=== PATIENT | female | born 1960 | race Caucasian/White ===

== ENCOUNTER 2021-09-15 08:33 | Outpatient (REF) | payer BC, SELFPAY ==
--- NOTE | ~2021-09-15 | XR_ITS ---
EXAMINATION: XR RIGHT ANKLE/FOOT CLINICAL INFORMATION: Charcot joint COMPARISON: None TECHNIQUE: AP, oblique views of the right ankle AP, oblique and lateral views of the right foot XR/XR ankle RT 2V FINDINGS/IMPRESSION: Status post subtalar arthrodesis and midfoot arthrodesis with 2 screws each within the mid foot and hindfoot. Again seen is collapse of the subtalar joint with destruction, disorganization and debris about the tibiotalar and subtalar articulations. There is dorsal subluxation of the navicular with respect to the talus. Tarsometatarsal articulations are intact. Diffuse soft tissue swelling. Stimulator device present within the lower leg with leads terminating along the anterolateral aspect of the fibular epiphysis. Healed fracture of the distal fibular diaphysis
--- NOTE | ~2021-09-15 | XR_ITS ---
EXAMINATION: XR RIGHT ANKLE/FOOT CLINICAL INFORMATION: Charcot joint COMPARISON: None TECHNIQUE: AP, oblique views of the right ankle AP, oblique and lateral views of the right foot XR/XR foot RT min 3V FINDINGS/IMPRESSION: Status post subtalar arthrodesis and midfoot arthrodesis with 2 screws each within the mid foot and hindfoot. Again seen is collapse of the subtalar joint with destruction, disorganization and debris about the tibiotalar and subtalar articulations. There is dorsal subluxation of the navicular with respect to the talus. Tarsometatarsal articulations are intact. Diffuse soft tissue swelling. Stimulator device present within the lower leg with leads terminating along the anterolateral aspect of the fibular epiphysis. Healed fracture of the distal fibular diaphysis
[2021-09-15 11:50] LABS: Hematocrit 34.5 % (37.0-47.0); Mean Corpuscular HGB Conc 31.9 g/dl (31.0-35.0); Mean Corpuscular Hemoglobin 29.8 pg (27.0-33.0); Mean Corpuscular Volume 93.5 fL (80.0-98.0); Mean Platelet Volume 10.3 fL (9.4-12.3); Platelet Count 325 X10*3/uL (160-400); Red Blood Count 3.69 X10*6/uL (4.20-5.50); Red Cell Distribution Width 12.5 % (11.0-16.0); White Blood Count 8.1 X10*3/uL (4.8-10.8)
[2021-09-15 11:51] LABS: Estimated Average Glucose 203 mg/dL; Hemoglobin A1c % 8.7 %
[2021-09-15 12:07] LABS: Alanine Aminotransferase 15 U/L (0-31); Albumin Level 4.1 g/dL (3.5-5.0); Alkaline Phosphatase 104 U/L (39-117); Anion Gap 13 (12-20); Aspartate Amino Transferase 17 U/L (5-31); Bilirubin Total 0.5 mg/dL (0.0-1.0); Blood Urea Nitrogen 26 mg/dL (9-16); Calcium 9.6 mg/dL (8.4-10.2); Carbon Dioxide 26 mmol/L (22-29); Chloride 98 mmol/L (96-108); Cholesterol 117 mg/dL; Estimated Glomerular Filt Rate 37; Glucose Fasting 177 mg/dL (60-99); HDL Cholesterol 48 mg/dL; LDL Cholesterol Calculated 54 mg/dl; Potassium 5.3 mmol/L (3.3-5.1); Sodium 132 mmol/L (135-145); Total Protein 7.6 g/dL (6.5-8.0); Triglycerides 77 mg/dL
[2021-09-15 12:16] LABS: TSH reflex Free T4 2.17 uIU/mL (0.32-4.0); Vitamin D 25-OH Total 23.9 ng/mL (>30)
[2021-09-15 12:26] LABS: Creatinine Urine 25.76 mg/dL; Microalbum/Creatinine Ratio Ur 364.9 ug/mg cr
== END 2021-09-15 08:34 | disposition home or self-care (01) ==
LOC: HO.HMGCLDS 08:33
PROVIDERS: Visit Provider Internal Medicine
DX: E11.319 Type 2 diabetes mellitus with unspecified diabetic retinopathy without macular edema (principal); M81.0 Age-related osteoporosis without current pathological fracture; N18.9 Chronic kidney disease, unspecified; M14.671 Charcot's joint, right ankle and foot
CPT/HCPCS: 36415; 73600; 73630; 80053; 80061; 82043; 82306; 83036; 84443; 85027

== ENCOUNTER 2021-10-01 06:52 | Outpatient (REF) | payer BC, SELFPAY ==
[2021-10-01 11:27] LABS: Anion Gap 11 (12-20); Blood Urea Nitrogen 27 mg/dL (9-16); Calcium 9.5 mg/dL (8.4-10.2); Carbon Dioxide 27 mmol/L (22-29); Chloride 105 mmol/L (96-108); Estimated Glomerular Filt Rate 39; Glucose Random 144 mg/dL (60-115); Sodium 138 mmol/L (135-145)
== END 2021-10-01 06:53 | disposition home or self-care (01) ==
LOC: HO.HMGCLDS 06:52
PROVIDERS: Visit Provider Internal Medicine
DX: E87.1 Hypo-osmolality and hyponatremia (principal)
CPT/HCPCS: 36415; 80048

== ENCOUNTER → 2021-11-26 13:41 | Outpatient (BNVA) | payer BC, SELFPAY | PROVIDERS: PCP Internal Medicine; Visit Provider Internal Medicine Endocrinology, Diabetes & Metabolism | DX: E10.319 Type 1 diabetes mellitus with unspecified diabetic retinopathy without macular edema (principal) | CPT/HCPCS: 82947 ==

== ENCOUNTER 2021-12-17 12:45 | Outpatient (REF) | payer BC, SELFPAY ==
--- NOTE | ~2021-12-17 | MM_ITS ---
EXAMINATION: BONE DENSITOMETRY CLINICAL INDICATION: Age-related osteoporosis without current pathological fracture. COMPARISON: This is the patient's baseline examination. TECHNIQUE: Using a [employer] DXA System (software version: 13.1) manufactured by [email or web address], dual-energy x-ray absorptiometry was performed of the lumbar spine and right hip. The patient has had a left hip fracture. The images are of good technical quality. Summary results are attached. FINDINGS: AP SPINE L1-L4: BMD 1.010 g/cm2, Z-score -0.8, T-score -1.4, osteopenia. RIGHT FEMUR, NECK: BMD 0.600 g/cm2, Z-score -2.3, T-score -3.1, osteoporosis. RIGHT FEMUR, TOTAL: BMD 0.596 g/cm2, Z-score -2.8, T-score -3.3, osteoporosis. IDENTIFIED RISK FACTORS: History of adult fracture. Osteoporosis. Renal disease. Height loss. Secondary osteoporosis (type 1 diabetes). Menopause. HISTORY OF FRACTURE: Femur/hip. Elbow. MEDICATIONS: Calcium supplement and/or multivitamin. Vitamin D. MM/XR DEXA axial skeleton IMPRESSION: 1. DIAGNOSIS: Severe osteoporosis based on the lowest T-score value of -3.3 in the total femur and the prior history of fracture applying World Health Organization criteria. 2. 10-YEAR FRACTURE RISK PREDICTION, FRAX: Major osteoporotic fracture (clinical spine, forearm, hip or shoulder) 25.7%. Hip fracture 8.0%. 3. Treatment Recommendations: NOF guidelines recommend consideration for treatment in postmenopausal women and men age 50 and older presenting with the following: -A hip or vertebral (clinical or morphometric) fracture. -T-score less than or equal to -2.5 at the femoral neck or spine after appropriate evaluation to exclude secondary causes. -Low bone mass at the hip or spine and a 10-year fracture probability by FRAX of greater than or equal to 3% for hip fracture or greater than or equal to 20% for major osteoporotic fracture based on the [place] adapted WHO algorithm. 4. Other Recommendations: All treatment decisions require clinical judgment and consideration of individual patient factors, including patient preferences, comorbidities, previous drug use, risk factors not captured in the FRAX model (e.g. frailty, falls, vitamin D deficiency, increased bone turnover, interval significant decline in bone density) and possible under or overestimation of fracture risk by FRAX. Additional medical evaluation for secondary cause of low bone mineral density may be appropriate. FUTURE SCAN RECOMMENDATION: People with diagnosed cases of osteoporosis or at high risk for fracture should have regular bone mineral density tests. For patients eligible for Medicare, routine testing is allowed once every 2 years. The testing frequency can be increased to one year for patients who have rapidly progressing disease, those who are receiving or discontinuing medical therapy to restore bone mass, or have additional risk factors.
== END 2021-12-17 12:46 | disposition home or self-care (01) ==
LOC: HO.MAMMO 12:45
PROVIDERS: Visit Provider Internal Medicine
DX: Z13.820 Encounter for screening for osteoporosis (principal); M81.0 Age-related osteoporosis without current pathological fracture; Z78.0 Asymptomatic menopausal state
CPT/HCPCS: 77080

== ENCOUNTER 2022-01-08 09:17 | Day surgery (SDC) | payer BC, SELFPAY ==
[2022-01-04 12:24] VITALS: BMI 33.7
--- NOTE | 2022-01-07 13:59 | P.CONAN_ITS ---
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 (Acute) DM (diabetes mellitus) type I controlled with eye manifestation (Acute) Hyponatremia (Acute) Vitamin D deficiency (Acute) Charcot arthropathy of midfoot (Acute) Osteoporosis (Acute) Abnormal colonoscopy (Acute) CKD (chronic kidney disease) (Acute) Past Medical History Medical History (Updated 11/18/21 @ 11:19 by Lizette Guillen PA-C) Abnormal colonoscopy Charcot arthropathy of midfoot CKD (chronic kidney disease) 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 DM (diabetes mellitus) type I controlled with eye manifestation Hyponatremia Osteoporosis Vitamin D deficiency Family History Family History Daughter Mental health disorder Surgical History Surgical History (Updated 01/04/22 @ 12:25 by Anita Melissa RN) H/O colonoscopy History of cholecystectomy History of hip surgery Hx of cataract surgery Social History Social History 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, 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 Housing: Apartment Patient Tobacco Use Status: Never used Tobacco e-Cigarette/Vaping Use: Never Used Use of substances other than those prescribed or required for medical reasons: No Are you DNR?: No Advance Directives: No Advance Directives Information Provided: Yes service: No Current occupational status: employed Cognitive needs: No Hearing needs: No Vision needs: No Meds Allergies Allergy/AdvReac Type Severity Reaction Status Date / Time ciprofloxacin [From Cipro] AdvReac Swelling Verified 11/26/21 13:55 prochlorperazine AdvReac Muscle Pain Verified 11/26/21 13:55 [From Compazine] Home Medications Medication Instructions Recorded Confirmed Last Taken Type atorvastatin 80 mg tablet 80 mg PO DAILY 09/15/21 01/04/22 Unknown History infusion set for insulin pump 09/15/21 09/15/21 Unknown History metoprolol succinate 25 mg 25 mg PO DAILY 09/15/21 01/04/22 Unknown History tablet,extended release 24 hr Exam Exam Date and Time: January 07, 2022 1359 Height,Weight and Vital Signs: Height 5 ft 4 in Weight 89.358 kg Pertinent Lab Results Pertinent Lab Results: Laboratory Tests 09/15/21 10/01/21 08:45 07:00 WBC 8.1 Hgb 11.0 L Hct 34.5 L Plt Count 325 Sodium 138 Potassium 5.0 Chloride 105 Carbon Dioxide 27 BUN 27 H Creatinine 1.38 Assessment and Plan Assessment Anesthesia Assessment: Chart Reviewed Documented by User: Mary Flaherty MD 01/08/22 10:16 [facility] Past Medical History Medical History (Updated 11/18/21 @ 11:19 by Lizette Guillen PA-C) Abnormal colonoscopy Charcot arthropathy of midfoot CKD (chronic kidney disease) 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 DM (diabetes mellitus) type I controlled with eye manifestation Hyponatremia Osteoporosis Vitamin D deficiency Family History Family History Daughter Mental health disorder Family history of problems with anesthesia: No Surgical History Surgical History (Updated 01/04/22 @ 12:25 by Anita Melissa RN) H/O colonoscopy History of cholecystectomy History of hip surgery Hx of cataract surgery History of Problems with Anesthesia: No Social History 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 History 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, 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 Housing: Apartment Patient Tobacco Use Status: Never used Tobacco e-Cigarette/Vaping Use: Never Used Use of substances other than those prescribed or required for medical reasons: No Are you DNR?: No Advance Directives: No Advance Directives Information Provided: Yes service: No Current occupational status: employed Cognitive needs: No Hearing needs: No Vision needs: No Meds Allergies Allergy/AdvReac Type Severity Reaction Status Date / Time ciprofloxacin [From Cipro] AdvReac Swelling Verified 11/26/21 13:55 prochlorperazine AdvReac Muscle Pain Verified 11/26/21 13:55 [From Compazine] Home Medications Medication Instructions Recorded Confirmed Last Taken Type atorvastatin 80 mg tablet 80 mg PO DAILY 09/15/21 01/04/22 Unknown History infusion set for insulin pump 09/15/21 09/15/21 Unknown History metoprolol succinate 25 mg 25 mg PO DAILY 09/15/21 01/04/22 Unknown History tablet,extended release 24 hr Exam Height,Weight and Vital Signs: Height 5 ft 4 in Weight 89.358 kg Vital Signs Temp Pulse Resp BP Pulse Ox O2 Del Method 01/08/22 09:42 97.0 F 74 18 134/55 L 97 Room Air Narrative Narrative: POC 235mg/dl Airway Mallampati Class: II (Small mouth opening) TM Dist: >3cm Neck ROM: Full Loose/Missing/Broken Teeth: Yes (1 Broken bottom right and 1 broken bottom left. Some missing ) Heart: RRR Lungs: CTAB. Diminished Assessment and Plan Assessment Anesthesia Assessment: Anesthesia Plan Discussed Final Anesthetic Review Family History of Problems with Anesthesia: No History of Problems with Anesthesia: No NPO: Yes ASA Class: III Final Preanesthetic Review: No Changes in Pt Med Stat, Meds/Allgs Chart Reviewed, Consent Obtained/Reviewed and Anes Risks/Benef Reviewed Patient Risk: Intermediate Procedure Risk: Low Assessment/Block/Sedation in SS: Assess/Block/Sedation-SS Anesthetic Plan Anesthetic Plan: MAC: Disposition: Standard PACU
[2022-01-08 09:42] VITALS: BP 134/55; PULSE 74; RESP 18; TEMP 36.1; O2SAT 97
[2022-01-08] MEDS: Lactated Ringers 1,000 ML 100 ML IVCONT (09:49)
--- NOTE | 2022-01-08 09:52 | MHC.SHP ---
Pre-Procedural Eval Section A Date of Service: 01/08/22 The patient is an INPATIENT: No The History & Physical has been completed within 30 days and I have reviewed it.: No Section B Chief Complaint: abnormal finding Relevant Family History (Specify if Yes): No Relevant Social History: None Present Medications: see Short Stay Collaborative assessment Medical History: Significant History (Type 1 diabetes mellitus, gastroparesis) History of Previous Operations: Relevant previous surgery/procedure and date(s) (History of cholecystectomy History of hip surgery Hx of cataract surgery) Allergies: Allergies Allergy/AdvReac Type Severity Reaction Status Date / Time ciprofloxacin [From Cipro] AdvReac Swelling Verified 11/26/21 13:55 prochlorperazine AdvReac Muscle Pain Verified 11/26/21 13:55 [From Compazine] Review of Systems Sugical H&P ROS: Negative: Constitution, Cardiovascular, Respiratory and Gastrointestinal Exam Surgical H&P Exam: Normal: Heart, Normal: Lungs, Normal: Extremities and Normal: Abdomen Plan Diagnosis/Plan: Unchanged I have reviewed the history and physical and performed a pertinent physical examination on my patient. No changes have occurred unless specified.
--- NOTE | 2022-01-08 10:34 | PM.OP ---
Brief Operative Note Date of Service: 01/08/22 Pre-op diagnosis: Colon cancer screen, history of colon polyps Post-op diagnosis: other (Colon polyps, diverticulosis) Procedure: COLONOSCOPY TILL CECUM WITH BIOPSIES AND SNARE POLYPECTOMY Consent: Indications for the procedure and potential complications of bleeding, perforation, reaction to medications and missed diagnosis were discussed with the patient and informed consent was obtained. Instrument: Olympus PCF H 190 L variable stiffness pediatric colonoscope Monitoring: Vital signs and clinical assessment, intermittent blood pressure monitoring, continuous EKG monitoring, Pulse oximetry and Carbon Dioxide monitoring were done throughout the procedure. Colon withdrawl time was 20 minutes. Procedure: The patient was placed in the left lateral decubitis position and pre-procedure medications were administered. After a digital rectal examination of the ano-rectum, the video colonoscope was inserted into the rectum and advanced through the colon to the cecum. The colonoscope was slowly withdrawn in a retrograde panoramic fashion and the colon mucosa was carefully examined including a retroflexed view of the rectum. Findings and interventions are described below. Procedure Difficulty: Colon was long and tortuous and there was recurrent loop formation. LLQ pressure applied to intubate the transverse colon/cecum Findings: Terminal Ileum: Not evaluated Cecum: A 6-7 mm sessile polyp removed with a cold snare Ascending Colon: Normal Transverse Colon: Two 10-12 mm diminutive appearing polyp removed with a cold snare and a cold biopsy Descending Colon: Normal Sigmoid Colon: Moderate diverticulosis Rectum: Normal Ano-rectum: Normal Colon preparation: Excellent Impression and Post Procedure Diagnosis: Colonoscopy Findings: Three small to medium sized polyps removed Moderate diverticulosis seen in the sigmoid colon Plan: Await pathology results Patient has an appointment on 01/21/22 in the GI Clinic with HENRIQUE Law . Repeat Colonoscopy interval based on path results - in 3-5 years if polyps are adenomatous and 10 years if polyps are hyperplastic (needs adult colonoscope for future colonoscopies) Above findings were reviewed with the patient and colon polyps and diverticulosis handouts were given in the discharge area Surgeon: Vani Abel MD Anesthesia: MAC Was an Director Of Music Therapy used for this Procedure?: Yes Director Of Music Therapy: Socorro rBown Estimated blood loss (mL): 0 Pathology: other (A: cecal polyp B:transverse colon polyp) Condition: stable Disposition: PACU
--- NOTE | 2022-01-08 11:15 | P.OP_ITS ---
Operative Note Operative Note Date of Service: 01/08/22 Narrative: Pre-op diagnosis: Colon cancer screen, history of colon polyps Post-op diagnosis:?other (Colon polyps, diverticulosis) Procedure: COLONOSCOPY TILL CECUM WITH BIOPSIES AND SNARE POLYPECTOMY Consent: Indications for the procedure and potential complications of bleeding, perforation, reaction to medications and missed diagnosis were discussed with the patient and informed consent was obtained. Instrument: Olympus PCF H 190 L variable stiffness pediatric colonoscope Monitoring: Vital signs and clinical assessment, intermittent blood pressure monitoring, continuous EKG monitoring, Pulse oximetry and Carbon Dioxide monitoring were done throughout the procedure. Colon withdrawl time was 20 minutes. Procedure: The patient was placed in the left lateral decubitis position and pre-procedure medications were administered. After a digital rectal examination of the ano-rectum, the video colonoscope was inserted into the rectum and advanced through the colon to the cecum. The colonoscope was slowly withdrawn in a retrograde panoramic fashion and the colon mucosa was carefully examined including a retroflexed view of the rectum. Findings and interventions are described below. Procedure Difficulty: Colon was long and tortuous and there was recurrent loop formation.? LLQ pressure applied to intubate the transverse colon/cecum Findings: Terminal Ileum: Not evaluated Cecum:? A 6-7 mm sessile polyp removed with a cold snare Ascending Colon:? Normal Transverse Colon:? Two 10-12 mm diminutive appearing polyp removed with a cold snare and a cold biopsy Descending Colon:? Normal Sigmoid Colon:? Moderate diverticulosis Rectum:? Normal Ano-rectum:? Normal Colon preparation: Excellent ? Impression and Post Procedure Diagnosis: Colonoscopy Findings: Three small to medium sized polyps removed Moderate diverticulosis seen in the sigmoid colon Plan: Await pathology results Patient has an appointment on 01/21/22 in the GI Clinic with HENRIQUE Law ? . Repeat Colonoscopy interval based on path results - in 3-5 years if polyps are adenomatous and 10 years if polyps are hyperplastic (needs adult colonoscope for future colonoscopies) Above findings were reviewed with the patient and colon polyps and diverticulosis handouts were given in the discharge area Surgeon: Vani Abel MD Anesthesia:?MAC Was an Generator Assembler used for this Procedure?:?Yes Generator Assembler:?Socorro Brown Estimated blood loss (mL):?0 Pathology:?other (A: cecal polyp? B:transverse colon polyp) Condition:?stable Disposition:?PACU
[2022-01-08 11:17] VITALS: BP 87/41; PULSE 71; RESP 16; TEMP 36.7; O2SAT 96
[2022-01-08 11:32] VITALS: BP 109/53; PULSE 71; RESP 18; TEMP 36.7; O2SAT 100
== END 2022-01-08 12:15 | disposition home or self-care (01) ==
PROVIDERS: PCP Internal Medicine; Visit Provider Internal Medicine Gastroenterology
PROC: 0DJD8ZZ Inspection of Lower Intestinal Tract, Via Natural or Artificial Opening Endoscopic (ICD-10-PCS; CPT 45378; principal; 2022-01-08 10:00)
DX: Z12.11 Encounter for screening for malignant neoplasm of colon (principal); Z86.010 Personal history of colon polyps; D12.0 Benign neoplasm of cecum; K63.5 Polyp of colon; K57.30 Diverticulosis of large intestine without perforation or abscess without bleeding; K31.84 Gastroparesis; E10.22 Type 1 diabetes mellitus with diabetic chronic kidney disease; N18.9 Chronic kidney disease, unspecified; E10.319 Type 1 diabetes mellitus with unspecified diabetic retinopathy without macular edema; E87.1 Hypo-osmolality and hyponatremia; M14.672 Charcot's joint, left ankle and foot; M14.671 Charcot's joint, right ankle and foot; E55.9 Vitamin D deficiency, unspecified; M81.0 Age-related osteoporosis without current pathological fracture; Z96.41 Presence of insulin pump (external) (internal); Z79.4 Long term (current) use of insulin; Z79.899 Other long term (current) drug therapy; Z88.1 Allergy status to other antibiotic agents; Z88.8 Allergy status to other drugs, medicaments and biological substances; Z90.49 Acquired absence of other specified parts of digestive tract; Z98.890 Other specified postprocedural states
CPT/HCPCS: 45385; 45380; 88305; J2405; J2765

== ENCOUNTER → 2022-01-12 10:00 | Outpatient (BNVA) | payer BC, SELFPAY | PROVIDERS: PCP Internal Medicine; Visit Provider Dietitian, Registered | DX: E10.319 Type 1 diabetes mellitus with unspecified diabetic retinopathy without macular edema (principal) | CPT/HCPCS: 97802 ==

== ENCOUNTER → 2022-02-26 15:29 | Outpatient (BNVA) | payer BC, SELFPAY | PROVIDERS: PCP Internal Medicine; Visit Provider Internal Medicine Endocrinology, Diabetes & Metabolism | DX: Z46.81 Encounter for fitting and adjustment of insulin pump (principal); E10.319 Type 1 diabetes mellitus with unspecified diabetic retinopathy without macular edema; Z79.4 Long term (current) use of insulin | CPT/HCPCS: 82947; 83036 ==

== ENCOUNTER 2022-03-08 14:35 | Outpatient (REF) | payer BC, SELFPAY ==
--- NOTE | ~2022-03-08 | XR_ITS ---
EXAMINATION: XR TIBIA AND FIBULA, RIGHT CLINICAL INFORMATION: Stress fracture pain COMPARISON: 09/15/2021 TECHNIQUE: AP and lateral views of the right tibia and fibula were obtained. FINDINGS: Stimulator device overlies the posterior aspect of the mid tibia fibula. The underlying tibia and fibula show no acute findings. There is an old distal fibular fracture with callus formation. Chronic erosive and destructive changes at the tibiotalar joint with surgical hardware securing the hindfoot and midfoot again partially observed. XR/XR tibia fibula RT 2V IMPRESSION: No acute findings.
== END 2022-03-08 14:36 | disposition home or self-care (01) ==
LOC: HO.HMGCX 14:35
PROVIDERS: PCP Internal Medicine; Visit Provider Internal Medicine
DX: M84.371A Stress fracture, right ankle, initial encounter for fracture (principal); X58.XXXA Exposure to other specified factors, initial encounter; Y93.9 Activity, unspecified; Y92.9 Unspecified place or not applicable; Y99.9 Unspecified external cause status
CPT/HCPCS: 73590

== ENCOUNTER → 2022-05-27 12:57 | Outpatient (BNVA) | payer BC, SELFPAY | PROVIDERS: PCP Internal Medicine; Visit Provider Internal Medicine Endocrinology, Diabetes & Metabolism | DX: E10.22 Type 1 diabetes mellitus with diabetic chronic kidney disease (principal); E10.42 Type 1 diabetes mellitus with diabetic polyneuropathy; E10.21 Type 1 diabetes mellitus with diabetic nephropathy; E10.3593 Type 1 diabetes mellitus with proliferative diabetic retinopathy without macular edema, bilateral; N18.9 Chronic kidney disease, unspecified; I50.9 Heart failure, unspecified; E78.5 Hyperlipidemia, unspecified; Z96.41 Presence of insulin pump (external) (internal); Z79.4 Long term (current) use of insulin; Z79.899 Other long term (current) drug therapy | CPT/HCPCS: 82947; 83036 ==

== ENCOUNTER → 2022-05-28 13:51 | Outpatient (BNVA) | payer BC, SELFPAY | PROVIDERS: PCP Internal Medicine; Visit Provider Registered Nurse Diabetes Educator | DX: E10.319 Type 1 diabetes mellitus with unspecified diabetic retinopathy without macular edema (principal) ==

== ENCOUNTER → 2022-09-14 08:53 | Outpatient (BNVA) | payer BC, SELFPAY | PROVIDERS: PCP Internal Medicine; Visit Provider Internal Medicine Endocrinology, Diabetes & Metabolism | DX: E10.319 Type 1 diabetes mellitus with unspecified diabetic retinopathy without macular edema (principal); Z79.4 Long term (current) use of insulin | CPT/HCPCS: 82947; 83036 ==

== ENCOUNTER 2022-11-05 13:51 | Outpatient (REF) | payer BC, SELFPAY ==
--- NOTE | ~2022-11-05 | US_ITS ---
EXAMINATION: US RETROPERITONEAL LIMITED (RENAL ONLY) CLINICAL INFORMATION: Chronic kidney disease. COMPARISON: None available. TECHNIQUE: Grayscale and color imaging of the kidneys FINDINGS: RIGHT KIDNEY: 9.3 x 4.8 x 4.8 cm (SAG x AP x TRV). The kidney is normal in size, contour, and echogenicity. Question renal cortical thinning. No calculi or focal parenchymal lesions. No hydronephrosis. LEFT KIDNEY: 11.3 x 5.3 x 5.6 cm (SAG x AP x TRV). The kidney is normal in size, contour, and echogenicity. Question renal cortical thinning. No calculi or focal parenchymal lesions. No hydronephrosis. US/US renal BI IMPRESSION: The right kidney is smaller than the left and there is question of renal cortical thinning.
[2022-11-05 16:16] LABS: MANUAL DIFF FLAG NO
[2022-11-05 16:21] LABS: Basophils Absolute Auto 0.1 X10*3/uL (0.0-0.2); Eosinophils Absolute Auto 0.5 X10*3/uL (0.0-0.4); Eosinophils Percent Auto 5.6 % (0-4); Hematocrit 34.9 % (37.0-47.0); Hemoglobin 11.1 g/dl (12.0-16.0); Imm Gran Abs Auto 0.02 X10*3/uL (0.00-0.03); Imm Gran Pct Auto 0.2 % (0.0-0.4); Lymphocytes Absolute Auto 2.8 X10*3/uL (1.2-4.9); Mean Corpuscular HGB Conc 31.8 g/dl (31.0-35.0); Mean Corpuscular Hemoglobin 29.7 pg (27.0-33.0); Mean Corpuscular Volume 93.3 fL (80.0-98.0); Mean Platelet Volume 10.2 fL (9.4-12.3); Monocytes Absolute Auto 0.6 X10*3/uL (0.1-1.2); Monocytes Percent Auto 7.6 % (2-11); Neutrophils Absolute Auto 4.1 x10*3/uL (2.0-8.3); Neutrophils Percent Auto 50.6 % (45-73); Platelet Count 278 X10*3/uL (160-400); Red Blood Count 3.74 X10*6/uL (4.20-5.50); Red Cell Distribution Width 13.7 % (11.0-16.0)
[2022-11-05 16:30] LABS: Anion Gap 12 (12-20); Blood Urea Nitrogen 21 mg/dL (9-16); Carbon Dioxide 28 mmol/L (22-29); Chloride 104 mmol/L (96-108); Estimated Glomerular Filt Rate 46; Glucose Random 185 mg/dL (60-115); Potassium 4.5 mmol/L (3.3-5.1); Sodium 139 mmol/L (135-145)
[2022-11-05 16:45] LABS: Creatinine Urine 64.03 mg/dL; Protein/Creatinine Ratio, Ur 0.27 (<0.2); Total Protein Urine Random 17 mg/dL (<12)
== END 2022-11-05 13:52 | disposition home or self-care (01) ==
LOC: HO.HMGCX 13:51
PROVIDERS: PCP Internal Medicine; Visit Provider Internal Medicine Hypertension Specialist
DX: N18.30 Chronic kidney disease, stage 3 unspecified (principal)
CPT/HCPCS: 36415; 76775; 80048; 84156; 85025

== ENCOUNTER 2022-12-29 09:35 | Outpatient (REF) | payer BC, SELFPAY ==
[2022-12-29 12:25] LABS: Cholesterol 113 mg/dL; HDL Cholesterol 50 mg/dL; LDL Cholesterol Calculated 54 mg/dl; Triglycerides 46 mg/dL
== END 2022-12-29 09:36 | disposition home or self-care (01) ==
LOC: HO.HMGCLDS 09:35
PROVIDERS: PCP Internal Medicine; Visit Provider Internal Medicine Endocrinology, Diabetes & Metabolism
DX: E10.319 Type 1 diabetes mellitus with unspecified diabetic retinopathy without macular edema (principal)
CPT/HCPCS: 36415; 80061

== ENCOUNTER 2022-12-30 15:25 | Outpatient (AMB) | payer BC, SELFPAY ==
--- NOTE | 2022-12-30 15:28 | MHC.OFFVIS ---
Intake Vital Signs 12/30/22 15:34 Height 5 ft 4 in BP 112/82 Blood Pressure Location Rt brachial Position Sitting Pulse 72 Intake Visit Reasons: F/up Type 2 DM Intake Note: Patient present today to follow up on Type 1 Diabetes Mellitus. Patient receives omnipdod through pill pack. Patient receives dexcom through [employer] Last Diabetic Eye exam: Last Podiatry Visit: Random Glucose: 122mg/dl HgA1C: 6.3 Drawer Waxer Required: No Accompanied by: Self / Same As Patient Allergies ciprofloxacin [From Cipro] Adverse Reaction (Verified 12/30/22 15:35) Swelling prochlorperazine [From Compazine] Adverse Reaction (Verified 12/30/22 15:35) Muscle Pain HPI HPI Comments History of Present Illness Details 62 YO F with is seen in consultation for T1DM at the request of PCP. Initially diagnosed with T1DM in age 28 when presented with DKA. Was initially started on treatment with insulin. If On Pump/Sensor: Use the Omnipod 5 with Spongecellstyle Comfort sensor Basal rate(s) (units/hour) : 12 A to 7 A = 0.6 7 {AM}? to12 {PM}?0.65 units / hr 12{/PM}? to 6 {PM}?0.6 units / hr 6 PM to 9PM 0.75 u/hr 9 PM to MN 0.70 u/hr Bolus setting Insulin Carbohydrate Ratio (s) 1:14 Correction Factor / Sensitivity Factor 75 Active Insulin Time:? hours Target(s): {AM/PM}? to {AM/PM} - ???90 to 140 ??? Autoemote is use 92% of the time. Manual motor 8%. Total daily dose is 23 units with 66% basal and 34% bolus. Review of sensor data shows average glucose to be 171 with G mi of 7.4%. CGM S is active 91.1%. 64% glucose is in target range with 36% hyperglycemia and no hypoglycemia Patient understands the basic concepts of pump therapy, how to give insulin for meals and snacks, how to troubleshoot for hyper and hypoglycemia. Reports low sugars 2 episodes /mo. Treats lows with gluose tabs . Checks sugar after to ensure it is rising. Follows the rule of 15's. No Family history of autoimmunity Has eyes checked yearly, last eye exam in 2 wks , has retinopathy has laser . Has neuropathy, last foot exam , sees next mo podiatry. Has CKD nephropathy, Not on CAITLIN/ARB. Has HLD, on statin. Denies history of CAD.Has CHF Had diabetes education. Diet/Carb counting: Y Denies recent prior episodes of DKA. Has prior severe episodes of hypoglycemia requiring help or hospitalization. 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 Absence of acromegalic features. Neck exam reveals nl size thyroid about 15 gms. No thyroid nodules palpable. No carotid bruits present. Lungs CTA. Heart S1 S2, Reg R/R. No M/R/ G. Skin exam reveals absence of vitiligo or acanthosis nigricans. Abdominal exam reveals Soft NT/ND with NA BS. No organomegaly present. Extrem Other: Visual exam of foot performed. No ulcerations or open lesions. No onchomycosis, no callouses.Pulses 2 + distally. Sensation intact to monofilament exam. Vibratory sensation sensed decreased in left and right with 128 Hz tuning fork. The left ankle is swollen and casted. 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 Plan is to continue current therapy . 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
[2022-12-30 15:34] VITALS: BP 112/82; PULSE 72
[2022-12-30 15:46] LABS: Glucose, Whole Blood 122 mg/dL (60-115)
== END 2022-12-30 16:07 | disposition home or self-care (01) ==
PROVIDERS: PCP Internal Medicine; Visit Provider Internal Medicine Endocrinology, Diabetes & Metabolism
DX: E10.319 Type 1 diabetes mellitus with unspecified diabetic retinopathy without macular edema (principal)
CPT/HCPCS: 99214

== ENCOUNTER → 2022-12-30 15:25 | Outpatient (BNVA) | payer BC, SELFPAY | PROVIDERS: Visit Provider Internal Medicine Endocrinology, Diabetes & Metabolism | DX: E10.22 Type 1 diabetes mellitus with diabetic chronic kidney disease (principal); E10.610 Type 1 diabetes mellitus with diabetic neuropathic arthropathy; E10.319 Type 1 diabetes mellitus with unspecified diabetic retinopathy without macular edema; E10.39 Type 1 diabetes mellitus with other diabetic ophthalmic complication; N18.9 Chronic kidney disease, unspecified; Z96.41 Presence of insulin pump (external) (internal); Z79.4 Long term (current) use of insulin | CPT/HCPCS: 82947 ==

== ENCOUNTER 2022-12-31 11:30 | Outpatient (AMB) | payer BC, SELFPAY ==
[2022-12-31 11:57] VITALS: BP 128/76; PULSE 73; O2SAT 99; BMI 34.7
--- NOTE | 2022-12-31 11:57 | A.OFFPC_ITS ---
Vital Signs 12/31/22 11:57 Height 5 ft 4 in Weight 202 lb BMI 34.7 BP 128/76 Blood Pressure Location Rt brachial Position Sitting Pulse 73 Pulse Source Pulse Oximeter Pulse Oximetry (%) 99 Oxygen Delivery Method Room Air Intake Visit Reasons: Annual PE Allergies ciprofloxacin [From Cipro] Adverse Reaction (Verified 12/31/22 11:59) Swelling prochlorperazine [From Compazine] Adverse Reaction (Verified 12/31/22 11:59) Muscle Pain Medication List - Last Reconciled 12/31/22 by Miriam Glass MD atorvastatin 80 mg PO DAILY azelastine 137 mcg (0.137 mL) intranasal BID blood sugar diagnostic (Contour Next Test Strips) As directed-tests 4 X/day blood-glucose meter,continuous (Dexcom G6 Electronic Installer) As directed blood-glucose sensor (GradeFund G6 Sensor device) USE DIRECTED blood-glucose transmitter (Dexcom G6 Transmitter device) As directed cholecalciferol (vitamin D3) 50 mcg PO DAILY glucagon 3 mg/actuation (Baqsimi) 3 mg intranasal ONCE Humalog U-100 Insulin (insulin lispro) 50 units (0.5 mL) subcut DAILY NS infusion set for insulin pump As directed: Humalog insulin pump cart,auto,BT-cntr (Omnipod 5 G6 Intro Kit (Gen 5) subcutaneous cartridge with controller) As directed insulin pump cart,automated,BT (Omnipod 5 G6 Pods (Gen 5) subcutaneous cartridge) Change pod every 72 hours metoprolol succinate ER 25 mg PO DAILY olmesartan 5 mg PO DAILY Tobacco use date assessed: 12/31/22 Dental Screening Dental Screen Date: 12/31/22 Did you have a dental visit in the last 12 months?: No Did you have a dental problem in the last 6 months where you did not have access to dental care?: No Was dental information given to patient?: No HPI Annual PE HPI Details Patient presents for a physical. She follows up with endocrinology for type 1 diabetes since age of 28, controlled on insulin pump. Patient follows up with customer support advisor for chronic kidney disease diabetic nephropathy. Patient moved from [place] 2 years ago but there are no records available yet. According to Nephrology note she tried ACEI but developed hyperkalemia. She was evaluated by Cardiology in [place] and was started on metoprolol 2 years ago for palpitations. Patient had a stress test about 3 years ago in [place] but no results are available. She complains of chronic right ankle pain and deformity was diagnosed with Charcot's joint and has been wearing ankle brace. Patient follows up with orthopedic surgeon at [facility]. 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,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, 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 Housing: Apartment Alcohol intake: current Alcohol intake frequency: holidays/special occasions only Patient Tobacco Use Status: Never used Tobacco e-Cigarette/Vaping Use: Never Used service: No Current occupational status: employed Cognitive needs: No Hearing needs: No Vision needs: No Questionnaire Thrive Questionnaire Date Thrive assessed: 09/15/21 I am a: Patient What is your living situation today?: I have a steady place to live Within the past 12 months, did the food you bought not last and you didn't have the money to get more?: Never true Within the past 12 months, did you worry whether your food would run out before you got money to buy more?: Never true AUDIT C Alcohol Use Questionnaire (AUDIT-C) 1. How often do you have a drink containing alcohol?: Monthly or less 2. How many drinks containing alcohol do you have on a typical day when you are drinking?: 1 or 2 3. How often do you have six or more drinks on one occasion?: Never Total Score: 1 TARA-7 AMB Questionnaire TARA-7 Date TARA - 7 assessed: 09/15/21 Feeling nervous, anxious, or on edge: 0 = Not at all Not being able to stop or control worryin = Not at all Worrying too much about different things: 1 = Several days Trouble relaxin = Not at all Being so restless that it is hard to sit still: 0 = Not at all Becoming easily annoyed or irritable: 0 = Not at all Feeling afraid as if something awful might happen: 1 = Several days Total TARA-7 score (0-4 normal; 5-9 mild; 10-14 moderate; 15-21 severe): 2 Source: Developed by Drs. Shan Robertson, Kim Meléndez, Howard Garcia and colleagues, with an educational bhargav from [employer]. Review of Systems Const All systems reviewed & are unremarkable except as noted in HPI and below Reports no additional complaints Eyes Reports no additional complaints ENT Reports no additional complaints Card Reports no additional complaints Resp Reports no additional complaints GI Reports no additional complaints Reports no additional complaints Physical exam (Primary Care) Vital Signs: Last Vital Signs Pulse 73 12/31/22 11:57 BP 128/76 12/31/22 11:57 Pulse Ox 99 12/31/22 11:57 Oxygen Delivery Method Room Air 12/31/22 11:57 BMI result Body Mass Index 34.7 Tobacco/Smoking Status: Tobacco use Status Tobacco use date assessed 12/31/22 12/31/22 12:01 Patient Tobacco Use Status Never used Tobacco 12/31/22 12:01 e-Cigarette/Vaping Use Never Used 12/31/22 12:01 Thrive Assessment: Date of Thrive Assessment Date Thrive assessed 09/15/21 12/31/22 12:01 Const General: no acute distress HENMT Head: Yes normal to inspection General nose exam: Normal external nose present Face and sinus: Yes normal facial exam Eyes General: appearance normal, both eyes and all related structures Neck Neck: Yes supple Resp Effort & Inspection: normal respiratory effort Auscultation: clear to auscultation bilaterally Cardio Rhythm: regular rhythm Heart sounds: S1 normal heart sound present and S2 normal heart sound present GI Inspection: Yes normal to inspection Palpation (GI): Soft to palpation Percussion: Yes normal to percussion Auscultation: normal bowel sounds Extrem Other: R ankle in brace Assessment and Plan Assessment & Plan (1) 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0 - Palmar fascial fibromatosis [Dupuytren] Plan: refer to hand surgeon (5) Charcot arthropathy of midfoot: Comment: R >L, wears R ankle brace Code(s): M14.679 - Charcot's joint, unspecified ankle and foot Plan: f/u with ortho (6) Anemia: Code(s): D64.9 - Anemia, unspecified Plan: check Iron/vit B12 Orders: Orders CA echo transthoracic complete Today E10.319 - Type 1 diabetes mellitus with unspecified diabetic retinopathy without macular edema, E10.39 - Type 1 diabetes mellitus with other diabetic ophthalmic complication, N18.9 - Chronic kidney disease, unspecified, R06.09 - Other forms of dyspnea Basic Metabolic Panel 1 Week E10.39 - Type 1 diabetes mellitus with other diabetic ophthalmic complication, R06.09 - Other forms of dyspnea TSH reflex Free T4 1 Week E10.39 - Type 1 diabetes mellitus with other diabetic ophthalmic complication, R06.09 - Other forms of dyspnea US abdomen irene w elastography Today R10.9 - Unspecified abdominal pain Complete Blood Count Auto Diff 1 Week D64.9 - Anemia, unspecified IRON PROFILE 1 Week D64.9 - Anemia, unspecified Vitamin B12 and Folate 1 Week D64.9 - Anemia, unspecified Referrals Podiatry Referral E10.319 - Type 1 diabetes mellitus with unspecified diabetic retinopathy without macular edema Hand Surgery Referral M72.0 - Palmar fascial fibromatosis [Dupuytren] Medications: New olmesartan 5 mg PO DAILY 30 tabs 0RF olmesartan 2.5 mg (1/2 x 5 mg) PO DAILY 30 tabs 0RF Coding Level of Care Code Est Pt Prev Care 40-64y(63230) Diagnoses 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
== END 2022-12-31 15:19 | disposition home or self-care (01) ==
PROVIDERS: PCP Internal Medicine; Visit Provider Internal Medicine
DX: Z00.00 Encounter for general adult medical examination without abnormal findings (principal); E10.319 Type 1 diabetes mellitus with unspecified diabetic retinopathy without macular edema; N18.9 Chronic kidney disease, unspecified; R06.09 Other forms of dyspnea; M72.0 Palmar fascial fibromatosis [Dupuytren]; M14.679 Charcot's joint, unspecified ankle and foot; D64.9 Anemia, unspecified
CPT/HCPCS: 99396

== ENCOUNTER 2023-01-19 09:34 | Outpatient (REF) | payer BC, SELFPAY ==
[2023-01-19 11:15] LABS: MANUAL DIFF FLAG NO
[2023-01-19 11:43] LABS: Basophils Absolute Auto 0.1 X10*3/uL (0.0-0.2); Eosinophils Absolute Auto 0.5 X10*3/uL (0.0-0.4); Eosinophils Percent Auto 8.2 % (0-4); Hematocrit 35.3 % (37.0-47.0); Hemoglobin 11.3 g/dl (12.0-16.0); Imm Gran Abs Auto 0.01 X10*3/uL (0.00-0.03); Imm Gran Pct Auto 0.2 % (0.0-0.4); Lymphocytes Absolute Auto 2.4 X10*3/uL (1.2-4.9); Lymphocytes Percent Auto 40.7 % (20-40); Mean Corpuscular Hemoglobin 29.7 pg (27.0-33.0); Mean Corpuscular Volume 92.9 fL (80.0-98.0); Mean Platelet Volume 10.7 fL (9.4-12.3); Monocytes Absolute Auto 0.4 X10*3/uL (0.1-1.2); Monocytes Percent Auto 6.6 % (2-11); Neutrophils Absolute Auto 2.6 x10*3/uL (2.0-8.3); Neutrophils Percent Auto 43.3 % (45-73); Platelet Count 266 X10*3/uL (160-400); Red Cell Distribution Width 13.2 % (11.0-16.0); White Blood Count 5.9 X10*3/uL (4.8-10.8)
[2023-01-19 12:08] LABS: Anion Gap 12 (12-20); Blood Urea Nitrogen 23 mg/dL (9-16); Calcium 9.2 mg/dL (8.4-10.2); Carbon Dioxide 25 mmol/L (22-29); Chloride 107 mmol/L (96-108); Estimated Glomerular Filt Rate 50; Glucose Random 119 mg/dL (60-115); Iron 84 mcg/dL (30-160); Percent Iron Saturation 41 % (15-50); Potassium 4.8 mmol/L (3.3-5.1); Sodium 139 mmol/L (135-145); Total Iron Binding Capacity 205 mcg/dL (228-428); Unsaturated Iron Binding 121 ug/dL
[2023-01-19 12:35] LABS: TSH reflex Free T4 1.79 uIU/mL (0.32-4.0)
[2023-01-19 12:45] LABS: Folate 7.6 ng/mL (> or = 4.0); Vitamin B12 666 pg/mL (200-900)
== END 2023-01-19 09:35 | disposition home or self-care (01) ==
LOC: HO.HMGCLDS 09:34
PROVIDERS: PCP Internal Medicine; Visit Provider Internal Medicine
DX: D64.9 Anemia, unspecified (principal); E10.39 Type 1 diabetes mellitus with other diabetic ophthalmic complication; R06.09 Other forms of dyspnea
CPT/HCPCS: 36415; 80048; 82607; 82746; 83540; 84443; 85025

== ENCOUNTER 2023-02-10 08:30 | Outpatient (REF) | payer BC, SELFPAY ==
--- NOTE | ~2023-02-10 | US_ITS ---
EXAMINATION: US ABDOMEN LIMITED WITH LIVER ELASTOGRAPHY CLINICAL INFORMATION: Right upper quadrant pain. COMPARISON: None available. TECHNIQUE: Real-time imaging of the abdominal viscera. Noninvasive ultrasound liver fibrosis assessment is performed using Kelsy ElastPQ point quantification shear wave elastography (2D-SWE) with a C5-2 MHz transducer. Multiple elastography samples are obtained. FINDINGS: PANCREAS: Normal. The visualized pancreatic head and body are normal in appearance. The remainder of the pancreas is obscured from visualization by the overlying bowel gas. LIVER: Normal. The liver demonstrates normal size, contour and echogenicity. No focal lesion or intrahepatic biliary duct dilatation. The right lobe measures 14.0 cm in length. The left lobe measures 8.9 cm in length. Portal flow is towards the liver (hepatopetal). Shear wave liver elastography median stiffness is 1.61 m/s (reference: normal median stiffness is 1.3 m/s or less). IQR/median stiffness to assess sampling precision is 0.05 (reference: good quality data set is IQR/median stiffness of 0.15 or less). GALLBLADDER: Normal. The gallbladder is physiologically distended without evidence of stones, sludge, polyps, wall thickening or pericholecystic fluid. COMMON BILE DUCT: Normal in caliber measuring 0.5 cm in diameter. RIGHT KIDNEY: Normal. No hydronephrosis. No renal calculi or focal parenchymal lesions. The kidney measures 8.0 cm in maximum dimension. A 1.2 cm benign, simple parapelvic cyst is incidentally noted, which requires no imaging follow-up. FREE FLUID: None. US/US abdomen irene w elastography IMPRESSION: Liver elastography: In the absence of other known clinical signs, measurements rule out compensated advanced chronic liver disease. If there are known clinical signs, further testing may be needed for confirmation. REFERENCE: Society of Radiologists in Ultrasound Liver Stiffness Thresholds (2020): LIVER STIFFNESS THRESHOLDS: *Liver Stiffness equal or less than 1.3 m/s: High probability of being normal. *Liver Stiffness less than 1.7 m/s: In the absence of other known clinical signs, rules out compensated advanced chronic liver disease. *Liver Stiffness 1.7-2.1 m/s: Suggestive of compensated advanced chronic liver disease but need further test for confirmation. *Liver Stiffness over 2.1 m/s: Rules in compensated advanced chronic liver disease. *Liver Stiffness over 2.4 m/s: Suggestive of clinically significant portal hypertension. QUALITY OF DATA SET: *IQR/Median value equal or less than 0.15 implies a quality data set. *IQR/Median value over 0.15 implies a poor quality data set. SIGNIFICANT CHANGE FROM PRIOR EXAM: Significant change if liver stiffness measurement is 10% or greater from prior exam. OTHER CONSIDERATIONS: The stage of liver fibrosis may be overestimated in the setting of acute hepatitis, liver inflammation, elevated liver function tests, hepatic vascular congestion, obstructive cholestasis, non-fasting state, and infiltrative diseases such as amyloidosis and lymphoma. In some patients with NAFLD, the liver stiffness thresholds for compensated advanced chronic liver disease may be lower. In causes other than viral hepatitis and NAFLD, liver stiffness thresholds are not well established.
== END 2023-02-10 08:31 | disposition home or self-care (01) ==
LOC: HO.US 08:30
PROVIDERS: PCP Internal Medicine; Visit Provider Internal Medicine
DX: R10.9 Unspecified abdominal pain (principal)
CPT/HCPCS: 76705; 76981

== ENCOUNTER 2023-04-18 09:19 | Outpatient (AMB) | payer BC, SELFPAY ==
[2023-04-18 09:20] VITALS: BP 132/66; PULSE 80; BMI 34.5
--- NOTE | 2023-04-18 09:20 | MHC.OFFVIS ---
Intake Vital Signs 04/18/23 09:20 Height 5 ft 4 in Weight 201 lb 0.985 oz BMI 34.5 BP 132/66 Blood Pressure Location Lt brachial Position Sitting Pulse 80 Pulse Source Pulse Oximeter Intake Visit Reasons: DM Intake Note: Patient present today to follow up on Type 2 Diabetes Mellitus. Patient receives DME supplies through: [employer] Last Diabetic Eye exam: 03/2023 Last Podiatry Visit: 09/2022 Random Glucose: 136 mg/dl HgA1C: 6.7% Diesel Service Technician Required: No Accompanied by: Self / Same As Patient Allergies ciprofloxacin [From Cipro] Adverse Reaction (Verified 04/18/23 09:33) Swelling prochlorperazine [From Compazine] Adverse Reaction (Verified 04/18/23 09:33) Muscle Pain HPI HPI Comments History of Present Illness Details 63 YO F with is seen in consultation for T1DM at the request of PCP. Initially diagnosed with T1DM in age 28 when presented with DKA. Was initially started on treatment with insulin. If On Pump/Sensor: Use the Omnipod 5 with [employer] Comfort sensor Basal rate(s) (units/hour) : 12 A =0.7 units/hr Bolus setting Insulin Carbohydrate Ratio (s) 1:14 Correction Factor / Sensitivity Factor 75 Active Insulin Time:? hours Target(s): {AM/PM}? to {AM/PM} - ???90 to 140 ??? Autoemote is use 92% of the time. Manual motor 8%. Total daily dose is 23 units with 66% basal and 34% bolus. Review of sensor data shows average glucose to be 171 with G mi of 7.6%. CGM S is active 91.6%. 54% glucose is in target range with 46% hyperglycemia and no hypoglycemia.pattern shows post breakfast and dinner hyperglycemia Patient understands the basic concepts of pump therapy, how to give insulin for meals and snacks, how to troubleshoot for hyper and hypoglycemia. Reports low sugars rare 2 episodes /mo. Treats lows with gluose tabs . Checks sugar after to ensure it is rising. Follows the rule of 15's. No Family history of autoimmunity Has eyes checked yearly, last eye exam couple of wks ago , has retinopathy has laser . Has neuropathy, last foot exam , sees next mo podiatry. Has CKD nephropathy, Not on CAITLIN/ARB. Has HLD, on statin. Denies history of CAD.Has CHF Had diabetes education. Diet/Carb counting: Y Denies recent prior episodes of DKA. Has prior severe episodes of hypoglycemia requiring help or hospitalization. 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 DM (diabetes mellitus) type I controlled with eye manifestation Hyponatremia Vitamin D deficiency Charcot arthropathy of midfoot Osteoporosis Abnormal colonoscopy CKD (chronic kidney disease) Surgical History H/O colonoscopy History of cholecystectomy History of hip surgery Hx of cataract surgery Family History Daughter Mental health disorder Social History (Updated 12/31/22 @ 15:12 by Miriam Glass MD) 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 Absence of acromegalic features. Neck exam reveals nl size thyroid about 15 gms. No thyroid nodules palpable. No carotid bruits present. Lungs CTA. Heart S1 S2, Reg R/R. No M/R/ G. Skin exam reveals absence of vitiligo or acanthosis nigricans. Abdominal exam reveals Soft NT/ND with NA BS. No organomegaly present. Extrem Other: Visual exam of foot performed. No ulcerations or open lesions. There is a healed lesion present under the left 1st toe. No onchomycosis, no callouses.Pulses 2 + distally. Sensation intact to monofilament exam. Vibratory sensation sensed decreased in left and right with 128 Hz tuning fork. The left ankle is swollen and casted. 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
[2023-04-18 09:35] LABS: Glucose, Whole Blood 136 mg/dL (60-115)
== END 2023-04-18 09:50 | disposition home or self-care (01) ==
PROVIDERS: PCP Internal Medicine; Visit Provider Internal Medicine Endocrinology, Diabetes & Metabolism
DX: E10.319 Type 1 diabetes mellitus with unspecified diabetic retinopathy without macular edema (principal)
CPT/HCPCS: 99214

== ENCOUNTER → 2023-04-18 09:19 | Outpatient (BNVA) | payer BC, SELFPAY | PROVIDERS: PCP Internal Medicine; Visit Provider Internal Medicine Endocrinology, Diabetes & Metabolism | DX: E10.319 Type 1 diabetes mellitus with unspecified diabetic retinopathy without macular edema (principal); E10.22 Type 1 diabetes mellitus with diabetic chronic kidney disease; N18.9 Chronic kidney disease, unspecified | CPT/HCPCS: 82947; 83036 ==

== ENCOUNTER → 2023-05-20 12:38 | Outpatient (REF) | payer BC, SELFPAY ==
--- NOTE | 2023-05-20 12:41 | CA_ITS ---
Transthoracic Echocardiogram Patient (Last, First, Middle): Miguelina Arrieta, Gender: Female Date of : 1960 Age: 63 Procedure Date: 05/20/2023 Procedure Type: Transthoracic Echocardiogram Location: OP Height: 165.1 cm Weight: 90.72 kg BSA: 1.98 m2 Heart Rate: 81 bpm BP: 132 / 66 mmHg Public Relations Studies Director: VIRAL/YANIRA Referring MD: Miriam Glass MD Production Planning Manager: Pete Rodgers MD Symptoms: E10.319 - Type 1 diabetes mellitus with unspecified diabetic retinopathy... Study Quality: Adequate ECG Rhythm: Sinus Conclusions: - 1. Normal LV ejection fraction of 60 65% 2. Mild left atrial enlargement 3. Possible small shunt at the level of inter atrial septum 4. Mildly elevated right ventricular systolic pressure 5. No gross pericardial effusion Findings Left Ventricle Normal left ventricular size, thickness, and systolic function. The visually estimated ejection fraction is between 60-65%. Spectral Doppler is indicative of a normal filling pattern. Right Ventricle Normal right ventricular cavity size and systolic function. Atria The left atrium is mildly dilated. small shunt at the level of inter atrial septum cannot be ruled out. The right atrium is normal in size. Aortic Valve There is mild calcification of the aortic valve. There is no aortic valve stenosis. There is no aortic valve regurgitation. Mitral Valve There is mild anterior and posterior mitral leaflet thickening. There is mild anterior and mild posterior mitral annular calcification. There is mild mitral annular calcification. There is trace mitral valve regurgitation. There is no mitral valve stenosis. Pulmonic Valve The pulmonic valve is likely normal. Tricuspid Valve Normal tricuspid valve structure. There is mild tricuspid valve regurgitation. Normal right atrial pressure. Mild pulmonary hypertension is present. Great Vessels All visible segments of the aorta are normal in size. The pulmonary artery was not well visualized. Venous The inferior vena cava is normal in size and collapses greater than 50% with inspiration. Pericardium/Pleural There is no evidence of pericardial effusion. Prior Study Comparison No prior study available for comparison. Recommendations, Care & Conclusions Consider a JOSE ENRIQUE if clinically appropriate. Measurements 2D Linear Measurements IVSd: 0.95 0.6-0.9/0.6-1.0 cm LVIDd: 4.64 3.9-5.3/4.2-5.9 cm LVIDd Index: 2.34 2.4-3.2/2.2-3.1 cm/m2 LVIDs: 3.14 2.0-3.6 cm LVPWd: 0.98 0.7-1.1 cm Ao Root: 1.00 2.1-3.5 cm LA Diam: 3.70 2.7-3.8/3.0-4.0 cm LAIDs Index: 1.87 1.5-2.3 cm/m2 LV Mass: 190.51 67-162/88-224 g LV Mass Index: 96.21 43-95/49-115 g/m2 LVOT Diam: 2.30 3.0+(-)1.3 cm 2D Systolic Function EF 4C: 64.20 >55% EF 2C: 62.20 >55% EF BiP: 62.40 >55% Mitral Valve MV Pk E: 1.12 MV PK A: 0.78 MV Decel Time: 187.00 E/A: 1.40 E'Lateral: 7.72 E'Medial: 7.51 E/E' Med: 14.90 E/E' Lat: 14.50 PHT: 55.00 MVA PHT: 4.00 Decel Hyde: 5.98 Aortic Valve AoV Pk Jay: 1.06 AoV Pk Grad: 4.00 JUAN: 3.20 LVOT LVOT Pk Jay: 0.82 LVOT Mn Jay: 0.58 LVOT VTI: 0.22 LVOT Pk Grad: 3.00 LVOT Mn Grad: 1.00 LVOT Diam: 2.30 LVOT Area: 4.15 Diastolic Function MV Pk E: 1.12 MV Pk A: 0.78 E/A: 1.40 E'Medial: 7.51 E/E' Med: 14.90 E' Laterial: 7.72 E/E' Lat: 14.50 Right Ventricle TAPSE (mm): 23.90 TVS' Jay: 13.40 Tricuspid Valve TR Pk Jay: 3.18 TR Pk Grad: 40.00 RA Press: 3.00 RVSP: 43.00 Great Vessels Aorta Ao Root-2D: 1.00 2.0-3.7 cm Sinus of Valsalva: 3.20 2.0-3.5 cm Ao Asc: 3.20 2.1-3.4 cm Pulmonary Veins Pulm Vein S/D 1.50 Updated in Other Vendor System with Status of Final Pete Rodgers MD electronically signed on 05/20/2023 2:21:53 PM with status of Final
== END ==
LOC: HO.CARD 12:38
PROVIDERS: PCP Internal Medicine; Visit Provider Internal Medicine
DX: R06.09 Other forms of dyspnea (principal); E10.319 Type 1 diabetes mellitus with unspecified diabetic retinopathy without macular edema; E10.39 Type 1 diabetes mellitus with other diabetic ophthalmic complication; N18.9 Chronic kidney disease, unspecified
CPT/HCPCS: 93306

== ENCOUNTER → 2023-05-20 12:41 | Outpatient (BNV) | payer BC, SELFPAY | PROVIDERS: PCP Internal Medicine; Visit Provider Internal Medicine Cardiovascular Disease | DX: R06.09 Other forms of dyspnea (principal) | CPT/HCPCS: 93306 ==

== ENCOUNTER 2023-07-04 14:35 | Outpatient (AMB) | payer BC, SELFPAY ==
--- NOTE | 2023-07-04 14:40 | AM.OFFWIN_ITS ---
Intake Vital Signs 07/04/23 14:41 Height 5 ft 4 in Weight 198 lb BMI 34.0 BP 160/88 H Blood Pressure Location Lt brachial Position Sitting Pulse 77 Pulse Source Pulse Oximeter Temp 97.9 F Temp Source Temporal Artery Scan Pulse Oximetry (%) 96 Oxygen Delivery Method Room Air Intake Visit Reasons: EP sinus infection pressure Intake Note: pt is here sinus infection pressure started 1 week ago Patient Tobacco Use Status: Never used Tobacco Allergies ciprofloxacin [From Cipro] Adverse Reaction (Verified 07/04/23 14:42) Swelling prochlorperazine [From Compazine] Adverse Reaction (Verified 07/04/23 14:42) Muscle Pain Do you need a note to return to daycare/school/sports/work: Yes HPI HPI Comments History of Present Illness Details Patient presents to the walk in for 1 week cough, congestion, sinus pressure no known sick contacts Denies fever, chest pain, shortness of breath, palpitations, syncope, weakness Denies ear pain, sore throat. 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 DM (diabetes mellitus) type I controlled with eye manifestation Hyponatremia Vitamin D deficiency Charcot arthropathy of midfoot Osteoporosis Abnormal colonoscopy CKD (chronic kidney disease) Surgical History H/O colonoscopy History of cholecystectomy History of hip surgery Hx of cataract surgery Family History Daughter Mental health disorder Social History 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,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, 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 Housing: Apartment Alcohol intake: current Alcohol intake frequency: holidays/special occasions only Patient Tobacco Use Status: Never used Tobacco e-Cigarette/Vaping Use: Never Used service: No Current occupational status: employed Cognitive needs: No Hearing needs: No Vision needs: No Review of Systems Const All systems reviewed & are unremarkable except as noted in HPI and below Physical Exam Vital Signs: Last Vital Signs Temp 97.9 F 07/04/23 14:41 Pulse 77 07/04/23 14:41 BP 160/88 H 07/04/23 14:41 Pulse Ox 96 07/04/23 14:41 Oxygen Delivery Method Room Air 07/04/23 14:41 BMI result Body Mass Index 34.0 General: awake, alert, oriented. Answers questions appropriately. Fully engaged in examination. Skin: warm, dry, intact HEENT: TMs intact bilaterally, no redness. Posterior pharynx without erythema or exudate. Sclera without icterus or injection. Tenderness to palpation over frontal and maxillary sinuses. conjunctival injection bilaterally. EOMs intact. Cardiac: External chest normal in appearance. Respiratory: + dry cough. LSCTAB. Abdomen: without gross distension. Neurological: Oriented to person, place, time and situation. Thought process intact. Psychiatric: Appropriate mood and affect. Good judgment and insight. Assessment & Plan Assessment & Plan (1) Sinusitis: Code(s): J32.9 - Chronic sinusitis, unspecified (2) Conjunctivitis: Code(s): H10.9 - Unspecified conjunctivitis Plan Polymyxin B sulf-trimethoprim 10,000 unit- 1 mg/mL 1 drop both eyes four times daily X 7 days Amoxicillin 500mg po TID X 7 days Benzonatate 100mg po bid as needed Rest, drink plenty of fluids, tylenol or motrin as needed. Follow up with pcp or in clinic for any new or worsening symptoms. Go to ER for shortness of breath, chest pain, palpitations, weakness, dizziness. Medications: New polymyxin B sulf-trimethoprim 10,000 unit- 1 mg/mL while awake; do not exceed 6 doses in 24 hours 1 drp ophthalmic (eye) QID 7 days 10 mL 0RF amoxicillin 500 mg PO BID 14 caps 0RF benzonatate 100 mg PO BID PRN 20 caps 0RF cough Coding Level of Care Code Est Pt Level 4 (82081) Diagnoses Sinusitis J32.9 Conjunctivitis H10.9
[2023-07-04 14:41] VITALS: BP 160/88; PULSE 77; TEMP 36.6; O2SAT 96; BMI 34.0
== END 2023-07-04 15:05 | disposition home or self-care (01) ==
PROVIDERS: PCP Internal Medicine; Visit Provider Registered Nurse Emergency
DX: J32.9 Chronic sinusitis, unspecified (principal); H10.9 Unspecified conjunctivitis
CPT/HCPCS: 99213

== ENCOUNTER 2023-12-07 13:44 | Outpatient (AMB) | payer BC, SELFPAY ==
--- NOTE | 2023-12-07 13:48 | A.OFFVIS_ITS ---
Vital Signs 12/07/23 13:49 Height 5 ft 4 in Weight 176 lb 5.917 oz BMI 30.3 BP 134/68 Blood Pressure Location Rt brachial Position Sitting Pulse 76 Pulse Source Pulse Oximeter Intake Visit Reasons: T1DM/LVM Intake Note: NEW Patient presents today to established treatment for DM TYPE 1: Most recent Diabetic Eye Exam: 12/05/2023 Most recent Podiatry Exam: DUE Most recent HbA1c: 6.3%, 12/07/2023 Random Glucose- 129 mg/dL, Today Accompanied by: Self / Same As Patient Allergies ciprofloxacin [From Cipro] Adverse Reaction (Verified 12/07/23 13:49) Swelling prochlorperazine [From Compazine] Adverse Reaction (Verified 12/07/23 13:49) Muscle Pain HPI Comments Details: 63 YO F with with type 1 diabetes seen today in follow-up. She was last seen by Dr. Franz 04/21. Initially diagnosed with T1DM in age 28 when presented with DKA. Was initially started on treatment with insulin. She is using Omnipod 5 sensor with Dexcom G sensor. She is complaining of fatigue. 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 She is planning to fill out disability paperwork Basal rate(s) (units/hour) : 12 A =0.7 units/hr Bolus setting Insulin Carbohydrate Ratio (s) 1:14 Correction Factor / Sensitivity Factor 48 Active Insulin Time:? 4 hours Target(s): 110 Total daily dose is 20units with 67% basal and 33% bolus. Review of sensor data shows average glucose to be 159 with G mi of 7.1%. CGM is active 88%. 78% glucose is in target range with 22% hyperglycemia and no hypoglycemia. Patient understands the basic concepts of pump therapy, how to give insulin for meals and snacks, how to troubleshoot for hyper and hypoglycemia. Reports low sugars rare non recent. Treats lows with gluose tabs . Checks sugar after to ensure it is rising. Follows the rule of 15's. No Family history of autoimmunity Has eyes checked yearly, last eye exam couple of wks ago , has retinopathy has laser . Has neuropathy, , sees next month podiatry. She has getting a 2nd opinion. She has Charcot foot and her contact lens technician has recommended an amputation of the right foot. Has CKD nephropathy, Not on CAITLIN/ARB. Has HLD, on statin. Denies history of CAD.Has CHF c/o fullness intermittent left ear Had diabetes education. Diet/Carb counting: Y Denies recent prior episodes of DKA. Has prior severe episodes of hypoglycemia requiring help or hospitalization. 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,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, 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 Housing: Apartment Alcohol intake: current Alcohol intake frequency: holidays/special occasions only Patient Tobacco Use Status: Never used Tobacco e-Cigarette/Vaping Use: Never Used service: No Current occupational status: employed Cognitive needs: No Hearing needs: No Vision needs: No Physical Exam Vital Signs: Last Vital Signs Pulse 76 12/07/23 13:49 BP 134/68 12/07/23 13:49 BMI result Body Mass Index 30.3 Const General: cooperative Nutritional Appearance: average body habitus HEENT Other: tm's clear bilat, no bulge or drainage Neck Neck: Yes normal visual inspection Thyroid: Thyroid normal Results AMB Hemoglobin A1c AMB Hemoglobin A1c 6.3 % Last Edit by NATIVIDAD Ng on 12/07/23 14:17 Results Reviewed Results Reviewed: Laboratory Last Values Glucose (Clinic) 129 mg/dL (60-115) H 12/07/23 14:04 Hgb A1c (Clinic) 6.3 % (4.0-6.0) H 12/07/23 13:49 Laboratory Tests 12/30/22 01/19/23 04/18/23 15:53 09:39 09:45 Potassium 4.8 BUN 23 H Creatinine 1.10 Estimated GFR 50 Hgb A1c (Clinic) 6.3 H 6.7 H TSH 1.79 12/07/23 13:49 Potassium BUN Creatinine Estimated GFR Hgb A1c (Clinic) 6.3 H TSH Assessment & Plan Assessment & Plan (1) DM (diabetes mellitus) type I controlled with eye manifestation: Comment: 32 years, f/u Endo Code(s): E10.39 - Type 1 diabetes mellitus with other diabetic ophthalmic complication Category: Medical Plan: Well-controlled diabetes. No changes to insulin pump today. Teaching: The patient was counseled to always carry a source of sugar and on the rule of 15's: Take 3 glucose tablets and repeat again in 15 minutes if blood sugar is not in normal range. Continue to repeat every 15 minutes until blood sugar is normal. Symptoms of DKA were reviewed: early: frequent urination, dry mouth, ketones in the urine, severe symptoms: abdominal pain, nausea, vomiting and weakness. It is important to hydrate with sugar free liquids every 30 minutes and bring the sugars down to normal levels. High glucose protocol (2) Charcot foot due to diabetes mellitus: Code(s): E11.610 - Type 2 diabetes mellitus with diabetic neuropathic arthropathy Category: Medical Plan: She is seeking second opinion about amputation of right foot. She has had surgery in the past and has Charcot foot. Her A1c is in good control and is optimized in the event she has surgery. (3) Osteoporosis: Comment: one Reclast infusion in the past, not recommended by nephrology Code(s): M81.0 - Age-related osteoporosis without current pathological fracture Category: Medical Plan: Not addressed at today's visit. I will contact patient to discuss her previous treatment. Orders: Orders AMB Hemoglobin A1c Today E11.9 - Type 2 diabetes mellitus without complications Albumin Level Today M81.0 - Age-related osteoporosis without current pathological fracture Alkaline Phosphatase Bone Today M81.0 - Age-related osteoporosis without current pathological fracture Calcium Today M81.0 - Age-related osteoporosis without current pathological fracture Phosphorus Today E10.319 - Type 1 diabetes mellitus with unspecified diabetic retinopathy without macular edema Collagen Type I C-Telopeptide Today M81.0 - Age-related osteoporosis without current pathological fracture Comprehensive Met. Panel Today E10.319 - Type 1 diabetes mellitus with unspecified diabetic retinopathy without macular edema Free T4 (Free Thyroxine) Today E10.319 - Type 1 diabetes mellitus with unspecified diabetic retinopathy without macular edema TSH reflex Free T4 Today E10.319 - Type 1 diabetes mellitus with unspecified diabetic retinopathy without macular edema Vitamin D 25-OH Total Today M81.0 - Age-related osteoporosis without current pathological fracture Medications: New acetone (urine) test (Ketone Urine Test strips) As directed 50 ea 1RF E10.39 - Type 1 diabetes mellitus with other diabetic ophthalmic complication insulin glargine (Lantus Solostar U-100 Insulin) 13 units (0.13 mL) subcut DAILY 30 days PRN 3 mL 1RF pump failure E10.39 - Type 1 diabetes mellitus with other diabetic ophthalmic complication Coding Level of Care Code Est Pt Level 4 (16014) Complex EM visit Add On G2211 Diagnoses DM (diabetes mellitus) type I controlled with eye manifestation E10.39 Charcot foot due to diabetes mellitus E11.610 Osteoporosis M81.0 Time Spent (min) 40 Comment Time spent reviewing labs/previous provider notes, face to face, chart documentation
[2023-12-07 13:49] VITALS: BP 134/68; PULSE 76; BMI 30.3
[2023-12-07 14:09] LABS: Glucose, Whole Blood 129 mg/dL (60-115)
== END 2023-12-07 14:59 | disposition home or self-care (01) ==
PROVIDERS: PCP Internal Medicine; Visit Provider Nurse Practitioner Adult Health
DX: E11.610 Type 2 diabetes mellitus with diabetic neuropathic arthropathy (principal); M81.0 Age-related osteoporosis without current pathological fracture; E11.3599 Type 2 diabetes mellitus with proliferative diabetic retinopathy without macular edema, unspecified eye
CPT/HCPCS: 99214

== ENCOUNTER → 2023-12-07 13:44 | Outpatient (BNVA) | payer BC, SELFPAY | PROVIDERS: PCP Internal Medicine; Visit Provider Nurse Practitioner Adult Health | DX: E10.39 Type 1 diabetes mellitus with other diabetic ophthalmic complication (principal); E10.610 Type 1 diabetes mellitus with diabetic neuropathic arthropathy; M81.0 Age-related osteoporosis without current pathological fracture; Z96.41 Presence of insulin pump (external) (internal) | CPT/HCPCS: 82947; 83036 ==

== ENCOUNTER 2024-01-03 10:23 | Outpatient (AMB) | payer BC, SELFPAY ==
[2024-01-03 10:35] VITALS: BP 124/76; PULSE 70; O2SAT 97; BMI 30.2
--- NOTE | 2024-01-03 10:35 | MHC.PC.OV ---
Vital Signs 01/03/24 10:35 Height 5 ft 4 in Weight 176 lb BMI 30.2 BP 124/76 Blood Pressure Location Lt brachial Position Sitting Pulse 70 Pulse Source Pulse Oximeter Pulse Oximetry (%) 97 Oxygen Delivery Method Room Air Intake Visit Reasons: Annual PE Intake Note: Pt is here today for PE. Allergies ciprofloxacin [From Cipro] Adverse Reaction (Verified 01/03/24 10:37) Swelling prochlorperazine [From Compazine] Adverse Reaction (Verified 01/03/24 10:37) Muscle Pain Tobacco use date assessed: 01/03/24 Dental Screening Dental Screen Date: 01/03/24 Did you have a dental visit in the last 12 months?: Yes Did you have a dental problem in the last 6 months where you did not have access to dental care?: No Was dental information given to patient?: Patient has dentist HPI Annual PE HPI Details Pt presents for PE. Pt is considering R foot amputation for Charcot foot/ankle and will see a 2nd opinion orthopedic surgeon in [place]. Patient reports chronic dyspnea on exertion getting worse over last few weeks. She denies chest pain shortness of breath at rest or PND. Insulin-dependent diabetes has been well controlled with A1c at 6.3 , no significant hypoglycemia. patient has been on insulin Omnipod. 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 1. Little interest or pleasure in doing things: not at all 2. Feeling down, depressed, or hopeless: not at all 3. Trouble falling or staying asleep, or sleeping too much: several days 4. Feeling tired or having little energy: more than half the days 5. Poor appetite or overeating: several days 6. Feeling bad about yourself - or that you are a failure or have let yourself or your family down: not at all 7. Trouble concentrating on things, such as reading the newspaper or watching television: not at all 8. Moving or speaking so slowly that other people could have noticed. Or the opposite - being so fidgety or restless that you have been moving around a lot more than usual: not at all 9. Thoughts that you would be better off or of hurting yourself in some way: not at all Total score: 4 Depression Screening Interpretation: Negative Depression Screening Done: Yes Source: Developed by Drs. Shan Robertson, Kim Meléndez, Howard Garcia and colleagues, with an educational bhargav from [employer]. Thrive Questionnaire Date Thrive assessed: 01/03/24 I am a: Patient What is your living situation today?: I have a steady place to live Within the past 12 months, did the food you bought not last and you didn't have the money to get more?: Never true Within the past 12 months, did you worry whether your food would run out before you got money to buy more?: Never true Do you have trouble paying for medicines?: No Do you have trouble getting transportation to medical appointments?: No Do you have trouble paying your heating and electricity bill?: No Do you have trouble taking care of your child, family member or friend?: No Do you have trouble with day-to-day activities such as bathing, preparing meals, shopping, managing finances, etc.?: No Are you currently unemployed and looking for a job?: No Are you interested in more education?: No Please select the resources that you would like help with: None THRIVE Score: 0 AUDIT C Alcohol Use Questionnaire (AUDIT-C) 1. How often do you have a drink containing alcohol?: Never 3. How often do you have six or more drinks on one occasion?: Never Total Score: 0 TARA-7 AMB Questionnaire TARA-7 Date TARA - 7 assessed: 01/03/24 Feeling nervous, anxious, or on edge: 0 = Not at all Not being able to stop or control worryin = Not at all Worrying too much about different things: 0 = Not at all Trouble relaxin = Not at all Being so restless that it is hard to sit still: 0 = Not at all Becoming easily annoyed or irritable: 0 = Not at all Feeling afraid as if something awful might happen: 0 = Not at all Total TARA-7 score (0-4 normal; 5-9 mild; 10-14 moderate; 15-21 severe): 0 Source: Developed by Drs. Shan Robertson, Kim Meléndez, Howard Garcia and colleagues, with an educational bhargav from [employer]. Review of Systems Const All systems reviewed & are unremarkable except as noted in HPI and below Eyes Reports no additional complaints ENT Reports no additional complaints Card Reports no additional complaints Resp Reports no additional complaints GI Reports no additional complaints Physical exam (Primary Care) Vital Signs: Last Vital Signs Pulse 70 01/03/24 10:35 BP 124/76 01/03/24 10:35 Pulse Ox 97 01/03/24 10:35 Oxygen Delivery Method Room Air 01/03/24 10:35 BMI result Body Mass Index 30.2 Tobacco/Smoking Status: Tobacco use Status Tobacco use date assessed 01/03/24 01/03/24 10:40 Patient Tobacco Use Status Never used Tobacco 01/03/24 10:40 e-Cigarette/Vaping Use Never Used 01/03/24 10:40 PHQ-9: PHQ-9 Score PHQ-9: Total score 4 01/03/24 10:40 Depression Screening Interpretation: Negative Thrive Assessment: Date of Thrive Assessment Date Thrive assessed 01/03/24 01/03/24 10:40 Const General: no acute distress HENMT Ears: hearing grossly normal bilaterally Mouth: Normal oral and palatal mucosa present Eyes General: appearance normal, both eyes and all related structures Neck Neck: Yes supple Resp Effort & Inspection: normal respiratory effort Auscultation: clear to auscultation bilaterally Cardio Rhythm: regular rhythm Heart sounds: S1 normal heart sound present and S2 normal heart sound present GI Inspection: Yes normal to inspection Palpation (GI): Soft to palpation Percussion: Yes normal to percussion Auscultation: normal bowel sounds Extrem General: Yes no clubbing, cyanosis or edema Assessment and Plan Assessment & Plan (1) Osteoporosis: Comment: Reclast infusion 2015? 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: Comment: F/U Code(s): E10.319 - Type 1 diabetes mellitus with unspecified diabetic retinopathy without macular edema Plan: A1c of 6.3 continue current regiment, patient is up-to-date with ophthalmology and podiatry for foot care (3) Angina pectoris: Code(s): I20.9 - Angina pectoris, unspecified Plan: For dyspnea on exertion with normal echocardiogram nuclear stress test will be obtained to rule out ischemia, (4) CKD (chronic kidney disease): Comment: Stage III, Diabetic nephropathy, follows up with dog handler or trainer, Code(s): N18.9 - Chronic kidney disease, unspecified Plan: Avoid nephrotoxins follow-up with nephrology (5) Vitamin D deficiency: Code(s): E55.9 - Vitamin D deficiency, unspecified Plan: Continue vitamin-D supplement (6) Charcot foot due to diabetes mellitus: Code(s): E11.610 - Type 2 diabetes mellitus with diabetic neuropathic arthropathy Plan: Follow-up with orthopedic in [place] (7) Annual physical exam: Code(s): Z00.00 - Encounter for general adult medical examination without abnormal findings Plan: Well-balanced diet regular physical activity discussed with the patient. She is up-to-date with colonoscopy and mammogram. (8) Abnormal colonoscopy: Comment: polyps 2014, repeat 12/2021 3 small polyps, one TA, repeat in [address] Abel Code(s): R93.3 - Abnormal findings on diagnostic imaging of other parts of digestive tract Orders: Orders Lipid Panel Today E10.319 - Type 1 diabetes mellitus with unspecified diabetic retinopathy without macular edema, M81.0 - Age-related osteoporosis without current pathological fracture Microalbumin, Random (w Creat) Today E10.319 - Type 1 diabetes mellitus with unspecified diabetic retinopathy without macular edema, M81.0 - Age-related osteoporosis without current pathological fracture CA stress test Today E10.319 - Type 1 diabetes mellitus with unspecified diabetic retinopathy without macular edema, I20.9 - Angina pectoris, unspecified NM cardiolite stress test Today E10.319 - Type 1 diabetes mellitus with unspecified diabetic retinopathy without macular edema, M81.0 - Age-related osteoporosis without current pathological fracture Complete Blood Count Auto Diff Today E10.319 - Type 1 diabetes mellitus with unspecified diabetic retinopathy without macular edema, M81.0 - Age-related osteoporosis without current pathological fracture Comprehensive [place]. Panel Fast Today E10.319 - Type 1 diabetes mellitus with unspecified diabetic retinopathy without macular edema, M81.0 - Age-related osteoporosis without current pathological fracture IRON PROFILE Today E10.319 - Type 1 diabetes mellitus with unspecified diabetic retinopathy without macular edema, M81.0 - Age-related osteoporosis without current pathological fracture Vitamin D 25-OH Total Today E10.319 - Type 1 diabetes mellitus with unspecified diabetic retinopathy without macular edema, M81.0 - Age-related osteoporosis without current pathological fracture XR DEXA axial skeleton Today E10.319 - Type 1 diabetes mellitus with unspecified diabetic retinopathy without macular edema, M81.0 - Age-related osteoporosis without current pathological fracture Vitamin B12 and Folate Today E10.319 - Type 1 diabetes mellitus with unspecified diabetic retinopathy without macular edema, E10.39 - Type 1 diabetes mellitus with other diabetic ophthalmic complication, E55.9 - Vitamin D deficiency, unspecified, M81.0 - Age-related osteoporosis without current pathological fracture, N18.9 - Chronic kidney disease, unspecified Referrals Nephrology Referral E10.319 - Type 1 diabetes mellitus with unspecified diabetic retinopathy without macular edema, E10.39 - Type 1 diabetes mellitus with other diabetic ophthalmic complication, E55.9 - Vitamin D deficiency, unspecified, M81.0 - Age-related osteoporosis without current pathological fracture, N18.9 - Chronic kidney disease, unspecified Cardiology Referral E10.319 - Type 1 diabetes mellitus with unspecified diabetic retinopathy without macular edema, E10.39 - Type 1 diabetes mellitus with other diabetic ophthalmic complication, E55.9 - Vitamin D deficiency, unspecified, M81.0 - Age-related osteoporosis without current pathological fracture, N18.9 - Chronic kidney disease, unspecified Coding Level of Care Code Est Pt Prev Care 40-64y(55930) Diagnoses Osteoporosis M81.0 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
== END 2024-01-03 11:54 | disposition home or self-care (01) ==
PROVIDERS: PCP Internal Medicine; Visit Provider Internal Medicine
DX: Z00.00 Encounter for general adult medical examination without abnormal findings (principal); E11.610 Type 2 diabetes mellitus with diabetic neuropathic arthropathy; I20.9 Angina pectoris, unspecified; N18.9 Chronic kidney disease, unspecified; M81.0 Age-related osteoporosis without current pathological fracture; E55.9 Vitamin D deficiency, unspecified; R93.3 Abnormal findings on diagnostic imaging of other parts of digestive tract
CPT/HCPCS: 99396

== ENCOUNTER 2024-01-03 11:25 | Outpatient (REF) | payer BC, SELFPAY ==
[2024-01-03 13:21] LABS: MANUAL DIFF FLAG NO
[2024-01-03 13:43] LABS: Basophils Absolute Auto 0.1 X10*3/uL (0.0-0.2); Basophils Percent Auto 0.8 % (0-2); Eosinophils Absolute Auto 0.5 X10*3/uL (0.0-0.4); Eosinophils Percent Auto 5.8 % (0-4); Hemoglobin 11.2 g/dl (12.0-16.0); Imm Gran Abs Auto 0.03 X10*3/uL (0.00-0.03); Imm Gran Pct Auto 0.4 % (0.0-0.4); Lymphocytes Absolute Auto 2.2 X10*3/uL (1.2-4.9); Lymphocytes Percent Auto 26.3 % (20-40); Mean Corpuscular Hemoglobin 30.4 pg (27.0-33.0); Mean Corpuscular Volume 95.1 fL (80.0-98.0); Mean Platelet Volume 10.6 fL (9.4-12.3); Monocytes Absolute Auto 0.5 X10*3/uL (0.1-1.2); Monocytes Percent Auto 6.1 % (2-11); Neutrophils Absolute Auto 5.1 x10*3/uL (2.0-8.3); Neutrophils Percent Auto 60.6 % (45-73); Platelet Count 280 X10*3/uL (160-400); Red Blood Count 3.68 X10*6/uL (4.20-5.50); Red Cell Distribution Width 14.1 % (11.0-16.0); White Blood Count 8.4 X10*3/uL (4.8-10.8)
[2024-01-03 14:09] LABS: Alanine Aminotransferase 19 U/L (0-31); Albumin Level 4.3 g/dL (3.5-5.0); Alkaline Phosphatase 71 U/L (39-117); Anion Gap 13 (12-20); Aspartate Amino Transferase 22 U/L (5-31); Bilirubin Total 0.5 mg/dL (0.0-1.0); Blood Urea Nitrogen 23 mg/dL (9-16); Calcium 9.4 mg/dL (8.4-10.2); Carbon Dioxide 22 mmol/L (22-29); Chloride 107 mmol/L (96-108); Cholesterol 127 mg/dL (<200); Estimated Glomerular Filt Rate 46; Glucose Fasting 168 mg/dL (60-99); Glucose Random 166 mg/dL (60-115); HDL Cholesterol 55 mg/dL (>40); Iron 76 mcg/dL (30-160); LDL Cholesterol Calculated 58 mg/dL (<100); Percent Iron Saturation 37 % (15-50); Phosphorus 4.3 mg/dL (2.7-4.5); Potassium 4.7 mmol/L (3.3-5.1); Sodium 137 mmol/L (135-145); Total Iron Binding Capacity 203 mcg/dL (228-428); Total Protein 7.5 g/dL (6.5-8.0); Triglycerides 70 mg/dL (<150); Unsaturated Iron Binding 127 ug/dL
[2024-01-03 14:12] LABS: Creatinine Urine 92.39 mg/dL; Free T4 (Free Thyroxine) 1.05 ng/dL (0.71-1.85); Microalbum/Creatinine Ratio Ur 8.6 ug/mg cr (<30); TSH reflex Free T4 1.19 uIU/mL (0.32-4.0)
[2024-01-03 14:28] LABS: Folate 7.5 ng/mL (> or = 4.0); Vitamin B12 727 pg/mL (200-900); Vitamin D 25-OH Total 27.1 ng/mL (>30)
[2024-01-07 13:13] LABS: Collagen Type I C-Telopeptide 489 pg/mL (see note)
[2024-01-09 01:24] LABS: Alkaline Phosphatase Bone 14.1 mcg/L (5.6-29.0)
== END 2024-01-03 11:26 | disposition home or self-care (01) ==
LOC: HO.HMGCLDS 11:25
PROVIDERS: PCP Internal Medicine; Referring Provider Nurse Practitioner Adult Health; Visit Provider Internal Medicine
DX: E10.319 Type 1 diabetes mellitus with unspecified diabetic retinopathy without macular edema (principal); M81.0 Age-related osteoporosis without current pathological fracture; E10.39 Type 1 diabetes mellitus with other diabetic ophthalmic complication; E55.9 Vitamin D deficiency, unspecified; N18.9 Chronic kidney disease, unspecified
CPT/HCPCS: 36415; 80053; 80061; 82043; 82306; 82523; 82570; 82607; 82746; 83540; 84075; 84100; 84439; 84443; 85025

== ENCOUNTER 2024-01-18 15:01 | Outpatient (AMB) | payer BC, SELFPAY ==
[2024-01-18 15:00] VITALS: BP 180/86; PULSE 73; O2SAT 100; BMI 29.7
--- NOTE | 2024-01-18 15:00 | HO.NEPHOV_ITS ---
Vital Signs 01/18/24 15:00 Height 5 ft 4 in Weight 173 lb BMI 29.7 BP 180/86 H Blood Pressure Location Rt brachial Position Sitting Pulse 73 Pulse Source Pulse Oximeter Pulse Oximetry (%) 100 Oxygen Delivery Method Room Air Intake Visit Reasons: Chronic kidney disease/ Conf Labor Relations Specialist Required: No Accompanied by: Self / Same As Patient Allergies ciprofloxacin [From Cipro] Adverse Reaction (Verified 01/18/24 15:03) Swelling prochlorperazine [From Compazine] Adverse Reaction (Verified 01/18/24 15:03) Muscle Pain Medication List - Last Reconciled 01/18/24 by Dameon Duenas MD acetone (urine) test (Ketone Urine Test strips) As directed atorvastatin 80 mg PO DAILY blood sugar diagnostic (Contour Next Test Strips) As directed-tests 4 X/day blood-glucose meter,continuous (Dexcom G6 Crm Marketing Manager) As directed blood-glucose sensor (Dexcom G6 Sensor device) USE DIRECTED blood-glucose transmitter (Dexcom G6 Transmitter device) USE DIRECTED cholecalciferol (vitamin D3) 50 mcg PO DAILY Humalog U-100 Insulin (insulin lispro) 50 units (0.5 mL) subcut DAILY NS infusion set for insulin pump As directed: Humalog insulin glargine (Lantus Solostar U-100 Insulin) 13 units (0.13 mL) subcut DAILY PRN 30 days insulin pump cart,auto,BT-cntr (Omnipod 5 G6 Intro Kit (Gen 5) subcutaneous cartridge with controller) As directed insulin pump cart,automated,BT (Omnipod 5 G6 Pods (Gen 5) subcutaneous cartridge) Change pod every 72 hours. metoprolol succinate ER 25 mg PO DAILY olmesartan 2.5 mg (1/2 x 5 mg) PO DAILY HPI Comments Details: Miguelina is a pleasant 63-year-old woman with a history of type 1 diabetes mellitus for more than 30 years complicated by stage 3 chronic kidney disease. She was followed in [place] and she recently moved to the area. I saw her last year for CKD. She had minimal proteinuria. Serum creatinine was around 1.1 mg/dL. She has ophthalmic issues and waiting for which he was surgery. She also has charcots joint. She is planning to go on disability She has had significant orthostatic hypotensive episodes at home and postprandial hypotension. She was given midodrine in the past and she did not tolerate this therefore she does not take midodrine anymore. She is on Benicar 2.5 mg and metoprolol 25 mg which she takes in the evening. 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 Housing: Apartment Alcohol intake: current Alcohol intake frequency: holidays/special occasions only Patient Tobacco Use Status: Never used Tobacco e-Cigarette/Vaping Use: Never Used service: No Current occupational status: employed Cognitive needs: No Hearing needs: No Vision needs: No Review of Systems Const Denies fever(s) and Denies weight loss Card Denies chest pain Resp Denies cough and Denies hemoptysis GI Denies abdominal pain, Denies diarrhea and Denies nausea Musc Denies back pain Neuro Denies focal weakness Physical Exam Vital Signs: Last Vital Signs Pulse 73 01/18/24 15:00 BP 180/86 H 01/18/24 15:00 Pulse Ox 100 01/18/24 15:00 Oxygen Delivery Method Room Air 01/18/24 15:00 BMI result Body Mass Index 29.7 Awake. Comfortable. Neck is supple. Mucosa moist. Lungs air entry equal Heart S1-S2 heard no gallop. Abdomen soft. Extremities no edema. No involuntary movements. No myoclonus. Results Reviewed Nephrology Results: Hgb 11.2 g/dl (12.0-16.0) L 01/03/24 WBC 8.4 X10*3/uL (4.8-10.8) 01/03/24 Plt Count 280 X10*3/uL (160-400) 01/03/24 Sodium 137 mmol/L (135-145) 01/03/24 Potassium 4.7 mmol/L (3.3-5.1) 01/03/24 Chloride 107 mmol/L (96-108) 01/03/24 Carbon Dioxide 22 mmol/L (22-29) 01/03/24 BUN 23 mg/dL (9-16) H 01/03/24 Creatinine 1.19 mg/dL (0.5-1.4) 01/03/24 Calcium 9.4 mg/dL (8.4-10.2) 01/03/24 Phosphorus 4.3 mg/dL (2.7-4.5) 01/03/24 Urine Creatinine 92.39 mg/dL 01/03/24 Assessment & Plan Assessment & Plan (1) CKD (chronic kidney disease): Comment: Stage III, Diabetic nephropathy, follows up with weblogic developer, Code(s): N18.9 - Chronic kidney disease, unspecified Category: Medical Plan 63-year-old man with stage 3 chronic kidney disease in the setting of type 1 diabetes mellitus. Renal function has been reasonably stable for the last 1 year. Overall blood sugar seems well controlled with a hemoglobin A1c of 6.2%. She has a orthostatic hypotension most likely due to autonomic neuropathy due to longstanding diabetes mellitus. We discussed all orthostatic precautions including had an elevation at 30 degr ees and using tight stockings. She should also avoid consuming large large meal and rather try frequent small meals. If she has significant orthostatic blood pressure change I would reintroduce the midodrine. The recent serum creatinine was 1.19 and renal function is relatively stable with EGFR of about 46 mL/minute. Is no absolute contraindication for Reclast at this time. Should avoid using Reclast if EGFR is less than 35 mL per minute Orders: Orders Basic Metabolic Panel 4 Months N18.9 - Chronic kidney disease, unspecified Coding Level of Care Code Est Pt Level 4 (44438) Diagnoses CKD (chronic kidney disease) N18.9
--- OUTSIDE RECORDS SUMMARY | 2024-01-18 15:02 | XMS_ITS ---
Author Organization [facility] Address [address] [place] [address] Care Team Providers Care Lead Tinner Name Role Phone Miriam Glass MD Primary Care Provider Unavaila ble Jesús, Rosalba Unavailable [phone] REASON FOR VISIT no show 12/30 Encounters Encounter Location Date Provider Diagnosis [facility] [address] [place] [address] 12/30/2022 Rosalba Espinosa PLAN OF TREATMENT No Information
--- OUTSIDE RECORDS SUMMARY | 2024-01-18 15:02 | XMS_ITS ---
Author Organization [facility] Address [address] [place] [address] Care Team Providers Care Colored Liquid Plastic Applier Name Role Phone Miriam Glass MD Primary Care Provider Unavaila ble Rosalba Espinoas Unavailable [phone] Encounters Encounter Location Date Provider Diagnosis [facility] [address] [place] [address] 12/30/2022 Rosalba Espinosa PLAN OF TREATMENT No Information
--- OUTSIDE RECORDS SUMMARY | 2024-01-18 15:03 | XMS_ITS ---
Author Organization [facility] Address [address] [facility] [place] [address] Care Team Providers Care Waitress Name Role Phone Miriam Glass MD Primary Care Provider Unavaila ble Black, Rosalba Unavailable [phone] ALLERGIES Allergen (clinical drug ingredient) Drug/Non Drug Allergy documented on EMR Reaction Allergy Type Onset Date Status ciprofloxacin Cipro swelling Drug Allergy Act miguel Levaquin swelling Drug Allergy Active Compazine muscle spasms Drug Allergy Act miguel ciprofloxacin Ciprofloxacin Unknown Drug Allergy Active prochlorperazine Prochlorperazine Unknown Drug Allergy Active RESULTS Component Value Reference Range Notes X ray : Foot, left 3V Reviewed date:07/22/2022 12:37:41 PM Interpretation: See Examination above Performing Lab: Notes/Report: See Examination above packs REASON FOR VISIT Foot pain, At Risk Footcare MEDICATIONS Medication SIG (Take, Route, Frequency, Duration) Notes Start Date End Date Status Vitamin D Active HumaLOG Active Atorvastatin Calcium 80 MG 1 tablet Oral ly Once a day for 30 day(s) Active Metoprolol Succinate ER 25 MG 1 tablet Orally Once a day for 30 day(s) Active SOCIAL HISTORY Tobacco Use: Social History Observation Description Date Details (start date - stop date) Never Smoker NA - NA Sex Assigned At : Social History Observation Description Sex Assigned At Unknown Tobacco Use/Smoking Question Answer Notes Are you a: nonsmoker Additional Findings: Tobacco Non-User Current no n-smoker Alcohol Screen Question Answer Notes Did you have a drink contain ing alcohol in the past year? Yes How often did you have a dri nk containing alcohol in the past year? Monthly or less (1 point) Points 1 Interpretation Negative Tobacco use other than smoking: Question Answer Notes Are you an other tobacco user? No VITAL SIGNS Height 5 ft 4 in in 07/22/2022 Weight 197 lbs 07/22/2022 BMI 33.81 kg/m2 07/22/2022 PROCEDURES Procedure Date Ordered Date Performed Result Body Sit e 10628-RYDJ SKIN LESIONS, 2 TO 4 07/22/2022 N/A [id number] NAIL(S) 07/22/2022 N/A Encounters Encounter Location Date Provider Diagnosis [facility] [address] [place] [address] 07/22/2022 Rosalba Black Type 1 diabetes mellitus with diabetic polyneuropathy E10.42 ; Hypertrophy of bone, left ankle and foot M89.372 ; Charcot's joint of foot in type 1 diabetes mellitus E10.610 ; Charcot's arthropathy M14.60 and Peroneal tendinitis, left leg M76.72 ASSESSMENTS Encounter Date Diagnosis Assessment Notes Treatment Notes Treatment Clinical Notes 07/22/2022 Type 1 diabetes mellitus with diabetic polyneuropathy (ICD-10 - E10.42) 07/22/2022 Hypertrophy of bone, left ankle and foot (ICD-10 - M89.372) 07/22/2022 Charcot's joint of foot in type 1 diabetes mellitus (ICD-10 - E10.610) 07/22/2022 Charcot's arthropath y (ICD-10 - M14.60) 07/22/2022 Peroneal tendinitis, left leg (ICD-10 - M76.72) PLAN OF TREATMENT Pending Test Test Name Order Date 74546-YKPW SKIN LESIONS, 2 TO 4 07/22/19 [id number] NAIL(S) 07/22/2022 Next Appt Details Follow Up: 3 Months, Reason: Procedure Notes * Category Sub-Category Detail Notes Keratoma Treatment Parring or Cutting o f Benign Hyperkeratotic Lesion(s) 03285 (2-4 Lesions) - The Benign hyperkeratotic lesions, as described above were pared, and/or cut utilizing a sterile #15 blade, tissue nippers, and/or dremel Nail Reduction Nail Reduction Trimming of non- dystrophic nails performed to reduce/remove overall nail length and girth, by manual and electrical means with use of a nail nipper and/or dremel, to more viable healthy nail plate or bed tissue 6-10 (31219) Progress Notes * Examination Category Sub-Category Detail Notes Neurological SENSORY: Neurological exa m reveals intact sensorium, pain sensation normal, vibration sensation intact, pinprick sensation is normal in the lower extremities, Pt denies, anesthesia, burning, paresthesia, tingling, B/L Dermatologic SKIN FINDINGS: The interspaces are clear Skin exam reveals Keratotic lesion(s) located at Heel(s) B/L Midfoot B/L SUB MTH (s) 1 Right ULCER: absent Orthopedic GAIT ABNORMALITY: Pronated, abdu cted angle and base of gate FOOT MORPHOLOGY: charcot feet b/l ANKLE PAIN LOCATED: previous sx evident right DIGITAL DEFORMITIES: Digital contracture , PIPJ, 2-5 B/L, incompl-reducable with WB, or to push-up test, no over, nor underlapping, Reveals no pain/swelling or /redness right hallux TENDONITIS: Pain on palpation, i nflammation, and fusiform swelling to Peroneal Complex LEFT MUSCLE STRENGTH: 5/5 all groups in a symmetrical fashion , B/L General Examination GENERAL APPEARANCE: good att ention to hygiene, no acute distress, well developed, well nourished Ophthalmology Referral DIABETES EYE EXAM Diabetic Reti nopathy Screening:: No Findings of Diabetic Eye Exam:: no retin opathy Vascular DP PULSES: 3/4, B/L PT PULSES: 3/4, B/L CAPILLARY FILL TIME: 3 secs. per digit, B/L SKIN TEMPERTURE GRADIENT OF THE LOWER EXTERMITIES: warm to cool, proximal to distal, B/L HAIR GROWTH/TEXTURE/ELASTICITY/TURGOR: n ormal, B/L EDEMA: absent, B/L PIGMENTATION: normal, B/L Nails NAILS are: Elongated, overg rown, nondystrophic 1-5 B/L X-Rays - IMAGING REPORT Findings: severe g eneralized decrease in bone density Fracture: non union left calc. fracture left, hypertrophy of bone lateral fibula Digits: show assymetrical case int space narrowing at the PIPJ consistent with clinical finding of hammertoe deformity ,degernative changes met heads 1-5 b/l Foot structure: collapsing midfoot l eft HAV: hypertrophy of the d orsal and medial 1st MTH without subchrondral cyst b/l Views: 2 views of Foot LEFT AP LAT LO History and Physical Notes * HPI (History of Present Illness) Category Sub-Category Detail Notes At Risk footcare Pt States Last PCP Visit: Date: 09/15 Foot Pain Nature: multiple fractur es- charcot foot Location: B/L Duration: several years Onset: gradual Course: worse left outside f oot Aggravated: no known aggrevating factors Treatments: [place] brace right , A FO left Severity/Quality: severe Misc: Pt elects not to mov e forward with reconstruction Charcot surgery
--- OUTSIDE RECORDS SUMMARY | 2024-01-18 15:03 | XMS_ITS | Patient Health Record ---
Author Organization [facility] Address [address] [facility] [place] [address] Care Team Providers Care Child Care Name Role Phone Miriam Glass MD Primary Care Provider Unavaila ble Black, Rosalba Unavailable [phone] ALLERGIES Allergen (clinical drug ingredient) Drug/Non Drug Allergy documented on EMR Reaction Allergy Type Onset Date Status ciprofloxacin Cipro swelling Drug Allergy Act miguel Levaquin swelling Drug Allergy Active Compazine muscle spasms Drug Allergy Act miguel ciprofloxacin Ciprofloxacin Unknown Drug Allergy Active prochlorperazine Prochlorperazine Unknown Drug Allergy Active REASON FOR REFERRAL No Information MEDICATIONS Medication SIG (Take, Route, Frequency, Duration) [...] Are you an other tobacco user? No PROBLEMS Problem Type ICD Code Onset Dates Problem Status W/U Status Risk SNOMED Code Notes Problem Non-pressure chronic ulcer of other part of left foot limited to breakdown of skin (L97.521) Active confirmed Ulcer of toe (723158758) Problem Type 1 diabetes mellitus with diabetic polyneuropathy (E10.42) Active confirmed Polyneuropathy due to diabetes mellitus type I (391594002) Problem Hammer toe of right foot (M20.41) Active confirmed 805712912 Problem Hammer toe of left foot (M20.42) Active confirmed 916439608 Problem Charcot's joint of foot in type 1 diabetes mellitus (E10.610) Active confirmed 38328324 Problem Charcot's arthropathy (M14.60) Active confirmed [id number] PLAN OF TREATMENT Pending Test Test Name Order Date X ray : Foot, right 3V 02/08/2022 [id number] SKIN LESIONS, 2 TO 4 02/09/20 [id number] SKIN LESIONS, 2 TO 4 07/22/19 [id number] SKIN LESIONS, 2 TO 4 12/15/19 [id number] NAIL(S) 12/14/2021 [id number] NAIL(S) 07/22/2022 [id number] NAIL(S) 02/08/2022 Insurance Providers Payer Name Payer Address Payer Phone Subscriber Number Group Number Insured Name Patient Relationship to Insured Coverage Start Date Coverage End Date [facility] [address] [place] [address] [phone] [id number] Miguelina Arrieta Self - patient is the insured MEDICAL (GENERAL) HISTORY Medical History History ICD Code Charcot Chronic Kidney Disease Retinopathy Osteoporosis Anemia Arthritis Back,Hip,and Knee pain Broken bones Cataracts type I diabetes Gall bladder problems Heart disease High blood pressure Kidney disease Neuropathy Poor circulation raynauds disease chronic sinusitis Mumps Chicken pox Bone implants/screws Transfusions Surgical History Surgery Date(Month/Year) gall bladder 1998 heel reconstruction 2004 cataract removal surgery 1996 hip surgery 2019
== END 2024-01-18 15:26 | disposition home or self-care (01) ==
LOC: HO.HKAM 15:01
PROVIDERS: PCP Internal Medicine; Referring Provider Internal Medicine; Visit Provider Internal Medicine Hypertension Specialist
DX: N18.9 Chronic kidney disease, unspecified (principal)
CPT/HCPCS: 99214

== ENCOUNTER → 2024-01-18 15:01 | Outpatient (BNVA) | payer BC, SELFPAY | PROVIDERS: PCP Internal Medicine; Referring Provider Internal Medicine; Visit Provider Internal Medicine Hypertension Specialist ==

== ENCOUNTER 2024-04-05 09:37 | Outpatient (AMB) | payer BC, SELFPAY ==
--- NOTE | 2024-04-05 07:41 | A.OFFVIS_ITS ---
Vital Signs 04/05/24 10:07 Height 5 ft 4 in Weight 185 lb 3.013 oz BMI 31.8 BP 160/90 H Blood Pressure Location Rt brachial Position Sitting Pulse 95 Pulse Source Pulse Oximeter Intake Visit Reasons: T1DM/CONFIRMED Intake Note: Patient presents today for a follow-up on DM TYPE 1: Last Diabetic eye exam was on: 12/05/2023 Last Podiatry exam was on: Does not see a Clip Baker Most recent HbA1c: 6.8%, 04/05/2024 Random Glucose- 136 mg/dL, Today Accompanied by: Self / Same As Patient Allergies ciprofloxacin [From Cipro] Adverse Reaction (Verified 01/18/24 15:03) Swelling prochlorperazine [From Compazine] Adverse Reaction (Verified 01/18/24 15:03) Muscle Pain HPI Comments Details: 64 YO F with with type 1 diabetes seen today in follow-up. She was last seen by myself 11/2023. Initially diagnosed with T1DM in age 28 when presented with DKA. Was initially started on treatment with insulin. She is using Omnipod 5 sensor with Dexcom G sensor. 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 Basal rate(s) (units/hour) : 12 A =0.7 units/hr Bolus setting Insulin Carbohydrate Ratio (s) 1:14 Correction Factor / Sensitivity Factor 48 Active Insulin Time:? 4 hours Target(s): New 130 12-8am 130 8am to 12mn 110 Dexcom average glucose: [ ] 14 day continuous glucose monitor report reviewed Glucose Managment indicator [ ] % Days with CGM data [ ] % TIme in ranges: [ ] % very high (above 250) [ ] % high ?(181-250) [ ] % in range ?(70-180] [ ] % low (69-55) [ ] % ?very low (below 54) [ ] Standard Deviation Interpretation [ ] Reports low sugars rare non recent. Treats lows with gluose tabs . Checks sugar after to ensure it is rising. Follows the rule of 15's. No Family history of autoimmunity Has eyes checked yearly, last eye exam 11/2023 has retinopathy has laser . Has neuropathy sees podiatry regularly. She is getting a 2nd opinion. She has Charcot foot and her ict quality assurance engineer has recommended an amputation of the right foot. Has CKD nephropathy, on ARB 01/03/24 microalbumin 8.0 eGFR46 Has HLD, on statin. Last LDL 58 01/03/24 Denies history of CAD.Has CHF c/o fullness intermittent left ear Had diabetes education. Diet/Carb counting: carb counts folllows balanced diet Denies recent prior episodes of DKA. Has prior severe episodes of hypoglycemia requiring help or hospitalization. 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 Absence of acromegalic features. Neck exam reveals nl size thyroid about 15 gms. No thyroid nodules palpable. No carotid bruits present. Lungs CTA. Heart S1 S2, Reg R/R. No M/R G. Skin exam reveals absence of vitiligo or acanthosis nigricans. No edema Visual exam of foot performed. Charcot foot No ulcerations or open lesions. No inter digit maceration or fissuring. No onychomycosis, no callouses. Sensation intact to monofilament exam. Vibratory sensation is normal with 128 Hz tuning fork. 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 in the past, DEXA 11/2021 T score -3.3 femur, endocrinology recommended clearance from nephrology to treat osteoporosis Code(s): M81.0 - Age-related osteoporosis without current pathological fracture Category: Medical Plan: osteoporosis follow up with Dr. Franz. 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
[2024-04-05 10:07] VITALS: BP 160/90; PULSE 95; BMI 31.8
[2024-04-05 10:16] LABS: Glucose, Whole Blood 136 mg/dL (60-115)
== END 2024-04-05 10:53 | disposition home or self-care (01) ==
LOC: HO.ENCR 09:38
PROVIDERS: PCP Internal Medicine; Visit Provider Nurse Practitioner Adult Health
DX: E10.319 Type 1 diabetes mellitus with unspecified diabetic retinopathy without macular edema (principal)

== ENCOUNTER → 2024-04-05 09:37 | Outpatient (BNVA) | payer BC, SELFPAY | PROVIDERS: PCP Internal Medicine; Visit Provider Nurse Practitioner Adult Health | DX: E10.319 Type 1 diabetes mellitus with unspecified diabetic retinopathy without macular edema (principal); E10.21 Type 1 diabetes mellitus with diabetic nephropathy; E10.40 Type 1 diabetes mellitus with diabetic neuropathy, unspecified; M81.0 Age-related osteoporosis without current pathological fracture | CPT/HCPCS: 82947; 83036 ==

== ENCOUNTER 2024-04-13 08:30 | Outpatient (REF) | payer BC, SELFPAY ==
--- NOTE | ~2024-04-13 | MM_ITS ---
EXAMINATION: BONE DENSITOMETRY CLINICAL INDICATION: Age-related osteoporosis without current pathological fracture. Type 1 diabetes mellitus with unspecified diabetic retinopathy. COMPARISON: Baseline BD dated 12/17/2021. TECHNIQUE: Using a [employer] Oy DXA System (software version: 13.1) manufactured by [employer], dual-energy x-ray absorptiometry was performed of the lumbar spine and right hip. The patient has had a left hip fracture. The images are of good technical quality. Summary results are attached. FINDINGS: AP SPINE L1-L4: Current: BMD 0.953 g/cm2, Z-score -1.1, T-score -1.9, osteopenia, 5.6% decrease from baseline (<5% change is not significant). Baseline: BMD 1.010 g/cm2. RIGHT FEMUR, NECK: Current: BMD 0.577 g/cm2, Z-score -2.4, T-score -3.3, osteoporosis. Baseline: BMD 0.600 g/cm2. RIGHT FEMUR, TOTAL: Current: BMD 0.532 g/cm2, Z-score -3.1, T-score -3.8, osteoporosis, 10.7% decrease from baseline (<5% change is not significant). Baseline: BMD 0.596 g/cm2. IDENTIFIED RISK FACTORS: History of adult fracture. Osteoporosis. Renal disease. Secondary osteoporosis (type 1 diabetes). Menopause. HISTORY OF FRACTURE: Femur/hip. Elbow. MEDICATIONS: Calcium supplement and/or multivitamin. Vitamin D. MM/XR DEXA axial skeleton IMPRESSION: 1. DIAGNOSIS: Severe osteoporosis based on the lowest T-score value of -3.8 in the total femur and the prior history of fracture applying World Health Organization criteria. 2. 10-YEAR FRACTURE RISK PREDICTION, FRAX: According to the guidelines, FRAX calculation should only be performed on patients in the osteopenia bone density category. Therefore, FRAX was not performed on this patient. 3. Treatment Recommendations: NOF guidelines recommend consideration for treatment in postmenopausal women and men age 50 and older presenting with the following: -A hip or vertebral (clinical or morphometric) fracture. -T-score less than or equal to -2.5 at the femoral neck or spine after appropriate evaluation to exclude secondary causes. -Low bone mass at the hip or spine and a 10-year fracture probability by FRAX of greater than or equal to 3% for hip fracture or greater than or equal to 20% for major osteoporotic fracture based on the [place] adapted WHO algorithm. 4. Other Recommendations: All treatment decisions require clinical judgment and consideration of individual patient factors, including patient preferences, comorbidities, previous drug use, risk factors not captured in the FRAX model (e.g. frailty, falls, vitamin D deficiency, increased bone turnover, interval significant decline in bone density) and possible under or overestimation of fracture risk by FRAX. Additional medical evaluation for secondary cause of low bone mineral density may be appropriate. FUTURE SCAN RECOMMENDATION: People with diagnosed cases of osteoporosis or at high risk for fracture should have regular bone mineral density tests. For patients eligible for Medicare, routine testing is allowed once every 2 years. The testing frequency can be increased to one year for patients who have rapidly progressing disease, those who are receiving or discontinuing medical therapy to restore bone mass, or have additional risk factors. Electronically signed by: Anuja Fleming MD 04/18/2024 12:20 PM BLAYNE CROOK
== END 2024-04-13 08:31 | disposition home or self-care (01) ==
LOC: HO.MAMMO 08:30
PROVIDERS: PCP Internal Medicine; Visit Provider Internal Medicine
DX: M81.0 Age-related osteoporosis without current pathological fracture (principal); E10.319 Type 1 diabetes mellitus with unspecified diabetic retinopathy without macular edema
CPT/HCPCS: 77080

== ENCOUNTER 2024-05-14 14:33 | Outpatient (AMB) | payer BC, SELFPAY ==
--- OUTSIDE RECORDS SUMMARY | 2024-05-14 14:36 | XMS_ITS ---
Author Organization [facility] Address [address] [place] [address] Care Team Providers Care Consultative Sales Associate Name Role Phone Miriam Glass MD Primary Care Provider Unavaila ble Black, Rosalba Unavailable [phone] REASON FOR VISIT no show 12/30 Encounters Encounter Location Date Provider Diagnosis [facility] [address] [place] [address] 12/30/2022 Rosalba Black Plan Of Treatment No Information Progress Notes * Miguelina MCKEON MDOB:1959 (62 yo F)Acc No.[id number]:12/30/2022 Patient:?Miguelina Mckeon :1960???Age:62 Y???Sex:Female Address:[address] [place] [address] [address] [place], [id number] * true * Date:? Generated for Dungi eben/Eunice/eTransmitting on:?05/14/2024 02:35 PM EST
--- OUTSIDE RECORDS SUMMARY | 2024-05-14 14:36 | XMS_ITS | Patient Health Record ---
Author Organization [facility] Address [address] [facility] [place] [address] Care Team Providers Care Team Leader Surgery Name Role Phone Miriam Glass MD Primary Care Provider Unavaila ble Black, Rosalba Unavailable [phone] Allergies Allergen (clinical drug ingredient) Drug/Non Drug Allergy documented on EMR Reaction Allergy Type Onset Date Status ciprofloxacin Cipro swelling Drug Allergy Act miguel Levaquin swelling Drug Allergy Active Compazine muscle spasms Drug Allergy Act miguel ciprofloxacin Ciprofloxacin Unknown Drug Allergy Active prochlorperazine Prochlorperazine Unknown Drug Allergy Active Reason For Referral No Information Medications Medication SIG (Take, Route, Frequency, Duration) Notes Start Date End Date Status Vitamin D Active HumaLOG Active Atorvastatin Calcium 80 MG 1 tablet Oral ly Once a day for 30 day(s) Active Metoprolol Succinate ER 25 MG 1 tablet Orally Once a day for 30 day(s) Active Social History Tobacco Use: Social History Observation Description Date Details (start date - stop date) Never Smoker NA - NA Tobacco Use/Smoking Question Answer Notes Are you [...] Are you an other tobacco user? No Problems Problem Type SNOMED Code ICD Code Onset Dates Problem Status W/U Status Risk Notes Problem Ulcer of toe (111973632) Non-pressure chronic ulcer of other part of left foot limited to breakdown of skin (L97.521) Active confirmed Problem Polyneuropathy due to diabetes mellitus type I (570774376) Type 1 diabetes mellitus with diabetic polyneuropathy (E10.42) Active confirmed Problem 008960947 Hammer toe of right foot (M20.41) Active confirmed Problem 172875379 Hammer toe of left foot (M20.42) Active confirmed Problem 55692824 Charcot's joint of foot in type 1 diabetes mellitus (E10.610) Active confirmed Problem 386033128 Charcot's arthropathy (M14.60) Active confirmed Plan Of Treatment Pending Test Test Name Order Date X ray : Foot, right 3V 02/08/2022 49997-GLAY SKIN LESIONS, 2 TO 4 07/22/19 92925-PXZV SKIN LESIONS, 2 TO 4 12/15/19 14320-VHUB SKIN LESIONS, 2 TO 4 02/09/20 39161-YBTB NAIL(S) 02/08/2022 88923-NAHP NAIL(S) 12/14/2021 36156-PILV NAIL(S) 07/22/2022 Insurance Providers Payer Name Payer Address Payer Phone Subscriber Number Group Number Insured Name Patient Relationship to Insured Coverage Start Date Coverage End Date [facility] [address] [place] [address] [phone] [id number] Miguelina Arrieta Self - patient is the insured Medical (General) History Medical History History ICD Code Charcot Chronic [...]
--- OUTSIDE RECORDS SUMMARY | 2024-05-14 14:36 | XMS_ITS ---
Author Organization [facility] Address [address] [place] [address] Care Team Providers Care Senior Technical Support Analyst Name Role Phone Miriam Glass MD Primary Care Provider Unavaila Rosalba Bear [phone] Encounters Encounter Location Date Provider Diagnosis [facility] [address] [place] [address] 12/30/2022 Rosalba Espinosa Plan Of Treatment No Information Progress Notes * Miguelina MCKEON MDOB:1959 (64 yo F)Acc No.[id number]:12/30/2022 Progress Note Patient:Miguelina ESPITIA Provider:?Rosalba Espinosa DPM :1960???Age:62 Y???Sex:Female D ate:12/30/2022 Address:[address] [place] [address] [address] , [id number] Pcp:Miriam Glass MD Subjective: * Chief Complaints: * ??? * Medical History:? Objective: * Vitals:? Assessment: Plan: * Treatment: * Images: * The named appointment provid er may or may not be the originator of this progress note, and it is not deemed complete until electronically signed by the appointment provider. Sign off status: Pending * Provider:?Rosalba Espinosa DPM Date:?2022 Generated for Dungi eben/Eunice/eTransmitting on:?05/14/2024 02:35 PM EST
--- NOTE | 2024-05-14 14:52 | MHC.OFFVIS ---
Vital Signs 05/14/24 14:58 Height 5 ft 5.94 in Weight 189 lb 2.506 oz BMI 30.6 BP 162/86 H Blood Pressure Location Rt brachial Position Sitting Pulse 64 Pulse Source Pulse Oximeter Intake Visit Reasons: Age-related osteoporosis without current pathologi Intake Note: Patiebt present today for Age-related Osteoporosis w/o current pathological fx. Veneer Redrier Required: No Accompanied by: Self / Same As Patient Allergies ciprofloxacin [From Cipro] Adverse Reaction (Verified 05/14/24 15:00) Swelling prochlorperazine [From Compazine] Adverse Reaction (Verified 05/14/24 15:00) Muscle Pain Medication List - Last Reconciled 05/14/24 by Shan Franz MD acetone (urine) test (Ketone Urine Test strips) As directed atorvastatin 80 mg PO DAILY blood sugar diagnostic (Contour Next Test Strips) As directed-tests 4 X/day blood sugar diagnostic (FreeStyle Lite Strips) As directed qid prn sensor failure, or to confirm glucose blood-glucose meter (FreeStyle Lite Meter kit) As directed blood-glucose meter,continuous (Dexcom G7 Hand Spring Repairer Helper) As directed blood-glucose sensor (Dexcom G7 Sensor device) As directed every 10 days cholecalciferol (vitamin D3) 50 mcg PO DAILY infusion set for insulin pump As directed: Humalog insulin glargine (Lantus Solostar U-100 Insulin) 13 units (0.13 mL) subcut DAILY PRN 30 days insulin lispro 50 units (0.5 mL) subcut DAILY insulin pump cart,auto,BT-cntr (Omnipod 5 G6 Intro Kit (Gen 5) subcutaneous cartridge with controller) As directed insulin pump cart,automated,BT (Omnipod 5 G6 Pods (Gen 5) subcutaneous cartridge) Change pod every 72 hours. lancets (FreeStyle Lancets) 4 times a day prn sensor failure or to confirm glucose dispense as 31 gauge if available metoprolol succinate ER 25 mg PO DAILY olmesartan 2.5 mg (1/2 x 5 mg) PO DAILY HPI Comments Details: 64 YO Female with PMHx diabetes is seen in consultation at the request of PCP for Osteoporosis. First diagnosed in >10 yrs ago .Saw endo 10 yrs ago for osteoporosis Received treatment in the past with alendronate many yrs ago? yrs duration Reclast in 2019 - had acute phase reaction . Tolerated treatment well without complication. history of pathologic fracture in hip 5 yrs ago from fall backwards L hip and R leg and L heel fx 6 yrs ago, R leg fx spontaneously but no ONJ. Has several servings of dietary calcium per day in the form of cheese , yogurt sporadically . Takes Calcium supplement 1200 mg daily in divided doses. Takes 2000 IU of Vitamin D daily. Denies ever using PPI, anticoagulant, antiepileptic or glucocorticoid medication. 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 Not UTD on dental cleanings and sees dentist every 6 months. No planned upcoming dental work or extractions. DXA dated 04/13/24:FINDINGS: AP SPINE L1-L4: Current: BMD 0.953 g/cm2, Z-score -1.1, T-score -1.9, osteopenia, 5.6% decrease from baseline (<5% change is not significant). Baseline: BMD 1.010 g/cm2. RIGHT FEMUR, NECK: Current: BMD 0.577 g/cm2, Z-score -2.4, T-score -3.3, osteoporosis. Baseline: BMD 0.600 g/cm2. RIGHT FEMUR, TOTAL: Current: BMD 0.532 g/cm2, Z-score -3.1, T-score -3.8, osteoporosis, 10.7% decrease from baseline (<5% change is not significant). Baseline: BMD 0.596 g/cm2. IDENTIFIED RISK FACTORS: History of adult fracture. Osteoporosis. Renal disease. Secondary osteoporosis (type 1 diabetes). Menopause. HISTORY OF FRACTURE: Femur/hip. Elbow. MEDICATIONS: Calcium supplement and/or multivitamin. Vitamin D. MM/XR DEXA axial skeleton IMPRESSION: 1. DIAGNOSIS: Severe osteoporosis based on the lowest T-score value of -3.8 in the total femur and the prior history of fracture applying World Health Organization criteria. 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 Absence of blue sclera. Absence of kyphosis. Thyroid gland is of nl size and weighs 15 gms. There are no thyroid nodules palpated. Lungs CTA. Heart S1 S2 Reg R/R Abdominal exam benign. Muscle strength 5/5 . Examination of spine reveals absence of tenderness on palpation Assessment & Plan Assessment & Plan (1) Osteoporosis: Comment: Reclast infusion 2016? in the past, DEXA 11/2021 T score -3.3 femur, endocrinology recommended clearance from nephrology to treat osteoporosis Code(s): M81.0 - Age-related osteoporosis without current pathological fracture Category: Medical Plan: This is a 64-year-old white female with a history of severe osteoporosis with fracture. Partial secondary workup has been performed. Will complete secondary workup by checking 24 hour urine for calcium and creatinine, SPEP, urine immunofixation. We will increase vitamin D3 to 4000 IU per day and recheck 25 hydroxy vitamin-D in 2 months along with other labs. Will ensure 1200 mg of calcium per day. Assuming secondary workup was negative would consider use of anabolic agent initially such as Evenity considering very low bone density and previous history of fracture proceeded by an anti resorptive agent Orders: Orders Creatinine, 24 Hr Group 8 Weeks M81.0 - Age-related osteoporosis without current pathological fracture Immunofixation, Random Urine 8 Weeks M81.0 - Age-related osteoporosis without current pathological fracture Vitamin D 25-OH Total 8 Weeks M81.0 - Age-related osteoporosis without current pathological fracture Calcium, 24 Hr Ur 8 Weeks M81.0 - Age-related osteoporosis without current pathological fracture Protein Electrophoresis, Serum 8 Weeks M81.0 - Age-related osteoporosis without current pathological fracture Medications: New cholecalciferol (vitamin D3) 50 mcg PO DAILY 60 caps 5RF Coding Level of Care Code Est Pt Level 3 (56411) Diagnoses Osteoporosis M81.0
[2024-05-14 14:58] VITALS: BP 162/86; PULSE 64; BMI 30.6
== END 2024-05-14 15:47 | disposition home or self-care (01) ==
PROVIDERS: PCP Internal Medicine; Visit Provider Internal Medicine Endocrinology, Diabetes & Metabolism
DX: M81.0 Age-related osteoporosis without current pathological fracture (principal)
CPT/HCPCS: 99213

== ENCOUNTER → 2024-06-08 07:49 | Outpatient (REF) | payer OTHER, SELFPAY ==
--- NOTE | ~2024-06-08 | NM_ITS ---
Lexiscan Myocardial perfusion study Indication: Shortness of breath on exertion to evaluate for myocardial ischemia Technique: The patient was brought in for a Lexiscan perfusion study on June 08, 2024 and was injected 0.4 mg of Lexiscan intravenously. Within a minute of this injection 35 mCi of sestamibi was given intravenously. Images were obtained using the SPECT gamma camera interlaced with the gating device. Images were obtained in supine position. Resting perfusion study was performed on June 11, 2024. Patient was administered 35 mCi of sestamibi intravenously at rest. Images were then obtained in supine position. Images obtained without without CT attenuation. Total DLP 84 mGy-cm. Images were processed with the software and compared side to side in short axis, horizontal long axis and vertical long axis views. Findings: The stress perfusion study showed nonattenuated images show normal uptake of radiotracer in all segments of the LV myocardium. Attenuated corrected images show minimal thinning of the distal anterior wall of the LV myocardium. The gated study shows normal LV systolic function with calculated LVEF of 72%. LV cavity is normal in size. The gated study shows normal systolic wall thickening and contraction of segments. Resting study shows no change in perfusion pattern compared to stress perfusion study. Gating at rest reveals normal systolic wall motion with ejection fraction at greater than 70%. The findings are consistent with normal myocardial perfusion. NM/NM cardiolite stress test Impression: 1. Myocardial perfusion imaging study shows normal myocardial perfusion 2. Gated LVEF is 72% 3. Transient ischemic dilatation not present Nondiagnostic changes on EKG. Electronically signed by: Pete Rodgers MD 06/11/2024 04:39 PM [facility]
--- OUTSIDE RECORDS SUMMARY | 2024-06-08 07:51 | XMS_ITS | Patient Health Record ---
Author Organization [facility] Address [address] [facility] [place] [address] Care Team Providers Care Dining Host Name Role Phone Miriam Glass MD Primary Care Provider Unavaila ble Black, Rosalba Unavailable [phone] Allergies Allergen (clinical drug ingredient) Drug/Non Drug [...] Status Risk Notes Problem Ulcer of toe (312613691) Non-pressure chronic ulcer of other part of left foot limited to breakdown of skin (L97.521) Active confirmed Problem Polyneuropathy due to diabetes mellitus type I (726202348) Type 1 diabetes mellitus with diabetic polyneuropathy (E10.42) Active confirmed Problem 580807198 Hammer toe of right foot (M20.41) Active confirmed Problem 037820466 Hammer toe of left foot (M20.42) Active confirmed Problem 38552266 Charcot's joint of foot in type 1 diabetes mellitus (E10.610) Active confirmed Problem 937475905 Charcot's arthropathy (M14.60) Active confirmed Plan Of Treatment Pending Test Test Name Order Date X ray : Foot, right 3V 02/08/2022 71353-YTWY SKIN LESIONS, 2 TO 4 07/22/19 74438-BWKL SKIN LESIONS, 2 TO 4 12/15/19 70679-JSXL SKIN LESIONS, 2 TO 4 02/09/20 27179-ADAI NAIL(S) 02/08/2022 81486-SKLX NAIL(S) 12/14/2021 58043-KZAJ NAIL(S) 07/22/2022 Insurance Providers Payer Name Payer Address Payer Phone Subscriber Number Group Number Insured Name Patient Relationship to Insured Coverage Start Date Coverage End Date [facility] [address] [place] [address] [phone] [id number] Miguelina Arrieta Self - patient is [...]
--- OUTSIDE RECORDS SUMMARY | 2024-06-08 07:51 | XMS_ITS ---
Author Organization [facility] Address [address] [place] [address] Care Team Providers Care Labor Delivery Specialist Name Role Phone Miriam Glass MD Primary Care Provider Unavaila Rosalba Bear [phone] Encounters Encounter Location Date Provider Diagnosis [facility] [address] [place] [address] 12/30/2022 Rosalba Espinosa Plan Of Treatment No Information Progress Notes * Miguelina MCKEON MDOB:1959 (64 yo F)Acc No.[id number]:12/30/2022 Progress Note Patient:Miguelina ESPITIA Provider:?Rosalba Espinosa DPM :1960???Age:62 Y???Sex:Female D ate:12/30/2022 Address:[address] [place] [address] [address] [id number] Pcp:Miriam Glass MD Subjective: * Chief Complaints: * ??? * Medical History:? Objective: * Vitals:? Assessment: Plan: * Treatment: * Images: * The named appointment provid er may or may not be the originator of this progress note, and it is not deemed complete until electronically signed by the appointment provider. Sign off status: Pending * Provider:?Rosalba Espinosa DPM Date:?2022 Generated for Fawn treadwell/Eunice/eTransmitting on:?06/08/2024 07:51 AM EST
--- OUTSIDE RECORDS SUMMARY | 2024-06-08 07:51 | XMS_ITS | Clinical Summary ---
Author Organization Unknown Care Team Providers Care Applications Developer Name Role Phone RADU DALY, ZONIA Unavailable Unavailable JOSETTE PT , CYNDY Unavailable Unavailabl e SCIARRATTA OTR 3911, ABRIL Unavailable Un available DION RN, CHERYL Unavailable Unavailable Payers Payer Name Policy Type Policy Number Effective Date Expira tion Date WORKERS COMP [id number] [facility] [employer] [facility] [id number] Problems Condition Name Condition Details Condition Category Status Onset Date Resolution Date Last Treatment Date Treating Clinician Comments FX UNSP PART OF NK OF L FEMR, SUBS FOR CLOS FX W ROUTN HEAL Active 10-10 00:00: 00 TYPE 2 DIABETES MELLITUS WITHOUT COMPLICATION S Active 05-30 00:00: 00 NURSING HOME (CURRENT) USE OF INSULIN Active 05-30 00:00: 00 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 Active 05-30 00:00: 00 HISTORY OF FALLING Active 05-30 00:00: 00 UNSP INTRACAPSULA R FRACTURE OF LEFT FEMUR, INIT FOR CLOS FX Active 10-09 00:00: 00 DIFFICULTY IN WALKING, NOT ELSEWHERE CLASSIFIED Active 10-09 00:00: 00 Allergies, Adverse Reactions, Alerts Allergy Name Allergy Type Status Severity Reaction(s) Onset Date Inactive Date Treating Clinician Comments COMPAZINE Propensity to adverse reactions Active 10-11 11:25: 36 CIPROFLOXACI N Propensity to adverse reactions Active 10-11 11:25: 45 Immunizations Ordered Immunization Name Filled Immunization Name Date Status Comments Refusal Reason INFLUENZA, LAIV (LIVE VIRUS) 2018-03-30 00:00:00 INFLUENZA (UNSPECIFIED), INACTIVATED 2018-03-06 00:00:00 PNEUMOCOCCAL (PPV), PPV 2017-02-09 00:00:00 Vital Signs Vital Name Observation Time Observation Value Commen ts Temperature 2018-11-17 13:57:43.000 98.2 [degF] Temperature 2018-11-14 11:37:05.000 97 [degF] Temperature 2018-11-10 18:11:42.000 98.6 [degF] Temperature 2018-11-08 15:40:13.000 97.1 [degF] Temperature 2018-11-02 11:19:21.000 98.2 [degF] Temperature 2018-11-01 09:57:21.000 97 [degF] Temperature 2018-10-31 16:57:35.000 97 [degF] Temperature 2018-10-27 13:15:52.000 97.1 [degF] Temperature 2018-10-26 09:44:09.000 97.5 [degF] Temperature 2018-10-25 12:30:31.000 97.5 [degF] Temperature 2018-10-24 20:02:37.000 98.6 [degF] Temperature 2018-10-24 14:18:47.000 97 [degF] Temperature 2018-10-20 09:35:04.000 97 [degF] Temperature 2018-10-19 12:25:04.000 98.2 [degF] Temperature 2018-10-18 11:16:52.000 97 [degF] Temperature 2018-10-17 14:10:58.000 97.6 [degF] Temperature 2018-10-17 09:10:43.000 97 [degF] Temperature 2018-10-17 08:45:37.000 97.6 [degF] Temperature 2018-10-13 16:05:15.000 96.7 [degF] Temperature 2018-10-13 09:36:58.000 97 [degF] Temperature 2018-10-12 13:06:37.000 98 [degF] Temperature 2018-10-11 12:10:22.000 97 [degF] Temperature 2018-10-10 18:46:49.000 97.4 [degF] Pulse 2018-11-17 13:57:55.000 70 /min Pulse 2018-11-14 11:37:39.000 79 /min Pulse 2018-11-10 18:11:59.000 75 /min Pulse 2018-11-08 15:41:40.000 81 /min Pulse 2018-11-02 11:21:10.000 77 /min Pulse 2018-11-01 09:58:04.000 80 /min Pulse 2018-10-31 17:01:16.000 77 /min Pulse 2018-10-27 13:16:09.000 84 /min Pulse 2018-10-26 09:45:21.000 75 /min Pulse 2018-10-25 12:31:02.000 86 /min Pulse 2018-10-24 20:03:00.000 70 /min Pulse 2018-10-24 14:18:14.000 81 /min Pulse 2018-10-20 09:35:29.000 64 /min Pulse 2018-10-19 12:24:17.000 80 /min Pulse 2018-10-18 11:17:11.000 80 /min Pulse 2018-10-17 14:13:01.000 76 /min Pulse 2018-10-17 09:11:08.000 90 /min Pulse 2018-10-17 08:45:49.000 76 /min Pulse 2018-10-13 16:05:36.000 80 /min Pulse 2018-10-13 09:37:20.000 80 /min Pulse 2018-10-12 13:06:02.000 90 /min Pulse 2018-10-11 12:10:46.000 82 /min Pulse 2018-10-10 18:47:00.000 84 /min O2 Saturation (%) 2018-11-17 13:58:33.000 98 % O2 Saturation (%) 2018-11-14 11:37:46.000 99 % O2 Saturation (%) 2018-11-10 18:12:31.000 98 % O2 Saturation (%) 2018-11-08 15:42:06.000 98 % O2 Saturation (%) 2018-11-01 09:58:16.000 98 % O2 Saturation (%) 2018-10-31 17:01:26.000 96 % O2 Saturation (%) 2018-10-27 13:16:15.000 97 % O2 Saturation (%) 2018-10-26 09:45:01.000 98 % O2 Saturation (%) 2018-10-25 12:31:10.000 98 % O2 Saturation (%) 2018-10-24 14:17:54.000 97 % O2 Saturation (%) 2018-10-20 09:35:37.000 98 % O2 Saturation (%) 2018-10-19 12:24:38.000 98.2 % O2 Saturation (%) 2018-10-18 11:17:19.000 98 % O2 Saturation (%) 2018-10-17 14:14:13.000 99 % O2 Saturation (%) 2018-10-17 09:11:17.000 99 % O2 Saturation (%) 2018-10-17 08:46:57.000 98 % O2 Saturation (%) 2018-10-13 16:05:26.000 98 % O2 Saturation (%) 2018-10-13 09:37:31.000 99 % O2 Saturation (%) 2018-10-12 13:07:42.000 98 % O2 Saturation (%) 2018-10-11 12:10:55.000 99 % Respirations 2018-11-17 13:58:22.000 16 /min Respirations 2018-11-14 11:37:56.000 18 /min Respirations 2018-11-10 18:12:05.000 16 /min Respirations 2018-11-08 15:42:28.000 18 /min Respirations 2018-11-02 11:21:58.000 16 /min Respirations 2018-11-01 09:58:22.000 16 /min Respirations 2018-10-31 16:59:48.000 14 /min Respirations 2018-10-27 13:16:22.000 16 /min Respirations 2018-10-26 09:44:44.000 16 /min Respirations 2018-10-25 12:31:17.000 16 /min Respirations 2018-10-24 20:04:04.000 16 /min Respirations 2018-10-24 14:18:54.000 12 /min Respirations 2018-10-20 09:35:44.000 18 /min Respirations 2018-10-19 12:24:48.000 16 /min Respirations 2018-10-18 11:17:27.000 18 /min Respirations 2018-10-17 14:14:36.000 18 /min Respirations 2018-10-17 09:11:29.000 16 /min Respirations 2018-10-17 08:45:59.000 20 /min Respirations 2018-10-13 16:07:17.000 14 /min Respirations 2018-10-13 09:38:20.000 16 /min Respirations 2018-10-12 13:06:50.000 16 /min Respirations 2018-10-11 12:15:09.000 16 /min Respirations 2018-10-10 18:47:07.000 20 /min Systolic Blood Pressure 2018-11-17 13:58:13.000 106 mm [Hg] Systolic Blood Pressure 2018-11-14 11:41:43.000 90 mm[ Hg] Systolic Blood Pressure 2018-11-14 11:41:33.000 110 mm [Hg] Systolic Blood Pressure 2018-11-10 18:12:24.000 100 mm [Hg] Systolic Blood Pressure 2018-11-08 15:47:32.000 90 mm[ Hg] Systolic Blood Pressure 2018-11-08 15:47:16.000 100 mm [Hg] Systolic Blood Pressure 2018-11-02 11:22:33.000 118 mm [Hg] Systolic Blood Pressure 2018-11-01 10:01:45.000 104 mm [Hg] Systolic Blood Pressure 2018-11-01 10:01:30.000 132 mm [Hg] Systolic Blood Pressure 2018-10-31 16:59:26.000 142 mm [Hg] Systolic Blood Pressure 2018-10-27 13:21:08.000 130 mm [Hg] Systolic Blood Pressure 2018-10-27 13:20:58.000 100 mm [Hg] Systolic Blood Pressure 2018-10-27 13:20:45.000 138 mm [Hg] Systolic Blood Pressure 2018-10-26 09:44:35.000 138 mm [Hg] Systolic Blood Pressure 2018-10-25 12:33:43.000 110 mm [Hg] Systolic Blood Pressure 2018-10-25 12:33:33.000 124 mm [Hg] Systolic Blood Pressure 2018-10-24 20:03:25.000 118 mm [Hg] Systolic Blood Pressure 2018-10-24 14:20:18.000 142 mm [Hg] Systolic Blood Pressure 2018-10-20 09:40:07.000 94 mm[ Hg] Systolic Blood Pressure 2018-10-20 09:39:01.000 110 mm [Hg] Systolic Blood Pressure 2018-10-19 12:23:54.000 135 mm [Hg] Systolic Blood Pressure 2018-10-18 11:22:40.000 122 mm [Hg] Systolic Blood Pressure 2018-10-18 11:21:27.000 142 mm [Hg] Systolic Blood Pressure 2018-10-17 13:55:49.000 100 mm [Hg] Systolic Blood Pressure 2018-10-17 09:13:20.000 94 mm[ Hg] Systolic Blood Pressure 2018-10-17 09:12:26.000 104 mm [Hg] Systolic Blood Pressure 2018-10-17 08:46:29.000 124 mm [Hg] Systolic Blood Pressure 2018-10-13 16:07:05.000 130 mm [Hg] Systolic Blood Pressure 2018-10-13 09:39:58.000 122 mm [Hg] Systolic Blood Pressure 2018-10-12 13:07:24.000 115 mm [Hg] Systolic Blood Pressure 2018-10-11 12:13:11.000 104 mm [Hg] Systolic Blood Pressure 2018-10-11 12:12:17.000 122 mm [Hg] Systolic Blood Pressure 2018-10-10 18:47:19.000 140 mm [Hg] Diastolic Blood Pressure 2018-11-17 13:58:13.000 70 mm [Hg] Diastolic Blood Pressure 2018-11-14 11:41:43.000 58 mm [Hg] Diastolic Blood Pressure 2018-11-14 11:41:33.000 60 mm [Hg] Diastolic Blood Pressure 2018-11-10 18:12:24.000 60 mm [Hg] Diastolic Blood Pressure 2018-11-08 15:47:32.000 56 mm [Hg] Diastolic Blood Pressure 2018-11-08 15:47:16.000 58 mm [Hg] Diastolic Blood Pressure 2018-11-02 11:22:33.000 72 mm [Hg] Diastolic Blood Pressure 2018-11-01 10:01:45.000 70 mm [Hg] Diastolic Blood Pressure 2018-11-01 10:01:30.000 74 mm [Hg] Diastolic Blood Pressure 2018-10-31 16:59:26.000 85 mm [Hg] Diastolic Blood Pressure 2018-10-27 13:21:08.000 70 mm [Hg] Diastolic Blood Pressure 2018-10-27 13:20:58.000 68 mm [Hg] Diastolic Blood Pressure 2018-10-27 13:20:45.000 74 mm [Hg] Diastolic Blood Pressure 2018-10-26 09:44:35.000 72 mm [Hg] Diastolic Blood Pressure 2018-10-25 12:33:43.000 64 mm [Hg] Diastolic Blood Pressure 2018-10-25 12:33:33.000 70 mm [Hg] Diastolic Blood Pressure 2018-10-24 20:03:25.000 70 mm [Hg] Diastolic Blood Pressure 2018-10-24 14:20:18.000 80 mm [Hg] Diastolic Blood Pressure 2018-10-20 09:40:07.000 60 mm [Hg] Diastolic Blood Pressure 2018-10-20 09:39:01.000 64 mm [Hg] Diastolic Blood Pressure 2018-10-19 12:23:54.000 72 mm [Hg] Diastolic Blood Pressure 2018-10-18 11:22:40.000 72 mm [Hg] Diastolic Blood Pressure 2018-10-18 11:21:27.000 80 mm [Hg] Diastolic Blood Pressure 2018-10-17 13:55:49.000 66 mm [Hg] Diastolic Blood Pressure 2018-10-17 09:13:20.000 52 mm [Hg] Diastolic Blood Pressure 2018-10-17 09:12:26.000 56 mm [Hg] Diastolic Blood Pressure 2018-10-17 08:46:29.000 66 mm [Hg] Diastolic Blood Pressure 2018-10-13 16:07:05.000 70 mm [Hg] Diastolic Blood Pressure 2018-10-13 09:39:58.000 72 mm [Hg] Diastolic Blood Pressure 2018-10-12 13:07:24.000 70 mm [Hg] Diastolic Blood Pressure 2018-10-11 12:13:11.000 60 mm [Hg] Diastolic Blood Pressure 2018-10-11 12:12:17.000 70 mm [Hg] Diastolic Blood Pressure 2018-10-10 18:47:19.000 72 mm [Hg] Plan of Treatment Planned Activity Planned Date Details Comments Future Scheduled Test SKILLED NU RSE TO EVALUATE PATIENT AND DEVELOP PLAN OF CARE TO BE COUNTER SIGNED BY PHYSICIAN. [code = SKILLED NURSE TO EVALUATE PATIENT AND DEVELOP PLAN OF CARE TO BE COUNTER SIGNED BY PHYSICIAN.] Future Scheduled Test SKILLED NU RSE TO ASSESS FOR/INSTRUCT IN POST OPERATIVE CARE AND COMPLICATIONS TO INCLUDE: ASSESSMENT OF INCISION, INSTRUCT IN PAIN CONTROL, PREVENTION OF CONSTIPATION, USE OF INCENTIVE SPIROMETER, IMPROVED NUTRITION TO ENHANCE HEALING, S/S OF INFECTION, AND PACING OF ACTIVITY. [code = SKILLED NURSE TO ASSESS FOR/INSTRUCT IN POST OPERATIVE CARE AND COMPLICATIONS TO INCLUDE: ASSESSMENT OF INCISION, INSTRUCT IN PAIN CONTROL, PREVENTION OF CONSTIPATION, USE OF INCENTIVE SPIROMETER, IMPROVED NUTRITION TO ENHANCE HEALING, S/S OF INFECTION, AND PACING OF ACTIVITY.] Future Scheduled Test SKILLED NU RSE TO INSTRUCT/REINFORCE PATIENT REGARDING PHARMACOLOGIC, AND NON PHARMACOLOGIC AND OTHER PAIN CONTROL MEASURES. [code = SKILLED NURSE TO INSTRUCT/REINFORCE PATIENT REGARDING PHARMACOLOGIC, AND NON PHARMACOLOGIC AND OTHER PAIN CONTROL MEASURES.] Future Scheduled Test SKILLED NU RSE TO PROVIDE INSTRUCTIONS / REINFORCEMENT RELATED TO SAFE PROVISION OF ADLS AND POSSIBLE COMPLICATIONS ASSOCIATED WITH PROVISION OF ADLS. [code = SKILLED NURSE TO PROVIDE INSTRUCTIONS / REINFORCEMENT RELATED TO SAFE PROVISION OF ADLS AND POSSIBLE COMPLICATIONS ASSOCIATED WITH PROVISION OF ADLS.] Future Scheduled Test SKILLED NU RSE TO REVIEW HOME SAFETY EACH VISIT; INSTRUCT PATIENT/CAREGIVER IN MEASURES TO IMPROVE HOME SAFETY AND PREVENT FALLS. [code = SKILLED NURSE TO REVIEW HOME SAFETY EACH VISIT; INSTRUCT PATIENT/CAREGIVER IN MEASURES TO IMPROVE HOME SAFETY AND PREVENT FALLS.] Future Scheduled Test SKILLED NU RSE TO INSTRUCT IN RELATED DISEASE CONTROL, FOOT AND NAIL CARE, IMPORTANCE OF PROPER FOOT WEAR AND SAFETY MEASURES [code = SKILLED NURSE TO INSTRUCT IN RELATED DISEASE CONTROL, FOOT AND NAIL CARE, IMPORTANCE OF PROPER FOOT WEAR AND SAFETY MEASURES] Future Scheduled Test SKILLED NU RSE TO OBTAIN 02 SATS VIA PULSE OXIMETER PRN. [code = SKILLED NURSE TO OBTAIN 02 SATS VIA PULSE OXIMETER PRN.] Future Scheduled Test SKILLED NU RSE TO MONITOR PLAN FOR CURRENT TREATMENT OF DEPRESSION SUCH EFFECTS OF MEDICATION AND/OR NEED FOR REFERRAL FOR OTHER TREATMENT. [code = SKILLED NURSE TO MONITOR PLAN FOR CURRENT TREATMENT OF DEPRESSION SUCH EFFECTS OF MEDICATION AND/OR NEED FOR REFERRAL FOR OTHER TREATMENT.] Future Scheduled Test SN MAY PRO VIDE UP TO 3 PRN VISITS DURING THIS EPISODE OF CARE FOR CHANGE OF CONDITION, TREATMENT OF COMPLICATIONS. [code = SN MAY PROVIDE UP TO 3 PRN VISITS DURING THIS EPISODE OF CARE FOR CHANGE OF CONDITION, TREATMENT OF COMPLICATIONS.] Future Scheduled Test PT MAY PRO VIDE UP TO 3 PRN VISITS DURING THIS EPISODE OF CARE FOR CHANGE IN STATUS, POORLY CONTROLLED SYMPTOMS PHYSICAL THERAPIST TO EVALUATE/ASSESS AND DEVELOP PHYSICAL THERAPY PLAN OF CARE TO BE SIGNED BY THE PHYSICIAN. PHYSICAL THERAPY TO ESTABLISH/UPGRADE HOME EXERCISE PROGRAM AND PROVIDE EXERCISES DESIGNED TO RESTORE FUNCTIONAL STRENGTH AND ROM. PT MAY ALSO PROVIDE SOFT TISSUE AND JOINT MOBILIZATION TO REDUCE JOINT DEFORMITY AND INCREASE FUNCTIONAL RANGE OF MOTION. PHYSICAL THERAPY TO INSTRUCT SAFE TRANSFERS (BED, BATH, TOILET, SOFA, CHAIR, COMMODE) USING APPROPRIATE BODY MECHANICS, AND EQUIPMENT (SLIDING BOARD, TRAPEZE, BATH BENCH, WHEELCHAIR, MECHANICAL LIFTS). PHYSICAL THERAPY TO EVALUATE GAIT AND PROVIDE AMBULATION TRAINING USING APPROPRIATE ASSISTIVE DEVICE TO ENSURE PATIENT SAFETY. PHYSICAL THERAPIST TO PROVIDE INSTRUCTION REGARDING PAIN CONTROL METHODOLOGIES INCLUDING PHARMACOLOGIC AND NON-PHARMACOLOGIC METHODS. SKILLED PHYSICAL THERAPIST TO PROMOTE PATIENT/CAREGIVER AWARENESS OF FALL RISKS AND TO INSTRUCT IN MEASURES TO IMPROVE PATIENT SAFETY AND TO PREVENT FALLS. PHYSICAL THERAPIST TO PROVIDE INSTRUCTION/REINFORCEMENT RELATED TO COMPLICATIONS OF INTEGUMENTARY STATUS INCLUDING PU, DVT AND INFECTION. [code = PT MAY PROVIDE UP TO 3 PRN VISITS DURING THIS EPISODE OF CARE FOR CHANGE IN STATUS, POORLY CONTROLLED SYMPTOMS PHYSICAL THERAPIST TO EVALUATE/ASSESS AND DEVELOP PHYSICAL THERAPY PLAN OF CARE TO BE SIGNED BY THE PHYSICIAN. PHYSICAL THERAPY TO ESTABLISH/UPGRADE HOME EXERCISE PROGRAM AND PROVIDE EXERCISES DESIGNED TO RESTORE FUNCTIONAL STRENGTH AND ROM. PT MAY ALSO PROVIDE SOFT TISSUE AND JOINT MOBILIZATION TO REDUCE JOINT DEFORMITY AND INCREASE FUNCTIONAL RANGE OF MOTION. PHYSICAL THERAPY TO INSTRUCT SAFE TRANSFERS (BED, BATH, TOILET, SOFA, CHAIR, COMMODE) USING APPROPRIATE BODY MECHANICS, AND EQUIPMENT (SLIDING BOARD, TRAPEZE, BATH BENCH, WHEELCHAIR, MECHANICAL LIFTS). PHYSICAL THERAPY TO EVALUATE GAIT AND PROVIDE AMBULATION TRAINING USING APPROPRIATE ASSISTIVE DEVICE TO ENSURE PATIENT SAFETY. PHYSICAL THERAPIST TO PROVIDE INSTRUCTION REGARDING PAIN CONTROL METHODOLOGIES INCLUDING PHARMACOLOGIC AND NON-PHARMACOLOGIC METHODS. SKILLED PHYSICAL THERAPIST TO PROMOTE PATIENT/CAREGIVER AWARENESS OF FALL RISKS AND TO INSTRUCT IN MEASURES TO IMPROVE PATIENT SAFETY AND TO PREVENT FALLS. PHYSICAL THERAPIST TO PROVIDE INSTRUCTION/REINFORCEMENT RELATED TO COMPLICATIONS OF INTEGUMENTARY STATUS INCLUDING PU, DVT AND INFECTION.] Future Scheduled Test OCCUPATION AL THERAPIST TO EVALUATE PATIENT FOR OT SERVICES AND DEVELOP PLAN OF CARE FOR PHYSICIAN SIGNATURE TO BE SIGNED BY PHYSICIAN. OCCUPATIONAL THERAPY TO ESTABLISH / UPGRADE HOME EXERCISE PROGRAM TO IMPROVE FUNCTIONAL LEVEL BY INSTRUCTION TO CLIENT / CAREGIVER IN EXERCISES WHICH MAY BE USED IN ADJUNCT TO PHYSICAL THERAPY PROGRAMS. OCCUPATIONAL THERAPY TO EVALUATE GAIT AND PROVIDE TRAINING OF APPROPRIATE ASSISTIVE DEVICE TO ENSURE PATIENT SAFETY. OCCUPATIONAL THERAPY TO PERFORM HOME SAFETY EVALUATION. OCCUPATIONAL THERAPY TO PROVIDE CLIENT / CAREGIVER WITH ADL TRAINING. OCCUPATIONAL THERAPY TO PROVIDE FABRICATION AND TRAINING OF SPECIAL DEVICE THAT INCREASES FUNCTIONS. OCCUPATIONAL THERAPY TO PROVIDE ENERGY CONSERVATION TRAINING TO RESTORE ENDURANCE. OCCUPATIONAL THERAPIST TO OBTAIN 02 SATS VIA PULSE OXIMETER PRN. [code = OCCUPATIONAL THERAPIST TO EVALUATE PATIENT FOR OT SERVICES AND DEVELOP PLAN OF CARE FOR PHYSICIAN SIGNATURE TO BE SIGNED BY PHYSICIAN. OCCUPATIONAL THERAPY TO ESTABLISH / UPGRADE HOME EXERCISE PROGRAM TO IMPROVE FUNCTIONAL LEVEL BY INSTRUCTION TO CLIENT / CAREGIVER IN EXERCISES WHICH MAY BE USED IN ADJUNCT TO PHYSICAL THERAPY PROGRAMS. OCCUPATIONAL THERAPY TO EVALUATE GAIT AND PROVIDE TRAINING OF APPROPRIATE ASSISTIVE DEVICE TO ENSURE PATIENT SAFETY. OCCUPATIONAL THERAPY TO PERFORM HOME SAFETY EVALUATION. OCCUPATIONAL THERAPY TO PROVIDE CLIENT / CAREGIVER WITH ADL TRAINING. OCCUPATIONAL THERAPY TO PROVIDE FABRICATION AND TRAINING OF SPECIAL DEVICE THAT INCREASES FUNCTIONS. OCCUPATIONAL THERAPY TO PROVIDE ENERGY CONSERVATION TRAINING TO RESTORE ENDURANCE. OCCUPATIONAL THERAPIST TO OBTAIN 02 SATS VIA PULSE OXIMETER PRN. ] Goal 2018-11-17 Patient Goal - T O STAY OUT OF THE HOSPITAL. Goal Provider Goal - A PLAN OF CARE WILL BE ESTABLISHED THAT MEETS ALL PATIENT'S CARE HOME NEEDS AND COUNTER SIGNED BY PHYSICIAN. Goal Provider Goal - SN: CLIENT WILL VERBALIZE/DEMONSTRATE ADEQUATE KNOWLEDGE OF POST OPERATIVE CARE, AND REPORTABLE S/S OF POTENTIAL COMPLICATIONS Goal Provider Goal - PATIENT / CAREGIVER WILL VERBALIZE UNDERSTANDING OF PHARMACOLOGIC AND NON PHARMACOLOGIC PAIN CONTROL MEASURES. Goal Provider Goal - PATIENT / CAREGIVER WILL VERBALIZE / DEMONSTRATE ADEQUATE KNOWLEDGE OF SAFE PROVISION OF ADLS EVIDENCED BY APPROPRIATE HOME MANAGEMENT WITHOUT COMPLICATIONS OR INJURY. Goal Provider Goal - PATIENT/CAREGIVER WILL VERBALIZE/DEMONSTRATE UNDERSTANDING OF FALL PREVENTION/SAFETY. Goal Provider Goal - PATIENT / CAREGIVER WILL VERBALIZE/DEMONSTRATE APPROPRIATE RELATED DISEASE MANAGEMENT, SAFETY MEASURES, FOOT WEAR AND FOOT Goal Provider Goal - PATIENT WILL DEMONSTRATE OXYGEN SATURATION WITH NORMAL LIMITS OR TO PATIENT'S OPTIMAL LEVEL ESTABLISHED BY THE PHYSICIAN. Goal Provider Goal - CHANGES IN PATIENT CO-MORBID STATUS WILL BE PROMPTLY IDENTIFIED AND REPORTED TO THE PHYSICIAN. PATIENT/CAREGIVER VERBALIZE/DEMONSTRATE ABILITY TO PROPERLY MANAGE DEPRESSION BY 12/07/18. Goal Provider Goal - Goal Provider Goal - A PHYSICAL THERAPY PLAN OF CARE WILL BE ORDERED BY PHYSICIAN AND PROVIDED BY PHYSICAL THERAPY. ALL GOALS TO BE MET BY END OF CURRENTLY APPROVED PLAN OF CARE. PATIENT WILL DEMONSTRATE IMPROVED FUNCTION FOLLOWING SPECIFIC EXERCISE TECHNIQUE (PROPRIOCEPTIVE NEUROMUSCULAR FACILITATION (PNF), DEEDEE, SHAMEKA'Blas, SAY) AND/OR MANUAL; THERAPY (SOFT TISSUE AND JOINT MOBILIZATION TO REDUCE JOINT DEFORMITY AND INCREASE FUNCTIONAL RANGE OF MOTION), EVIDENCED BY INCREASED INDEPENDENCE IN ACTIVITIES OF DAILY LIVING. PATIENT/CAREGIVER WILL DEMONSTRATE SAFE TRANSFERS USING APPROPRIATE BODY MECHANICS AND EQUIPMENT, EVIDENCED BY INJURY FREE TRANSFERS TO BED, BATH, TOILET, SOFA, CHAIR, COMMODE. PATIENT WILL DEMONSTRATE USE OF SAFETY PRECAUTIONS AND IMPROVED AMBULATION WITH USE OF ASSISTIVE DEVICE NEEDED TO MINIMIZE RISK OF INJURY. PATIENT/CAREGIVER WILL VERBALIZE UNDERSTANDING OF AND PROPER USAGE OF AVAILABLE PAIN CONTROL METHODOLOGIES. PATIENT/CAREGIVER WILL VERBALIZE AWARENESS OF FALL RISKS AND WILL VERBALIZE/IMPLEMENT FALL PREVENTION MEASURES. PATIENT / CAREGIVER WILL VERBALIZE / DEMONSTRATE ADEQUATE KNOWLEDGE OF INTEGUMENTARY STATUS. Goal Provider Goal - OCCUPATIONAL THERAPY EVALUATION WILL BE COMPLETED. PLAN OF CARE WILL BE ORDERED BY PHYSICIAN AND PROVIDED BY OCCUPATIONAL THERAPIST. ALL GOALS TO BE MET BY END OF CURRENTLY APPROVED PLAN OF CARE OR DISCHARGE WHEN MAXIMUM REHABILITATION POTENTIAL ACHIEVED. PATIENT WILL DEMONSTRATE IMPROVED FUNCTIONAL ABILITY EVIDENCED BY PATIENT/CAREGIVER PARTICIPATION IN ESTABLISHED HOME EXERCISE PROGRAM. PATIENT WILL DEMONSTRATE USE OF SAFETY PRECAUTIONS AND IMPROVED AMBULATION WITH USE OF ASSISTIVE DEVICE NEEDED TO MINIMIZE RISK OF INJURY. PATIENT WILL VERBALIZE AND DEMONSTRATE UNDERSTANDING OF MEASURES THAT WILL RESULT IN A SAFE HOME ENVIRONMENT. PATIENT WILL DEMONSTRATE INCREASED INDEPENDENCE IN ACTIVITIES OF DAILY LIVING EVIDENCED BY INCREASED PARTICIPATION IN ADLS. PATIENT WILL DEMONSTRATE IMPROVED INDEPENDENCE IN FUNCTIONALITY A RESULT OF FABRICATION OF TEMPORARY DEVICES BY THE OCCUPATIONAL THERAPIST. CLIENT WILL DEMONSTRATE IMPROVED ENDURANCE EVIDENCED BY GOOD CARRYOVER OF ENERGY CONSERVATION TECHNIQUES. PATIENT WILL DEMONSTRATE OXYGEN SATURATION WITH NORMAL LIMITS OR TO PATIENT'S OPTIMAL LEVEL ESTABLISHED BY THE PHYSICIAN. Reason for Visit INDEPENDENT IN THE HOME Encounters Start Date/Time End Date/Time Encounter Type Admission Type Attending [facility] Care Department Encounter ID Discharge Date Discharge Status Discharge Condition Discharge Reason Percent Goals Met 2018-10-10 00:00:00 2018-11-17 00:00:00 Outpatient NEW ADMISSION CHERYL [facility] [id number] 2018-11-17 00:00:00 DISCHARGE TO HOME OR SELF CARE INDEPENDEN T IN THE HOME GOALS MET 98.41
--- OUTSIDE RECORDS SUMMARY | 2024-06-08 07:51 | XMS_ITS | Clinical Summary ---
Author Organization Unknown Care Team Providers Care Nanosystems Engineer Name Role Phone RADU DALY, ZONIA Unavailable Unavailable JOSETTE PT , CYNDY Unavailable Unavailabl e SCIARRATTA OTR [id number], ABRIL Unavailable Un available DION RN, CHERYL Unavailable Unavailable Payers Payer Name Policy Type Policy Number Effective Date Expira tion Date WORKERS COMP [id number] [facility] [employer] [facility] [id number] Problems Condition Name Condition Details Condition Category Status Onset Date Resolution Date Last Treatment Date Treating Clinician Comments FX UNSP PART OF NK OF L FEMR, SUBS FOR CLOS FX W ROUTN HEAL Active 10-10 00:00: 00 TYPE 2 DIABETES MELLITUS WITHOUT COMPLICATION S Active 05-30 00:00: 00 CARE HOME (CURRENT) USE OF INSULIN Active 05-30 00:00: 00 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 Goal [...] End Date/Time Encounter Type Admission Type Attending [facility] Care Department Encounter ID Discharge Date Discharge Status Discharge Condition Discharge Reason Percent Goals Met 2018-10-10 00:00:00 2018-11-17 00:00:00 Outpatient NEW ADMISSION CHERYL ASHLEY [facility] [id number] 2018-11-17 00:00:00 DISCHARGE TO HOME OR SELF CARE INDEPENDEN T IN THE HOME GOALS MET 98.41
--- NOTE | 2024-06-08 07:52 | CA_ITS ---
Acquisition Time: 2024-06-08 08:05:50 Total Exercise Time: 00:02:00 Test Indications: SOB Medications: SEE H&P Protocol: LEXISCAN Max HR: 89 BPM 57% of Pred: 156 BPM Max BP: 142/76 mmHG Max Work Load: 1.0 METS Pharmacologic Stress Test with Lexiscan while pt marches in the chair, with reports of nausea and dizziness, unchanged baseline 3/10 mid upper burning chest pain, with isolated PAC, with normotensive response to injection. Nondiagnostic EKG for ischemia. In recovery, pt treated with IVP Aminophylline 75mg to reverse Lexiscan, after which pt feeling back to baseline. Nuclear images pending. Test reviewed with Dr. Garg. Referred By: Miriam Glass Electronically Signed By: Rodney Cali
== END ==
LOC: HO.CARD 07:49
PROVIDERS: PCP Internal Medicine; Visit Provider Internal Medicine
DX: E10.319 Type 1 diabetes mellitus with unspecified diabetic retinopathy without macular edema (principal); I20.9 Angina pectoris, unspecified
CPT/HCPCS: 78452; 93017; A9500; J0280; J2785

== ENCOUNTER → 2024-06-08 07:52 | Outpatient (BNV) | payer OTHER, SELFPAY | PROVIDERS: PCP Internal Medicine | DX: R06.02 Shortness of breath (principal) | CPT/HCPCS: 78452 ==

== ENCOUNTER 2024-06-22 12:09 | Outpatient (AMB) | payer OTHER, SELFPAY ==
[2024-06-22 12:10] VITALS: BP 144/88; PULSE 71; O2SAT 98; BMI 32.1
--- NOTE | 2024-06-22 12:10 | HO.NEPHOV ---
Vital Signs 06/22/24 12:10 06/22/24 12:29 06/22/24 12:29 Height 5 ft 4 in Weight 187 lb BMI 32.1 BP 144/88 H 130/80 130/80 Blood Pressure Location Lt brachial Lt brachial Lt brachial Position Sitting Sitting Standing Pulse 71 Pulse Source Pulse Oximeter Pulse Oximetry (%) 98 Oxygen Delivery Method Room Air Intake Visit Reasons: Karlo follow up/ LVM P 3 Armament/Ordnance Ima Technician Required: No Accompanied by: Self / Same As Patient Allergies ciprofloxacin [From Cipro] Adverse Reaction (Verified 06/22/24 12:12) Swelling prochlorperazine [From Compazine] Adverse Reaction (Verified 06/22/24 12:12) Muscle Pain Medication List - Last Reconciled 06/22/24 by Dameon Duenas MD acetone (urine) test (Ketone Urine Test strips) As directed atorvastatin 80 mg PO DAILY blood sugar diagnostic (Contour Next Test Strips) As directed-tests 4 X/day blood sugar diagnostic (FreeStyle Lite Strips) As directed qid prn sensor failure, or to confirm glucose blood-glucose meter (FreeStyle Lite Meter kit) As directed blood-glucose meter,continuous (Dexcom G7 Manganese Breaker) As directed blood-glucose sensor (Dexcom G7 Sensor device) As directed every 10 days cholecalciferol (vitamin D3) 50 mcg PO DAILY infusion set for insulin pump As directed: Humalog insulin glargine (Lantus Solostar U-100 Insulin) 13 units (0.13 mL) subcut DAILY PRN 30 days insulin lispro 50 units (0.5 mL) subcut DAILY insulin pump cart,auto,BT-cntr (Omnipod 5 G6 Intro Kit (Gen 5) subcutaneous cartridge with controller) As directed insulin pump cart,automated,BT (Omnipod 5 G6 Pods (Gen 5) subcutaneous cartridge) Change pod every 72 hours. lancets (FreeStyle Lancets) 4 times a day prn sensor failure or to confirm glucose dispense as 31 gauge if available metoprolol succinate ER 25 mg PO DAILY HPI Comments Details: Miguelina is a pleasant 63-year-old woman with a history of type 1 diabetes mellitus for more than 30 years complicated by stage 3 chronic kidney disease. She was followed in [place] and she recently moved to the area. I saw her last year for CKD. She had minimal proteinuria. Serum creatinine was around 1.1 mg/dL. She has ophthalmic issues and waiting for which he was surgery. She also has charcots joint. She is planning to go on disability She has had significant orthostatic hypotensive episodes at home and postprandial hypotension. She was given midodrine in the past and she did not tolerate this therefore she does not take midodrine anymore. She is on Benicar 2.5 mg and metoprolol 25 mg which she takes in the evening. 06/22/2024 From renal standpoint Pamela is doing well. Benicar 2.5 mg has been discontinued. She continues have postprandial hypotension. She takes metoprolol at night. She has no specific complaints today. 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 Lungs entry equal no rales. Heart S1-S2 heard no gallop or rub. Abdomen soft nontender. Neuro alert awake oriented. No asterixis. Extremities no edema. No orthostatic blood pressure changes Results Reviewed Nephrology Results: Hgb 11.2 g/dl (12.0-16.0) L 01/03/24 WBC 8.4 X10*3/uL (4.8-10.8) 01/03/24 Plt Count 280 X10*3/uL (160-400) 01/03/24 Sodium 139 mmol/L (135-145) 06/15/24 Potassium 4.2 mmol/L (3.3-5.1) 06/15/24 Chloride 108 mmol/L (96-108) 06/15/24 Carbon Dioxide 27 mmol/L (22-29) 06/15/24 BUN 24 mg/dL (9-16) H 06/15/24 Creatinine 1.16 mg/dL (0.5-1.4) 06/15/24 Calcium 8.3 mg/dL (8.4-10.2) L 06/15/24 Phosphorus 4.3 mg/dL (2.7-4.5) 01/03/24 Urine Creatinine 92.39 mg/dL 01/03/24 Assessment & Plan Assessment & Plan (1) CKD (chronic kidney disease): Comment: Stage III, Diabetic nephropathy, follows up with invoicing specialist, Code(s): N18.9 - Chronic kidney disease, unspecified Category: Medical Plan 63-year-old man with stage 3 chronic kidney disease in the setting of type 1 diabetes mellitus. Renal function has been reasonably stable for the last 1 year. Overall blood sugar seems well controlled with a hemoglobin A1c of 6.2%. She has a h/o orthostatic hypotension most likely due to autonomic neuropathy due to longstanding diabetes mellitus. We discussed all orthostatic precautions including had an elevation at 30 degrees and using tight stockings. She should also avoid consuming large large meal and rather try frequent small meals. If she has significant orthostatic blood pressure change I would reintroduce the midodrine. The recent serum creatinine was 1.16 and renal function is relatively stable with EGFR of about 46 mL/minute. Mild hypocalcemia most likely related to vitamin-D deficiency. She is on vitamin-D supplementation. We will check PTH prior to next visit Orders: Orders Basic Metabolic Panel 5 Months N18.9 - Chronic kidney disease, unspecified Creatinine Urine 5 Months N18.9 - Chronic kidney disease, unspecified Total Protein Urine Random 5 Months N18.9 - Chronic kidney disease, unspecified UA and rflx microscopic 5 Months N18.9 - Chronic kidney disease, unspecified Medications: Discontinued olmesartan Discontinued Reason: Patient no longer taking 2.5 mg (1/2 x 5 mg) PO DAILY 45 tabs 3RF Coding Level of Care Code Est Pt Level 4 (59050) Diagnoses CKD (chronic kidney disease) N18.9
[2024-06-22 12:29] VITALS: BP 130/80
--- OUTSIDE RECORDS SUMMARY | 2024-06-22 14:14 | XMS_ITS | Encounter Summary ---
Author Organization [facility] Address [address], [place] [address] Phone Care Team Providers Care Tool Marker Name Role Phone Unavailable Primary Care Provider Unavailabl e Encounter Details Date Type Department Care Team (Late st Contact Info) Description 03/06/2007 Legacy Encounter - [place] [address] Provider, MD Ricky [address] [place] [address] Social History Tobacco Use Types Packs/Day Years Used Date Smoking Tobacco: Never Assessed Sex and Gender Information Value Date Recorded Sex Assigned at Not on file Gender Identity Not on file Sexual Orientation Not on file documented as of this encounter Plan of Treatment Not on file documented as of this encounter Procedures Procedure Name Priority Date/Time Associated Diagnosis Comments DPS CONVERSION - LAB RESULT SCAN PROCEDURE 03/06/2007 12:00 AM EDT documented in this encounter Results * DPS CONVERSION - LAB RESULT SCAN PROCEDURE (03/06/2007 12:00 AM EDT) Narrative 03/06/2007 12:00 AM EDT Ordered by an unspecified provider. Historical Provider LAB BLOOD ORDERAB LES documented in this encounter Visit Diagnoses Not on filedocumented in this encounter
--- OUTSIDE RECORDS SUMMARY | 2024-06-22 14:14 | XMS_ITS | Encounter Summary ---
Author Organization [facility] Address [address] [address] Phone Care Team Providers Care Belt Machine Operator Name Role Phone Unavailable Primary Care Provider Unavailabl e Encounter Details Date Type Department Care Team (Late st Contact Info) Description 08/19/2006 Legacy Encounter - Labs HISTORICAL CONVERSION [place] [address] [place] [address] Provider, MD Ricky [address] [place] [address] Social History Tobacco Use Types Packs/Day Years [...] DPS CONVERSION - LAB RESULT SCAN PROCEDURE 08/19/2006 12:00 AM EDT documented in this encounter Results * DPS CONVERSION - LAB RESULT SCAN PROCEDURE (08/19/2006 12:00 AM EDT) Narrative 08/19/2006 12:00 AM EDT Ordered by an unspecified provider. Historical Provider LAB BLOOD ORDERAB LES documented in this encounter Visit Diagnoses Not on filedocumented in this encounter
--- OUTSIDE RECORDS SUMMARY | 2024-06-22 14:14 | XMS_ITS | Encounter Summary ---
Author Organization [facility] Address [address] [address] Phone Care Team Providers Care Investigation Specialist Name Role Phone Unavailable Primary Care Provider Unavailabl e Encounter Details Date Type Department Care Team (Late st Contact Info) Description 09/10/2006 Legacy Encounter - [place] [address] Provider, MD Ricky [address] [place] [phone] Social History Tobacco Use Types Packs/Day Years [...] DPS CONVERSION - LAB RESULT SCAN PROCEDURE 09/10/2006 12:00 AM EDT documented in this encounter Results * DPS CONVERSION - LAB RESULT SCAN PROCEDURE (09/10/2006 12:00 AM EDT) Narrative 09/10/2006 12:00 AM EDT Ordered by an unspecified provider. Historical Provider LAB BLOOD ORDERAB LES documented in this encounter Visit Diagnoses Not on filedocumented in this encounter
--- OUTSIDE RECORDS SUMMARY | 2024-06-22 14:14 | XMS_ITS | Encounter Summary ---
Author Organization [facility] Address [address] [address] Phone Care Team Providers Care Supervisor Name Role Phone Unavailable Primary Care Provider Unavailabl e Encounter Details Date Type Department Care Team (Late st Contact Info) Description 02/20/2007 Legacy Encounter - Labs [place] [address] Provider, MD Ricky [address] [place] [address] Social History Tobacco Use Types Packs/Day Years [...] DPS CONVERSION - LAB RESULT SCAN PROCEDURE 02/20/2007 12:00 AM EDT documented in this encounter Results * DPS CONVERSION - LAB RESULT SCAN PROCEDURE (02/20/2007 12:00 AM EDT) Narrative 02/20/2007 12:00 AM EDT Ordered by an unspecified provider. Historical Provider LAB BLOOD ORDERAB LES documented in this encounter Visit Diagnoses Not on filedocumented in this encounter
--- OUTSIDE RECORDS SUMMARY | 2024-06-22 14:14 | XMS_ITS | Encounter Summary ---
Author Organization [facility] Address [address] [address] Phone Care Team Providers Care Global Upstream Marketing Manager Name Role Phone Unavailable Primary Care Provider Unavailabl e Encounter Details Date Type Department Care Team (Late st Contact Info) Description 11/04/2006 Legacy Encounter - Labs [place] [address] Provider, MD Ricky [address] [place] [address] Social History Tobacco Use Types Packs/Day Years [...] DPS CONVERSION - LAB RESULT SCAN PROCEDURE 11/04/2006 12:00 AM EDT documented in this encounter Results * DPS CONVERSION - LAB RESULT SCAN PROCEDURE (11/04/2006 12:00 AM EDT) Narrative 11/04/2006 12:00 AM EDT Ordered by an unspecified provider. Historical Provider LAB BLOOD ORDERAB LES documented in this encounter Visit Diagnoses Not on filedocumented in this encounter
--- OUTSIDE RECORDS SUMMARY | 2024-06-22 14:14 | XMS_ITS | Encounter Summary ---
Author Organization [facility] Address [address], [place] [address] Phone Care Team Providers Care Quarter Trimmer Name Role Phone Unavailable Primary Care Provider Unavailabl e Encounter Details Date Type Department Care Team (Late st Contact Info) Description 07/26/2007 Legacy Encounter - [place] [address] Provider, MD Ricky [address] [place], [place] [id number] Social History Tobacco Use Types Packs/Day Years [...] DPS CONVERSION - LAB RESULT SCAN PROCEDURE 07/26/2007 12:00 AM EST documented in this encounter Results * DPS CONVERSION - LAB RESULT SCAN PROCEDURE (07/26/2007 12:00 AM EST) Narrative 07/26/2007 12:00 AM EST Ordered by an unspecified provider. Historical Provider LAB BLOOD ORDERAB LES documented in this encounter Visit Diagnoses Not on filedocumented in this encounter
--- OUTSIDE RECORDS SUMMARY | 2024-06-22 14:14 | XMS_ITS ---
Author Organization [facility] Address [address] [place] [address] Care Team Providers Care Tallow Pumper Name Role Phone Miriam Glass MD Primary Care Provider Unavaila ble Black, Rosalba Unavailable [phone] REASON FOR VISIT no show / Encounters Encounter Location Date Provider Diagnosis [facility] [address] [place] [address] 12/30/2022 Rosalba Black Plan Of Treatment No Information Progress Notes * Miguelina MCKEON MDOB:1959 (62 yo F)Acc No.[id number]:12/30/2022 Patient:?Miguelina Mckeon :1960???Age:62 Y???Sex:Female Address:[address] [place] [address] [address] , [place], [id number] * true * Date:? Generated for Dungi eben/Eunice/eTransmitting on:?06/22/2024 02:14 PM EST
--- OUTSIDE RECORDS SUMMARY | 2024-06-22 14:14 | XMS_ITS | Encounter Summary ---
Author Organization [facility] Address [address] [address] Phone Care Team Providers Care Certified Green Building Engineer Name Role Phone Unavailable Primary Care Provider Unavailabl e Encounter Details Date Type Department Care Team (Late st Contact Info) Description 08/05/2007 Abstract [place] [address] ProviderRicky MD [address] [place], [place] [id number] Social History Tobacco Use Types Packs/Day Years Used Date Smoking Tobacco: Never Assessed Sex and Gender Information Value Date Recorded Sex Assigned at Not on file Gender Identity Not on file Sexual Orientation Not on file documented as of this encounter Plan of Treatment Not on file documented as of this encounter Visit Diagnoses Not on filedocumented in this encounter
--- OUTSIDE RECORDS SUMMARY | 2024-06-22 14:14 | XMS_ITS | Encounter Summary ---
Author Organization [facility] Address [address] [address] Phone Care Team Providers Care Institutional Nutrition Consultant Name Role Phone Unavailable Primary Care Provider Unavailabl e Encounter Details Date Type Department Care Team (Late st Contact Info) Description 08/15/2006 Legacy Encounter - Labs [place] [address] Provider, MD Ricky [address] [place] [address] Social History Tobacco Use Types Packs/Day Years [...] DPS CONVERSION - LAB RESULT SCAN PROCEDURE 08/15/2006 12:00 AM EDT documented in this encounter Results * DPS CONVERSION - LAB RESULT SCAN PROCEDURE (08/15/2006 12:00 AM EDT) Narrative 08/15/2006 12:00 AM EDT Ordered by an unspecified provider. Historical Provider LAB BLOOD ORDERAB LES documented in this encounter Visit Diagnoses Not on filedocumented in this encounter
--- OUTSIDE RECORDS SUMMARY | 2024-06-22 14:14 | XMS_ITS | Encounter Summary ---
Author Organization [facility] Address [address] [address] Phone Care Team Providers Care Medical Record Technician Name Role Phone Unavailable Primary Care Provider Unavailabl e Encounter Details Date Type Department Care Team (Late st Contact Info) Description 11/16/2006 Legacy Encounter - [place] [address] Provider, MD Ricky [address] [place] [address] Social History Tobacco Use Types Packs/Day Years [...] DPS CONVERSION - LAB RESULT SCAN PROCEDURE 11/16/2006 12:00 AM EDT documented in this encounter Results * DPS CONVERSION - LAB RESULT SCAN PROCEDURE (11/16/2006 12:00 AM EDT) Narrative 11/16/2006 12:00 AM EDT Ordered by an unspecified provider. Historical Provider LAB BLOOD ORDERAB LES documented in this encounter Visit Diagnoses Not on filedocumented in this encounter
--- OUTSIDE RECORDS SUMMARY | 2024-06-22 14:14 | XMS_ITS | Clinical Summary ---
Author Organization [facility] Address [address] [place] [address] Care Team Providers Care Manager Search Name Role Phone Miriam Galss MD Primary Care Provider [phone] Allergies Active Allergy Reactions Criticality Noted Date Comments Chromium 12/07/2010 spasms spasms Ciprofloxacin Other (see comments) 09/30/2013 swelling Other reaction(s): Other (See Comments) swelling Other reaction(s): Other (See Comments) swelling Ionia-Containing Products 12/07/2010 swelling Levofloxacin Other (see comments) 02/08/2022 Prochlorperazine Other (see comments) 09/30/2013 facial spasm Other reaction(s): Other (See Comments) facial spasm Other reaction(s): Other (See Comments) facial spasm Medications atorvastatin (LIPITOR) 80 MG tablet Take 80 mg by mouth 1 (one) time each day 08/22/2022 Active Continuous Blood Gluc Sensor (Dexcom G6 Sensor) misc USE DIRECTED 08/16/2022 Active HumaLOG 100 UNIT/ML solution INJECT 50 UNITS UNDER THE SKIN EVERY DAY 08/17/2022 Active Cholecalciferol (Vitamin D) 25 MCG (1000 UT) tablet Vitamin D Active metoprolol succinate XL (TOPROL XL) 25 MG 24 hr tablet 1 (one) time each day 06/05/2021 Active Insulin Disposable Pump (Omnipod 5 G6 Intro, Gen 5,) kit Active Active Problems Problem Noted Date Diagnosed Date Chronic kidney disease stage 3 due to type 1 diabetes mellitus 01/10/2017 Overview (09/13/2022): Baseline Cr 1.2-1.4 Hypertensive heart disease with heart failure Overview (09/13/2022): # Holter 11/08: Heart rate: 76 to 112, average HR 87; rare APCs, rare PVCs, no cardiac symptoms. 6 runs of SVT longest 11 beats at max HR of 143 bpm. SDNN < 50 ms. QTc normal. # ETT-Echo 02/12: Normal EF, pHTN moderate with normal PAAT, no ischemia, grade II diastolic dysfunction with mild LA dilation. Anemia 12/07/2010 Type 1 diabetes mellitus 12/07/2010 Overview (09/13/2022): Diabetes Plan of Care 10/03/2018 Risk Stratification: Psychosocial aspects: Medication Adjustment: DM: Pump Procedure Value Date HEMOGLOBIN A1C 10.2 (H) 09/12/2018 HTN: lisinopril 2.5 mg Last Blood Pressure: Date: BP: 05/27/2016 138/76 Lipids: atorvastatin 80 mg Procedure Value Date LDL 77.6 09/12/2018 Patient Education: Managed by Endo Type 1 diabetes mellitus 12/07/2010 Overview (09/13/2022): Overview: Formatting of this note may be different from the original. Diabetes Plan of Care 06/16/2016 Risk Stratification: Psychosocial aspects: Medication Adjustment: DM: Pump Procedure Value Date HEMOGLOBIN A1C 9.7 (H) 04/14/2016 HTN: lisinopril 2.5 mg Last Blood Pressure: Date: BP: 05/27/2016 138/76 Lipids: atorvastatin 80 mg Procedure Value Date LDL 96 01/01/2016 Patient Education: Managed by Endo Hypertensive disorder 12/07/2010 Overview (09/13/2022): Hypertensive disorder Overview: Hypertensive disorder Chronic kidney disease stage 3 01/22/2009 Hyperkalemia 01/22/2009 Hypertensive chronic kidney disease, malignant, with chronic kidney disease stage V or end stage renal disease 01/22/2009 Immunizations Name Administration Dates Next Due Hepatitis B 08/15/2017,03/14/2017,02/09/2017 Influenza, MDCK, PF, Quadrivalent 03/06/2018 Influenza, Quadrivalent, Preservative Free 01/24,03/31/2019,02/17/2016 Influenza, Quadrivalent, With Preservative 03/14 Influenza, Unspecified 01/18/2020 Pneumococcal Polysaccharide 02/09/2017 Family History Medical History Relation Comments Hypertension Mother Relation Status Comments Mother Social History Tobacco Use Types Packs/Day Years Used Date Smoking Tobacco: Never Smokeless Tobacco: Never Tobacco Cessation:Counseling Given: Not Answered Alcohol Use Standard Drinks/Week Comments Never 0 (1 standard drink = 0.6 oz pur e alcohol) Comments Unknown Sex and Gender Information Value Date Recorded Sex Assigned at Not on file Legal Sex Female 8:24 AM EDT Gender Identity Not on file Sexual Orientation Not on file Last Filed Vital Signs Vital Sign Reading Time Taken Comments Blood Pressure 136/80 11/08/2022 1:02 PM EDT Pulse 75 11/08/2022 1:02 PM EDT Temperature - - Respiratory Rate - - Oxygen Saturation 97% 11/08/2022 1:02 PM EDT Inhaled Oxygen Concentration - - Weight 88.5 kg (195 lb) 09/13/2022 2:47 PM EDT Height 165.1 cm (5' 5 ) 09/13/2022 2:47 PM EDT Body Mass Index 32.45 09/13/2022 2:47 PM EDT Plan of Treatment Health Maintenance Due Date Last Done Comments Breast Cancer Screening 1960 Colorectal Cancer Screening: Annual FOBT 2009 Colorectal Cancer Screening: Colonoscopy 2009 Colorectal Cancer Screening: Sigmoidoscopy 2009 Pneumococcal Vaccine: Pediatrics (0 to 5 Years) and At-Risk Patients (6 to 64 Years) (2 of 2 - PCV) 02/09/2018 02/09/2017 Diabetes: Hemoglobin A1C 05/20/2022 Diabetes: Ophthalmology Exam 05/20/2022, 12/12/2019, 11/14/2019, Additional history exists Diabetes: Pedal Pulse Checked 05/20/2022 Diabetes: Sensory Foot Exam 05/20/2022 Diabetes: Visual Foot Exam 05/20/2022 Influenza Vaccine (#1) 2024 , 01/18/2020, 03/31/2019, Additional history exists Hepatitis B Vaccine Aged Out 08/15/2017, 03/14/2017, 02/09/2017 No longer eligible based on patient's age to complete this topic [place] [address] [address] [place] [address] Care Teams Manager Search Relationship Specialty Start Date End Date Miriam Glass MD 1961 [place] [address] PCP - General Internal Medicine 02/17/22
--- OUTSIDE RECORDS SUMMARY | 2024-06-22 14:14 | XMS_ITS | Encounter Summary ---
Author Organization [facility] Address [address], [place] [address] Phone Care Team Providers Care Coloring Checker Name Role Phone Unavailable Primary Care Provider Unavailabl e Encounter Details Date Type Department Care Team (Late st Contact Info) Description 09/04/2007 Legacy Encounter - [place] [address] Provider, MD Ricky [address] [place] [address] Social History Tobacco Use Types Packs/Day Years [...] DPS CONVERSION - LAB RESULT SCAN PROCEDURE 09/04/2007 12:00 AM EDT documented in this encounter Results * DPS CONVERSION - LAB RESULT SCAN PROCEDURE (09/04/2007 12:00 AM EDT) Narrative 09/04/2007 12:00 AM EDT Ordered by an unspecified provider. Historical Provider LAB BLOOD ORDERAB LES documented in this encounter Visit Diagnoses Not on filedocumented in this encounter
--- OUTSIDE RECORDS SUMMARY | 2024-06-22 14:14 | XMS_ITS | Encounter Summary ---
Author Organization [facility] Address [address] [address] Phone Care Team Providers Care Model Maker Fiberglass Name Role Phone Unavailable Primary Care Provider Unavailabl e Encounter Details Date Type Department Care Team (Late st Contact Info) Description 09/26/2006 Legacy Encounter - [place] [address] Provider, MD Ricky [address] [place] [address] Social History Tobacco Use Types Packs/Day Years [...] DPS CONVERSION - LAB RESULT SCAN PROCEDURE 09/26/2006 12:00 AM EDT documented in this encounter Results * DPS CONVERSION - LAB RESULT SCAN PROCEDURE (09/26/2006 12:00 AM EDT) Narrative 09/26/2006 12:00 AM EDT Ordered by an unspecified provider. Historical Provider LAB BLOOD ORDERAB LES documented in this encounter Visit Diagnoses Not on filedocumented in this encounter
--- OUTSIDE RECORDS SUMMARY | 2024-06-22 14:14 | XMS_ITS | Patient Health Record ---
Author Organization [facility] Address [address] [place] [address] Care Team Providers Care Picking Supervisor Name Role Phone Miriam Glass MD Primary Care Provider Unavaila ble Black, Rosalba Unavailable [phone] Allergies Allergen (clinical drug ingredient) Drug/Non Drug [...] Status Risk Notes Problem Ulcer of toe (070721862) Non-pressure chronic ulcer of other part of left foot limited to breakdown of skin (L97.521) Active confirmed Problem Polyneuropathy due to diabetes mellitus type I (169736223) Type 1 diabetes mellitus with diabetic polyneuropathy (E10.42) Active confirmed Problem 091371281 Hammer toe of right foot (M20.41) Active confirmed Problem 583423048 Hammer toe of left foot (M20.42) Active confirmed Problem 36316156 Charcot's joint of foot in type 1 diabetes mellitus (E10.610) Active confirmed Problem 694994513 Charcot's arthropathy (M14.60) Active confirmed Plan Of Treatment Pending Test Test Name Order Date X ray : Foot, right 3V 02/08/2022 34805-KEAP SKIN LESIONS, 2 TO 4 07/22/19 52199-MSUS SKIN LESIONS, 2 TO 4 12/15/19 79681-LWQY SKIN LESIONS, 2 TO 4 02/09/20 10566-THQB NAIL(S) 02/08/2022 27784-YRFU NAIL(S) 12/14/2021 26148-HSCY NAIL(S) 07/22/2022 Insurance Providers Payer Name Payer Address Payer Phone Subscriber Number Group Number Insured Name Patient Relationship to Insured Coverage Start Date Coverage End Date [facility] [address] [place] [address] [phone] [id number] Miguelina Arrieta Self - patient is [...]
--- OUTSIDE RECORDS SUMMARY | 2024-06-22 14:15 | XMS_ITS | Clinical Summary ---
Author Organization [facility] Address [address] [address] Phone Care Team Providers Care Harbor Department Manager Name Role Phone Unavailable Primary Care Provider Unavailabl e Medications Medication Sig Dispensed Refills Start Date End Date Status ergocalciferol (Drisdol) 1.25 MG (50765 UT) capsule Drisdol( 54671NLIH Oral once a week ) Active -Hx Entry 01/21/2009 Active insulin lispro (HumaLOG) 100 UNIT/ML injection Humalog( 100UNIT/ML Subcutaneous ) Active -Hx Entry 01/21/2009 Active sodium polystyrene (KAYEXALATE) 15 GM/60ML suspension Sodium Polystyrene Sulfonate( 15GM/60ML Oral once a week ) Active -Hx Entry 01/21/2009 Active amLODIPine-benazepri l (Lotrel) 5-20 MG per capsule Lotrel 5-20MG, 1 Capsule daily # 30, 08/01/2007, Ref. x3. Active 3 08/01/2007 Active olmesartan (Benicar) 20 MG tablet Benicar 20MG, 1 Tablet daily # 90, 01/21/2009, Ref. x3. Active 3 01/21/2009 Active carvedilol (Coreg) 25 MG tablet Coreg 25MG, 1 Tablet two times daily # 180, 01/21/2009, Ref. x3. Active 3 01/21/2009 Active Active Problems Problem Noted Date Diagnosed Date Hypertensive chronic kidney disease with stage 1 through stage 4 chronic kidney disease, or unspecified chronic kidney disease 03/30/2017 Type 2 diabetes mellitus wit h diabetic chronic kidney disease 03/29/2017 Chronic kidney disease 03/25/2017 Stage 3 chronic kidney disease 03/25/2017 Hyperkalemia 01/22/2009 Chronic kidney disease, stage 3 (moderate) 01/22 Diabetes mellitus with renal manifestations, type II or unspecified type, not stated as uncontrolled 01/22/2009 Hypertensive chronic kidney disease, malignant, with chronic kidney disease stage V or end stage renal disease 01/22/2009 Social History Tobacco Use Types Packs/Day Years Used Date Smoking Tobacco: Never Assessed Sex and Gender Information Value Date Recorded Sex Assigned at Not on file Gender Identity Not on file Sexual Orientation Not on file Last Filed Vital Signs Vital Sign Reading Time Taken Comments Blood Pressure 119/80 01/21/2009 12:01 AM EDT Pulse 72 01/21/2009 12:01 AM EDT Temperature - - Respiratory Rate - - Oxygen Saturation - - Inhaled Oxygen Concentration - - Weight 73.1 kg (161 lb 2 oz) 01/21/2009 12:01 AM EDT Height 14.2 cm (5.6 ) 01/21/2009 12:01 AM EDT Body Mass Index 3612.35 01/21/2009 12:01 AM EDT Plan of Treatment Not on file
--- OUTSIDE RECORDS SUMMARY | 2024-06-22 14:15 | XMS_ITS | Encounter Summary ---
Author Organization [facility] Address [address] [address] Phone Care Team Providers Care Digital Editor Name Role Phone Unavailable Primary Care Provider Unavailabl e Encounter Details Date Type Department Care Team (Late st Contact Info) Description 11/19/2008 Legacy Encounter - Labs HISTORICAL CONVERSION [place] [address] [place] [address] Provider, MD Ricky [address] [place] [address] Social History Tobacco Use Types Packs/Day Years [...] DPS CONVERSION - LAB RESULT SCAN PROCEDURE 11/19/2008 12:00 AM EDT documented in this encounter Results * DPS CONVERSION - LAB RESULT SCAN PROCEDURE (11/19/2008 12:00 AM EDT) Narrative 11/19/2008 12:00 AM EDT Ordered by an unspecified provider. Historical Provider LAB BLOOD ORDERAB LES documented in this encounter Visit Diagnoses Not on filedocumented in this encounter
--- OUTSIDE RECORDS SUMMARY | 2024-06-22 14:15 | XMS_ITS | Encounter Summary ---
Author Organization [facility] Address [address] [address] Phone Care Team Providers Care Analytics Senior Manager Name Role Phone Unavailable Primary Care Provider Unavailabl e Encounter Details Date Type Department Care Team (Late st Contact Info) Description 12/21/2006 Legacy Encounter - Labs [place] [address] Provider, MD Ricky [address] [place] [address] Social History Tobacco Use Types Packs/Day Years [...] DPS CONVERSION - LAB RESULT SCAN PROCEDURE 12/21/2006 12:00 AM EDT documented in this encounter Results * DPS CONVERSION - LAB RESULT SCAN PROCEDURE (12/21/2006 12:00 AM EDT) Narrative 12/21/2006 12:00 AM EDT Ordered by an unspecified provider. Historical Provider LAB BLOOD ORDERAB LES documented in this encounter Visit Diagnoses Not on filedocumented in this encounter
--- OUTSIDE RECORDS SUMMARY | 2024-06-22 14:15 | XMS_ITS | Encounter Summary ---
Author Organization [facility] Address [address] [address] Phone Care Team Providers Care Crime Lab Technician Name Role Phone Unavailable Primary Care Provider Unavailabl e Encounter Details Date Type Department Care Team (Late st Contact Info) Description 01/26/2008 Legacy Encounter - Labs [place] [address] Provider, MD Ricky [address] [place] [address] Social History Tobacco Use Types Packs/Day Years [...] DPS CONVERSION - LAB RESULT SCAN PROCEDURE 01/26/2008 12:00 AM EDT documented in this encounter Results * DPS CONVERSION - LAB RESULT SCAN PROCEDURE (01/26/2008 12:00 AM EDT) Narrative 01/26/2008 12:00 AM EDT Ordered by an unspecified provider. Historical Provider LAB BLOOD ORDERAB LES documented in this encounter Visit Diagnoses Not on filedocumented in this encounter
--- OUTSIDE RECORDS SUMMARY | 2024-06-22 14:15 | XMS_ITS | Encounter Summary ---
Author Organization [facility] Address [address] [address] Phone Care Team Providers Care Vice President Sales Name Role Phone Unavailable Primary Care Provider Unavailabl e Encounter Details Date Type Department Care Team (Late st Contact Info) Description 01/22/2009 Clinical Support [place] [address] ProviderRicky MD [address] [place] [address] Social History Tobacco Use Types Packs/Day Years [...]
--- OUTSIDE RECORDS SUMMARY | 2024-06-22 14:15 | XMS_ITS | Encounter Summary ---
Author Organization [facility] Address [address], [place] [address] Phone Care Team Providers Care Branding Machine Operator Name Role Phone Unavailable Primary Care Provider Unavailabl e Encounter Details Date Type Department Care Team (Late st Contact Info) Description 02/17/2007 Legacy Encounter - [place] [address] Provider, MD Ricky [address] [place] [address] Social History Tobacco Use Types Packs/Day Years [...] DPS CONVERSION - LAB RESULT SCAN PROCEDURE 02/17/2007 12:00 AM EDT documented in this encounter Results * DPS CONVERSION - LAB RESULT SCAN PROCEDURE (02/17/2007 12:00 AM EDT) Narrative 02/17/2007 12:00 AM EDT Ordered by an unspecified provider. Historical Provider LAB BLOOD ORDERAB LES documented in this encounter Visit Diagnoses Not on filedocumented in this encounter
--- OUTSIDE RECORDS SUMMARY | 2024-06-22 14:15 | XMS_ITS ---
Author Organization [facility] Address [address] [place] [address] Care Team Providers Care Wood Machine Carver Name Role Phone Miriam Glass MD Primary Care Provider Unavaila Rosalba Bear [phone] Encounters Encounter Location Date Provider Diagnosis [facility] [address] [place] [address] 12/30/2022 Rosalba Espinosa Plan Of Treatment No Information Progress Notes * Miguelina MCKEON MDOB:1959 (64 yo F)Acc No.[id number]:12/30/2022 Progress Note Patient:Miguelina ESPITIA Provider:?Rosalba Espinosa DPM :1960???Age:62 Y???Sex:Female D ate:12/30/2022 Address:[address] [place] [address] [address] [id number] Pcp:Miriam Glass MD Subjective: * Chief Complaints: [...] Espinosa DPM Date:?2022 Generated for Dungi eben/Eunice/eTransmitting on:?06/22/2024 02:15 PM EST
--- OUTSIDE RECORDS SUMMARY | 2024-06-22 14:15 | XMS_ITS | Encounter Summary ---
Author Organization [facility] Address [address] [address] Phone Care Team Providers Care Video Operator Name Role Phone Unavailable Primary Care Provider Unavailabl e Encounter Details Date Type Department Care Team (Late st Contact Info) Description 04/13/2009 Legacy Encounter - Labs [place] [address] Provider, MD Ricky [address] [place], [place] [phone] Social History Tobacco Use Types Packs/Day Years [...] DPS CONVERSION - LAB RESULT SCAN PROCEDURE 04/13/2009 12:00 AM EST documented in this encounter Results * DPS CONVERSION - LAB RESULT SCAN PROCEDURE (04/13/2009 12:00 AM EST) Narrative 04/13/2009 12:00 AM EST Ordered by an unspecified provider. Historical Provider LAB BLOOD ORDERAB LES documented in this encounter Visit Diagnoses Not on filedocumented in this encounter
--- OUTSIDE RECORDS SUMMARY | 2024-06-22 14:15 | XMS_ITS | Encounter Summary ---
Author Organization [facility] Address [address] [address] Phone Care Team Providers Care National Expansion Recruiter Name Role Phone Unavailable Primary Care Provider Unavailabl e Encounter Details Date Type Department Care Team (Late st Contact Info) Description 04/30/2009 Legacy Encounter - [place] [address] Provider, MD Ricky [address] [place], [place] [phone] Social History Tobacco Use Types Packs/Day Years [...] DPS CONVERSION - LAB RESULT SCAN PROCEDURE 04/30/2009 12:00 AM EST documented in this encounter Results * DPS CONVERSION - LAB RESULT SCAN PROCEDURE (04/30/2009 12:00 AM EST) Narrative 04/30/2009 12:00 AM EST Ordered by an unspecified provider. Historical Provider LAB BLOOD ORDERAB LES documented in this encounter Visit Diagnoses Not on filedocumented in this encounter
--- OUTSIDE RECORDS SUMMARY | 2024-06-22 14:15 | XMS_ITS | Encounter Summary ---
Author Organization [facility] Address [address] [address] Phone Care Team Providers Care Program Proposals Coordinator Name Role Phone Unavailable Primary Care Provider Unavailabl e Encounter Details Date Type Department Care Team (Late st Contact Info) Description 11/28/2006 Legacy Encounter - Labs [place] [address] Provider, MD Ricky [address] [place] [address] Social History Tobacco Use Types Packs/Day Years [...] DPS CONVERSION - LAB RESULT SCAN PROCEDURE 11/28/2006 12:00 AM EDT documented in this encounter Results * DPS CONVERSION - LAB RESULT SCAN PROCEDURE (11/28/2006 12:00 AM EDT) Narrative 11/28/2006 12:00 AM EDT Ordered by an unspecified provider. Historical Provider LAB BLOOD ORDERAB LES documented in this encounter Visit Diagnoses Not on filedocumented in this encounter
--- OUTSIDE RECORDS SUMMARY | 2024-06-22 14:15 | XMS_ITS | Encounter Summary ---
Author Organization [facility] Address [address] [address] Phone Care Team Providers Care Telephone Order Clerk Room Service Name Role Phone Unavailable Primary Care Provider Unavailabl e Encounter Details Date Type Department Care Team (Late st Contact Info) Description 01/16/2009 Legacy Encounter - Labs [place] [address] Provider, MD Ricky [address] [place] [address] Social History Tobacco Use Types Packs/Day Years [...] DPS CONVERSION - LAB RESULT SCAN PROCEDURE 01/16/2009 12:00 AM EDT documented in this encounter Results * DPS CONVERSION - LAB RESULT SCAN PROCEDURE (01/16/2009 12:00 AM EDT) Narrative 01/16/2009 12:00 AM EDT Ordered by an unspecified provider. Historical Provider LAB BLOOD ORDERAB LES documented in this encounter Visit Diagnoses Not on filedocumented in this encounter
== END 2024-06-22 12:32 | disposition home or self-care (01) ==
PROVIDERS: PCP Internal Medicine; Visit Provider Internal Medicine Hypertension Specialist
DX: N18.9 Chronic kidney disease, unspecified (principal)
CPT/HCPCS: 99214

== ENCOUNTER → 2024-06-22 12:09 | Outpatient (BNVA) | payer OTHER, SELFPAY | PROVIDERS: PCP Internal Medicine; Visit Provider Internal Medicine Hypertension Specialist | DX: N18.9 Chronic kidney disease, unspecified (principal) | CPT/HCPCS: 99212 ==

== ENCOUNTER → 2024-07-04 08:23 | Outpatient (BNVA) | payer OTHER, SELFPAY | PROVIDERS: PCP Internal Medicine; Visit Provider Internal Medicine | DX: E10.22 Type 1 diabetes mellitus with diabetic chronic kidney disease (principal); I51.89 Other ill-defined heart diseases; G90.9 Disorder of the autonomic nervous system, unspecified; R94.31 Abnormal electrocardiogram [ECG] [EKG]; I44.0 Atrioventricular block, first degree | CPT/HCPCS: 93005; 99202 ==

== ENCOUNTER → 2024-07-06 10:15 | Outpatient (BNVA) | payer OTHER, SELFPAY | PROVIDERS: PCP Internal Medicine; Visit Provider Nurse Practitioner Adult Health | DX: E10.319 Type 1 diabetes mellitus with unspecified diabetic retinopathy without macular edema (principal); J32.9 Chronic sinusitis, unspecified | CPT/HCPCS: 82947; 83036; 99212 ==

== ENCOUNTER → 2024-07-06 10:15 | Outpatient (AMB) | payer OTHER, SELFPAY ==
--- NOTE | 2024-07-06 08:37 | A.OFFVIS_ITS ---
Vital Signs 07/06/24 10:17 Height 5 ft 4 in Weight 182 lb 15.739 oz BMI 31.4 BP 140/82 H Blood Pressure Location Rt brachial Position Sitting Pulse 71 Pulse Source Pulse Oximeter Intake Visit Reasons: T1DM Intake Note: Patient presents today for a follow-up on Type 1 Diabetes Mellitus: Last Diabetic eye exam was on: 12/05/2023 Last Podiatry exam was on: Does not see a Signal Technician Most recent HbA1c: 6.5%, 07/06/2024 Random Glucose- 112 mg/dL, Today Damage Prevention Coordinator Required: No Accompanied by: Self / Same As Patient Allergies ciprofloxacin [From Cipro] Adverse Reaction (Verified 07/06/24 10:24) Swelling prochlorperazine [From Compazine] Adverse Reaction (Verified 07/06/24 10:24) Muscle Pain HPI Comments Details: 64 YO F with with type 1 diabetes seen today in follow-up. She was last seen by myself 04/05/[address] Franz in April for osteoporosis. Initially diagnosed with T1DM in age 28 when presented with DKA. Was initially started on treatment with insulin. She is using Omnipod 5 sensor with Dexcom G sensor. 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 Basal rate(s) (units/hour) : 12 A =0.7 units/hr Bolus setting Insulin Carbohydrate Ratio (s) 1:14 Correction Factor / Sensitivity Factor 48 Active Insulin Time:? 4 hours Target(s): 12-8am 130 8 am 110 Dexcom average glucose: 171 14 day continuous glucose monitor report reviewed Glucose Managment indicator 7.4 % Days with CGM data 94 % TIme in ranges: For % very high (above 250) 32 % high ?(181-250) 64 % in range ?(70-180] 0 % low (69-55) 0 % ?very low (below 54) Interpretation [well-controlled ] Reports low sugars rare none recent. Treats lows with gluose tabs Checks sugar after to ensure it is rising. Follows the rule of 15's. Has emergency nasal spray No Family history of autoimmunity Has eyes checked yearly, last eye exam 11/2023 has retinopathy had laser Has neuropathy sees podiatry regularly. She is getting a 2nd opinion. She has Charcot feet and is followed closely by podiatry has bilateral foot pain Has CKD nephropathy, on ARB 01/03/24 microalbumin 8.0 eGFR46 Has HLD, on statin. Last LDL 58 01/03/24 Denies history of CAD.Has CHF c/o sinus congestion an pain for 10 days no fever, cough or shortness of breath Had diabetes education. Diet/Carb counting: carb counts folllows balanced diet Denies recent prior episodes of DKA. Has prior severe episodes of hypoglycemia requiring help or hospitalization. 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 Vitamin D deficiency Osteoporosis Abnormal colonoscopy CKD (chronic kidney disease) Surgical History History of cholecystectomy History of hip surgery Hx of cataract surgery Family History (Updated 07/04/24 @ 08:31 by Xochitl Michael CMA) Daughter Mental health disorder Mother HTN (hypertension) Lupus (systemic lupus erythematosus) Social History 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 Absence of acromegalic features. Neck exam reveals nl size thyroid about 15 gms. No thyroid nodules palpable. Heart S1 S2, Reg R/R. No M/R G. Skin exam reveals absence of vitiligo or acanthosis nigricans. Visual exam of foot performed. No ulcerations or open lesions. No inter digit maceration or fissuring. No onychomycosis, no callouses. Bilateral Charcot foot deformity Office Procedures Glucose Monitoring Details Details: see [facility] [address] - Glucose monitoring, continuous-physician I&R Procedure code (CPT) selection complete Results AMB Hemoglobin A1c AMB Hemoglobin A1c 6.5 % Last Edit by NATIVIDAD Ng on 07/06/24 10:43 Results Reviewed Results Reviewed: Laboratory Last Values Glucose (Clinic) 112 mg/dL (60-115) 07/06/24 10:25 Assessment & Plan Assessment & Plan (1) Diabetes type 1: Code(s): E10.9 - Type 1 diabetes mellitus without complications Category: Medical Plan: 64-year-old type 1 diabetic with neuropathy, retinopathy and nephropathy on an insulin pump with excellent glycemic control. The patient had an opportunity to ask questions regarding treatment plan. The patient expressed understanding and agreement with the above treatment plan. The patient is aware they should contact our office by phone for worsening glucose readings or for any low blood sugars which may warrant a change in diabetes medication. Compliance is encouraged with medications and any followup testing/consults which may have been ordered. (2) Sinusitis: Code(s): J32.9 - Chronic sinusitis, unspecified Category: Medical Plan: antibiotics, nasal spray, steam inhalation, contact pcp if no better Orders: Orders AMB Hemoglobin A1c Today E10.9 - Type 1 diabetes mellitus without complications AMB Glucose Monitoring Today E10.319 - Type 1 diabetes mellitus with unspecified diabetic retinopathy without macular edema Medications: New doxycycline hyclate 100 mg PO BID 10 days 20 caps 0RF triamcinolone acetonide (Nasacort) administer into each nostril 2 sprays intranasal DAILY 30 days 16.9 mL 0RF Patient Instructions: Take 15 carb carbohydrate grams to treat a low sugar (3-4 glucose tablets, half a glass of juice or 15 carbohydrate grams of soft candy such as gummie snacks). Recheck your sugar in 15 minutes and re-treat again with 15 carbohydrate grams if low or still with symptoms. Do not drive a car or operate machinery if you do not know what your blood sugar is, if it is low or in excess of 300. Symptoms of DKA (diabetic ketoacidosis): early: frequent urination, dry mouth, fatigue, feeling ill, severe symptoms: ketones in the urine, abdominal pain, nausea, vomiting and weakness. It is important to hydrate with sugar free liquids every 15-30 minutes and bring the sugars down to normal levels. If you are moderate or severe with ketones or unable to bring glucose to less than 200, go to the emergency room. Troubleshooting after starting new pod or inserting new insulin set: Occlusion, adhesive tape sensitivity, redness Check BG 2 hours after site change Safety information: Importance of a backup plan, for manual injections, proper prescriptions and emergency supplies ketone strips, and rules for testing for ketones The patient was counseled to achieve a target A1C of 7% (154 avg). Fasting blood sugars should be 90-130 in the morning and less than 180 two hours after meals. Reviewed the relationship between poor diabetic control and the development of complications. Check your feet daily looking for any signs of infection, drainage, redness, ulceration and seek medical attention if this occurs. Break in shoes gradually and do not wear open-toed shoes or walk stocking footed or barefooted. Coding Level of Care Code Est Pt Level 4 (50701) Diagnoses Diabetes type 1 E10.9 Sinusitis J32.9 CPT Codes Details - CPT: 76672 - Glucose monitoring, continuous-physician I&R ([id number]) Time Spent (min) 30 Comment Reviewing labs/provider notes, glucose sensor/pump reports, face to face, chart doc
[2024-07-06 10:29] LABS: Glucose, Whole Blood 112 mg/dL (60-115)
== END | disposition home or self-care (01) ==
PROVIDERS: PCP Internal Medicine; Visit Provider Nurse Practitioner Adult Health
CPT/HCPCS: 95251; 99214

== ENCOUNTER 2024-08-07 | Outpatient (REF) | payer OTHER, SELFPAY ==
--- OUTSIDE RECORDS SUMMARY | 2024-08-10 16:27 | XMS_ITS | Encounter Summary ---
Author Organization [facility] Address [address] [address] Phone Care Team Providers Care Admissions Recruiter Name Role Phone Unavailable Primary Care Provider Unavailabl e Encounter Details Date Type Department Care Team (Late st Contact Info) Description 01/26/2008 Legacy Encounter - Labs [place] [address] Provider, MD Ricky [address] [place] [address] Social History Tobacco Use Types Packs/Day Years [...]
--- OUTSIDE RECORDS SUMMARY | 2024-08-10 16:27 | XMS_ITS | Encounter Summary ---
Author Organization [facility] Address [address] [address] Phone Care Team Providers Care Key Ringer Name Role Phone Unavailable Primary Care Provider Unavailabl e Encounter Details Date Type Department Care Team (Late st Contact Info) Description 09/10/2006 Legacy Encounter - Labs [place] [address] Provider, MD Ricky [address] [place] [address] Social History Tobacco Use Types Packs/Day Years [...]
--- OUTSIDE RECORDS SUMMARY | 2024-08-10 16:27 | XMS_ITS | Encounter Summary ---
Author Organization [facility] Address [address] [address] Phone Care Team Providers Care Computer Science Professor Name Role Phone Unavailable Primary Care Provider Unavailabl e Encounter Details Date Type Department Care Team (Late st Contact Info) Description 08/19/2006 Legacy Encounter - Labs HISTORICAL CONVERSION EAST[place] [address] [place] [address] Provider, MD Ricky [address] [place] [address] Social History Tobacco Use Types Packs/Day Years [...]
--- OUTSIDE RECORDS SUMMARY | 2024-08-10 16:27 | XMS_ITS | Encounter Summary ---
Author Organization [facility] Address [address], [place] [address] Phone Care Team Providers Care Instructor Psychiatric Aide Name Role Phone Unavailable Primary Care Provider Unavailabl e Encounter Details Date Type Department Care Team (Late st Contact Info) Description 02/17/2007 Legacy Encounter - Labs [place] [address] Provider, MD Ricky [address] [place] [address] Social History Tobacco Use Types Packs/Day Years [...]
--- OUTSIDE RECORDS SUMMARY | 2024-08-10 16:27 | XMS_ITS | Encounter Summary ---
Author Organization [facility] Address [address] [address] Phone Care Team Providers Care Commercial Finance Analyst Name Role Phone Unavailable Primary Care Provider Unavailabl e Encounter Details Date Type Department Care Team (Late st Contact Info) Description 01/16/2009 Legacy Encounter - Labs [place] [address] Provider, MD Ricky [address] [place] [address] Social History Tobacco Use Types Packs/Day Years [...]
--- OUTSIDE RECORDS SUMMARY | 2024-08-10 16:27 | XMS_ITS | Encounter Summary ---
Author Organization [facility] Address [address], [place] [address] Phone Care Team Providers Care Sheep Farmer Name Role Phone Unavailable Primary Care Provider Unavailabl e Encounter Details Date Type Department Care Team (Late st Contact Info) Description 04/13/2009 Legacy Encounter - [place] [address] Provider, MD Ricky [address] [place], [place] [phone] Social History Tobacco Use Types Packs/Day Years [...]
--- OUTSIDE RECORDS SUMMARY | 2024-08-10 16:27 | XMS_ITS | Encounter Summary ---
Author Organization [facility] Address [address] [address] Phone Care Team Providers Care Fire Assistant Name Role Phone Unavailable Primary Care Provider Unavailabl e Encounter Details Date Type Department Care Team (Late st Contact Info) Description 03/06/2007 Legacy Encounter - Labs [place] [address] Provider, MD Ricky [address] [place] [address] Social History Tobacco Use Types Packs/Day Years [...]
--- OUTSIDE RECORDS SUMMARY | 2024-08-10 16:27 | XMS_ITS | Encounter Summary ---
Author Organization [facility] Address [address], [place] [address] Phone Care Team Providers Care Media Relations Manager Name Role Phone Unavailable Primary Care Provider Unavailabl e Encounter Details Date Type Department Care Team (Late st Contact Info) Description 01/22/2009 Clinical Support [place] [address] ProviderRicky MD [address] [place] [address] Social History Tobacco Use Types Packs/Day Years [...]
--- OUTSIDE RECORDS SUMMARY | 2024-08-10 16:27 | XMS_ITS | Encounter Summary ---
Author Organization [facility] Address [address] [address] Phone Care Team Providers Care Teacher Emotionally Impaired Name Role Phone Unavailable Primary Care Provider Unavailabl e Encounter Details Date Type Department Care Team (Late st Contact Info) Description 02/20/2007 Legacy Encounter - [place] [address] Provider, MD Ricky [address] [place] [address] Social History Tobacco Use Types Packs/Day Years [...]
--- OUTSIDE RECORDS SUMMARY | 2024-08-10 16:27 | XMS_ITS | Clinical Summary ---
Author Organization [facility] [place] Address [address] [address] Phone Care Team Providers Care Regional Director Of Admissions Name Role Phone Unavailable Primary Care Provider Unavailabl e Medications Medication Sig Dispensed Refills Start Date End Date Status ergocalciferol (Drisdol) 1.25 MG (10420 UT) capsule Drisdol( 29790GOLC Oral once a week ) Active -Hx [...]
--- OUTSIDE RECORDS SUMMARY | 2024-08-10 16:27 | XMS_ITS | Encounter Summary ---
Author Organization [facility] Address [address], [place] [address] Phone Care Team Providers Care Car Examiner Name Role Phone Unavailable Primary Care Provider Unavailabl e Encounter Details Date Type Department Care Team (Late st Contact Info) Description 07/26/2007 Legacy Encounter - Labs [place] [address] Provider, MD Ricky [address] [place], [place] [phone] Social History Tobacco Use Types Packs/Day Years [...]
--- OUTSIDE RECORDS SUMMARY | 2024-08-10 16:27 | XMS_ITS | Patient Health Record ---
Author Organization [facility] Address [address] [facility] [place] [address] Care Team Providers Care Licensed Clinician Name Role Phone Miiram Glass MD Primary Care Provider Unavaila ble Black, Rosalba Unavailable [phone] Allergies Allergen (clinical drug ingredient) Drug/Non Drug [...] Status Risk Notes Problem Ulcer of toe (604258833) Non-pressure chronic ulcer of other part of left foot limited to breakdown of skin (L97.521) Active confirmed Problem Polyneuropathy due to diabetes mellitus type I (880669320) Type 1 diabetes mellitus with diabetic polyneuropathy (E10.42) Active confirmed Problem 248242038 Hammer toe of right foot (M20.41) Active confirmed Problem 523289748 Hammer toe of left foot (M20.42) Active confirmed Problem 82183084 Charcot's joint of foot in type 1 diabetes mellitus (E10.610) Active confirmed Problem 808088990 Charcot's arthropathy (M14.60) Active confirmed Plan Of Treatment Pending Test Test Name Order Date X ray : Foot, right 3V 02/08/2022 89589-GZEH SKIN LESIONS, 2 TO 4 07/22/19 65836-AUJQ SKIN LESIONS, 2 TO 4 12/15/19 62040-QAAL SKIN LESIONS, 2 TO 4 02/09/20 33110-YMBC NAIL(S) 02/08/2022 16183-VFIB NAIL(S) 12/14/2021 38215-BQTR NAIL(S) 07/22/2022 Insurance Providers Payer Name Payer Address Payer Phone Subscriber Number Group Number Insured Name Patient Relationship to Insured Coverage Start Date Coverage End Date [facility] [address] [place] [address] [phone] [id number] Miguelina Arrieta Self - patient is [...]
--- OUTSIDE RECORDS SUMMARY | 2024-08-10 16:27 | XMS_ITS | Encounter Summary ---
Author Organization [facility] Address [address], [place] [address] Phone Care Team Providers Care Spa Manager Name Role Phone Unavailable Primary Care Provider Unavailabl e Encounter Details Date Type Department Care Team (Late st Contact Info) Description 08/05/2007 Abstract [place] [address] ProviderRicky MD [address] [place], [place] [phone] Social History Tobacco Use Types Packs/Day Years [...]
--- OUTSIDE RECORDS SUMMARY | 2024-08-10 16:27 | XMS_ITS | Clinical Summary ---
Author Organization [facility] Facility Address [address] [place] [address] Care Team Providers Care Director Veterinary Name Role Phone Miriam Glass MD Primary Care Provider [phone] Allergies Active Allergy Reactions Criticality Noted Date Comments Chromium 12/07/2010 spasms spasms Ciprofloxacin Other (see comments) 09/30/2013 swelling Other reaction(s): Other (See Comments) swelling Other reaction(s): Other (See Comments) swelling [facility]-Containing Products 12/07/2010 swelling Levofloxacin Other (see comments) [...] patient's age to complete this topic [place] [address] [place] [address] Care Teams Director Veterinary Relationship Specialty Start Date End Date Miriam Glass MD [address] [place] [address] PCP - General Internal Medicine 02/17/22
--- OUTSIDE RECORDS SUMMARY | 2024-08-10 16:27 | XMS_ITS | Encounter Summary ---
Author Organization [facility] Address [address] [address] Phone Care Team Providers Care Portuguese Tutor Name Role Phone Unavailable Primary Care Provider Unavailabl e Encounter Details Date Type Department Care Team (Late st Contact Info) Description 08/15/2006 Legacy Encounter - [place] [address] Provider, MD Ricky [address] [place] [phone] Social History Tobacco Use Types Packs/Day Years [...]
--- OUTSIDE RECORDS SUMMARY | 2024-08-10 16:27 | XMS_ITS | Encounter Summary ---
Author Organization [facility] Address [address], [place] [address] Phone Care Team Providers Care Warm In Name Role Phone Unavailable Primary Care Provider Unavailabl e Encounter Details Date Type Department Care Team (Late st Contact Info) Description 04/30/2009 Legacy Encounter - [place] [address] Provider, MD Ricky [address] [place] [address] Social History Tobacco Use Types Packs/Day Years [...]
--- OUTSIDE RECORDS SUMMARY | 2024-08-10 16:27 | XMS_ITS | Encounter Summary ---
Author Organization [facility] Address [address] [address] Phone Care Team Providers Care Nitroglycerin Neutralizer Name Role Phone Unavailable Primary Care Provider Unavailabl e Encounter Details Date Type Department Care Team (Late st Contact Info) Description 11/19/2008 Legacy Encounter - Labs HISTORICAL CONVERSION [place] [address] [place] [address] Provider, MD Ricky [address] [place] [address] Social History Tobacco Use Types Packs/Day Years [...]
--- OUTSIDE RECORDS SUMMARY | 2024-08-10 16:27 | XMS_ITS | Encounter Summary ---
Author Organization [facility] Address [address] [address] Phone Care Team Providers Care Slitting Machine Feeder Name Role Phone Unavailable Primary Care Provider Unavailabl e Encounter Details Date Type Department Care Team (Late st Contact Info) Description 09/04/2007 Legacy Encounter - Labs [place] [address] Provider, MD Ricky [address] [place] [address] Social History Tobacco Use Types Packs/Day Years [...]
--- OUTSIDE RECORDS SUMMARY | 2024-08-10 16:27 | XMS_ITS | Encounter Summary ---
Author Organization [facility] Address [address], [place] [address] Phone Care Team Providers Care Corporate Webmaster Name Role Phone Unavailable Primary Care Provider Unavailabl e Encounter Details Date Type Department Care Team (Late st Contact Info) Description 09/26/2006 Legacy Encounter - [place] [address] Provider, MD Ricky [address] [place] [address] Social History Tobacco Use Types Packs/Day Years [...]
--- OUTSIDE RECORDS SUMMARY | 2024-08-10 16:27 | XMS_ITS | Encounter Summary ---
Author Organization [facility] Address [address] [address] Phone Care Team Providers Care Lpn Home Health Name Role Phone Unavailable Primary Care Provider Unavailabl e Encounter Details Date Type Department Care Team (Late st Contact Info) Description 11/28/2006 Legacy Encounter - Labs [place] [address] Provider, MD Ricky [address] [place] [phone] Social History Tobacco Use Types Packs/Day Years [...]
--- OUTSIDE RECORDS SUMMARY | 2024-08-10 16:27 | XMS_ITS | Encounter Summary ---
Author Organization [facility] Address [address], [place] [address] Phone Care Team Providers Care Latex Caster Name Role Phone Unavailable Primary Care Provider Unavailabl e Encounter Details Date Type Department Care Team (Late st Contact Info) Description 12/21/2006 Legacy Encounter - Labs [place] [address] Provider, MD Ricky [address] [place] [address] Social History Tobacco Use Types Packs/Day Years [...]
--- OUTSIDE RECORDS SUMMARY | 2024-08-10 16:27 | XMS_ITS | Encounter Summary ---
Author Organization [facility] Address [address], [place] [address] Phone Care Team Providers Care Marine Design Engineer Name Role Phone Unavailable Primary Care Provider Unavailabl e Encounter Details Date Type Department Care Team (Late st Contact Info) Description 11/04/2006 Legacy Encounter - Labs [place] [address] Provider, MD Ricky [address] [place] [address] Social History Tobacco Use Types Packs/Day Years [...]
--- OUTSIDE RECORDS SUMMARY | 2024-08-10 16:27 | XMS_ITS | Data Portability ---
Author Organization [facility] Address [address] [place] [address] Care Team Providers Care Spreader Box Operator Name Role Phone PRAVEEN SINGLETON Manager Loss Prevention Unavailable Assessment No assessment recorded. Plan of Treatment Reminders Order Date Submit Date Provider Last Modified By Organization Details Last Modified Time Details Appointments None recorded. Lab None recorded. Referral physical therapist referral 2018 019 [email or web address] Not available 9 11:44:16 Procedures None recorded. Surgeries None recorded. Imaging XR, hip, unilateral 2018 019 [email or web address] Not available 9 11:44:16 XR, hip, unilateral 2018 019 [email or web address] Not available 9 14:58:23 Medication Orders None recorded. Patient TargetsNo targets recorded. Patient Instructions Encounter Date Encounter Id Patient Instructions Last Modified By Organization Details Last Modified Time 10/16/2018 [id number] Discussed with t he patient the importance of partial weightbearing over the next 4 weeks. She'll return for reevaluation and re-x-ray at that time. Not available 10/16/2018 11:39:30 11/13/2018 [id number] Discussed with t jae patient progress to date. She will continue with partial weightbearing for another 6 weeks. She will follow up for repeat x-ray at that time. Not available 11/13/2018 12:05:36 12/11/2018 [id number] Discussed with t jae patient progression to [...] Dictat ed: 2018 11:57 AM Report ID: [id number] Report signed in [facility] system at 019 11:57 Report ed By: Rusty mendez M.D. ([facility] [id number]) Signed By: Rusty mendez M.D. ([facility] [id number]) [facility] (Imaging) [address] [place], [address], 11/13/2018 12:29:51 12/12/1912/11/2018 XR, hip, unila teral [...] Dictat ed: 2018 11:41 AM Report ID: [id number] Report signed in [facility] al system at 019 11:41 Report ed By: Rusty mendez M.D. ([facility] [id number]) Signed By: Rusty mendez M.D. ([facility] [id number]) [address] Radiology (Imaging) [address] [place] [address], [address], 12/11/2018 12:07:06 Result Notes None recorded. Problems No Known Problems Procedures Surgical History Date Name Laterality Status Provider Name and Address Organization Details Recorded Time Other completed Benjy Tan [place] [facility] 10/16/2018 11:25:01 Imaging Results Imaging Date Name Status LastModified by Organiz ation Details LastModified Time 11/13/2018 XR, hip, unilateral , 2 or 3 view completed [address] Radiology (Imaging) [address] [place] [address], [address], 11/13/2018 12:29:51 12/11/2018 XR, hip, unilateral , 2 or [address] view [address] Radiology (Imaging) [address] [place] [address], [address], 12/11/2018 12:07:06 Procedure Notes None recorded. Medical Equipment None Reported. Allergies Allergen ID Allergen Name Allergen Category Reaction Reaction Severity Criticality Documentation Date Start Date Code Code System Note Provider Name and Address Organization Details Recorded Time 20750906 Compazine medicatio n Not available Not available Not available 10/16/201810907 6 RxNorm Mando christensen [facility] 9 11:30:29 176208 Cipro medicatio n Not available Not available Not available 10/16/2018 81762 3 RxNorm Mando christensen [place] [facility] 9 11:30:33 Medications [...] Updated DateTime 9 165.1 cm 30 kg/m2 11496.6 3 g 4 97.7 [degF] Benjy Tan [place] [facility] 9 11:24:30 Date Recorded Body height Body mass index (BMI) Body weight Body temperature Provider Name and Address Organization Details Last Updated DateTime 11/13/2018 165.1 cm 28.3 kg/m2 80928.7 g 96 [degF] Kerry Hartley [facility] 11/13/2018 11:41:46 Date Recorded Body height Body mass index (BMI) Body weight Pain severity - 0-10 verbal numeric rating [Score] - Reported Provider Name and Address Organization Details Last Updated DateTime 12/11/2018 165.1 cm 28.3 kg/m2 11078.7 g 3 Elvia Diana [facility] 12/11/2018 10:50:25 Social History Question Answer Notes LastModified by Organizat ion Details LastModified Time Tobacco Smoking Status Never Smoker Benjy christensen [facility] 10/16/2018 11:24:38 What Is [...] SNOMED-CT Code Diagnosis ICD10 Code Diagnosis Note [id number] CHARLENE ADAMS JR, MD [address], [place] [address] [place] [phone] 10/16/2018 11:07:45 10/17/2018 13:38:48 Closed fracture of neck of femur 644878331 S72.002A [id number] CHARLENE ADAMS JR, MD [address], [place] [address] [place] [phone] 5 11/13/2018 10:51:58 11/15/2018 08:48:44 Closed fracture of neck of femur 506146985 S72.002A [id number] CHARLENE ADAMS JR, MD [address], [place] [address] [place] [phone] 5 12/11/2018 09:56:44 12/13/2018 11:44:16 Closed fracture of neck of femur 670689959 S72.002A Health Concerns Section Related Observation LastModified by Organization Detai ls LastModified Time None Recorded Concern Status LastModified by Organization Details LastModified Time None Recorded Advance Directives Directive None Recorded Payers Encounter Date Sequence Insurance Name Policy Number Policy Burgos Covered Member ID Burgos Member ID Guarantor Name 10/16/2018 1 [facility] [id number] Miguelina Arrieta [id number] Miguelina Arrieta 11/13/2018 1 [facility] [place] [id number] Miguelina Arrieta [id number] Miguelina Arrieta 12/11/2018 FUTURE COMP Miguelina Horan [...] for staple removal. CHARLENE ADAMS JR, MD [address] [place] [address], [phone], [facility] 10/16/2018 11:39:38 11/13/2018 text/html [...] and decreasing pain. CHARLENE ADAMS JR, MD [address] [place] [address], [place], [phone], [facility] 11/13/2018 12:05:47 12/11/2018 text/html [...] and decreasing pain. CHARLENE ADAMS JR, MD [address] [place] [address], [phone], [facility] 12/11/2018 11:50:12 OBGyn Episode No OBEpisode recorded.
--- OUTSIDE RECORDS SUMMARY | 2024-08-10 16:27 | XMS_ITS | Encounter Summary ---
Author Organization [facility] Address [address] [address] Phone Care Team Providers Care Character Artist Name Role Phone Unavailable Primary Care Provider Unavailabl e Encounter Details Date Type Department Care Team (Late st Contact Info) Description 11/16/2006 Legacy Encounter - [place] [address] Provider, MD Ricky [address] [place] [address] Social History Tobacco Use Types Packs/Day Years [...]
[2024-08-11 15:17] LABS: H Pylori Breath Test Negative (Negative)
== END 2024-08-07 00:01 | disposition home or self-care (01) ==
LOC: HO.LNP
PROVIDERS: Visit Provider Nurse Practitioner Family
DX: K21.9 Gastro-esophageal reflux disease without esophagitis (principal)
CPT/HCPCS: 83013

== ENCOUNTER 2024-08-07 15:21 | Outpatient (AMB) | payer OTHER, SELFPAY ==
--- NOTE | 2024-08-07 15:24 | MHC.OFFVIS ---
Vital Signs 08/07/24 15:35 Height 5 ft 4 in Weight 180 lb 5.41 oz BMI 31.0 BP 146/82 H Blood Pressure Location Rt brachial Position Sitting Pulse 74 Pulse Source Pulse Oximeter Pulse Oximetry (%) 100 Oxygen Delivery Method Room Air Intake Visit Reasons: gastroparesis Intake Note: ESTABLISHED PATIENT for re-establishment of care. Eval for gastroparesis related sx/concerns. JULIET 2021 Chief Complaint; C/O worsening sx starting within the last 4-5 weeks. Pt had been doing well up until then. New onset of early satiety, reflux w/o dysphagia, RUQ / Epigastric pain, nausea w/o vomiting, constipation w/o signs of hemorrhoids. No additional concerns at this time. Oiling Machine Operator Required: No Accompanied by: Self / Same As Patient Allergies ciprofloxacin [From Cipro] Adverse Reaction (Verified 08/07/24 15:24) Swelling prochlorperazine [From Compazine] Adverse Reaction (Verified 08/07/24 15:24) Muscle Pain HPI HPI gastroparesis: Details: COLONOSCOPY 01/16/[address] TERRELL Findings: Terminal Ileum: Not evaluated Cecum:? A 6-7 mm sessile polyp removed with a cold snare Ascending Colon:? Normal Transverse Colon:? Two 10-12 mm diminutive appearing polyp removed with a cold snare and a cold biopsy Descending Colon:? Normal Sigmoid Colon:? Moderate diverticulosis Rectum:? Normal Ano-rectum:? Normal Colon preparation: Excellent ? Impression and Post Procedure Diagnosis: Colonoscopy Findings: Three small to medium sized polyps removed Moderate diverticulosis seen in the sigmoid colon Plan: Await pathology results Repeat Colonoscopy interval based on path results - in 3-5 years if polyps are adenomatous and 10 years if polyps are hyperplastic (needs adult colonoscope for future colonoscopies) Above findings were reviewed with the patient and colon polyps and diverticulosis handouts were given in the discharge area PATHOLOGY RESULTS: Diagnosis A. Colon, cecum, polypectomy: Tubular adenoma; negative for high-grade dysplasia. B. Colon, transverse, polypectomy: Clinically polypoid colonic mucosa noted; negative for a hyperplastic or neoplastic process TODAY'S VISIT Patient is here today to reestablish care last seen in 2021 where she had colonoscopy done. At that time colonoscopy showed tubular adenoma without high-grade dysplasia or carcinoma. Recommendation was 3-5 years recall. In the past few weeks patient has been experiencing new symptoms. Until then patient reports that she was doing fairly well. Patient reports epigastric pain and abdominal bloating no matter what she eats. Patient reports feeling very full after only few bites. Reports upper abdominal pain and right and left upper quadrant discomfort. Patient describes the pain more like cramping and bloating. States that she is unable to move her bowels well. After bowel movement does not feel like she empties her bowels completely. Patient denies changing any of her diet. Patient denies any melena, hematochezia, unintentional weight loss or ribbon like stools. Patient denies any dyspepsia, dysphagia or odynophagia. Occasional nausea, no vomiting. 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, 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 Housing: Apartment Alcohol intake: current Alcohol intake frequency: holidays/special occasions only Patient Tobacco Use Status: Never used Tobacco e-Cigarette/Vaping Use: Never Used service: No Current occupational status: employed Cognitive needs: No Hearing needs: No Vision needs: No Review of Systems Const Denies weight gain and Denies weight loss ENT Reports no additional complaints, Denies dysphagia and Denies odynophagia Card Reports no additional complaints Resp Reports no additional complaints GI Reports abdominal pain, Denies belching, Denies melena, Denies bloating, Denies change in bowel habits, Denies dysphagia, Denies excessive flatus, Reports early satiety, Denies dyspepsia, Reports heartburn, Denies diarrhea, Denies loose stools, Denies nausea, Denies odynophagia and Denies vomiting Reports no additional complaints Musc Reports no additional complaints Neuro Reports no additional complaints Psych Reports no additional complaints Endo Reports no additional complaints Physical Exam Vital Signs: Last Vital Signs Pulse 74 08/07/24 15:35 BP 146/82 H 08/07/24 15:35 Pulse Ox 100 08/07/24 15:35 Oxygen Delivery Method Room Air 08/07/24 15:35 BMI result Body Mass Index 31.0 Const General: healthy appearing and no acute distress Nutritional Appearance: obese Orientation/consciousness: patient oriented x3 Resp Effort & Inspection: normal respiratory effort, able to speak in complete sentences, no tracheal deviation and symmetric chest movement Auscultation: clear to auscultation bilaterally Cardio Rate: regular rate GI Inspection: Yes normal to inspection, No distended and Yes obesity Palpation (GI): Soft to palpation, not firm, nontender and No hepatosplenomegaly present Auscultation: normal bowel sounds General: Yes no CVA tenderness Back/Spine/Pelvis Back: no CVA tenderness Skin General skin exam: elasticity normal, turgor normal and dry skin Neuro General: patient oriented x3 Psych Appearance: grossly normal Mental Status: mental status grossly normal Assessment & Plan Assessment & Plan (1) Early satiety: Code(s): R68.81 - Early satiety (2) Constipation: Code(s): K59.00 - Constipation, unspecified Qualifiers: Constipation type: slow transit constipation Qualified Code(s): K59.01 - Slow transit constipation (3) GERD (gastroesophageal reflux disease): Code(s): K21.9 - Gastro-esophageal reflux disease without esophagitis Qualifiers: Esophagitis presence: esophagitis presence not specified Qualified Code(s): K21.9 - Gastro-esophageal reflux disease without esophagitis (4) Abdominal pain: Code(s): R10.9 - Unspecified abdominal pain Qualifiers: Abdominal location: upper abdomen, unspecified Qualified Code(s): R10.10 - Upper abdominal pain, unspecified (5) Nausea: Code(s): R11.0 - Nausea Plan Patient will start taking esomeprazole every morning half an hour before breakfast. Will check H pylori in the office and treat empirically if positive. Will check transglutaminase and lipase as well as liver panel. Will check vitamin B12, folate and vitamin-D levels. Will send patient for gastric emptying study. Patient reports that she is not moving her bowels well, will start her on Senokot 2 tablets every evening. Patient was also encouraged to increase fluid intake and activity to promote better bowel motility. Patient will follow-up in our office in 2 months, sooner on as needed basis. Patient is agreeable to this plan and verbalizes understanding of instructions. She was given the opportunity to ask questions and all questions answered. Thank you for allowing me to participate in her care Orders: Orders Vitamin B12 and Folate 08/09/24 R19.7 - Diarrhea, unspecified Vitamin D 25-OH (D2 and D3) 08/09/24 E55.9 - Vitamin D deficiency, unspecified H Pylori Breath Test 08/10/24 K21.9 - Gastro-esophageal reflux disease without esophagitis Transglutaminase IgA 08/09/24 R10.9 - Unspecified abdominal pain Lipase 08/09/24 R10.9 - Unspecified abdominal pain Liver Panel 08/09/24 R74.01 - Elevation of levels of liver transaminase levels Lipid Panel 08/09/24 I25.10 - Atherosclerotic heart disease of [place] coronary artery without angina pectoris NM gastric emptying study 08/07/24 R68.81 - Early satiety Medications: New sennosides (Natural Senna Laxative) 8.6 mg PO BEDTIME 90 tabs 3RF constipation K59.00 - Constipation, unspecified esomeprazole magnesium (Nexium) 40 mg PO DAILY 30 caps 5RF K21.9 - Gastro-esophageal reflux disease without esophagitis Coding Level of Care Code Est Pt Level 4 (07857) Complex EM visit Add On G2211 Diagnoses Early satiety R68.81 Slow transit constipation K59.01 Constipation type: slow transit constipation Gastroesophageal reflux disease, unspecified whether esophagitis present K21.9 Esophagitis presence: esophagitis presence not specified Pain of upper abdomen R10.10 Abdominal location: upper abdomen, unspecified Nausea R11.0 Time Spent (min) 40 Comment 25 minutes spent with patient and additional 15 minutes spent reviewing her records
[2024-08-07 15:35] VITALS: BP 146/82; PULSE 74; O2SAT 100; BMI 31.0
--- OUTSIDE RECORDS SUMMARY | 2024-08-07 18:38 | XMS_ITS | Encounter Summary ---
Author Organization [facility] Address [address], [place] [address] Phone Care Team Providers Care Golf Club Maker Name Role Phone Unavailable Primary Care Provider Unavailabl e Encounter Details Date Type Department Care Team (Late st Contact Info) Description 11/28/2006 Legacy Encounter - Labs [place] [address] Provider, MD Ricky [address] [place] [phone] Social History Tobacco Use Types Packs/Day Years [...]
--- OUTSIDE RECORDS SUMMARY | 2024-08-07 18:38 | XMS_ITS | Encounter Summary ---
Author Organization [facility] Address [address] [address] Phone Care Team Providers Care District Extension Service Agent Name Role Phone Unavailable Primary Care Provider Unavailabl e Encounter Details Date Type Department Care Team (Late st Contact Info) Description 02/17/2007 Legacy Encounter - Labs [place] [address] Provider, MD Ricky [address] [place] [address] Social History Tobacco Use Types Packs/Day Years [...]
--- OUTSIDE RECORDS SUMMARY | 2024-08-07 18:38 | XMS_ITS | Encounter Summary ---
Author Organization [facility] Address [address] [address] Phone Care Team Providers Care Survey Instrument Operator Name Role Phone Unavailable Primary Care Provider Unavailabl e Encounter Details Date Type Department Care Team (Late st Contact Info) Description 08/19/2006 Legacy Encounter - Labs HISTORICAL CONVERSION [place] [address] [place] [address] Provider, MD Ricky [address] [place] [phone] Social History Tobacco Use Types Packs/Day Years [...]
--- OUTSIDE RECORDS SUMMARY | 2024-08-07 18:38 | XMS_ITS | Encounter Summary ---
[facility] Address [address], [place] [address] Phone Care Team Providers Care Hand Or Machine Paster Name Role Phone Unavailable Primary Care Provider Unavailabl e Encounter Details Date Type Department Care Team (Late st Contact Info) Description 08/05/2007 Abstract [place] [address] ProviderRicky MD [address] [place], [place] [phone] Social History Tobacco Use Types Packs/Day Years [...]
--- OUTSIDE RECORDS SUMMARY | 2024-08-07 18:38 | XMS_ITS | Encounter Summary ---
Author Organization [facility] Address [address], [place] [address] Phone Care Team Providers Care Dental Technician Metal Name Role Phone Unavailable Primary Care Provider Unavailabl e Encounter Details Date Type Department Care Team (Late st Contact Info) Description 11/04/2006 Legacy Encounter - Labs [place] [address] Provider, MD Ricky [address] [place] [phone] Social History Tobacco Use Types Packs/Day Years [...]
--- OUTSIDE RECORDS SUMMARY | 2024-08-07 18:38 | XMS_ITS | Encounter Summary ---
Author Organization [facility] Address [address] [address] Phone Care Team Providers Care Acls Nurse Name Role Phone Unavailable Primary Care Provider Unavailabl e Encounter Details Date Type Department Care Team (Late st Contact Info) Description 12/21/2006 Legacy Encounter - Labs [place] [address] Provider, MD Ricky [address] [place] [phone] Social History Tobacco Use Types Packs/Day Years [...]
--- OUTSIDE RECORDS SUMMARY | 2024-08-07 18:38 | XMS_ITS | Encounter Summary ---
Author Organization [facility] Address [address], [place] [address] Phone Care Team Providers Care Regional Construction Manager Name Role Phone Unavailable Primary Care Provider Unavailabl e Encounter Details Date Type Department Care Team (Late st Contact Info) Description 08/15/2006 Legacy Encounter - Labs [place] [address] Provider, MD Ricky [address] [place] [address] Social History Tobacco Use Types Packs/Day Years [...]
--- OUTSIDE RECORDS SUMMARY | 2024-08-07 18:38 | XMS_ITS | Encounter Summary ---
Author Organization [facility] Address [address], [place] [address] Phone Care Team Providers Care Plastics Design Engineer Name Role Phone Unavailable Primary Care Provider Unavailabl e Encounter Details Date Type Department Care Team (Late st Contact Info) Description 09/26/2006 Legacy Encounter - Labs [place] [address] Provider, MD Ricky [address] [place] [phone] Social History Tobacco Use Types Packs/Day Years [...]
--- OUTSIDE RECORDS SUMMARY | 2024-08-07 18:38 | XMS_ITS | Encounter Summary ---
Author Organization [facility] Address [address] [address] Phone Care Team Providers Care Physical Medicine Teacher Name Role Phone Unavailable Primary Care Provider Unavailabl e Encounter Details Date Type Department Care Team (Late st Contact Info) Description 11/16/2006 Legacy Encounter - Labs [place] [address] Provider, MD Ricky [address] [place] [phone] Social History Tobacco Use Types Packs/Day Years [...]
--- OUTSIDE RECORDS SUMMARY | 2024-08-07 18:38 | XMS_ITS | Clinical Summary ---
Author Organization [facility] Address [address] [place] [address] Care Team Providers Care Pet Feeder Name Role Phone Miriam Glass MD Primary Care Provider [phone] Allergies Active Allergy Reactions Criticality Noted Date Comments Chromium 12/07/2010 spasms spasms Ciprofloxacin Other (see comments) 09/30/2013 swelling Other reaction(s): Other (See Comments) swelling Other reaction(s): Other (See Comments) swelling Siloam-Containing Products 12/07/2010 swelling Levofloxacin Other (see comments) [...] patient's age to complete this topic Insurance [place] [address] [place] [address] Care Teams Pet Feeder Relationship Specialty Start Date End Date Miriam Glass MD [address] [place] [address] PCP - General Internal Medicine 02/17/22
--- OUTSIDE RECORDS SUMMARY | 2024-08-07 18:38 | XMS_ITS | Encounter Summary ---
Author Organization [facility] Address [address], [place] [address] Phone Care Team Providers Care It Lead Name Role Phone Unavailable Primary Care Provider Unavailabl e Encounter Details Date Type Department Care Team (Late st Contact Info) Description 02/20/2007 Legacy Encounter - Labs [place] [address] Provider, MD Ricky [address] [place] [address] Social History Tobacco Use Types Packs/Day Years [...]
--- OUTSIDE RECORDS SUMMARY | 2024-08-07 18:38 | XMS_ITS | Encounter Summary ---
Author Organization [facility] Address [address] [address] Phone Care Team Providers Care Sighter Name Role Phone Unavailable Primary Care Provider Unavailabl e Encounter Details Date Type Department Care Team (Late st Contact Info) Description 07/26/2007 Legacy Encounter - [place] [address] ProviderRicky MD [address] [place], [place] [phone] Social History Tobacco Use Types Packs/Day Years [...]
--- OUTSIDE RECORDS SUMMARY | 2024-08-07 18:38 | XMS_ITS | Encounter Summary ---
Author Organization [facility] Address [address], [place] [address] Phone Care Team Providers Care Community Leader Name Role Phone Unavailable Primary Care Provider Unavailabl e Encounter Details Date Type Department Care Team (Late st Contact Info) Description 03/06/2007 Legacy Encounter - Labs [place] [address] Provider, MD Ricky [address] [place] [phone] Social History Tobacco Use Types Packs/Day Years [...]
--- OUTSIDE RECORDS SUMMARY | 2024-08-07 18:38 | XMS_ITS | Encounter Summary ---
Author Organization [facility] Address [address] [address] Phone Care Team Providers Care Manager Home Healthcare Name Role Phone Unavailable Primary Care Provider Unavailabl e Encounter Details Date Type Department Care Team (Late st Contact Info) Description 09/10/2006 Legacy Encounter - Labs [place] [address] Provider, MD Ricky [address] [place] [phone] Social History Tobacco Use Types Packs/Day Years [...]
--- OUTSIDE RECORDS SUMMARY | 2024-08-07 18:38 | XMS_ITS | Data Portability ---
Author Organization [facility] [place] [facility] Address [address] [place] [address] Care Team Providers Care Medical Lab Technologist Name Role Phone PRAVEEN SINGLETON Android Architect Unavailable Assessment No assessment recorded. Plan of Treatment Reminders Order Date Submit Date Provider Last Modified By Organization Details Last Modified Time Details Appointments None recorded. Lab None recorded. Referral physical therapist referral 2018 019 Not available 9 11:44:16 Procedures None recorded. Surgeries None recorded. Imaging XR, hip, unilateral 2018 019 [email or web address] Not available 9 11:44:16 XR, hip, unilateral 2018 019 [email or web address] Not available 9 14:58:23 Medication Orders None recorded. Patient TargetsNo targets recorded. Patient Instructions Encounter Date Encounter Id Patient Instructions Last Modified By Organization Details Last Modified Time 10/16/2018 [id number] Discussed with t he patient the importance of partial weightbearing over the next 4 weeks. She'll return for reevaluation and re-x-ray at that time. Not available 10/16/2018 11:39:30 11/13/2018 [id number] Discussed with t jae patient progress to date. She will continue with partial weightbearing for another 6 weeks. She will follow up for repeat x-ray at that time. Not available 11/13/2018 12:05:36 12/11/2018 [id number] Discussed with t jae patient progression to weightbearing as tolerated. She will start outpatient physical therapy. She will follow-up in 6 weeks if needed. Not available 12/11/2018 11:16:17 Reason for Referral Physical Therapist Referral for Closed fracture of neck of femur Referring Physician: Charlene Adams, Orthopedic Surgery, Encounter Date: 12/11/2018 Results Created Date Observation Date Name Description Value Unit Range Abnormal Flag Note LastModifiedBy Organization Detail LastModifiedTime 11/14/19 19 11/13/2018 XR, hip, unila teral , 2 or 3 view RESPON SIBLE INTERP RETER: Rusty mendez M.D. EXAMIN ATION: XR HIP 2-3 VW LEFT (PELVI S OPTION AL) CLINIC AL INDICA TION: Status post left femur ORIF 2018 TECHNI QUE: Two views of the left hip. COMPAR KADEN: 2018 FINDIN GS: The patien t is status post ORIF of the femora l neck with 3 screws . Alignm ent is grossl y anatom ic. There is a small amount of callus format ion. Phlebo liths are seen over the pelvis . There are marked vascul ar calcif icatio ns. IMPRES DINORA: Status post ORIF of the femora l neck fractu re in anatom ic alignm ent. Athero sclero tic diseas e. Dictat ed: 2018 11:57 AM Report ID: [id number] Report signed in work car operator al system at 019 11:57 Report ed By: Rusty mendez M.D. ([facility] [id number]) Signed By: Rusty mendez M.D. ([facility] [id number]) [facility] (Imaging) [address] [place], [address], 11/13/2018 12:29:51 12/12/1912/11/2018 XR, hip, unila teral , 2 or 3 view RESPON SIBLE INTERP RETER: Rusty mendez M.D. EXAMIN ATION: XR HIP 2-3 VW LEFT (PELVI S OPTION AL) CLINIC AL INDICA TION: Status post ORIF of the left femur 2018, no re-inj ury TECHNI QUE: Two views of the left hip. COMPAR KADEN: 2018 FINDIN GS: The patien t is status post ORIF of the left femora l neck fractu re with 3 screws . There is contin ued healin g of the fractu re with increa sed sclero sis and callus format ion. The fractu re line is no longer well visual ized. There are vascul ar calcif icatio ns. Phlebo liths are seen over the pelvis . IMPRES DINORA: Status post ORIF of the left femora l neck fractu re with no eviden ce of hardwa re compli cation . Dictat ed: 2018 11:41 AM Report ID: [id number] Report signed in work car operator al system at 019 11:41 Report ed By: Rusty mendez M.D. ([facility] [id number]) Signed By: Rusty mendez M.D. ([facility] [id number]) [address] Radiology (Imaging) [address] [place] [address], [address], 12/11/2018 12:07:06 Result Notes None recorded. Problems No Known Problems Procedures Surgical History Date Name Laterality Status Provider Name and Address Organization Details Recorded Time Other completed Benjy Tan MA [facility] 10/16/2018 11:25:01 Imaging Results Imaging Date Name Status LastModified by Organiz ation Details LastModified Time 11/13/2018 XR, hip, unilateral , 2 or 3 view completed [address] Radiology (Imaging) [address] [place] [address], [address], 11/13/2018 12:29:51 12/11/2018 XR, hip, unilateral , 2 or 3 view completed [address] Radiology (Imaging) [address] [place] [address], [address], 12/11/2018 12:07:06 Procedure Notes None recorded. Medical Equipment None Reported. Allergies Allergen ID Allergen Name Allergen Category Reaction Reaction Severity Criticality Documentation Date Start Date Code Code System Note Provider Name and Address Organization Details Recorded Time 20750906 Compazine medicatio n Not available Not available Not available 10/16/201867051 6 RxNorm Mando christensen MA [facility] 9 11:30:29 246504 Cipro medicatio n Not available Not available Not available 10/16/2018 24798 3 RxNorm Mando christensen MA [facility] 9 11:30:33 Medications Name Sig Start Date Stop Date Status Note LastModified by Organization Details LastModified Time tramadol 50 mg tablet 11/13 completed Not Available Not Available Not Available metoclopramide 5 mg tablet 11/13 completed Not Available Not Available Not Available Humalog U-100 Insulin 100 unit/mL subcutaneous solution active Not Available Not Available Not Available lisinopril 5 mg tablet active Not Available Not Available Not Available ergocalciferol (vitamin D2) 1,250 mcg (50,000 unit) capsule 12/11 completed Not Available Not Available Not Available azelastine 137 mcg (0.1 %) nasal spray active Not Available Not Available Not Available enoxaparin 40 mg/0.4 mL subcutaneous syringe 11/13 completed Not Available Not Available Not Available OneTouch UltraSoft Lancets active Not Available Not Available Not Available atorvastatin active Not Available Not Available Not Available Flucelvax Quad (PF) 60 mcg (15 mcg x 4)/0.5 mL IM syringe 11/13 completed Not Available Not Available Not Available Vitals Date Recorded Body height Body mass index (BMI) Body weight Pain severity - 0-10 verbal numeric rating [Score] - Reported Body temperature Provider Name and Address Organization Details Last Updated DateTime 9 165.1 cm 30 kg/m2 36661.6 3 g 4 97.7 [degF] Benjy Tan MA [facility] 9 11:24:30 Date Recorded Body height Body mass index (BMI) Body weight Body temperature Provider Name and Address Organization Details Last Updated DateTime 11/13/2018 165.1 cm 28.3 kg/m2 85503.7 g 96 [degF] Kerry Hartley [facility] 11/13/2018 11:41:46 Date Recorded Body height Body mass index (BMI) Body weight Pain severity - 0-10 verbal numeric rating [Score] - Reported Provider Name and Address Organization Details Last Updated DateTime 12/11/2018 165.1 cm 28.3 kg/m2 63058.7 g 3 Elvia Diana [facility] 12/11/2018 10:50:25 Social History Question Answer Notes LastModified by Organizat ion Details LastModified Time Tobacco Smoking Status Never Smoker Benjy christensen [facility] 10/16/2018 11:24:38 What Is Your Level Of Alcohol Consumption? None Information not available 10/16/2018 Which Illicit Or Recreational Drugs Have You Used? None Information not available 10/16/2018 How Many Days In The Past Year Have You Had A Heavy Drinking Consumption (4+ Female, 5+ Male)? 0 Information no t available 10/16/2018 What Was The Date Of Your Most Recent Tobacco Screening? 12/11/2018 Information n ot available 12/20/2018 Sex: Unknown Functional Status None recorded. Mental Status None recorded. Family History Nothing Reported. Medical History Condition Response Diabetes Y Gynecological HistoryNo gynecological history recorded. Obstetrics History GPAL:G 0 P 0 0 0 0 Past Encounters Encounter ID Performer Location Encounter Start Date Encounter Closed Date Diagnosis/Indication Diagnosis SNOMED-CT Code Diagnosis ICD10 Code Diagnosis Note [id number] CHARLENE ADAMS JR, MD [address], [place] [address] [place] [phone] 10/16/2018 11:07:45 10/17/2018 13:38:48 Closed fracture of neck of femur 090554267 S72.002A [id number] CHARLENE ADAMS JR, MD [address], [place] [address] [place] [phone] 11/13/2018 10:51:58 11/15/2018 08:48:44 Closed fracture of neck of femur 689658036 S72.002A [id number] CHARLENE ADAMS JR, MD [address], [place] [address] [place] [phone] 12/11/2018 09:56:44 12/13/2018 11:44:16 Closed fracture of neck of femur 983882706 S72.002A Health Concerns Section Related Observation LastModified by Organization Detai ls LastModified Time None Recorded Concern Status LastModified by Organization Details LastModified Time None Recorded Advance Directives Directive None Recorded Payers Encounter Date Sequence Insurance Name Policy Number Policy Burgos Covered Member ID Burgos Member ID Guarantor Name 10/16/2018 1 [facility] [id number] Miguelina Arrieta [id number] Miguelina Arrieta 11/13/2018 1 [facility] ([facility] [id number] Miguelina Arrieta [id number] Miguelina Arrieta 12/11/2018 FUTURE COMP Miguelina Horan Miguelina Horan Notes Date Note Type Note Provider Name and Address Organization Details Recorded Time 10/16/2018 text/html This patient presents for follow-up of ORIF nondisplaced left femoral neck fracture with the placement of 3 cannulated screws. Surgery was performed 10/04/18. She is doing well postoperatively. She is ambulating over limited distances with walker assist partial weightbearing of the left lower extremity. She presents today in wheelchair. She reports gradually improving hip motion and decreasing pain. She presents today for staple removal. CHARLENE ADAMS JR, MD [address] [place] [address], [phone], [facility] 10/16/2018 11:39:38 11/13/2018 text/html This patient presents for follow-up of ORIF nondisplaced left femoral neck fracture with the placement of 3 cannulated screws. Surgery was performed 10/04/18. She is doing well postoperatively. She is ambulating over limited distances with walker assist partial weightbearing of the left lower extremity. She presents today in wheelchair. She reports gradually improving hip motion and decreasing pain. CHARLENE ADAMS JR, MD [address] [place] [address], [place], [phone], [facility] 11/13/2018 12:05:47 12/11/2018 text/html This patient presents for follow-up of ORIF nondisplaced left femoral neck fracture with the placement of 3 cannulated screws. Surgery was performed 10/04/18. She is doing well postoperatively. She is ambulating over limited distances with walker assist partial weightbearing of the left lower extremity. She presents today in wheelchair. She reports gradually improving hip motion and decreasing pain. CHARLENE ADAMS JR, MD [address] [place] [address], [phone], [facility] 12/11/2018 11:50:12 OBGyn Episode No OBEpisode recorded.
--- OUTSIDE RECORDS SUMMARY | 2024-08-07 18:38 | XMS_ITS | Patient Health Record ---
Author Organization [facility] Address [address] [place] [address] Care Team Providers Care Employee'S Representative Name Role Phone Miriam Glass MD Primary Care Provider Unavaila ble Black, Rosalba Unavailable [phone] Allergies Allergen (clinical drug ingredient) Drug/Non Drug [...] Status Risk Notes Problem Ulcer of toe (687015495) Non-pressure chronic ulcer of other part of left foot limited to breakdown of skin (L97.521) Active confirmed Problem Polyneuropathy due to diabetes mellitus type I (852870104) Type 1 diabetes mellitus with diabetic polyneuropathy (E10.42) Active confirmed Problem 699224646 Hammer toe of right foot (M20.41) Active confirmed Problem 552738001 Hammer toe of left foot (M20.42) Active confirmed Problem 11357470 Charcot's joint of foot in type 1 diabetes mellitus (E10.610) Active confirmed Problem 069423481 Charcot's arthropathy (M14.60) Active confirmed Plan Of Treatment Pending Test Test Name Order Date X ray : Foot, right 3V 02/08/2022 58196-ZTMN SKIN LESIONS, 2 TO 4 07/22/19 09540-XXLX SKIN LESIONS, 2 TO 4 12/15/19 92128-IJVS SKIN LESIONS, 2 TO 4 02/09/20 89835-CMTP NAIL(S) 02/08/2022 75151-[id number] NAIL(S) 12/14/2021 65392-[id number] NAIL(S) 07/22/2022 Insurance Providers Payer Name Payer Address Payer Phone Subscriber Number Group Number Insured Name Patient Relationship to Insured Coverage Start Date Coverage End Date [facility] [address] [place] [address] [phone] [id number] Miguelina Arrieta Self - patient is [...]
--- OUTSIDE RECORDS SUMMARY | 2024-08-07 18:38 | XMS_ITS | Encounter Summary ---
Author Organization [facility] Address [address], [place] [address] Phone Care Team Providers Care Juice Tester Name Role Phone Unavailable Primary Care Provider Unavailabl e Encounter Details Date Type Department Care Team (Late st Contact Info) Description 09/04/2007 Legacy Encounter - Labs [place] [address] Provider, MD Ricky [address] [place] [phone] Social History Tobacco Use Types Packs/Day Years [...]
--- OUTSIDE RECORDS SUMMARY | 2024-08-07 18:39 | XMS_ITS | Clinical Summary ---
Author Organization [facility] Address [address], [place] [address] Phone Care Team Providers Care Photo Lab Technician Name Role Phone Unavailable Primary Care Provider Unavailabl e Medications Medication Sig Dispensed Refills Start Date End Date Status ergocalciferol (Drisdol) 1.25 MG (71098 UT) capsule Drisdol( 53820XWTG Oral once a week ) Active -Hx [...]
--- OUTSIDE RECORDS SUMMARY | 2024-08-07 18:39 | XMS_ITS | Encounter Summary ---
Author Organization [facility] Address [address], [place] [address] Phone Care Team Providers Care Dental Assistant Medical Assistant Name Role Phone Unavailable Primary Care Provider Unavailabl e Encounter Details Date Type Department Care Team (Late st Contact Info) Description 01/26/2008 Legacy Encounter - Labs [place] [address] Provider, MD Ricky [address] [place] [phone] Social History Tobacco Use Types Packs/Day Years [...]
--- OUTSIDE RECORDS SUMMARY | 2024-08-07 18:39 | XMS_ITS | Encounter Summary ---
[facility] Address [address], [place] [address] Phone Care Team Providers Care Optics Engineer Name Role Phone Unavailable Primary Care Provider Unavailabl e Encounter Details Date Type Department Care Team (Late st Contact Info) Description 01/22/2009 Clinical Support [place] [address] ProviderRicky MD [address] [place] [address] Social History Tobacco Use Types Packs/Day Years [...]
--- OUTSIDE RECORDS SUMMARY | 2024-08-07 18:39 | XMS_ITS | Encounter Summary ---
Author Organization [facility] Address [address], [place] [address] Phone Care Team Providers Care Motorcycle Police Name Role Phone Unavailable Primary Care Provider Unavailabl e Encounter Details Date Type Department Care Team (Late st Contact Info) Description 11/19/2008 Legacy Encounter - Labs HISTORICAL CONVERSION [place] [address] [place] [address] Provider, MD Ricky [address] [place] [address] Social History Tobacco Use Types Packs/Day Years [...]
--- OUTSIDE RECORDS SUMMARY | 2024-08-07 18:39 | XMS_ITS | Encounter Summary ---
Author Organization [facility] Address [address], [place] [address] Phone Care Team Providers Care Senior Policy Associate Name Role Phone Unavailable Primary Care Provider Unavailabl e Encounter Details Date Type Department Care Team (Late st Contact Info) Description 04/30/2009 Legacy Encounter - [place] [address] Provider, MD Ricky [address] [place] [address] Social History Tobacco Use Types Packs/Day Years [...]
--- OUTSIDE RECORDS SUMMARY | 2024-08-07 18:39 | XMS_ITS | Encounter Summary ---
Author Organization [facility] Address [address], [place] [address] Phone Care Team Providers Care Solar Sales Advisor Name Role Phone Unavailable Primary Care Provider Unavailabl e Encounter Details Date Type Department Care Team (Late st Contact Info) Description 04/13/2009 Legacy Encounter - [place] [address] Provider, MD Ricky [address] [place], [place] [phone] Social History Tobacco Use Types Packs/Day Years [...]
--- OUTSIDE RECORDS SUMMARY | 2024-08-07 18:39 | XMS_ITS | Encounter Summary ---
Author Organization [facility] Address [address] [address] Phone Care Team Providers Care Extruder Operator Multiple Name Role Phone Unavailable Primary Care Provider Unavailabl e Encounter Details Date Type Department Care Team (Late st Contact Info) Description 01/16/2009 Legacy Encounter - [place] [address] Provider, MD Ricky [address] [place] [address] Social History Tobacco Use Types Packs/Day Years [...]
== END 2024-08-07 16:10 | disposition home or self-care (01) ==
PROVIDERS: PCP Internal Medicine; Visit Provider Nurse Practitioner Family
DX: R68.81 Early satiety (principal); K59.01 Slow transit constipation; K21.9 Gastro-esophageal reflux disease without esophagitis; R10.10 Upper abdominal pain, unspecified; R11.0 Nausea
CPT/HCPCS: 99214; G2211

== ENCOUNTER → 2024-08-07 15:21 | Outpatient (BNVA) | payer OTHER, SELFPAY | PROVIDERS: PCP Internal Medicine; Visit Provider Nurse Practitioner Family | DX: R68.81 Early satiety (principal); K59.01 Slow transit constipation; K21.9 Gastro-esophageal reflux disease without esophagitis; R10.10 Upper abdominal pain, unspecified; R11.0 Nausea | CPT/HCPCS: 99212 ==

== ENCOUNTER 2024-08-09 09:47 | Outpatient (REF) | payer OTHER, SELFPAY ==
--- OUTSIDE RECORDS SUMMARY | 2024-08-09 11:53 | XMS_ITS | Patient Health Record ---
Author Organization [facility] Address [address] [facility] [address] [place] [address] Care Team Providers Care Stripper And Opaquer Apprentice Name Role Phone Miriam Glass MD Primary Care Provider Unavaila ble Black, Rosalba Unavailable [phone] Allergies Allergen (clinical drug ingredient) Drug/Non Drug [...] Status Risk Notes Problem Ulcer of toe (745405233) Non-pressure chronic ulcer of other part of left foot limited to breakdown of skin (L97.521) Active confirmed Problem Polyneuropathy due to diabetes mellitus type I (159366680) Type 1 diabetes mellitus with diabetic polyneuropathy (E10.42) Active confirmed Problem 461089705 Hammer toe of right foot (M20.41) Active confirmed Problem 229382264 Hammer toe of left foot (M20.42) Active confirmed Problem 10893742 Charcot's joint of foot in type 1 diabetes mellitus (E10.610) Active confirmed Problem 923506867 Charcot's arthropathy (M14.60) Active confirmed Plan Of Treatment Pending Test Test Name Order Date X ray : Foot, right 3V 02/08/2022 09846-UFAK SKIN LESIONS, 2 TO 4 07/22/19 92688-TFDD SKIN LESIONS, 2 TO 4 12/15/19 55879-GXEM SKIN LESIONS, 2 TO 4 02/09/20 61067-IGCJ NAIL(S) 02/08/2022 [id number] NAIL(S) 12/14/2021 75295-[id number] NAIL(S) 07/22/2022 Insurance Providers Payer Name Payer Address Payer Phone Subscriber Number Group Number Insured Name Patient Relationship to Insured Coverage Start Date Coverage End Date [facility] [address] [place] [address] [phone] [id number] Miguelina Arrieta Self - patient is [...]
--- OUTSIDE RECORDS SUMMARY | 2024-08-09 11:53 | XMS_ITS | Encounter Summary ---
Author Organization [facility] Address [address], [place] [address] Phone Care Team Providers Care Recreation Coordinator Name Role Phone Unavailable Primary Care Provider Unavailabl e Encounter Details Date Type Department Care Team (Late st Contact Info) Description 09/04/2007 Legacy Encounter - Labs [place] [address] Provider, MD Ricky [address] [place] [address] Social History Tobacco Use Types Packs/Day Years [...]
--- OUTSIDE RECORDS SUMMARY | 2024-08-09 11:53 | XMS_ITS | Encounter Summary ---
Author Organization [facility] Address [address] [address] Phone Care Team Providers Care Automotive Refinish Technician Name Role Phone Unavailable Primary Care Provider Unavailabl e Encounter Details Date Type Department Care Team (Late st Contact Info) Description 03/06/2007 Legacy Encounter - Labs [place] [address] Provider, MD Ricky [address] [place] [address] Social History Tobacco Use Types Packs/Day Years [...]
--- OUTSIDE RECORDS SUMMARY | 2024-08-09 11:53 | XMS_ITS | Encounter Summary ---
Author Organization [facility] Address [address] [address] Phone Care Team Providers Care Jazz Musician Name Role Phone Unavailable Primary Care Provider Unavailabl e Encounter Details Date Type Department Care Team (Late st Contact Info) Description 11/16/2006 Legacy Encounter - Labs [place] [address] Provider, MD Ricky [address] [place] [address] Social History Tobacco Use Types Packs/Day Years [...]
--- OUTSIDE RECORDS SUMMARY | 2024-08-09 11:53 | XMS_ITS | Clinical Summary ---
Author Organization [facility] Address [address] [place] [address] Care Team Providers Care Funeral Sales Manager Name Role Phone Miriam Glass MD Primary Care Provider Allergies Active Allergy Reactions Criticality Noted Date Comments Chromium 12/07/2010 spasms spasms Ciprofloxacin Other (see comments) 09/30/2013 swelling Other reaction(s): Other (See Comments) swelling Other reaction(s): Other (See Comments) swelling Man-Containing Products 12/07/2010 swelling Levofloxacin Other (see comments) [...] patient's age to complete this topic Insurance [place] [address] [place] [address] [place] [address] Care Teams Funeral Sales Manager Relationship Specialty Start Date End Date Miriam Glass MD [address] [place] [address] PCP - General Internal Medicine 02/17/22
--- OUTSIDE RECORDS SUMMARY | 2024-08-09 11:53 | XMS_ITS | Encounter Summary ---
Author Organization [facility] Address [address], [place] [address] Phone Care Team Providers Care Beverage Host Name Role Phone Unavailable Primary Care Provider Unavailabl e Encounter Details Date Type Department Care Team (Late st Contact Info) Description 12/21/2006 Legacy Encounter - Labs [place] [address] Provider, MD Ricky [address] [place] [address] Social History Tobacco Use Types Packs/Day Years [...]
--- OUTSIDE RECORDS SUMMARY | 2024-08-09 11:53 | XMS_ITS | Encounter Summary ---
Author Organization [facility] Address [address], [place] [address] Phone Care Team Providers Care Backrest Assembler Name Role Phone Unavailable Primary Care Provider Unavailabl e Encounter Details Date Type Department Care Team (Late st Contact Info) Description 09/10/2006 Legacy Encounter - Labs [place] [address] Provider, MD Ricky [address] [place] [address] Social History Tobacco Use Types Packs/Day Years [...]
--- OUTSIDE RECORDS SUMMARY | 2024-08-09 11:53 | XMS_ITS | Data Portability ---
Author Organization [facility] Address [address] [place] [address] Care Team Providers Care Crystallographer Name Role Phone PRAVEEN SINGLETON Care Assistant Unavailable Assessment No assessment recorded. Plan of Treatment Reminders Order Date Submit Date Provider Last Modified By Organization Details Last Modified Time Details Appointments None recorded. Lab None recorded. Referral physical therapist referral 2018 019 [email or web address] Not available 9 11:44:16 Procedures None recorded. Surgeries None recorded. Imaging XR, hip, unilateral 2018 019 [email or web address] Not available 9 11:44:16 XR, hip, unilateral 2018 019 [email or web address] Not available 9 14:58:23 Medication Orders None recorded. Patient TargetsNo targets recorded. Patient Instructions Encounter Date Encounter Id Patient Instructions Last Modified By Organization Details Last Modified Time 10/16/2018 [id number] Discussed with t he patient the importance of partial weightbearing over the next 4 weeks. She'll return for reevaluation and re-x-ray at that time. Not available 10/16/2018 11:39:30 11/13/2018 [id number] Discussed with t jae patient progress to date. She will continue with partial weightbearing for another 6 weeks. She will follow up for repeat x-ray at that time. Not available 11/13/2018 12:05:36 12/11/2018 [id number] Discussed with t jae patient progression to [...] Dictat ed: 2018 11:57 AM Report ID: [id number] Report signed in export packer al system at 019 11:57 Report ed By: Rusty mendez M.D. ([facility] [id number]) Signed By: Rusty mendez M.D. ([facility] [id number]) [facility] (Imaging) [address] [place], [address], 11/13/2018 12:29:51 12/12/1912/11/2018 XR, hip, unila teral [...] Dictat ed: 2018 11:41 AM Report ID: [id number] Report signed in export packer al system at 019 11:41 Report ed By: Rusty mendez M.D. ([facility] [id number]) Signed By: Rusty mendez M.D. ([facility] [id number]) [address] Radiology (Imaging) [address] [place] [address], [address], 12/11/2018 12:07:06 Result Notes None recorded. Problems No Known Problems Procedures Surgical History Date Name Laterality Status Provider Name and Address Organization Details Recorded Time Other completed Benjy Tan MA [facility] 10/16/2018 11:25:01 Imaging Results Imaging Date Name Status LastModified by Organiz ation Details LastModified Time 11/13/2018 XR, hip, unilateral , 2 or 3 view completed [address] Radiology (Imaging) [address] [place] [address], [address], 11/13/2018 12:29:51 12/11/2018 XR, hip, unilateral , 2 or 3 view completed [address] Radiology (Imaging) [address] [place] [address], [address], 12/11/2018 12:07:06 Procedure Notes None recorded. Medical Equipment None Reported. Allergies Allergen ID Allergen Name Allergen Category Reaction Reaction Severity Criticality Documentation Date Start Date Code Code System Note Provider Name and Address Organization Details Recorded Time 20750906 Compazine medicatio n Not available Not available Not available 10/16/201851307 6 RxNorm Mando christensen MA [facility] 9 11:30:29 122535 Cipro medicatio n Not available Not available Not available 10/16/2018 76503 3 RxNorm Mando christensen MA [facility] 9 11:30:33 Medications Name [...] Updated DateTime 9 165.1 cm 30 kg/m2 78416.6 3 g 4 97.7 [degF] Benjy Tan MA [facility] 9 11:24:30 Date Recorded Body height Body mass index (BMI) Body weight Body temperature Provider Name and Address Organization Details Last Updated DateTime 11/13/2018 165.1 cm 28.3 kg/m2 21414.7 g 96 [degF] Kerry Hartley [facility] 11/13/2018 11:41:46 Date Recorded Body height Body mass index (BMI) Body weight Pain severity - 0-10 verbal numeric rating [Score] - Reported Provider Name and Address Organization Details Last Updated DateTime 12/11/2018 165.1 cm 28.3 kg/m2 73400.7 g 3 Elvia Diana [facility] 12/11/2018 10:50:25 Social History Question Answer Notes LastModified by Organizat ion Details LastModified Time Tobacco Smoking Status Never Smoker Benjy christensen [facility] 10/16/2018 11:24:38 What [...] SNOMED-CT Code Diagnosis ICD10 Code Diagnosis Note [id number] CHARLENE ADAMS JR, MD [address], [place] [address] [place] [phone] 10/16/2018 11:07:45 10/17/2018 13:38:48 Closed fracture of neck of femur 083811687 S72.002A [id number] CHARLENE ADAMS JR, MD [address], [place] [address] [place] [phone] 11/13/2018 10:51:58 11/15/2018 08:48:44 Closed fracture of neck of femur 256211143 S72.002A [id number] CHARLENE ADAMS JR, MD [address], [place]e [address] [place] [phone] 12/11/2018 09:56:44 12/13/2018 11:44:16 Closed fracture of neck of femur 806303349 S72.002A Health Concerns Section Related Observation LastModified by Organization Detai ls LastModified Time None Recorded Concern Status LastModified by Organization Details LastModified Time None Recorded Advance Directives Directive None Recorded Payers Encounter Date Sequence Insurance Name Policy Number Policy Burgos Covered Member ID Burgos Member ID Guarantor Name 10/16/2018 1 [facility] [id number] Miguelina Arrieta [id number] Miguelina Arrieta 11/13/2018 1 [facility] [place] [id number] Miguelina Arrieta [id number] Miguelina Arrieta 12/11/2018 FUTURE COMP Miguelina Horan [...] for staple removal. CHARLENE ADAMS JR, MD [address] [place] [address], [phone], [facility] 10/16/2018 11:39:38 11/13/2018 text/html [...] and decreasing pain. CHARLENE ADAMS JR, MD [address] [place] [address], [place], [phone], [facility] 11/13/2018 12:05:47 12/11/2018 text/html [...] and decreasing pain. CHARLENE ADAMS JR, MD [address] [place] [address], [phone], [facility] 12/11/2018 11:50:12 OBGyn Episode No OBEpisode recorded.
--- OUTSIDE RECORDS SUMMARY | 2024-08-09 11:53 | XMS_ITS | Encounter Summary ---
Author Organization [facility] Address [address], [place] [address] Phone Care Team Providers Care Store Promoter Name Role Phone Unavailable Primary Care Provider Unavailabl e Encounter Details Date Type Department Care Team (Late st Contact Info) Description 08/15/2006 Legacy Encounter - [place] [address] Provider, MD Ricky [address] [place] [address] Social History Tobacco Use Types Packs/Day Years [...]
--- OUTSIDE RECORDS SUMMARY | 2024-08-09 11:53 | XMS_ITS | Encounter Summary ---
Author Organization [facility] Address [address], [place] [address] Phone Care Team Providers Care Warehouse Insulation Worker Name Role Phone Unavailable Primary Care Provider Unavailabl e Encounter Details Date Type Department Care Team (Late st Contact Info) Description 11/04/2006 Legacy Encounter - Labs [place] [address] Provider, MD Ricky [address] [place] [address] Social History Tobacco Use Types Packs/Day Years [...]
--- OUTSIDE RECORDS SUMMARY | 2024-08-09 11:53 | XMS_ITS | Encounter Summary ---
Author Organization [facility] Address [address] [address] Phone Care Team Providers Care Machine Pecan Gatherer Name Role Phone Unavailable Primary Care Provider Unavailabl e Encounter Details Date Type Department Care Team (Late st Contact Info) Description 08/19/2006 Legacy Encounter - Labs HISTORICAL CONVERSION [place] [address] [place] [address] Provider, MD Ricky [address] [place] [address] Social History Tobacco Use Types Packs/Day Years [...]
--- OUTSIDE RECORDS SUMMARY | 2024-08-09 11:53 | XMS_ITS | Encounter Summary ---
Author Organization [facility] Address [address], [place] [address] Phone Care Team Providers Care Printer Apprentice Name Role Phone Unavailable Primary Care Provider Unavailabl e Encounter Details Date Type Department Care Team (Late st Contact Info) Description 07/26/2007 Legacy Encounter - Labs [place] [address] ProviderRicky MD [address] [place], [place] [phone] Social History Tobacco Use Types Packs/Day Years [...]
--- OUTSIDE RECORDS SUMMARY | 2024-08-09 11:53 | XMS_ITS | Encounter Summary ---
Author Organization [facility] Address [address], [place] [address] Phone Care Team Providers Care Final Assembly And Packing Supervisor Name Role Phone Unavailable Primary Care Provider Unavailabl e Encounter Details Date Type Department Care Team (Late st Contact Info) Description 02/20/2007 Legacy Encounter - Labs [place] [address] Provider, MD Ricky [address] [place] [address] Social History Tobacco Use Types Packs/Day Years [...]
--- OUTSIDE RECORDS SUMMARY | 2024-08-09 11:53 | XMS_ITS | Encounter Summary ---
Author Organization [facility] Address [address] [address] Phone Care Team Providers Care Power Press Operator Name Role Phone Unavailable Primary Care Provider Unavailabl e Encounter Details Date Type Department Care Team (Late st Contact Info) Description 09/26/2006 Legacy Encounter - Labs [place] [address] Provider, MD Ricky [address] [place] [address] Social History Tobacco Use Types Packs/Day Years [...]
--- OUTSIDE RECORDS SUMMARY | 2024-08-09 11:53 | XMS_ITS | Encounter Summary ---
Author [facility] Address [address] [address] Phone Care Team Providers Care Online Communications Manager Name Role Phone Unavailable Primary Care Provider Unavailabl e Encounter Details Date Type Department Care Team (Late st Contact Info) Description 08/05/2007 Abstract [place] [address] ProviderRicky MD [address] [place], [place] [phone] Social History Tobacco Use Types Packs/Day Years [...]
--- OUTSIDE RECORDS SUMMARY | 2024-08-09 11:54 | XMS_ITS | Encounter Summary ---
Author Organization [facility] Address [address], [place] [address] Phone Care Team Providers Care Co Founder & Ceo Name Role Phone Unavailable Primary Care Provider Unavailabl e Encounter Details Date Type Department Care Team (Late st Contact Info) Description 01/16/2009 Legacy Encounter - Labs [place] [address] Provider, MD Ricky [address] [place] [address] Social History Tobacco Use Types Packs/Day Years [...]
--- OUTSIDE RECORDS SUMMARY | 2024-08-09 11:54 | XMS_ITS | Encounter Summary ---
Author [facility] Address [address], [place] [address] Phone Care Team Providers Care Case Maker Name Role Phone Unavailable Primary Care Provider Unavailabl e Encounter Details Date Type Department Care Team (Late st Contact Info) Description 01/22/2009 Clinical Support [place] [address] ProviderRicky MD [address] [place] [address] Social History Tobacco Use Types Packs/Day Years [...]
--- OUTSIDE RECORDS SUMMARY | 2024-08-09 11:54 | XMS_ITS | Encounter Summary ---
Author Organization [facility] Address [address] [address] Phone Care Team Providers Care Director Of Strategic Sourcing Name Role Phone Unavailable Primary Care Provider Unavailabl e Encounter Details Date Type Department Care Team (Late st Contact Info) Description 04/30/2009 Legacy Encounter - Labs [place] [address] Provider, MD Ricky [address] [place] [address] Social History Tobacco Use Types Packs/Day Years [...]
--- OUTSIDE RECORDS SUMMARY | 2024-08-09 11:54 | XMS_ITS | Encounter Summary ---
Author Organization [facility] Address [address] [address] Phone Care Team Providers Care Shadowgraph Scale Operator Name Role Phone Unavailable Primary Care Provider Unavailabl e Encounter Details Date Type Department Care Team (Late st Contact Info) Description 02/17/2007 Legacy Encounter - Labs [place] [address] Provider, MD Ricky [address] [place] [address] Social History Tobacco Use Types Packs/Day Years [...]
--- OUTSIDE RECORDS SUMMARY | 2024-08-09 11:54 | XMS_ITS | Encounter Summary ---
Author Organization [facility] Address [address] [address] Phone Care Team Providers Care Military Technology Manager Name Role Phone Unavailable Primary Care Provider Unavailabl e Encounter Details Date Type Department Care Team (Late st Contact Info) Description 01/26/2008 Legacy Encounter - [place] [address] Provider, MD Ricky [address] [place] [address] Social History Tobacco Use Types Packs/Day Years [...]
--- OUTSIDE RECORDS SUMMARY | 2024-08-09 11:54 | XMS_ITS | Encounter Summary ---
Author Organization [facility] Address [address] [address] Phone Care Team Providers Care Quality Control Chemist Name Role Phone Unavailable Primary Care Provider Unavailabl e Encounter Details Date Type Department Care Team (Late st Contact Info) Description 11/28/2006 Legacy Encounter - Labs [place] [address] Provider, MD Ricky [address] [place] [address] Social History Tobacco Use Types Packs/Day Years [...]
--- OUTSIDE RECORDS SUMMARY | 2024-08-09 11:54 | XMS_ITS | Clinical Summary ---
Author Organization [facility] [place] Address [address] [address] Phone Care Team Providers Care E D Tech Name Role Phone Unavailable Primary Care Provider Unavailabl e Medications Medication Sig Dispensed Refills Start Date End Date Status ergocalciferol (Drisdol) 1.25 MG (53960 UT) capsule Drisdol( 39155VHRO Oral once a week ) Active -Hx [...]
--- OUTSIDE RECORDS SUMMARY | 2024-08-09 11:54 | XMS_ITS | Encounter Summary ---
Author Organization [facility] Address [address], [place] [address] Phone Care Team Providers Care Environmental Adviser Name Role Phone Unavailable Primary Care Provider Unavailabl e Encounter Details Date Type Department Care Team (Late st Contact Info) Description 04/13/2009 Legacy Encounter - Labs [place] [address] Provider, MD Ricky [address] [place], [place] [phone] Social History Tobacco Use Types Packs/Day Years [...]
--- OUTSIDE RECORDS SUMMARY | 2024-08-09 11:54 | XMS_ITS | Encounter Summary ---
Author Organization [facility] Address [address], [place] [address] Phone Care Team Providers Care Sterile Products Processor Name Role Phone Unavailable Primary Care Provider Unavailabl e Encounter Details Date Type Department Care Team (Late st Contact Info) Description 11/19/2008 Legacy Encounter - Labs HISTORICAL CONVERSION EAST[place] [address] [place] [address] Provider, MD Ricky [address] [place] [address] Social History Tobacco Use Types Packs/Day Years [...]
[2024-08-09 13:15] LABS: Appearance Urine Cloudy; Color Urine Yellow; Glucose Urine UA Negative (Negative); Leukocyte Esterase Urine Large (3+) (Negative); Nitrite Urine Negative (Negative); PH 6.5 (5.0-9.0); UMIC TRIGGER UA YES; Urine Blood Trace (Negative); Urine Ketones Negative (Negative); Urine Protein Negative (Neg-Trace)
[2024-08-09 13:20] LABS: Bacteria Urine 4+ (None Seen); Hyaline Casts Urine 0-2 /LPF (0-2); RBC Urine 0-2 /HPF (0-2); Squamous Epithelial Cell Urine >20 /HPF (0-2); WBC Urine >50 /HPF (0-5)
[2024-08-09 14:04] LABS: Anion Gap 12 (12-20); Blood Urea Nitrogen 21 mg/dL (9-16); Calcium 9.3 mg/dL (8.4-10.2); Carbon Dioxide 25 mmol/L (22-29); Chloride 106 mmol/L (96-108); Estimated Glomerular Filt Rate 46; Glucose Random 171 mg/dL (60-115); Potassium 4.6 mmol/L (3.3-5.1); Sodium 138 mmol/L (135-145)
[2024-08-09 14:09] LABS: Creatinine Urine 66.98 mg/dL; Total Protein Urine Random < 7 mg/dL (<12)
[2024-08-09 14:13] LABS: Alanine Aminotransferase 25 U/L (0-31); Albumin Level 3.9 g/dL (3.5-5.0); Alkaline Phosphatase 67 U/L (39-117); Aspartate Amino Transferase 32 U/L (5-31); Bilirubin Direct 0.3 mg/dL (0.0-0.5); Bilirubin Total 0.7 mg/dL (0.0-1.0); Cholesterol 105 mg/dL (<200); HDL Cholesterol 53 mg/dL (>40); LDL Cholesterol Calculated 38 mg/dL (<100); Lipase 17 U/L (8-78); Total Protein 7.2 g/dL (6.5-8.0); Triglycerides 71 mg/dL (<150)
[2024-08-09 14:33] LABS: Vitamin D 25-OH Total 32.6 ng/mL (>30)
[2024-08-09 14:38] LABS: Folate 10.1 ng/mL (> or = 4.0); Vitamin B12 634 pg/mL (200-900)
[2024-08-13 21:39] LABS: Prot Elec - Alpha1 0.2 g/dL (0.2-0.3); Prot Elec - Alpha2 0.6 g/dL (0.5-0.9); Prot Elec - Beta 1 0.4 g/dL (0.4-0.6); Prot Elec - Beta 2 0.4 g/dL (0.2-0.5); Prot Elec - Gamma 1.3 g/dL (0.8-1.7); Prot Elec - Total Protein 6.9 g/dL (6.1-8.1)
[2024-08-14 11:04] LABS: Transglutaminase IgA <1.0 U/mL
[2024-08-14 19:33] LABS: Vitamin D 25-OH, D2 <4 ng/mL; Vitamin D 25-OH, D3 26 ng/mL; Vitamin D 25-OH, Total 26 ng/mL (30-100)
== END 2024-08-09 09:48 | disposition home or self-care (01) ==
LOC: HO.HMGCLDS 09:47
PROVIDERS: Internal Medicine Hypertension Specialist; PCP Internal Medicine; Referring Provider Nurse Practitioner Family; Visit Provider Internal Medicine Endocrinology, Diabetes & Metabolism
DX: N18.9 Chronic kidney disease, unspecified (principal); M81.0 Age-related osteoporosis without current pathological fracture; R19.7 Diarrhea, unspecified; R10.9 Unspecified abdominal pain; R74.01 Elevation of levels of liver transaminase levels; I25.10 Atherosclerotic heart disease of native coronary artery without angina pectoris; E55.9 Vitamin D deficiency, unspecified
CPT/HCPCS: 36415; 80048; 80061; 80076; 81001; 82306; 82570; 82607; 82746; 83690; 84156; 84165; 86335; 86364

== ENCOUNTER 2024-08-11 07:00 | Outpatient (REF) | payer OTHER, SELFPAY ==
[2024-08-11 14:44] LABS: Creatinine, mg/dL 35.51
[2024-08-11 15:07] LABS: Creatinine, 24Hr Urine 0.7 G/Day (1.0-2.0); Total Volume 24 Hour Urine 2000 mL
[2024-08-13 17:49] LABS: Calcium, 24 Hr Urine 38 mg/24 h; Calcium/Creatinine Ratio 53 mg/g creat (30-275); Creatinine 24Hr Urine 0.72 g/24 h (0.50-2.15)
== END 2024-08-11 07:01 | disposition home or self-care (01) ==
LOC: HO.HMGCLNP 07:00
PROVIDERS: PCP Internal Medicine; Visit Provider Internal Medicine Endocrinology, Diabetes & Metabolism
DX: M81.0 Age-related osteoporosis without current pathological fracture (principal)
CPT/HCPCS: 82340; 82570

== ENCOUNTER 2024-08-20 08:44 | Outpatient (AMB) | payer OTHER, SELFPAY ==
--- NOTE | 2024-08-20 08:50 | MHC.OFFVIS ---
Vital Signs 08/20/24 08:54 Height 5 ft 4.31 in Weight 182 lb 5.156 oz BMI 31.0 BP 132/68 Blood Pressure Location Lt brachial Position Sitting Pulse 66 Pulse Source Pulse Oximeter Pulse Oximetry (%) 99 Oxygen Delivery Method Room Air Intake Visit Reasons: Age-related osteoporosis without current pathologi Intake Note: Patient present today for Age-related Osteoporosis follow up. Homicide Investigator Required: No Accompanied by: Self / Same As Patient Allergies ciprofloxacin [From Cipro] Adverse Reaction (Verified 08/20/24 08:55) Swelling prochlorperazine [From Compazine] Adverse Reaction (Verified 08/20/24 08:55) Muscle Pain Medication List - Last Reconciled 08/20/24 by Shan Franz MD acetone (urine) test (Ketone Urine Test strips) As directed atorvastatin 80 mg PO DAILY blood sugar diagnostic (Contour Next Test Strips) As directed-tests 4 X/day blood sugar diagnostic (FreeStyle Lite Strips) As directed qid prn sensor failure, or to confirm glucose blood-glucose meter (FreeStyle Lite Meter kit) As directed blood-glucose meter,continuous (Dexcom G7 Maintenance Person) As directed blood-glucose sensor (Dexcom G7 Sensor device) As directed every 10 days cholecalciferol (vitamin D3) 50 mcg PO DAILY esomeprazole magnesium (Nexium) 40 mg PO DAILY infusion set for insulin pump As directed: Humalog insulin glargine (Lantus Solostar U-100 Insulin) 13 units (0.13 mL) subcut DAILY PRN 30 days insulin lispro 50 units (0.5 mL) subcut DAILY insulin pump cart,auto,BT,G6/7 (Omnipod 5 G6-G7 Pods (Gen 5) subcutaneous cartridge) As directed insulin pump cart,auto,BT-cntr (Omnipod 5 G6 Intro Kit (Gen 5) subcutaneous cartridge with controller) As directed lancets (FreeStyle Lancets) 4 times a day prn sensor failure or to confirm glucose dispense as 31 gauge if available metoprolol succinate ER 25 mg PO DAILY sennosides (Natural Senna Laxative) 8.6 mg PO BEDTIME HPI Comments Details: 64 YO Female with PMHx diabetes is seen in consultation at the request of PCP for Osteoporosis. First diagnosed in >10 yrs ago .Saw endo 10 yrs ago for osteoporosis Received treatment in the past with alendronate many yrs ago? yrs duration Reclast in 2019 - had acute phase reaction . Tolerated treatment well without complication. history of pathologic fracture in hip 5 yrs ago from fall backwards L hip and R leg and L heel fx 6 yrs ago, R leg fx spontaneously but no ONJ. Has several servings of dietary calcium per day in the form of cheese , yogurt sporadically . Takes Calcium supplement 1200 mg daily in divided doses. Takes 2000 IU of Vitamin D daily. Denies ever using PPI, anticoagulant, antiepileptic or glucocorticoid medication. Not Does weight bearing exercise Fracture history: As above Height loss: Yes PHARMACOLOGY ASSOCIATE history: Menarche at age 13- Menopause unsure had IUD Denies history of Kidney stones: Has family history of Osteoporosis and hip fracture in grandmother . Not UTD on dental cleanings and sees dentist every 6 months. No planned upcoming dental work or extractions. DXA dated 04/13/24:FINDINGS: AP SPINE L1-L4: Current: BMD 0.953 g/cm2, Z-score -1.1, T-score -1.9, osteopenia, 5.6% decrease from baseline (<5% change is not significant). Baseline: BMD 1.010 g/cm2. RIGHT FEMUR, NECK: Current: BMD 0.577 g/cm2, Z-score -2.4, T-score -3.3, osteoporosis. Baseline: BMD 0.600 g/cm2. RIGHT FEMUR, TOTAL: Current: BMD 0.532 g/cm2, Z-score -3.1, T-score -3.8, osteoporosis, 10.7% decrease from baseline (<5% change is not significant). Baseline: BMD 0.596 g/cm2. IDENTIFIED RISK FACTORS: History of adult fracture. Osteoporosis. Renal disease. Secondary osteoporosis (type 1 diabetes). Menopause. HISTORY OF FRACTURE: Femur/hip. Elbow. MEDICATIONS: Calcium supplement and/or multivitamin. Vitamin D. MM/XR DEXA axial skeleton IMPRESSION: 1. DIAGNOSIS: Severe osteoporosis based on the lowest T-score value of -3.8 in the total femur and the prior history of fracture applying World Health Organization criteria. Labs: Secondary workup negative except for borderline low 24 hour urine calcium. The patient is a 64-year-old female presenting with osteoporosis. Her osteoporosis has resulted in previous hip fractures, indicating a significant reduction in bone density. She is currently taking calcium supplementation at a dose of 1200 mg per day, split into two doses; however, her 24-hour urine calcium levels remain low, suggesting suboptimal absorption. Her Vitamin D level was recorded at 26 ng/mL, which is borderline insufficient. She reports stable but decreased kidney function over recent years. 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, 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 Housing: Apartment Alcohol intake: current Alcohol intake frequency: holidays/special occasions only Patient Tobacco Use Status: Never used Tobacco e-Cigarette/Vaping Use: Never Used service: No Current occupational status: employed Cognitive needs: No Hearing needs: No Vision needs: No Physical Exam Vital Signs: Last Vital Signs Pulse 66 08/20/24 08:54 BP 132/68 08/20/24 08:54 Pulse Ox 99 08/20/24 08:54 Oxygen Delivery Method Room Air 08/20/24 08:54 BMI result Body Mass Index 31.0 Assessment & Plan Assessment & Plan (1) Osteoporosis: Comment: Reclast infusion 2016? in the past, DEXA 11/2021 T score -3.3 femur, endocrinology recommended clearance from nephrology to treat osteoporosis Code(s): M81.0 - Age-related osteoporosis without current pathological fracture Category: Medical Plan: This is a 64-year-old white female with a history of severe osteoporosis with fracture. Secondary workup is negative except for slightly low 24 hour urine for calcium. 1. Osteoporosis: Osteoporosis management includes initiating Romosozumab ([facility]) due to its efficacy in increasing bone density and the patient's fracture history. The insurance coverage process is underway. Bone density will be monitored to evaluate response to therapy. 2. Vitamin D Insufficiency: The patient?s Vitamin D dosage is increased to 4000 IU daily to address insufficiency. Follow-up labs including calcium, albumin, 25 hydroxy vitamin-D in 8 weeks are scheduled to monitor adequate absorption and efficacy of supplementation. We will also increase calcium citrate to 600 mg 3 times a day and recheck 24 hour urine for calcium and creatinine in 8 weeks 3. Decreased Kidney Function: Although the kidney function is slightly decreased, it does not affect the current osteoporosis treatment plan. Continuous monitoring of renal status is essential to ensure ongoing therapy suitability. The patient had an opportunity to ask questions regarding treatment plan. I discussed with the patient the bone density findings and the rationale for considering Romosozumab (Evenity) as a treatment to enhance bone mass and reduce fracture risks. Given the lack of recent adverse cardiac events or radiation exposure contraindications, Romosozumab presents a viable option. We discussed the logistics, such as pursuing insurance authorization and the administration method. Additionally, I highlighted the importance of increased Vitamin D supplementation to optimize calcium absorption and bone health. The patient was informed about the planned labs for monitoring Vitamin D, calcium, and kidney function, offering reassurance on potential side effects and anticipated outcomes. I have arranged for a follow-up consultation in four months to evaluate treatment progress and reassess bone health. The patient is encouraged to contact us should any issues or questions arise. - Start taking Romosozumab (Evenity) once the prior authorization is approved. - Increase your Vitamin D intake to two capsules per day for a total of 4000 IU. Increase calcium citrate to 600 mg 3 times a day - Monitor for any side effects or symptoms and report immediately. - Return for follow-up labs in eight weeks to check calcium, albumin, and Vitamin D levels. - Plan to revisit in four months to assess your osteoporosis treatment progress. The patient expressed understanding and agreement with the above treatment plan. Patient was informed and verbally consented to the use of an ambient scribe for clinic note documentation during this visit. Orders: Orders Calcium, 24 Hr Ur 8 Weeks M81.0 - Age-related osteoporosis without current pathological fracture Creatinine, 24 Hr Group 8 Weeks M81.0 - Age-related osteoporosis without current pathological fracture Vitamin D 25-OH Total 8 Weeks M81.0 - Age-related osteoporosis without current pathological fracture Calcium 8 Weeks M81.0 - Age-related osteoporosis without current pathological fracture Albumin Level 8 Weeks M81.0 - Age-related osteoporosis without current pathological fracture Medications: New cholecalciferol (vitamin D3) 100 mcg (2 x 50 mcg (2,000 unit)) PO DAILY 60 caps 5RF romosozumab-aqqg (Evenity) 210 mg (2.34 mL) subcut .q month 2.34 mL 11RF Discontinued cholecalciferol (vitamin D3) Discontinued Reason: Doctor's Order 50 mcg PO DAILY 60 caps 5RF Coding Level of Care Code Est Pt Level 3 (59419) Diagnoses Osteoporosis M81.0
[2024-08-20 08:54] VITALS: BP 132/68; PULSE 66; O2SAT 99; BMI 31.0
== END 2024-08-20 09:21 | disposition home or self-care (01) ==
LOC: HO.ENCR 08:45
PROVIDERS: PCP Internal Medicine; Visit Provider Internal Medicine Endocrinology, Diabetes & Metabolism
DX: M81.0 Age-related osteoporosis without current pathological fracture (principal)
CPT/HCPCS: 99213

== ENCOUNTER → 2024-08-20 08:44 | Outpatient (BNVA) | payer OTHER, SELFPAY | PROVIDERS: PCP Internal Medicine; Visit Provider Internal Medicine Endocrinology, Diabetes & Metabolism | DX: M81.0 Age-related osteoporosis without current pathological fracture (principal) | CPT/HCPCS: 99212 ==

== ENCOUNTER → 2024-08-28 07:41 | Outpatient (REF) | payer OTHER, SELFPAY ==
--- NOTE | ~2024-08-28 | NM_ITS ---
EXAMINATION: PR RADIONUCLIDE SOLID FOOD GASTRIC EMPTYING 4-HOUR STUDY CLINICAL INFORMATION: R68.81 - Early satiety COMPARISON: None TECHNIQUE: A standard meal consisting of 4 oz of Egg Beaters brand tagged with 0.98 mCi Tc-99m Sulfur Colloid, 4 oz water and 1 slice of toast with jelly was administered orally to the patient. Images were obtained using a dual head gamma camera in the anterior and posterior projections over of the stomach immediately post ingestion and at hourly intervals up to 4 hours post ingestion. The anterior and posterior counts at each time interval were averaged using the geometric mean and expressed as percentage of the immediate post ingestion counts. FINDINGS: There is good visualization of activity in the stomach immediately post ingestion. As the study progresses, there is minimal clearance of activity from the stomach and only minimal visualization of small bowel activity. Retention in the stomach at each time interval was: 1 hour 99% (normal 37%-90%) 2 hours 87% (normal 30%-60%) 3 hours 92% 4 hours 84% (normal 0%-10%) PR/PR gastric emptying study IMPRESSION: Delayed gastric emptying. For solid meal, rapid gastric emptying is less than 30% at 60 minutes. Delayed gastric emptying criteria is more than 60% remaining at 120 minutes or more than 10% at 240 minutes. The 4-hour value is the best discriminator of a normal or abnormal result). Gastric emptying study grading per JNMT Consensus Recommendations in 2008 (https://tech.snmjournals.org/content/36/1/44) Grade 1 (mild retention): 11-20% at 4h Grade 2 (moderate retention): 21-35% at 4h Grade 3 (severe retention): 36-50% at 4h Grade 4 (very severe retention): >50% retention at 4h Electronically signed by: Shan Henry MD 08/28/2024 01:32 PM EDT
--- OUTSIDE RECORDS SUMMARY | 2024-08-28 07:45 | XMS_ITS | Patient Health Record ---
Author Organization [facility] Address [address] [place] [address] Care Team Providers Care Rn Long Term Care Name Role Phone iMriam Glass MD Primary Care Provider Unavaila ble Black, Rosalba Unavailable [phone] Allergies Allergen (clinical drug ingredient) Drug/Non Drug [...] Status Risk Notes Problem Ulcer of toe (848356082) Non-pressure chronic ulcer of other part of left foot limited to breakdown of skin (L97.521) Active confirmed Problem Polyneuropathy due to diabetes mellitus type I (114184850) Type 1 diabetes mellitus with diabetic polyneuropathy (E10.42) Active confirmed Problem 127528890 Hammer toe of right foot (M20.41) Active confirmed Problem 388620620 Hammer toe of left foot (M20.42) Active confirmed Problem 09422899 Charcot's joint of foot in type 1 diabetes mellitus (E10.610) Active confirmed Problem 070350483 Charcot's arthropathy (M14.60) Active confirmed Plan Of Treatment Pending Test Test Name Order Date X ray : Foot, right 3V 02/08/2022 27743-SFMR SKIN LESIONS, 2 TO 4 07/22/19 32265-HAZO SKIN LESIONS, 2 TO 4 12/15/19 67641-THSL SKIN LESIONS, 2 TO 4 02/09/20 [id number] NAIL(S) 02/08/2022 [id number] NAIL(S) 12/14/2021 14782-JOIT NAIL(S) 07/22/2022 Insurance Providers Payer Name Payer Address Payer Phone Subscriber Number Group Number Insured Name Patient Relationship to Insured Coverage Start Date Coverage End Date [facility] [address] [place] [address] [phone] [id number] Miguelina Arrieta Self - patient is [...]
--- OUTSIDE RECORDS SUMMARY | 2024-08-28 07:45 | XMS_ITS | Encounter Summary ---
Author Organization [facility] Address [address], [place] [address] Phone Care Team Providers Care File Keeper Name Role Phone Unavailable Primary Care Provider Unavailabl e Encounter Details Date Type Department Care Team (Late st Contact Info) Description 02/17/2007 Legacy Encounter - [place] [address] Provider, MD Ricky [address] [place] [address] Social History Tobacco Use Types Packs/Day Years [...]
--- OUTSIDE RECORDS SUMMARY | 2024-08-28 07:45 | XMS_ITS | Encounter Summary ---
Author Organization [facility] Address [address] [address] Phone Care Team Providers Care Interactive Media Designer Name Role Phone Unavailable Primary Care Provider Unavailabl e Encounter Details Date Type Department Care Team (Late st Contact Info) Description 03/06/2007 Legacy Encounter - [place] [address] Provider, MD Ricky [address] [place] [address] Social History Tobacco Use Types Packs/Day Years [...]
--- OUTSIDE RECORDS SUMMARY | 2024-08-28 07:45 | XMS_ITS | Encounter Summary ---
Author Organization [facility] Address [address] [address] Phone Care Team Providers Care Parking Meter Mechanic Name Role Phone Unavailable Primary Care Provider Unavailabl e Encounter Details Date Type Department Care Team (Late st Contact Info) Description 08/15/2006 Legacy Encounter - Labs [place] [address] Provider, MD Ricky [address] [place] [address] Social History Tobacco Use Types Packs/Day Years [...]
--- OUTSIDE RECORDS SUMMARY | 2024-08-28 07:45 | XMS_ITS | Clinical Summary ---
Author Organization [facility] Facility Address [address] [place] [address] Care Team Providers Care Cello Teacher Name Role Phone Miriam Glass MD Primary Care Provider [phone] Allergies Active Allergy Reactions Criticality Noted Date Comments Chromium 12/07/2010 spasms spasms Ciprofloxacin Other (see comments) 09/30/2013 swelling Other reaction(s): Other (See Comments) swelling Other reaction(s): Other (See Comments) swelling [place]-Containing Products 12/07/2010 swelling Levofloxacin Other (see comments) [...] patient's age to complete this topic [place] [address] [place] [address] [place] [address] Care Teams Cello Teacher Relationship Specialty Start Date End Date Miriam Glass MD [address] [place] [address] PCP - General Internal Medicine 02/17/22
--- OUTSIDE RECORDS SUMMARY | 2024-08-28 07:45 | XMS_ITS | Encounter Summary ---
Author Organization [facility] Address [address], [place] [address] Phone Care Team Providers Care Tandem Operator Name Role Phone Unavailable Primary Care Provider Unavailabl e Encounter Details Date Type Department Care Team (Late st Contact Info) Description 11/04/2006 Legacy Encounter - [place] [address] Provider, MD Ricky [address] [place] [address] Social History Tobacco Use Types Packs/Day Years [...]
--- OUTSIDE RECORDS SUMMARY | 2024-08-28 07:45 | XMS_ITS | Encounter Summary ---
Author Organization [facility] Address [address] [address] Phone Care Team Providers Care Windows 7 Deployment Lead Name Role Phone Unavailable Primary Care Provider Unavailabl e Encounter Details Date Type Department Care Team (Late st Contact Info) Description 09/26/2006 Legacy Encounter - Labs [place] [address] Provider, MD Ricky [address] [place] [address] Social History Tobacco Use Types Packs/Day Years [...]
--- OUTSIDE RECORDS SUMMARY | 2024-08-28 07:45 | XMS_ITS | Encounter Summary ---
Author Organization [facility] Address [address], [place] [address] Phone Care Team Providers Care Metal Molder Name Role Phone Unavailable Primary Care Provider Unavailabl e Encounter Details Date Type Department Care Team (Late st Contact Info) Description 07/26/2007 Legacy Encounter - Labs [place] [address] ProviderRicky MD [address] [place], [place] [phone] Social History Tobacco Use Types Packs/Day Years [...]
--- OUTSIDE RECORDS SUMMARY | 2024-08-28 07:45 | XMS_ITS | Encounter Summary ---
Author Organization [facility] Address [address] [address] Phone Care Team Providers Care Manager Electronic Name Role Phone Unavailable Primary Care Provider Unavailabl e Encounter Details Date Type Department Care Team (Late st Contact Info) Description 01/26/2008 Legacy Encounter - Labs [place] [address] Provider, MD Ricky [address] [place] [address] Social History Tobacco Use Types Packs/Day Years [...]
--- OUTSIDE RECORDS SUMMARY | 2024-08-28 07:45 | XMS_ITS | Encounter Summary ---
Author Organization [facility] Address [address] [address] Phone Care Team Providers Care Bun Panner Name Role Phone Unavailable Primary Care Provider Unavailabl e Encounter Details Date Type Department Care Team (Late st Contact Info) Description 09/10/2006 Legacy Encounter - Labs [place] [address] Provider, MD Ricky [address] [place] [address] Social History Tobacco Use Types Packs/Day Years [...]
--- OUTSIDE RECORDS SUMMARY | 2024-08-28 07:45 | XMS_ITS | Encounter Summary ---
Author Organization [facility] Address [address], [place] [address] Phone Care Team Providers Care Inspector Technician Name Role Phone Unavailable Primary Care Provider Unavailabl e Encounter Details Date Type Department Care Team (Late st Contact Info) Description 12/21/2006 Legacy Encounter - Labs [place] [address] Provider, MD Ricky [address] [place] [address] Social History Tobacco Use Types Packs/Day Years [...]
--- OUTSIDE RECORDS SUMMARY | 2024-08-28 07:45 | XMS_ITS | Encounter Summary ---
Author Organization [facility] Address [address], [place] [address] Phone Care Team Providers Care Reclaimer Name Role Phone Unavailable Primary Care Provider Unavailabl e Encounter Details Date Type Department Care Team (Late st Contact Info) Description 04/30/2009 Legacy Encounter - Labs [place] [address] Provider, MD Ricky [address] [place], [place] [phone] Social History Tobacco Use Types Packs/Day Years [...]
--- OUTSIDE RECORDS SUMMARY | 2024-08-28 07:45 | XMS_ITS | Encounter Summary ---
Author Organization [facility] Address [address], [place] [address] Phone Care Team Providers Care Market Developer Name Role Phone Unavailable Primary Care Provider Unavailabl e Encounter Details Date Type Department Care Team (Late st Contact Info) Description 08/19/2006 Legacy Encounter - Labs HISTORICAL CONVERSION [place] [address] [place] [address] Provider, MD Ricky [address] [place] [address] Social History Tobacco Use Types Packs/Day Years [...]
--- OUTSIDE RECORDS SUMMARY | 2024-08-28 07:45 | XMS_ITS | Encounter Summary ---
Author Organization [facility] Address [address], [place] [address] Phone Care Team Providers Care Business And Marketing Teacher Name Role Phone Unavailable Primary Care Provider Unavailabl e Encounter Details Date Type Department Care Team (Late st Contact Info) Description 01/16/2009 Legacy Encounter - Labs [place] [address] Provider, MD Ricky [address] [place] [address] Social History Tobacco Use Types Packs/Day Years [...]
--- OUTSIDE RECORDS SUMMARY | 2024-08-28 07:45 | XMS_ITS | Encounter Summary ---
Author Organization [facility] Address [address] [address] Phone Care Team Providers Care Rollway Worker Name Role Phone Unavailable Primary Care Provider Unavailabl e Encounter Details Date Type Department Care Team (Late st Contact Info) Description 11/19/2008 Legacy Encounter - Labs HISTORICAL CONVERSION [place] [address] [place] [address] Provider, MD Ricky [address] [place] [address] Social History Tobacco Use Types Packs/Day Years [...]
--- OUTSIDE RECORDS SUMMARY | 2024-08-28 07:45 | XMS_ITS | Clinical Summary ---
Author Organization [facility] Address [address] [address] Phone Care Team Providers Care Sample Body Builder Name Role Phone Unavailable Primary Care Provider Unavailabl e Medications Medication Sig Dispensed Refills Start Date End Date Status ergocalciferol (Drisdol) 1.25 MG (32345 UT) capsule Drisdol( 04163YUVE Oral once a week ) Active -Hx [...]
--- OUTSIDE RECORDS SUMMARY | 2024-08-28 07:45 | XMS_ITS | Encounter Summary ---
Author Organization [facility] Address [address] [address] Phone Care Team Providers Care Calcine Furnace Tender Name Role Phone Unavailable Primary Care Provider Unavailabl e Encounter Details Date Type Department Care Team (Late st Contact Info) Description 02/20/2007 Legacy Encounter - [place] [address] Provider, MD Ricky [address] [place] [address] Social History Tobacco Use Types Packs/Day Years [...]
--- OUTSIDE RECORDS SUMMARY | 2024-08-28 07:45 | XMS_ITS | Encounter Summary ---
Author Organization [facility] Address [address] [address] Phone Care Team Providers Care Wire Spiral Binder Name Role Phone Unavailable Primary Care Provider Unavailabl e Encounter Details Date Type Department Care Team (Late st Contact Info) Description 04/13/2009 Legacy Encounter - Labs [place] [address] Provider, MD Ricky [address] [place], [place] [phone] Social History Tobacco Use Types Packs/Day Years [...]
--- OUTSIDE RECORDS SUMMARY | 2024-08-28 07:45 | XMS_ITS | Encounter Summary ---
Author Organization [facility] Address [address] [address] Phone Care Team Providers Care General Distillery Worker Name Role Phone Unavailable Primary Care Provider Unavailabl e Encounter Details Date Type Department Care Team (Late st Contact Info) Description 09/04/2007 Legacy Encounter - [place] [address] Provider, MD Ricky [address] [place] [address] Social History Tobacco Use Types Packs/Day Years [...]
--- OUTSIDE RECORDS SUMMARY | 2024-08-28 07:45 | XMS_ITS | Encounter Summary ---
Author Organization [facility] Address [address] [address] Phone Care Team Providers Care Artist Woodblock Name Role Phone Unavailable Primary Care Provider Unavailabl e Encounter Details Date Type Department Care Team (Late st Contact Info) Description 11/28/2006 Legacy Encounter - [place] [address] Provider, MD Ricky [address] [place] [address] Social History Tobacco Use Types Packs/Day Years [...]
--- OUTSIDE RECORDS SUMMARY | 2024-08-28 07:45 | XMS_ITS | Encounter Summary ---
Author Organization [facility] Address [address], [place] [address] Phone Care Team Providers Care Yard Person Name Role Phone Unavailable Primary Care Provider Unavailabl e Encounter Details Date Type Department Care Team (Late st Contact Info) Description 11/16/2006 Legacy Encounter - Labs [place] [address] Provider, MD Ricky [address] [place] [address] Social History Tobacco Use Types Packs/Day Years [...]
--- OUTSIDE RECORDS SUMMARY | 2024-08-28 07:45 | XMS_ITS | Encounter Summary ---
Author Organization [facility] Address [address] [address] Phone Care Team Providers Care Bath Design Sales Consultant Name Role Phone Unavailable Primary Care Provider Unavailabl e Encounter Details Date Type Department Care Team (Late st Contact Info) Description 08/05/2007 Abstract [place] [address] ProviderRicky MD [address] [place], [place] [phone] Social History Tobacco Use Types Packs/Day Years [...]
--- OUTSIDE RECORDS SUMMARY | 2024-08-28 07:45 | XMS_ITS | Encounter Summary ---
Author [facility] Address [address] [place] [address] Phone Care Team Providers Care Patient Office Rep Name Role Phone Unavailable Primary Care Provider Unavailabl e Encounter Details Date Type Department Care Team (Late st Contact Info) Description 01/22/2009 Clinical Support [place] [address] ProviderRicky MD [address] [place] [address] Social History Tobacco Use Types Packs/Day Years [...]
== END ==
LOC: HO.NUCMED 07:41
PROVIDERS: PCP Internal Medicine; Visit Provider Nurse Practitioner Family
DX: R68.81 Early satiety (principal)
CPT/HCPCS: 78264; A9541

== ENCOUNTER → 2024-08-28 07:42 | Outpatient (BNV) | payer OTHER, SELFPAY | PROVIDERS: PCP Internal Medicine; Visit Provider Radiology Diagnostic Radiology | DX: R68.81 Early satiety (principal) | CPT/HCPCS: 78264 ==

== ENCOUNTER 2024-09-12 13:39 | Outpatient (AMB) | payer OTHER, SELFPAY ==
--- NOTE | 2024-09-12 14:06 | MHC.OFFVIS ---
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 Statesher right middle finger and left small finger are josefina inward towards her palm. she has arthritis in B/L hands however she is now having complaints of not being able to completely flatten her hands. She reports weakness and lack of strength with typing, gripping, grasping, and squeezing. Patient mentioned that this morning she dropped her bowl of cereal out of her hand due to losing her rush seater. 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 She complains of a contracture of her right middle finger, and left small finger. She also complains of weakness in her hands and says she drops items at times. She is also concerned that she has bilateral hand arthritis. She is a Diabetic, this is well-controlled. She has Charcot disease and is in the process of applying for disability. 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,[employer], 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 Housing: Apartment Alcohol intake: current Alcohol intake frequency: holidays/special occasions only Patient Tobacco Use Status: Never used Tobacco e-Cigarette/Vaping Use: Never Used service: No Current occupational status: disabled Current occupation: right handed Cognitive needs: No Hearing needs: No Vision needs: No Review of Systems Const All systems reviewed & are unremarkable except as noted in HPI and below Physical Exam Vital Signs: BMI result Body Mass Index 30.1 Const General: cooperative, healthy appearing and no acute distress Orientation/consciousness: patient oriented x3 HEENT Head: Yes normocephalic and Yes atraumatic Eyes EOM: EOMs intact bilaterally Resp Effort & Inspection: normal respiratory effort and able to speak in complete sentences Cardio Jugular venous distension: no JVD Skin General skin exam: turgor normal Rashes: no rashes Neuro General: patient oriented x3 Extrem Other: Evaluation of Bilateral Upper Extremity: The patient is alert, oriented, and in no acute distress Neuro: Median, Ulnar, Radial nerves motor and sensory intact and sensation is normal to the tips of all digits Vascular: Cap refill brisk ROM: She can bring all the fingers of her right hand closed to a fist, and extend her index & small fingers She can bring all the fingers of her left hand closed to a fist, and extend her index, middle, and ring fingers Right hand Dupuytrens contractures: Middle finger: MCP 0/PIP 85/DIP 0 Ring finger: MCP 20/PIP 70/DIP 0 There is a central cord extending from the palm to the ring finger middle phalanx There is a cord extending from the ring finger cord, extending up the ulnar side of the middle finger to the DIP joint Left hand Dupuytrens contractures: Small finger: MCP 70/PIP 0 There is a cord extending from the mid palm to the middle phalanx There is also a fairly large dupuytrens nodule extending over the base of the proximal phalanx Skin: No lacerations or abrasions. General: No Ecchymosis. No Erythema or evidence of infection. Psych Appearance: grossly normal Affect: normal affect Attitude: cooperative Assessment & Plan Assessment & Plan (1) Diabetes type 1: Code(s): E10.9 - Type 1 diabetes mellitus without complications Category: Medical (2) Dupuytren's contracture of right hand: Code(s): M72.0 - Palmar fascial fibromatosis [Dupuytren] Category: Medical (3) Dupuytren's contracture of left hand: Code(s): M72.0 - Palmar fascial fibromatosis [Dupuytren] Category: Medical (4) CKD (chronic kidney disease): Comment: Stage III, Diabetic nephropathy, follows up with buttonholer, Code(s): N18.9 - Chronic kidney disease, unspecified Category: Medical Plan Assessment & Plan: 1. Right middle finger Dupuytrens contracture MCP 0/PIP 85/DIP 0 2. Right ring finger Dupuytrens contracture MCP 20/PIP 70/DIP 0 I educated her about this condition I discussed operative and non-operative treatment options The patient would like to proceed with surgery. However, her [id number] is currently in treatment for Stage IV colon cancer and she is not able to have surgery at this time. She is considering some time in December or January She will need a same day appointment at her first post-op visit to be seen by OT hand therapy to have custom thermoplastic splints made The risks and benefits of operative treatment were discussed with the patient and the patient wishes to proceed with surgery. These risks include, but are not limited to risk of damage to blood vessels, nerves, tendons, infection, recurrence, incomplete relief of preoperative symptoms, persistent pain, possible need for further surgery and the risks associated with regional blocks and anesthesia. The plan is to take the patient to the operating room sometime in the next few months for the following procedures: 1. Right middle finger partial Dupuytrens fasciectomy, under general 2. Right ring finger partial Dupuytrens fasciectomy, under general All of the preoperative paperwork including the consent was reviewed today. All the patient's questions were answered. The patient understands that they will be contacted by our political science professor soon to schedule this procedure She denies blood thinners, asthma, heart, lung issues She has CKD III and is a Diabetic. Her most recent HgA1c was 6.5% on 07/06/24. They will need an updated HgA1c that is <8.1% in order to proceed with surgery, and they expressed understanding. She says she follows with Cardiology as a preventative measure, and she had a clear stress test back in 06/2024. She denies any heart conditions 3. Left small finger Dupuytrens contracture MCP 70/PIP 0 I educated her about this condition I discussed treatment options She would like to try Xiaflex injections for her small finger, and I am in agreement She will follow up for this injection when approved. This should be a 30 minute appointment Please note that greater than 30 minutes was spent with this patient going over the history, evaluating the patient and radiographs, formulating possible treatment options, discussing them with the patient, and documenting the visit. Scribed for Chantal Khan MD by Randy Ordoñez medical record librarians teacher, on 09/12/24 at 2:20 PM, EST. Coding Level of Care Code New Pt Level 4 (70292) Diagnoses Diabetes type 1 E10.9 Dupuytren's contracture of right hand M72.0 Dupuytren's contracture of left hand M72.0 CKD (chronic kidney disease) N18.9
[2024-09-12 14:07] VITALS: BMI 30.1
--- OUTSIDE RECORDS SUMMARY | 2024-09-12 16:19 | XMS_ITS | Encounter Summary ---
Author Organization [facility] Address [address] [place] [address] Phone Care Team Providers Care Veneer Taper Name Role Phone Unavailable Primary Care Provider Unavailabl e Encounter Details Date Type Department Care Team (Late st Contact Info) Description 01/22/2009 Clinical Support [place] [address] ProviderRicky MD [address] [place] [address] Social History Tobacco Use Types Packs/Day Years Used Date Smoking Tobacco: Never Assessed Comments Unknown Sex and Gender Information Value Date Recorded Sex Assigned at Not on file Legal Sex Female 11:57 AM MDT Gender Identity Not on file Sexual Orientation Not on file documented as of this encounter Plan of Treatment Not on file documented as of this encounter Visit Diagnoses Not on filedocumented in this encounter
--- OUTSIDE RECORDS SUMMARY | 2024-09-12 16:19 | XMS_ITS | Encounter Summary ---
Author Organization [facility] Address [address] [place] [address] Phone Care Team Providers Care Montessori Paraprofessional Name Role Phone Unavailable Primary Care Provider Unavailabl e Encounter Details Date Type Department Care Team (Late st Contact Info) Description 09/10/2006 Legacy Encounter - [place] [address] Provider, MD Ricky [address] [place], [place] [id number] Social History Tobacco Use Types Packs/Day Years Used Date Smoking Tobacco: Never Assessed Comments Unknown Sex and Gender Information Value Date Recorded Sex Assigned at Not on file Legal Sex Female 11:57 AM T Gender Identity Not on file Sexual Orientation [...] an unspecified provider. Historical Provider LAB BLOOD ORDERABLES Kaylee l Result documented in this encounter Visit Diagnoses Not on filedocumented in this encounter
--- OUTSIDE RECORDS SUMMARY | 2024-09-12 16:19 | XMS_ITS | Patient Health Record ---
Author Organization [facility] Address [address] [facility] [place] [address] Care Team Providers Care Marketing Strategy Manager Name Role Phone Miriam Glass MD Primary Care Provider Unavaila ble Black, Rosalba Unavailable [phone] Allergies Allergen (clinical drug ingredient) Drug/Non Drug [...] Status Risk Notes Problem Ulcer of toe (406141695) Non-pressure chronic ulcer of other part of left foot limited to breakdown of skin (L97.521) Active confirmed Problem Polyneuropathy due to diabetes mellitus type I (747147376) Type 1 diabetes mellitus with diabetic polyneuropathy (E10.42) Active confirmed Problem 641569464 Hammer toe of right foot (M20.41) Active confirmed Problem 249674961 Hammer toe of left foot (M20.42) Active confirmed Problem 52482506 Charcot's joint of foot in type 1 diabetes mellitus (E10.610) Active confirmed Problem 148827620 Charcot's arthropathy (M14.60) Active confirmed Plan Of Treatment Pending Test Test Name Order Date X ray : Foot, right 3V 02/08/2022 92178-RBRF SKIN LESIONS, 2 TO 4 07/22/19 07519-ESPZ SKIN LESIONS, 2 TO 4 12/15/19 33748-CTRF SKIN LESIONS, 2 TO 4 02/09/20 51411-HGTM NAIL(S) 02/08/2022 14134-QWLU NAIL(S) 12/14/2021 34696-LJDV NAIL(S) 07/22/2022 Insurance Providers Payer Name Payer Address Payer Phone Subscriber Number Group Number Insured Name Patient Relationship to Insured Coverage Start Date Coverage End Date [facility] [address] [place] [address] [phone] [id number] Miguelina Arrieta Self - patient is [...]
--- OUTSIDE RECORDS SUMMARY | 2024-09-12 16:19 | XMS_ITS | Encounter Summary ---
Author Organization [facility] Address [address], [place] [address] Phone Care Team Providers Care Java Developer Analyst Name Role Phone Unavailable Primary Care Provider Unavailabl e Encounter Details Date Type Department Care Team (Late st Contact Info) Description 11/16/2006 Legacy Encounter - Labs [place] [address] Provider, MD Ricky [address] [place], [place] [phone] Social History Tobacco Use Types Packs/Day Years [...]
--- OUTSIDE RECORDS SUMMARY | 2024-09-12 16:19 | XMS_ITS | Clinical Summary ---
Author Organization [facility] Address [address] [place] [address] Care Team Providers Care Aircraft Body Repairer Name Role Phone Miriam Glass MD Primary Care Provider [phone] Allergies Active Allergy Reactions Criticality Noted Date Comments Chromium 12/07/2010 spasms spasms Ciprofloxacin Other (see comments) 09/30/2013 swelling Other reaction(s): Other (See Comments) swelling Other reaction(s): Other (See Comments) swelling [place]-Containing Products 12/07/2010 swelling Levofloxacin Other (see comments) [...] or end stage renal disease 01/22/2009 Immunizations Immunization Administration Dates Next Due Hepatitis B 08/15/2017,03/14/2017,02/09/2017 [...] Colorectal Cancer Screening: Sigmoidoscopy 2009 Pneumococcal Vaccine: 50+ Years (2 of 2 - PCV) 02/09/2018 02/09/2017 Diabetes: Hemoglobin A1C 05/20/2022 Diabetes: Ophthalmology Exam 05/20/2022 03/12/2020, 12/12/2019, 11/14/2019, Additional history exists Diabetes: Pedal Pulse Checked 05/20/2022 Diabetes: Sensory Foot Exam 05/20/2022 Diabetes: Visual Foot Exam 05/20/2022 Influenza Vaccine (Season Ended) 2025 01/24/2021, 01/18/2020, 03/31/2019, Additional history exists Pneumococcal Vaccine: Peds (0 to 5 Years) and At-Risk Patients (6 to 49 Years) Discontinued 02/09/2017 Hepatitis B Vaccine Aged Out 08/15/2017, 03/14/2017, 02/09/2017 No longer eligible based on patient's age to complete this topic [place] [address] [address] [place] [address] Care Teams Aircraft Body Repairer Relationship Specialty Start Date End Date Miriam Glass MD [address] [place] [address] PCP - General Internal Medicine 02/17/22
--- OUTSIDE RECORDS SUMMARY | 2024-09-12 16:19 | XMS_ITS | Encounter Summary ---
Author Organization [facility] Address [address] [address] Phone Care Team Providers Care In Flight Refueling Craftsman Name Role Phone Unavailable Primary Care Provider Unavailabl e Encounter Details Date Type Department Care Team (Late st Contact Info) Description 08/15/2006 Legacy Encounter - [place] [address] Provider, MD Ricky [address] [place], [place] [phone] Social History Tobacco Use Types Packs/Day Years [...]
--- OUTSIDE RECORDS SUMMARY | 2024-09-12 16:19 | XMS_ITS | Encounter Summary ---
Author Organization [facility] Address [address] [place] [address] Phone Care Team Providers Care R Programmer Name Role Phone Unavailable Primary Care Provider Unavailabl e Encounter Details Date Type Department Care Team (Late st Contact Info) Description 07/26/2007 Legacy Encounter - [place] [address] Provider, MD Ricky [address] [place], [place] [phone] Social History Tobacco Use Types Packs/Day Years [...] AM EST Ordered by an unspecified provider. us Historical Provider LAB BLOOD ORDERABLES Kaylee l Result documented in this encounter Visit Diagnoses Not on filedocumented in this encounter
--- OUTSIDE RECORDS SUMMARY | 2024-09-12 16:19 | XMS_ITS | Encounter Summary ---
Author Organization [facility] Address [address] [address] Phone Care Team Providers Care Wildlife Rehabilitator Name Role Phone Unavailable Primary Care Provider Unavailabl e Encounter Details Date Type Department Care Team (Late st Contact Info) Description 02/17/2007 Legacy Encounter - [place] [address] Provider, MD Ricky [address] [place], [place] [phone] Social History Tobacco Use Types Packs/Day Years [...]
--- OUTSIDE RECORDS SUMMARY | 2024-09-12 16:19 | XMS_ITS | Encounter Summary ---
Author Organization [facility] Address [address] [place] [address] Phone Care Team Providers Care Agriculture Internship Name Role Phone Unavailable Primary Care Provider Unavailabl e Encounter Details Date Type Department Care Team (Late st Contact Info) Description 04/30/2009 Legacy Encounter - [place] [address] Provider, MD Ricky [address] [place], [place] [phone] Social History Tobacco Use Types Packs/Day Years [...]
--- OUTSIDE RECORDS SUMMARY | 2024-09-12 16:19 | XMS_ITS | Clinical Summary ---
Author Organization [facility] Address [address] [place] [address] Phone Care Team Providers Care Assistant Family Teacher Name Role Phone Unavailable Primary Care Provider Unavailabl e Medications ergocalciferol (Drisdol) 1.25 MG (81771 UT) capsule Drisdol( 20880GDHJ Oral once a week ) Active -Hx Entry 9 Active insulin lispro (HumaLOG) 100 UNIT/ML injection Humalog( 100UNIT/ML Subcutaneous ) Active -Hx Entry 9 Active sodium polystyrene (KAYEXALATE) 15 GM/60ML suspension Sodium Polystyrene Sulfonate( 15GM/60ML Oral once a week ) Active -Hx Entry 9 Active amLODIPine-cordelia zepril (Lotrel) 5-20 MG per capsule Lotrel 5-20MG, 1 Capsule daily # 30, 08/01/2007, Ref. x3. Active 3 8 Active olmesartan (Benicar) 20 MG tablet Benicar 20MG, 1 Tablet daily # 90, 01/21/2009, Ref. x3. Active 3 9 Active carvedilol (Coreg) 25 MG tablet Coreg 25MG, 1 Tablet two times daily # 180, 01/21/2009, Ref. x3. Active 3 9 Active Active Problems Problem Noted Date Diagnosed [...] EDT Plan of Treatment Not on file Insurance PM INTERFACED INSURANCE PM INTERFACED INSURANCE
--- OUTSIDE RECORDS SUMMARY | 2024-09-12 16:19 | XMS_ITS | Encounter Summary ---
[facility] Address [address] [place] [address] Phone Care Team Providers Care Plate Drying Machine Tender Name Role Phone Unavailable Primary Care Provider Unavailabl e Encounter Details Date Type Department Care Team (Late st Contact Info) Description 08/05/2007 Abstract [place] [address] ProviderRicky MD [address] [place] [address] Social History Tobacco Use Types Packs/Day Years [...]
--- OUTSIDE RECORDS SUMMARY | 2024-09-12 16:19 | XMS_ITS | Encounter Summary ---
Author Organization [facility] Address [address] [address] Phone Care Team Providers Care Shell Freezing Machine Operator Name Role Phone Unavailable Primary Care Provider Unavailabl e Encounter Details Date Type Department Care Team (Late st Contact Info) Description 09/26/2006 Legacy Encounter - Labs [place] [address] Provider, MD Ricky [address] [place], [place] [phone] Social History Tobacco Use Types Packs/Day Years [...]
--- OUTSIDE RECORDS SUMMARY | 2024-09-12 16:19 | XMS_ITS | Encounter Summary ---
Author Organization [facility] Address [address] [place] [address] Phone Care Team Providers Care Cyber Security Engineer Name Role Phone Unavailable Primary Care Provider Unavailabl e Encounter Details Date Type Department Care Team (Late st Contact Info) Description 11/04/2006 Legacy Encounter - [place] [address] Provider, MD Ricky [address] [place], [place] [phone] Social History Tobacco Use Types Packs/Day Years [...]
--- OUTSIDE RECORDS SUMMARY | 2024-09-12 16:19 | XMS_ITS | Encounter Summary ---
Author Organization [facility] Address [address] [address] Phone Care Team Providers Care Wash Crew Person Name Role Phone Unavailable Primary Care Provider Unavailabl e Encounter Details Date Type Department Care Team (Late st Contact Info) Description 03/06/2007 Legacy Encounter - Labs [place] [address] Provider, MD Ricky [address] [place], [place] [phone] Social History Tobacco Use Types Packs/Day Years [...]
--- OUTSIDE RECORDS SUMMARY | 2024-09-12 16:19 | XMS_ITS | Data Portability ---
Author Organization [facility] [place] [facility] Address [address] [place] [address] Care Team Providers Care Laboratory Scientist Name Role Phone PRAVEEN SINGLETON Medical Director Occupational Health Unavailable Assessment No assessment recorded. Plan of Treatment Reminders Order Date Submit Date Provider Last Modified By Organization Details Last Modified Time Details Appointments None recorded. Lab None recorded. Referral physical therapist referral 2018 019 Not available 9 11:44:16 Procedures None recorded. Surgeries None recorded. Imaging XR, hip, unilateral 2018 019 [email or web address] Not available 9 11:44:16 XR, hip, unilateral 2018 019 [email or web address] Not available 9 14:58:23 Medication Orders None recorded. Patient TargetsNo targets recorded. Patient Instructions Encounter Date Encounter Id Patient Instructions Last Modified By Organization Details Last Modified Time 10/16/2018 [id number] Discussed with t he patient the importance of partial weightbearing over the next 4 weeks. She'll return for reevaluation and re-x-ray at that time. Not available 10/16/2018 11:39:30 11/13/2018 [id number] Discussed with t jae patient progress to date. She will continue with partial weightbearing for another 6 weeks. She will follow up for repeat x-ray at that time. Not available 11/13/2018 12:05:36 12/11/2018 [id number] Discussed with t jae patient progression to [...] Dictat ed: 2018 11:57 AM Report ID: [id number] Report signed in associate counsel al system at 019 11:57 Report ed By: Rusty mendez M.D. ([facility] [id number]) Signed By: Rusty mendez M.D. ([facility] [id number]) [facility] (Imaging) [address] [place], [address], 11/13/2018 12:29:51 12/12/1912/11/2018 XR, hip, unila teral [...] Dictat ed: 2018 11:41 AM Report ID: [id number] Report signed in associate counsel al system at 019 11:41 Report ed By: Rusty mendez M.D. ([facility] [id number]) Signed By: Rusty mendez M.D. ([facility] [id number]) [address] Radiology (Imaging) [address] [place] [address], [address], 12/11/2018 12:07:06 Result Notes None recorded. Problems No Known Problems Procedures Surgical History Date Name Laterality Status Provider Name and Address Organization Details Recorded Time Other completed Benjy Tan [facility] 10/16/2018 11:25:01 Imaging Results Imaging Date Name Status LastModified by Organiz ation Details LastModified Time 11/13/2018 XR, hip, unilateral , 2 or 3 view completed [address] Radiology (Imaging) [address] [place] [address], [address], 11/13/2018 12:29:51 12/11/2018 XR, hip, unilateral , 2 or 3 view completed [address] Radiology (Imaging) [address] [place] [address], [address], 12/11/2018 12:07:06 Procedure Notes None recorded. Medical Equipment None Reported. Allergies Allergen ID Allergen Name Allergen Category Reaction Reaction Severity Criticality Documentation Date Start Date Code Code System Note Provider Name and Address Organization Details Recorded Time 20750906 Compazine medicatio n Not available Not available Not available 10/16/201874989 6 RxNorm Mando christensen [facility] 9 11:30:29 873672 Cipro medicatio n Not available Not available Not available 10/16/2018 61803 3 RxNorm Mando christensen [facility] 9 11:30:33 Medications Name [...] Updated DateTime 9 165.1 cm 30 kg/m2 49735.6 3 g 4 97.7 [degF] Benjy Tan [facility] 9 11:24:30 Date Recorded Body height Body mass index (BMI) Body weight Body temperature Provider Name and Address Organization Details Last Updated DateTime 11/13/2018 165.1 cm 28.3 kg/m2 31807.7 g 96 [degF] Kerry Hartley [facility] 11/13/2018 11:41:46 Date Recorded Body height Body mass index (BMI) Body weight Pain severity - 0-10 verbal numeric rating [Score] - Reported Provider Name and Address Organization Details Last Updated DateTime 12/11/2018 165.1 cm 28.3 kg/m2 16506.7 g 3 Elvia Diana [facility] 12/11/2018 10:50:25 Social History Question Answer Notes LastModified by Organizat ion Details LastModified Time Tobacco Smoking Status Never Smoker Benjy christensen [facility] 10/16/2018 11:24:38 What [...] SNOMED-CT Code Diagnosis ICD10 Code Diagnosis Note [id number] CHARLENE ADAMS JR, MD [address], [place] [address] [place] [phone] 10/16/2018 11:07:45 10/17/2018 13:38:48 Closed fracture of neck of femur 373556273 S72.002A [id number] CHARLENE ADAMS JR, MD [address], [place] [address] [place] [phone] 11/13/2018 10:51:58 11/15/2018 08:48:44 Closed fracture of neck of femur 078446584 S72.002A [id number] CHARLENE ADAMS JR, MD [address], [place] [address] [place] [phone] 12/11/2018 09:56:44 12/13/2018 11:44:16 Closed fracture of neck of femur 957221652 S72.002A Health Concerns Section Related Observation LastModified by Organization Detai ls LastModified Time None Recorded Concern Status LastModified by Organization Details LastModified Time None Recorded Advance Directives Directive None Recorded Payers Encounter Date Sequence Insurance Name Policy Number Policy Burgos Covered Member ID Burgos Member ID Guarantor Name 10/16/2018 1 [facility] ([facility] [id number] Miguelina Arrieta [id number] Miguelina Arrieta 11/13/2018 1 [facility] ([facility] [id number] Miguelina Arrieta [id number] Miguelina Arrieta 12/11/2018 FUTURE COMP Miguelina Horan [...] for staple removal. CHARLENE ADAMS JR, MD [address] [place] [address], [phone], [facility] 10/16/2018 11:39:38 11/13/2018 text/html [...] and decreasing pain. CHARLENE ADAMS JR, MD [address] [place] [address], [place], [phone], [facility] 11/13/2018 12:05:47 12/11/2018 text/html [...] and decreasing pain. CHARLENE ADAMS JR, MD [address] [place] [address], [phone], [facility] 12/11/2018 11:50:12 OBGyn Episode No OBEpisode recorded.
--- OUTSIDE RECORDS SUMMARY | 2024-09-12 16:19 | XMS_ITS | Encounter Summary ---
Author Organization [facility] Address [address] [address] Phone Care Team Providers Care Shooter Helper Name Role Phone Unavailable Primary Care Provider Unavailabl e Encounter Details Date Type Department Care Team (Late st Contact Info) Description 01/26/2008 Legacy Encounter - [place] [address] Provider, MD Ricky [address] [place], [place] [phone] Social History Tobacco Use Types Packs/Day Years [...]
--- OUTSIDE RECORDS SUMMARY | 2024-09-12 16:19 | XMS_ITS | Encounter Summary ---
Author Organization [facility] Address [address] [place] [address] Phone Care Team Providers Care Sheep Herder Name Role Phone Unavailable Primary Care Provider Unavailabl e Encounter Details Date Type Department Care Team (Late st Contact Info) Description 11/19/2008 Legacy Encounter - Labs HISTORICAL CONVERSION [place] [address] [place] [address] Provider, MD Ricky [address] [place], [place] [phone] Social History Tobacco Use Types Packs/Day Years [...]
--- OUTSIDE RECORDS SUMMARY | 2024-09-12 16:19 | XMS_ITS | Encounter Summary ---
Author Organization [facility] Address [address] [address] Phone Care Team Providers Care Environmental Control Administrator Name Role Phone Unavailable Primary Care Provider Unavailabl e Encounter Details Date Type Department Care Team (Late st Contact Info) Description 12/21/2006 Legacy Encounter - [place] [address] Provider, MD Ricky [address] [place], [place] [phone] Social History Tobacco Use Types Packs/Day Years [...]
--- OUTSIDE RECORDS SUMMARY | 2024-09-12 16:19 | XMS_ITS | Encounter Summary ---
Author Organization [facility] Address [address] [place] [address] Phone Care Team Providers Care Media Job Titles Name Role Phone Unavailable Primary Care Provider Unavailabl e Encounter Details Date Type Department Care Team (Late st Contact Info) Description 11/28/2006 Legacy Encounter - Labs [place] [address] Provider, MD Ricky [address] [place], [place] [phone] Social History Tobacco Use Types Packs/Day Years [...]
--- OUTSIDE RECORDS SUMMARY | 2024-09-12 16:19 | XMS_ITS | Encounter Summary ---
Author Organization [facility] Address [address] [place] [address] Phone Care Team Providers Care Gear Cutter Name Role Phone Unavailable Primary Care Provider Unavailabl e Encounter Details Date Type Department Care Team (Late st Contact Info) Description 08/19/2006 Legacy Encounter - Labs HISTORICAL CONVERSION [place] [address] [place] [address] Provider, MD Ricky [address] [place], [place] [phone] Social History Tobacco Use Types Packs/Day Years [...]
--- OUTSIDE RECORDS SUMMARY | 2024-09-12 16:19 | XMS_ITS | Encounter Summary ---
Author Organization [facility] Address [address] [place] [address] Phone Care Team Providers Care Tractor Crane Engineer Name Role Phone Unavailable Primary Care Provider Unavailabl e Encounter Details Date Type Department Care Team (Late st Contact Info) Description 01/16/2009 Legacy Encounter - [place] [address] Provider, MD Ricky [address] [place], [place] [phone] Social History Tobacco Use Types Packs/Day Years [...]
--- OUTSIDE RECORDS SUMMARY | 2024-09-12 16:19 | XMS_ITS | Encounter Summary ---
Author Organization [facility] Address [address] [address] Phone Care Team Providers Care Film Or Videotape Editor Name Role Phone Unavailable Primary Care Provider Unavailabl e Encounter Details Date Type Department Care Team (Late st Contact Info) Description 02/20/2007 Legacy Encounter - Labs [place] [address] Provider, MD Ricky [address] [place], [place] [phone] Social History Tobacco Use Types Packs/Day Years [...]
--- OUTSIDE RECORDS SUMMARY | 2024-09-12 16:19 | XMS_ITS | Encounter Summary ---
Author Organization [facility] Address [address] [place] [address] Phone Care Team Providers Care Call Center Dispatcher Name Role Phone Unavailable Primary Care Provider Unavailabl e Encounter Details Date Type Department Care Team (Late st Contact Info) Description 09/04/2007 Legacy Encounter - [place] [address] Provider, MD Ricky [address] [place], [place] [phone] Social History Tobacco Use Types Packs/Day Years [...]
--- OUTSIDE RECORDS SUMMARY | 2024-09-12 16:19 | XMS_ITS | Encounter Summary ---
Author Organization [facility] Address [address] [address] Phone Care Team Providers Care Culinary Artist Name Role Phone Unavailable Primary Care Provider Unavailabl e Encounter Details Date Type Department Care Team (Late st Contact Info) Description 04/13/2009 Legacy Encounter - [place] [address] Provider, Ricky, [address] [place], [place] [phone] Social History Tobacco Use Types Packs/Day Years [...]
== END 2024-09-12 14:49 | disposition home or self-care (01) ==
LOC: HO.HOS 13:39
PROVIDERS: PCP Internal Medicine; Visit Provider Orthopaedic Surgery
DX: M72.0 Palmar fascial fibromatosis [Dupuytren] (principal); E10.22 Type 1 diabetes mellitus with diabetic chronic kidney disease; N18.30 Chronic kidney disease, stage 3 unspecified
CPT/HCPCS: 99204

== ENCOUNTER → 2024-09-12 13:39 | Outpatient (BNVA) | payer OTHER, SELFPAY | PROVIDERS: PCP Internal Medicine; Visit Provider Orthopaedic Surgery | DX: M72.0 Palmar fascial fibromatosis [Dupuytren] (principal); E10.21 Type 1 diabetes mellitus with diabetic nephropathy; E10.22 Type 1 diabetes mellitus with diabetic chronic kidney disease; N18.30 Chronic kidney disease, stage 3 unspecified | CPT/HCPCS: 99202 ==

== ENCOUNTER 2024-10-05 09:50 | Outpatient (AMB) | payer OTHER, SELFPAY ==
--- NOTE | 2024-10-05 07:57 | A.OFFVIS_ITS ---
Vital Signs 10/05/24 09:58 Height 5 ft 4.5 in Weight 174 lb 2.643 oz BMI 29.4 BP 140/76 H Blood Pressure Location Rt brachial Position Sitting Pulse 73 Pulse Source Pulse Oximeter Pulse Oximetry (%) 100 Oxygen Delivery Method Room Air Intake Visit Reasons: T1DM Intake Note: Patient presents today for a follow-up on Type 1 Diabetes Mellitus: Last Diabetic eye exam was on: 12/05/2023 Last Podiatry exam was on: Does not see a Drum Filler Most recent HbA1c: 7.1%, 10/05/2024 Random Glucose- 143 mg/dL, Today Land Developer Required: No Accompanied by: Self / Same As Patient Allergies ciprofloxacin [From Cipro] Adverse Reaction (Verified 09/12/24 14:07) Swelling prochlorperazine [From Compazine] Adverse Reaction (Verified 09/12/24 14:07) Muscle Pain HPI Comments Details: 64 YO F with with type 1 diabetes seen today in follow-up. She was last seen by myself 07/06/24. She is followed by Dr. Franz for osteoporosis and has recently been seen for this. Initially diagnosed with T1DM in age 28 when she presented with DKA. Was initially started on treatment with insulin. She is using Omnipod 5 sensor with Dexcom sensor. 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 Basal rate(s) (units/hour) : 12 A =0.7 units/hr Bolus setting Insulin Carbohydrate Ratio (s) 1:14 Correction Factor / Sensitivity Factor 48 Active Insulin Time:? 4 hours New 3.5 Target(s): 12-8am 130 8 am 110 Dexcom average glucose: 169 14 day continuous glucose monitor report reviewed Days with CGM data 79 % TIme in ranges: 2 % very high (above 250) 31 % high ?(181-250) 67 % in range ?(70-180] 0 % low (69-55) 0 % ?very low (below 54) Interpretation some increases in sugar after the meal which dropped down to nor mal Total daily dose of insulin 19.4 58% basal 11.2 42% bolus 8.2 Backup insulin plan 11-12 units of Lantus plus usual doses of short-acting Reports low sugars rare none recent. Treats lows with gluose tabs Checks sugar after to ensure it is rising. Follows the rule of 15's. Has emergency nasal spray No Family history of autoimmunity Has eyes checked yearly, last eye exam 11/2023 has retinopathy had laser Has neuropathy sees podiatry regularly. She got a 2nd opinion. First diesel powerplant mechanic recommended amputation 2nd diesel powerplant mechanic recommended to surgery starting with an internal fixation. She has Charcot feet and is followed closely by podiatry she is holding off on surgery for now due to her [id number]-omp is a diagnosis of cancer has bilateral foot pain Has CKD nephropathy, on ARB 01/03/24 microalbumin 8.0 eGFR46 Has HLD, on statin. Last LDL 58 01/03/24 Denies history of CAD.Has CHF Had diabetes education. Diet/Carb counting: carb counts folllows balanced diet Denies recent prior episodes of DKA with exception of the time of diagnosis Has prior severe episodes of hypoglycemia requiring help or hospitalization. 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,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, 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 Housing: Apartment Alcohol intake: current Alcohol intake frequency: holidays/special occasions only Patient Tobacco Use Status: Never used Tobacco e-Cigarette/Vaping Use: Never Used service: No Current occupational status: disabled Current occupation: right handed Cognitive needs: No Hearing needs: No Vision needs: No Physical Exam Vital Signs: Last Vital Signs Pulse 73 10/05/24 09:58 BP 140/76 H 10/05/24 09:58 Pulse Ox 100 10/05/24 09:58 Oxygen Delivery Method Room Air 10/05/24 09:58 BMI result Body Mass Index 29.4 Const Other: Absence of Cushingoid features. Absence of acromegalic features. Neck exam reveals nl size thyroid about 15 gms. No thyroid nodules palpable. No carotid bruits present. Lungs CTA. Heart S1 S2, Reg R/R. No M/R G. Skin exam reveals absence of vitiligo or acanthosis nigricans. No edema Visual exam of foot performed. Bilateral Charcot deformity No ulcerations or open lesions. No inter digit maceration or fissuring. No onychomycosis, no callouses. Sensation diminshed to monofilament exam. Vibratory sensation is diminished with 128 Hz tuning fork. 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 A1c up slightly to 7.1%. Active insulin time adjusted from 4-3.5 hours to give more pre meal bolus If this is not effective to lower her average less than 154-160 she will change her carb ratio to 1-13.5 The patient had an opportunity to ask questions regarding treatment plan. The patient expressed understanding and agreement with the above treatment plan. The patient is aware they should contact our office by phone for worsening glucose readings or for any low blood sugars which may warrant a change in diabetes medication. Compliance is encouraged with medications and any followup testing/consults which may have been ordered. Orders: Orders AMB Hemoglobin A1c Today E10.9 - Type 1 diabetes mellitus without complications Patient Instructions: Symptoms of DKA (diabetic ketoacidosis): early: frequent urination, dry mouth, fatigue, feeling ill, severe symptoms: ketones in the urine, abdominal pain, nausea, vomiting and weakness. It is important to hydrate with sugar free liquids every 15-30 minutes and bring the sugars down to normal levels. If you are moderate or severe with ketones or unable to bring glucose to less than 200, go to the emergency room. Handout given Troubleshooting after starting new pod or inserting new insulin set: Occlusion, adhesive tape sensitivity, redness Check BG 2 hours after site change Safety information: Importance of a backup plan, for manual injections, proper prescriptions and emergency supplies ketone strips, and rules for testing for ketones Check your feet daily looking for any signs of infection, drainage, redness, ulceration and seek medical attention if this occurs. Break in shoes gradually and do not wear open-toed shoes or walk stocking footed or barefooted. The patient was counseled to achieve a target A1C of 7% (154 avg). Fasting blood sugars should be 90-130 in the morning and less than 180 two hours after meals. Reviewed the relationship between poor diabetic control and the development of complications. 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
[2024-10-05 09:58] VITALS: BP 140/76; PULSE 73; O2SAT 100; BMI 29.4
[2024-10-05 10:09] LABS: Glucose, Whole Blood 143 mg/dL (60-115)
--- OUTSIDE RECORDS SUMMARY | 2024-10-05 10:12 | XMS_ITS | Clinical Summary ---
Author Organization [facility] Facility Address [address] [place] [address] Care Team Providers Care It Solutions Architect Name Role Phone Miriam Glass MD Primary Care Provider Allergies Active Allergy Reactions Criticality Noted Date Comments Chromium 12/07/2010 spasms spasms Ciprofloxacin Other (see comments) 09/30/2013 swelling Other reaction(s): Other (See Comments) swelling Other reaction(s): Other (See Comments) swelling [place]-Containing Products 12/07/2010 swelling Levofloxacin Other (see comments) [...] patient's age to complete this topic [place] [place] [address] Care Teams It Solutions Architect Relationship Specialty Start Date End Date Miriam Glass MD 1961 [place] [address] PCP - General Internal Medicine 02/17/22
--- OUTSIDE RECORDS SUMMARY | 2024-10-05 10:12 | XMS_ITS | Data Portability ---
Author Organization [facility] Address [address] [place] [address] Care Team Providers Care Buckle Attaching Machine Operator Name Role Phone PRAVEEN SINGLETON Food Sampler Unavailable Assessment No assessment recorded. Plan of Treatment Reminders Order Date Submit Date Provider Last Modified By Organization Details Last Modified Time Details Appointments None recorded. Lab None recorded. Referral physical therapist referral 2018 019 [email or web address] Not available 9 11:44:16 Procedures None recorded. Surgeries None recorded. Imaging XR, hip, unilateral 2018 019 [email or web address] Not available 9 11:44:16 XR, hip, unilateral 2018 019 [email or web address] Not available 9 14:58:23 Medication Orders None recorded. Patient TargetsNo targets recorded. Patient Instructions Encounter Date Encounter Id Patient Instructions Last Modified By Organization Details Last Modified Time 10/16/2018 [id number] Discussed with t he patient the importance of partial weightbearing over the next 4 weeks. She'll return for reevaluation and re-x-ray at that time. Not available 10/16/2018 11:39:30 11/13/2018 [id number] Discussed with t jae patient progress to date. She will continue with partial weightbearing for another 6 weeks. She will follow up for repeat x-ray at that time. Not available 11/13/2018 12:05:36 12/11/2018 [id number] Discussed with t jae patient progression to [...] Dictat ed: 2018 11:57 AM Report ID: [id number] Report signed in skidder driver al system at 019 11:57 Report ed By: Rusty mendez M.D. ([facility] [id number]) Signed By: Rusty mendez M.D. ([facility] [id number]) [facility] ([facility]) [address] [place], [address], 11/13/2018 12:29:51 12/12/1912/11/2018 XR, hip, unila teral [...] Dictat ed: 2018 11:41 AM Report ID: [id number] Report signed in skidder driver al system at 019 11:41 Report ed By: Rusty mendez M.D. ([facility] [id number]) Signed By: Rusty mendez M.D. ([facility] [id number]) [address] Radiology (Imaging) [address] [place] [address], [address], 12/11/2018 12:07:06 Result Notes None recorded. Problems No Known Problems Procedures Surgical History Date Name Laterality Status Provider Name and Address Organization Details Recorded Time Other completed Benjy Tan MA [facility] 10/16/2018 11:25:01 Imaging Results Imaging Date Name Status LastModified by Organiz ation Details LastModified Time 11/13/2018 XR, hip, unilateral , 2 or 3 view completed [address] Rad[facility] (Imaging) [address] [place] [address], [address], 11/13/2018 12:29:51 12/11/2018 XR, hip, unilateral , 2 or 3 view completed [address] Radiology (Imaging) [address] [place] [address], [address], 12/11/2018 12:07:06 Procedure Notes None recorded. Medical Equipment None Reported. Allergies Allergen ID Allergen Name Allergen Category Reaction Reaction Severity Criticality Documentation Date Start Date Code Code System Note Provider Name and Address Organization Details Recorded Time 20750906 Compazine medicatio n Not available Not available Not available 10/16/201813459 6 RxNorm Mando christensen MA [facility] 9 11:30:29 [id number] Cipro medicatio n Not available Not available Not available 10/16/2018 99974 3 RxNorm Mando christensen MA [facility] 9 11:30:33 [...] Updated DateTime 9 165.1 cm 30 kg/m2 87732.6 3 g 4 97.7 [degF] Benjy Tan MA [facility] 9 11:24:30 Date Recorded Body height Body mass index (BMI) Body weight Body temperature Provider Name and Address Organization Details Last Updated DateTime 11/13/2018 165.1 cm 28.3 kg/m2 63508.7 g 96 [degF] Kerry Hartley [facility] 11/13/2018 11:41:46 Date Recorded Body height Body mass index (BMI) Body weight Pain severity - 0-10 verbal numeric rating [Score] - Reported Provider Name and Address Organization Details Last Updated DateTime 12/11/2018 165.1 cm 28.3 kg/m2 26841.7 g 3 Elvia Diana [facility] 12/11/2018 10:50:25 Social History Question Answer Notes LastModified by Organizat ion Details LastModified Time Tobacco Smoking Status Never Smoker Benjy christensen [facility] 10/16/2018 11:24:38 What [...] SNOMED-CT Code Diagnosis ICD10 Code Diagnosis Note [id number] CHARLENE ADAMS JR, MD [address], [place] [address] [place] [address] [phone] 5 10/16/2018 11:07:45 10/17/2018 13:38:48 Closed fracture of neck of femur 623073255 S72.002A [id number] CHARLENE ADAMS JR, MD [address], [place] [address] [place] [address] [phone] 5 11/13/2018 10:51:58 11/15/2018 08:48:44 Closed fracture of neck of femur 728626221 S72.002A [id number] CHARLENE ADAMS JR, MD [address], [place] [address] [place] [address] 49415-930 5 12/11/2018 09:56:44 12/13/2018 11:44:16 Closed fracture of neck of femur 020746715 S72.002A Health Concerns Section Related Observation LastModified by Organization Detai ls LastModified Time None Recorded Concern Status LastModified by Organization Details LastModified Time None Recorded Advance Directives Directive None Recorded Payers Insurance Date Sequence Insurance Name Policy Number Policy Burgos Covered Member ID Burgos Member ID Guarantor Name 03/05/2019 1 [facility] Connotate [facility] (O) [id number] Miguelina Arrieta [id number] Miguelina Arrieta 03/02/2019 FUTURE COMP Miguelina Arrieta 03/02/2019 [place] - FUTURE COMP [facility] Miguelina Arrieta Notes Date Note Type Note Provider Name [...] for staple removal. CHARLENE ADAMS JR, MD [address] [place] [address], [place], [address], [facility] 10/16/2018 11:39:38 11/13/2018 [...] and decreasing pain. CHARLENE ADAMS JR, MD [address] [place] [address], [place], [address], [facility] 11/13/2018 12:05:47 12/11/2018 [...] and decreasing pain. CHARLENE ADAMS JR, MD [address] [place] [address],[place] [address], [place], [address], [facility] 12/11/2018 11:50:12 OBGyn Episode No OBEpisode recorded.
--- OUTSIDE RECORDS SUMMARY | 2024-10-05 10:12 | XMS_ITS | Patient Health Record ---
Author Organization [facility] Address [address] [facility] [place] [address] Care Team Providers Care Day Guard Name Role Phone Miriam Glass MD Primary Care Provider Unavaila ble Black, Rosalba Unavailable [phone] Allergies Allergen (clinical drug ingredient) Drug/Non Drug [...] Status Risk Notes Problem Ulcer of toe (537426088) Non-pressure chronic ulcer of other part of left foot limited to breakdown of skin (L97.521) Active confirmed Problem Polyneuropathy due to diabetes mellitus type I (163573482) Type 1 diabetes mellitus with diabetic polyneuropathy (E10.42) Active confirmed Problem 518573198 Hammer toe of right foot (M20.41) Active confirmed Problem 405671793 Hammer toe of left foot (M20.42) Active confirmed Problem 72133554 Charcot's joint of foot in type 1 diabetes mellitus (E10.610) Active confirmed Problem 194346772 Charcot's arthropathy (M14.60) Active confirmed Plan Of Treatment Pending Test Test Name Order Date X ray : Foot, right 3V 02/08/2022 53331-FMYH SKIN LESIONS, 2 TO 4 07/22/19 69764-MHOE SKIN LESIONS, 2 TO 4 12/15/19 76293-RTKQ SKIN LESIONS, 2 TO 4 02/09/20 66914-PCRG NAIL(S) 02/08/2022 [id number] NAIL(S) 12/14/2021 95440-XSOD NAIL(S) 07/22/2022 Insurance Providers Payer Name Payer Address Payer Phone Subscriber Number Group Number Insured Name Patient Relationship to Insured Coverage Start Date Coverage End Date [facility] [address] [place] [address] [phone] [id number] Miguelina Arrieta Self - patient is [...]
--- OUTSIDE RECORDS SUMMARY | 2024-10-05 10:13 | XMS_ITS | Clinical Summary ---
Author Organization [facility] Address [address] [place] [address] Phone Care Team Providers Care Oil Tester Name Role Phone Unavailable Primary Care Provider Unavailabl e Medications ergocalciferol (Drisdol) 1.25 MG (21209 UT) capsule Drisdol( 82083CQAO Oral once a week ) Active -Hx [...]
--- OUTSIDE RECORDS SUMMARY | 2024-10-05 10:13 | XMS_ITS | Encounter Summary ---
Author Organization [facility] Address [address], [place] [address] Phone Care Team Providers Care Bar Finish Operator Name Role Phone Unavailable Primary Care Provider Unavailabl e Encounter Details Date Type Department Care Team (Late st Contact Info) Description 03/06/2007 Legacy Encounter - [place] [address] Provider, MD Ricky [address] [place], [place] [phone] Social History Tobacco Use Types Packs/Day Years [...]
--- OUTSIDE RECORDS SUMMARY | 2024-10-05 10:13 | XMS_ITS | Encounter Summary ---
Author Organization [facility] Address [address], [place] [address] Phone Care Team Providers Care Rn Chronic Name Role Phone Unavailable Primary Care Provider Unavailabl e Encounter Details Date Type Department Care Team (Late st Contact Info) Description 12/21/2006 Legacy Encounter - [place] [address] Provider, MD Ricky [address] [place], [place] [phone] Social History Tobacco Use Types Packs/Day Years [...]
--- OUTSIDE RECORDS SUMMARY | 2024-10-05 10:13 | XMS_ITS | Encounter Summary ---
Author Organization [facility] Address [address], [place] [address] Phone Care Team Providers Care Stereo Equipment Salesperson Name Role Phone Unavailable Primary Care Provider Unavailabl e Encounter Details Date Type Department Care Team (Late st Contact Info) Description 08/15/2006 Legacy Encounter - [place] [address] Provider, MD Ricky [address] [place], [place] [phone] Social History Tobacco Use Types Packs/Day Years [...]
--- OUTSIDE RECORDS SUMMARY | 2024-10-05 10:13 | XMS_ITS | Encounter Summary ---
Author Organization [facility] Address [address], [place] [address] Phone Care Team Providers Care Quantitative Analyst Name Role Phone Unavailable Primary Care Provider Unavailabl e Encounter Details Date Type Department Care Team (Late st Contact Info) Description 09/04/2007 Legacy Encounter - [place] [address] Provider, MD Ricky [address] [place], [place] [phone] Social History Tobacco Use Types Packs/Day Years [...]
--- OUTSIDE RECORDS SUMMARY | 2024-10-05 10:13 | XMS_ITS | Encounter Summary ---
Author Organization [facility] Address [address], [place] [address] Phone Care Team Providers Care Filtration Supervisor Name Role Phone Unavailable Primary Care Provider Unavailabl e Encounter Details Date Type Department Care Team (Late st Contact Info) Description 11/28/2006 Legacy Encounter - Labs [place] [address] Provider, MD Ricky [address] [place], [place] [phone] Social History Tobacco Use Types Packs/Day Years [...]
--- OUTSIDE RECORDS SUMMARY | 2024-10-05 10:13 | XMS_ITS | Encounter Summary ---
Author Organization [facility] Address [address], [place] [address] Phone Care Team Providers Care Environmental Officer Name Role Phone Unavailable Primary Care Provider Unavailabl e Encounter Details Date Type Department Care Team (Late st Contact Info) Description 11/16/2006 Legacy Encounter - Labs [place] [address] Provider, MD Ricky [address] [place], [place] [phone] Social History Tobacco Use Types Packs/Day Years [...]
--- OUTSIDE RECORDS SUMMARY | 2024-10-05 10:13 | XMS_ITS | Encounter Summary ---
Author Organization [facility] Address [address], [place] [address] Phone Care Team Providers Care Chainstitch Hemmer Name Role Phone Unavailable Primary Care Provider Unavailabl e Encounter Details Date Type Department Care Team (Late st Contact Info) Description 09/10/2006 Legacy Encounter - [place] [address] Provider, MD Ricky [address] [place], [place] [phone] Social History Tobacco Use Types Packs/Day Years [...]
--- OUTSIDE RECORDS SUMMARY | 2024-10-05 10:13 | XMS_ITS | Encounter Summary ---
Author Organization [facility] Address [address], [place] [address] Phone Care Team Providers Care Superintendent Track Name Role Phone Unavailable Primary Care Provider Unavailabl e Encounter Details Date Type Department Care Team (Late st Contact Info) Description 01/22/2009 Clinical Support [place] [address] ProviderRicyk MD [address] [place] [address] Social History Tobacco Use Types Packs/Day Years [...]
--- OUTSIDE RECORDS SUMMARY | 2024-10-05 10:13 | XMS_ITS | Encounter Summary ---
Author Organization [facility] Address [address] [address] Phone Care Team Providers Care Electrical Solderer Name Role Phone Unavailable Primary Care Provider Unavailabl e Encounter Details Date Type Department Care Team (Late st Contact Info) Description 09/26/2006 Legacy Encounter - [place] [address] Provider, MD Ricky [address] [place], [place] [phone] Social History Tobacco Use Types Packs/Day Years [...]
--- OUTSIDE RECORDS SUMMARY | 2024-10-05 10:13 | XMS_ITS | Encounter Summary ---
Author Organization [facility] Address [address] [address] Phone Care Team Providers Care Natural Gas Field Processing Supervisor Name Role Phone Unavailable Primary Care Provider Unavailabl e Encounter Details Date Type Department Care Team (Late st Contact Info) Description 08/05/2007 Abstract [place] [address] ProviderRicky MD [address] [place] [address] Social History Tobacco Use Types Packs/Day Years [...]
--- OUTSIDE RECORDS SUMMARY | 2024-10-05 10:13 | XMS_ITS | Encounter Summary ---
Author Organization [facility] Address [address] [address] Phone Care Team Providers Care Living Specialist Name Role Phone Unavailable Primary Care Provider Unavailabl e Encounter Details Date Type Department Care Team (Late st Contact Info) Description 07/26/2007 Legacy Encounter - Labs [place] [address] Provider, MD Ricky [address] [place], [place] [phone] Social History Tobacco Use Types Packs/Day Years [...]
--- OUTSIDE RECORDS SUMMARY | 2024-10-05 10:13 | XMS_ITS | Encounter Summary ---
Author Organization [facility] Address [address], [place] [address] Phone Care Team Providers Care Human Resources Benefits Assistant Name Role Phone Unavailable Primary Care Provider Unavailabl e Encounter Details Date Type Department Care Team (Late st Contact Info) Description 08/19/2006 Legacy Encounter - Labs HISTORICAL CONVERSION [place] [address] [place] [address] Provider, MD Ricky [address] [place], [place] [phone] Social History Tobacco Use Types Packs/Day Years [...]
--- OUTSIDE RECORDS SUMMARY | 2024-10-05 10:13 | XMS_ITS | Encounter Summary ---
Author Organization [facility] Address [address] [address] Phone Care Team Providers Care Phys Therapist Name Role Phone Unavailable Primary Care Provider Unavailabl e Encounter Details Date Type Department Care Team (Late st Contact Info) Description 04/13/2009 Legacy Encounter - Labs [place] [address] Provider, MD Ricky [address] [place], [place] [phone] Social History Tobacco Use Types Packs/Day Years [...]
--- OUTSIDE RECORDS SUMMARY | 2024-10-05 10:13 | XMS_ITS | Encounter Summary ---
Author Organization [facility] Address [address] [address] Phone Care Team Providers Care Career Technical Education Instructor Name Role Phone Unavailable Primary Care Provider Unavailabl e Encounter Details Date Type Department Care Team (Late st Contact Info) Description 04/30/2009 Legacy Encounter - [place] [address] Provider, MD Ricky [address] [place], [place] [phone] Social History Tobacco Use Types Packs/Day Years [...]
--- OUTSIDE RECORDS SUMMARY | 2024-10-05 10:13 | XMS_ITS | Encounter Summary ---
Author Organization [facility] Address [address] [address] Phone Care Team Providers Care Carrier Associate Name Role Phone Unavailable Primary Care Provider Unavailabl e Encounter Details Date Type Department Care Team (Late st Contact Info) Description 02/17/2007 Legacy Encounter - Labs [place] [address] Provider, MD Ricky [address] [place], [place] [phone] Social History Tobacco Use Types Packs/Day Years [...]
--- OUTSIDE RECORDS SUMMARY | 2024-10-05 10:13 | XMS_ITS | Encounter Summary ---
Author Organization [facility] Address [address], [place] [address] Phone Care Team Providers Care Nurse Ortho Name Role Phone Unavailable Primary Care Provider Unavailabl e Encounter Details Date Type Department Care Team (Late st Contact Info) Description 01/26/2008 Legacy Encounter - Labs [place] [address] Provider, MD Ricky [address] [place], [place] [phone] Social History Tobacco Use Types Packs/Day Years [...]
--- OUTSIDE RECORDS SUMMARY | 2024-10-05 10:13 | XMS_ITS | Encounter Summary ---
Author Organization [facility] Address [address], [place] [address] Phone Care Team Providers Care Dowel Inspector Name Role Phone Unavailable Primary Care Provider Unavailabl e Encounter Details Date Type Department Care Team (Late st Contact Info) Description 02/20/2007 Legacy Encounter - [place] [address] Provider, MD Ricky [address] [place], [place] [phone] Social History Tobacco Use Types Packs/Day Years [...]
--- OUTSIDE RECORDS SUMMARY | 2024-10-05 10:13 | XMS_ITS | Encounter Summary ---
Author Organization [facility] Address [address], [place] [address] Phone Care Team Providers Care Asphalt Patcher Name Role Phone Unavailable Primary Care Provider Unavailabl e Encounter Details Date Type Department Care Team (Late st Contact Info) Description 11/04/2006 Legacy Encounter - [place] [address] Provider, MD Ricky [address] [place], [place] [phone] Social History Tobacco Use Types Packs/Day Years [...]
--- OUTSIDE RECORDS SUMMARY | 2024-10-05 10:13 | XMS_ITS | Encounter Summary ---
Author Organization [facility] Address [address] [address] Phone Care Team Providers Care Naphthalene Operator Helper Name Role Phone Unavailable Primary Care Provider Unavailabl e Encounter Details Date Type Department Care Team (Late st Contact Info) Description 01/16/2009 Legacy Encounter - [place] [address] Provider, MD Ricky [address] [place], [place] [phone] Social History Tobacco Use Types Packs/Day Years [...]
--- OUTSIDE RECORDS SUMMARY | 2024-10-05 10:13 | XMS_ITS | Encounter Summary ---
Author Organization [facility] Address [address], [place] [address] Phone Care Team Providers Care Unloader Operator Name Role Phone Unavailable Primary Care Provider Unavailabl e Encounter Details Date Type Department Care Team (Late st Contact Info) Description 11/19/2008 Legacy Encounter - Labs HISTORICAL CONVERSION [place] [address] [place] [address] Provider, MD Ricky [address] [place], [place] [phone] Social History Tobacco Use Types Packs/Day Years [...]
== END 2024-10-05 11:00 | disposition home or self-care (01) ==
LOC: HO.ENCR 09:50
PROVIDERS: PCP Internal Medicine; Visit Provider Nurse Practitioner Adult Health
DX: E10.9 Type 1 diabetes mellitus without complications (principal); E10.319 Type 1 diabetes mellitus with unspecified diabetic retinopathy without macular edema
CPT/HCPCS: 99214; G2211

== ENCOUNTER → 2024-10-05 09:50 | Outpatient (BNVA) | payer OTHER, SELFPAY | PROVIDERS: PCP Internal Medicine; Visit Provider Nurse Practitioner Adult Health | DX: E10.319 Type 1 diabetes mellitus with unspecified diabetic retinopathy without macular edema (principal) | CPT/HCPCS: 82947; 83036; 99212 ==

== ENCOUNTER → 2024-10-16 10:03 | Outpatient (REF) | payer OTHER, SELFPAY ==
--- OUTSIDE RECORDS SUMMARY | 2024-10-16 11:14 | XMS_ITS | Encounter Summary ---
Author Organization [facility] Address [address] [address] Phone Care Team Providers Care Poured Wall Foreman Name Role Phone Unavailable Primary Care Provider Unavailabl e Encounter Details Date Type Department Care Team (Late st Contact Info) Description 08/15/2006 Legacy Encounter - Labs [place] [address] Provider, MD Ricky [address] [place], [place] [phone] Social History Tobacco Use Types Packs/Day Years [...]
--- OUTSIDE RECORDS SUMMARY | 2024-10-16 11:14 | XMS_ITS | Encounter Summary ---
Author Organization [facility] Address [address], [place] [address] Phone Care Team Providers Care Cured Meat Packing Supervisor Name Role Phone Unavailable Primary Care Provider Unavailabl e Encounter Details Date Type Department Care Team (Late st Contact Info) Description 08/19/2006 Legacy Encounter - Labs HISTORICAL CONVERSION [place] [address] [place] [address] Provider, MD Ricky [address] [place], [place] [phone] Social History Tobacco Use Types Packs/Day Years [...]
--- OUTSIDE RECORDS SUMMARY | 2024-10-16 11:14 | XMS_ITS | Data Portability ---
Author Organization [facility] Address [address] [place] [address] Care Team Providers Care Nursing Coordinator Name Role Phone PRAVEEN SINGLETON Photoengraving Etcher Unavailable Assessment No assessment recorded. Plan of Treatment Reminders Order Date Submit Date Provider Last Modified By Organization Details Last Modified Time Details Appointments None recorded. Lab None recorded. Referral physical therapist referral 2018 019 Not available 9 11:44:16 Procedures None recorded. Surgeries None recorded. Imaging XR, hip, unilateral 2018 019 [email or web address] Not available 9 11:44:16 XR, hip, unilateral 2018 019 [email or web address] Not available 9 14:58:23 Medication Orders None recorded. Patient TargetsNo targets recorded. Patient Instructions Encounter Date Encounter Id Patient Instructions Last Modified By Organization Details Last Modified Time 10/16/2018 [id number] Discussed with t he patient the importance of partial weightbearing over the next 4 weeks. She'll return for reevaluation and re-x-ray at that time. Not available 10/16/2018 11:39:30 11/13/2018 [id number] Discussed with t jae patient progress to date. She will continue with partial weightbearing for another 6 weeks. She will follow up for repeat x-ray at that time. Not available 11/13/2018 12:05:36 12/11/2018 [id number] Discussed with t jae patient progression to [...] Dictat ed: 2018 11:57 AM Report ID: [id number] Report signed in health therapist al system at 019 11:57 Report ed By: Rusty mendez M.D. ([facility] [id number]) Signed By: Rusty mendez M.D. ([facility] [id number]) [facility] (Imaging) [address] [place], [address], 11/13/2018 12:29:51 12/12/1912/11/2018 XR, hip, unila teral [...] Dictat ed: 2018 11:41 AM Report ID: [id number] Report signed in health therapist al system at 019 11:41 Report ed By: Rusty mendez M.D. ([facility] [id number]) Signed By: Rusty mendez M.D. ([facility] [id number]) [address] Radiology (Imaging) [address] [place] [address], [address], 12/11/2018 12:07:06 Result Notes None recorded. Problems No Known Problems Procedures Surgical History Date Name Laterality Status Provider Name and Address Organization Details Recorded Time Other completed Benjy Tan MA [facility] 10/16/2018 11:25:01 Imaging Results Imaging Date Name Status LastModified by Organiz ation Details LastModified Time 11/13/2018 XR, hip, unilateral , 2 or 3 view completed [address] Radiology (Imaging) [address] [place] [address], [address], 11/13/2018 12:29:51 12/11/2018 XR, hip, unilateral , 2 or [address] view completed [address] Radiology (Imaging) [address] [place] [address], [address], 12/11/2018 12:07:06 Procedure Notes None recorded. Medical Equipment None Reported. Allergies Allergen ID Allergen Name Allergen Category Reaction Reaction Severity Criticality Documentation Date Start Date Code Code System Note Provider Name and Address Organization Details Recorded Time 20750906 Compazine medicatio n Not available Not available Not available 10/16/201849005 6 RxNorm Mando christensen MA [facility] 9 11:30:29 [id number] Cipro medicatio n Not available Not available Not available 10/16/2018 12969 3 RxNorm Mando christensen [facility] 9 11:30:33 Medications Name [...] and Address Organization Details Last Updated DateTime 10/16/2018 165.1 cm 30 kg/m2 99474.63 g 97.7 [degF] Benjy Tan [facility] 10/16/2018 11:24:30 Date Recorded Body height Body mass index (BMI) Body weight Body temperature Provider Name and Address Organization Details Last Updated DateTime 11/13/2018 165.1 cm 28.3 kg/m2 30000.7 g 96 [degF] Kerry Hartley [facility] 11/13/2018 11:41:46 Date Recorded Body height Body mass index (BMI) Body weight Provider Name and Address Organization Details Last Updated DateTime 12/11/2018 165.1 cm 28.3 kg/m2 95432.7 g Elvia Diana [facility] 12/11/2018 10:50:19 Social History Question Answer Notes LastModified by Organizat ion Details LastModified Time Tobacco Smoking Status Never Smoker Benjy christensen MA [facility] 10/16/2018 11:24:38 Which Illicit Or Recreational Drugs Have You Used? None Information not available 10/16/2018 How Many Days In The Past Year Have You Had A Heavy Drinking Consumption (4+ Female, 5+ Male)? 0 Information no t available 10/16/2018 What Was The Date Of Your Most Recent Tobacco Screening? 12/11/2018 Information n ot available 12/20/2018 Sex: Unknown Functional Status Question Answer Note LastModified by Organization D etails LastModified Time What is your level of alcohol consumption? None Information not available 10/16/2018 Mental Status None recorded. Family History Nothing Reported. Medical History Condition Response Diabetes Y Gynecological HistoryNo gynecological history recorded. Obstetrics History GPAL:G 0 P 0 0 0 0 Past Encounters Encounter ID Performer Location Encounter Start Date Encounter Closed Date Diagnosis/Indication Diagnosis SNOMED-CT Code Diagnosis ICD10 Code Diagnosis Note [id number] CHARLENE ADAMS JR, MD [address],[place] [address] [place] [phone] 10/16/2018 11:07:45 10/17/2018 13:38:48 Closed fracture of neck of femur 732054552 S72.002A [id number] CHARLENE ADAMS JR, MD [address],[place] [address] [place] [phone] 11/13/2018 10:51:58 11/15/2018 08:48:44 Closed fracture of neck of femur 298932034 S72.002A [id number] CHARLENE ADAMS JR, MD [address],[place] [address] [place] [address] 12/11/2018 09:56:44 12/13/2018 11:44:16 Closed fracture of neck of femur 372730909 S72.002A Health Concerns Section Related Observation LastModified by Organization Detai ls LastModified Time None Recorded Concern Status LastModified by Organization Details LastModified Time None Recorded Advance Directives Directive None Recorded Payers Insurance Date Sequence Insurance Name Policy Number Policy Burgos Covered Member ID Burgos Member ID Guarantor Name 03/05/2019 1 [facility] (O) [id number] Miguelina Arrieta [id number] Miguelina Arrieta 03/02/2019 FUTURE COMP Miguelina Arrieta 03/02/2019 [place] - FUTURE COMP [facility] Miguelina Arrieta Notes Date Note Type [...] for staple removal. CHARLENE ADAMS JR, MD [address] [place] [address], [phone], [facility] [...] and decreasing pain. CHARLENE ADAMS JR, MD [address] [place] [address], [phone], [facility] [...] and decreasing pain. CHARLENE ADAMS JR, MD [address] [place] [address], [phone], [facility] 12/11/2018 11:50:12 OBGyn Episode No OBEpisode recorded.
--- OUTSIDE RECORDS SUMMARY | 2024-10-16 11:14 | XMS_ITS | Patient Health Record ---
Author Organization [facility] Address [address] [facility] [place] [address] Care Team Providers Care Aluminum Molding Machine Operator Name Role Phone Miriam Glass MD Primary Care Provider Unavaila ble Black, Rosalba Unavailable [phone] Allergies Allergen (clinical drug ingredient) Drug/Non Drug [...] Status Risk Notes Problem Ulcer of toe (224351432) Non-pressure chronic ulcer of other part of left foot limited to breakdown of skin (L97.521) Active confirmed Problem Polyneuropathy due to diabetes mellitus type I (480473470) Type 1 diabetes mellitus with diabetic polyneuropathy (E10.42) Active confirmed Problem 962279383 Hammer toe of right foot (M20.41) Active confirmed Problem 292318259 Hammer toe of left foot (M20.42) Active confirmed Problem 36122383 Charcot's joint of foot in type 1 diabetes mellitus (E10.610) Active confirmed Problem 660261522 Charcot's arthropathy (M14.60) Active confirmed Plan Of Treatment Pending Test Test Name Order Date X ray : Foot, right 3V 02/08/2022 36492-UAPW SKIN LESIONS, 2 TO 4 07/22/19 30773-CDMJ SKIN LESIONS, 2 TO 4 12/15/19 55924-OUFU SKIN LESIONS, 2 TO 4 02/09/20 85557-JNAQ NAIL(S) 02/08/2022 [id number]-RXYO NAIL(S) 12/14/2021 88627-[id number] NAIL(S) 07/22/2022 Insurance Providers Payer Name Payer Address Payer Phone Subscriber Number Group Number Insured Name Patient Relationship to Insured Coverage Start Date Coverage End Date [facility] [address] [place] [address] [phone] [id number] Miguelina Arrieta Self - patient is [...]
--- OUTSIDE RECORDS SUMMARY | 2024-10-16 11:14 | XMS_ITS | Encounter Summary ---
Author Organization [facility] Address [address] [address] Phone Care Team Providers Care Machine Long Goods Helper Name Role Phone Unavailable Primary Care Provider Unavailabl e Encounter Details Date Type Department Care Team (Late st Contact Info) Description 11/16/2006 Legacy Encounter - [place] [address] Provider, MD Ricky [address] [place], [place] [phone] Social History Tobacco Use Types Packs/Day Years [...]
--- OUTSIDE RECORDS SUMMARY | 2024-10-16 11:14 | XMS_ITS | Clinical Summary ---
Author Organization [facility] Address [address] [place] [address] Care Team Providers Care Zinc Chloride Operator Name Role Phone Miriam Glass MD Primary Care Provider [phone] Allergies Active Allergy Reactions Criticality Noted Date Comments Chromium 12/07/2010 spasms spasms Ciprofloxacin Other (see comments) 09/30/2013 swelling Other reaction(s): Other (See Comments) swelling Other reaction(s): Other (See Comments) swelling [place]-Containing Products 12/07/2010 swelling Levofloxacin Other (see comments) [...] patient's age to complete this topic [place] [address] [id number] Care Teams Zinc Chloride Operator Relationship Specialty Start Date End Date Miriam Glass MD [address] [place] [address] PCP - General Internal Medicine 02/17/22
--- OUTSIDE RECORDS SUMMARY | 2024-10-16 11:14 | XMS_ITS | Encounter Summary ---
Author Organization [facility] Address [address], [place] [address] Phone Care Team Providers Care Ag Service Manager Name Role Phone Unavailable Primary Care Provider Unavailabl e Encounter Details Date Type Department Care Team (Late st Contact Info) Description 09/26/2006 Legacy Encounter - Labs [place] [address] Provider, MD Ricky [address] [place], [place] [phone] Social History Tobacco Use Types Packs/Day Years [...]
--- OUTSIDE RECORDS SUMMARY | 2024-10-16 11:14 | XMS_ITS | Encounter Summary ---
Author Organization [facility] Address [address], [place] [address] Phone Care Team Providers Care Computer Programming Professor Name Role Phone Unavailable Primary Care Provider Unavailabl e Encounter Details Date Type Department Care Team (Late st Contact Info) Description 09/10/2006 Legacy Encounter - Labs [place] [address] Provider, MD Ricky [address] [place], [place] [phone] Social History Tobacco Use Types Packs/Day Years [...]
--- OUTSIDE RECORDS SUMMARY | 2024-10-16 11:14 | XMS_ITS | Encounter Summary ---
Author Organization [facility] Address [address] [address] Phone Care Team Providers Care Mortgage Broker Name Role Phone Unavailable Primary Care Provider Unavailabl e Encounter Details Date Type Department Care Team (Late st Contact Info) Description 11/04/2006 Legacy Encounter - [place] [address] Provider, MD Ricky [address] [place], [place] [phone] Social History Tobacco Use Types Packs/Day Years [...]
--- OUTSIDE RECORDS SUMMARY | 2024-10-16 11:15 | XMS_ITS | Clinical Summary ---
Author Organization [facility] Address [address] [address] Phone Care Team Providers Care Smoking Pipe Mounter Name Role Phone Unavailable Primary Care Provider Unavailabl e Medications ergocalciferol (Drisdol) 1.25 MG (00536 UT) capsule Drisdol( 32651PTEZ Oral once a week ) Active -Hx [...]
--- OUTSIDE RECORDS SUMMARY | 2024-10-16 11:15 | XMS_ITS | Encounter Summary ---
Author [facility] Address [address] [address] Phone Care Team Providers Care Video Poker Floorman Name Role Phone Unavailable Primary Care Provider Unavailabl e Encounter Details Date Type Department Care Team (Late st Contact Info) Description 08/05/2007 Abstract [place] [address] ProviderRicky MD [address] [place] [address] Social History Tobacco Use Types Packs/Day Years [...]
--- OUTSIDE RECORDS SUMMARY | 2024-10-16 11:15 | XMS_ITS | Encounter Summary ---
Author Organization [facility] Address [address], [place] [address] Phone Care Team Providers Care Sales Negotiator Name Role Phone Unavailable Primary Care Provider Unavailabl e Encounter Details Date Type Department Care Team (Late st Contact Info) Description 02/20/2007 Legacy Encounter - Labs [place] [address] Provider, MD Ricky [address] [place], [place] [phone] Social History Tobacco Use Types Packs/Day Years [...]
--- OUTSIDE RECORDS SUMMARY | 2024-10-16 11:15 | XMS_ITS | Encounter Summary ---
Author Organization [facility] Address [address], [place] [address] Phone Care Team Providers Care Teacher Hearing Impaired Name Role Phone Unavailable Primary Care Provider Unavailabl e Encounter Details Date Type Department Care Team (Late st Contact Info) Description 01/22/2009 Clinical Support [place] [address] ProviderRicky MD [address] [place] [address] Social History Tobacco Use Types Packs/Day Years [...]
--- OUTSIDE RECORDS SUMMARY | 2024-10-16 11:15 | XMS_ITS | Encounter Summary ---
Author Organization [facility] Address [address], [place] [address] Phone Care Team Providers Care Director Of Casework Department Name Role Phone Unavailable Primary Care Provider Unavailabl e Encounter Details Date Type Department Care Team (Late st Contact Info) Description 11/28/2006 Legacy Encounter - [place] [address] Provider, MD Ricky [address] [place], [place] [phone] Social History Tobacco Use Types Packs/Day Years [...]
--- OUTSIDE RECORDS SUMMARY | 2024-10-16 11:15 | XMS_ITS | Encounter Summary ---
Author Organization [facility] Address [address], [place] [address] Phone Care Team Providers Care Technology Coordinator Name Role Phone Unavailable Primary Care Provider Unavailabl e Encounter Details Date Type Department Care Team (Late st Contact Info) Description 09/04/2007 Legacy Encounter - Labs [place] [address] Provider, MD Ricky [address] [place], [place] [phone] Social History Tobacco Use Types Packs/Day Years [...]
--- OUTSIDE RECORDS SUMMARY | 2024-10-16 11:15 | XMS_ITS | Encounter Summary ---
Author Organization [facility] Address [address], [place] [address] Phone Care Team Providers Care Jewelry Technician Name Role Phone Unavailable Primary Care Provider Unavailabl e Encounter Details Date Type Department Care Team (Late st Contact Info) Description 01/26/2008 Legacy Encounter - Labs [place] [address] Provider, MD Ricky [address] [place], [place] [phone] Social History Tobacco Use Types Packs/Day Years [...]
--- OUTSIDE RECORDS SUMMARY | 2024-10-16 11:15 | XMS_ITS | Encounter Summary ---
Author Organization [facility] Address [address], [place] [address] Phone Care Team Providers Care Help Desk Team Leader Name Role Phone Unavailable Primary Care Provider Unavailabl e Encounter Details Date Type Department Care Team (Late st Contact Info) Description 07/26/2007 Legacy Encounter - Labs [place] [address] Provider, MD Ricky [address] [place], [place] [phone] Social History Tobacco Use Types Packs/Day Years [...]
--- OUTSIDE RECORDS SUMMARY | 2024-10-16 11:15 | XMS_ITS | Encounter Summary ---
Author Organization [facility] Address [address] [address] Phone Care Team Providers Care Legal Compliance Officer Name Role Phone Unavailable Primary Care Provider Unavailabl e Encounter Details Date Type Department Care Team (Late st Contact Info) Description 12/21/2006 Legacy Encounter - [place] [address] Provider, MD Ricky [address] [place], [place] [phone] Social History Tobacco Use Types Packs/Day Years [...]
--- OUTSIDE RECORDS SUMMARY | 2024-10-16 11:15 | XMS_ITS | Encounter Summary ---
Author Organization [facility] Address [address] [address] Phone Care Team Providers Care Vice President Of Consulting Services Name Role Phone Unavailable Primary Care Provider Unavailabl e Encounter Details Date Type Department Care Team (Late st Contact Info) Description 03/06/2007 Legacy Encounter - Labs [place] [address] Provider, MD Ricky [address] [place], [place] [phone] Social History Tobacco Use Types Packs/Day Years [...]
--- OUTSIDE RECORDS SUMMARY | 2024-10-16 11:15 | XMS_ITS | Encounter Summary ---
Author Organization [facility] Address [address] [address] Phone Care Team Providers Care Crime Prevention Police Officer Name Role Phone Unavailable Primary Care Provider Unavailabl e Encounter Details Date Type Department Care Team (Late st Contact Info) Description 11/19/2008 Legacy Encounter - Labs HISTORICAL CONVERSION [place] [address] [place] [address] Provider, MD Ricky [address] [place], [place] [phone] Social History Tobacco Use Types Packs/Day Years [...]
--- OUTSIDE RECORDS SUMMARY | 2024-10-16 11:15 | XMS_ITS | Encounter Summary ---
Author Organization [facility] Address [address] [address] Phone Care Team Providers Care Pit Shovel Operator Name Role Phone Unavailable Primary Care Provider Unavailabl e Encounter Details Date Type Department Care Team (Late st Contact Info) Description 04/30/2009 Legacy Encounter - [place] [address] Provider, MD Ricky [address] [place], [place] [phone] Social History Tobacco Use Types Packs/Day Years [...]
--- OUTSIDE RECORDS SUMMARY | 2024-10-16 11:15 | XMS_ITS | Encounter Summary ---
Author Organization [facility] Address [address], [place] [address] Phone Care Team Providers Care Ophthalmic Assistant Name Role Phone Unavailable Primary Care Provider Unavailabl e Encounter Details Date Type Department Care Team (Late st Contact Info) Description 02/17/2007 Legacy Encounter - Labs [place] [address] Provider, MD Ricky [address] [place], [place] [phone] Social History Tobacco Use Types Packs/Day Years [...]
--- OUTSIDE RECORDS SUMMARY | 2024-10-16 11:15 | XMS_ITS | Encounter Summary ---
Author Organization [facility] Address [address], [place] [address] Phone Care Team Providers Care Credit Card Control Clerk Name Role Phone Unavailable Primary Care Provider Unavailabl e Encounter Details Date Type Department Care Team (Late st Contact Info) Description 04/13/2009 Legacy Encounter - Labs [place] [address] Provider, MD Ricky [address] [place], [place] [phone] Social History Tobacco Use Types Packs/Day Years [...]
--- OUTSIDE RECORDS SUMMARY | 2024-10-16 11:15 | XMS_ITS | Encounter Summary ---
Author Organization [facility] Address [address], [place] [address] Phone Care Team Providers Care Microeconomics Professor Name Role Phone Unavailable Primary Care Provider Unavailabl e Encounter Details Date Type Department Care Team (Late st Contact Info) Description 01/16/2009 Legacy Encounter - [place] [address] Provider, MD Ricky [address] [place], [place] [phone] Social History Tobacco Use Types Packs/Day Years [...]
== END ==
LOC: HO.CARD 10:03
PROVIDERS: PCP Internal Medicine; Visit Provider Internal Medicine
DX: R00.2 Palpitations (principal)
CPT/HCPCS: 93225

== ENCOUNTER 2024-10-19 11:26 | Outpatient (AMB) | payer OTHER, SELFPAY ==
--- OUTSIDE RECORDS SUMMARY | 2024-10-19 11:29 | XMS_ITS | Data Portability ---
Author Organization [facility] [place] [facility] Address [address] [place] [address] Care Team Providers Care Bullet Casting Operator Name Role Phone PRAVEEN SINGLETON Enterprise Systems Administrator Unavailable Assessment No assessment recorded. Plan of Treatment Reminders Order Date Submit Date Provider Last Modified By Organization Details Last Modified Time Details Appointments None recorded. Lab None recorded. Referral physical therapist referral 2018 019 [email or web address] Not available 9 11:44:16 Procedures None recorded. Surgeries None recorded. Imaging XR, hip, unilateral 2018 019 Not available 9 11:44:16 XR, hip, unilateral 2018 019 [email or web address] Not available 9 14:58:23 Medication Orders None recorded. Patient TargetsNo targets recorded. Patient Instructions Encounter Date Encounter Id Patient Instructions Last Modified By Organization Details Last Modified Time 10/16/2018 [id number] Discussed with t he patient the importance of partial weightbearing over the next 4 weeks. She'll return for reevaluation and re-x-ray at that time. Not available 10/16/2018 11:39:30 11/13/2018 [id number] Discussed with t jae patient progress to date. She will continue with partial weightbearing for another 6 weeks. She will follow up for repeat x-ray at that time. Not available 11/13/2018 12:05:36 12/11/2018 [id number] Discussed with t jae patient progression to [...] Dictat ed: 2018 11:57 AM Report ID: [id number] Report signed in java technical manager al system at 019 11:57 Report ed By: Rusty mendez M.D. ([facility] [id number]) Signed By: Rusty mendez M.D. ([facility] [id number]) [facility] Radiology (Imaging) [address] [place], [address], 11/13/2018 12:29:51 12/12/1912/11/2018 XR, hip, unila teral [...] Dictat ed: 2018 11:41 AM Report ID: [id number] Report signed in java technical manager al system at 019 11:41 Report ed By: Rusty mendez M.D. ([facility] [id number]) Signed By: Rusty mendez M.D. ([facility] [id number]) [address] Radiology (Imaging) [address] [place] [address], [address], 12/11/2018 12:07:06 Result Notes None recorded. Problems No Known Problems Procedures Surgical History Date Name Laterality Status Provider Name and Address Organization Details Recorded Time Other completed Benjy Tan MA [facility] 10/16/2018 11:25:01 Imaging Results Imaging Date Name Status LastModified by Organiz ation Details LastModified Time 11/13/2018 XR, hip, unilateral , 2 or 3 view completed [address] Radiology (Imaging) [address] [place] [address], [address], 11/13/2018 12:29:51 12/11/2018 XR, hip, unilateral , 2 or [address] view [address] Radiology (Imaging) [address] [place] [address], [address], 12/11/2018 12:07:06 Procedure Notes None recorded. Medical Equipment None Reported. Allergies Allergen ID Allergen Name Allergen Category Reaction Reaction Severity Criticality Documentation Date Start Date Code Code System Note Provider Name and Address Organization Details Recorded Time 20750906 Compazine medicatio n Not available Not available Not available 10/16/201878646 6 RxNorm Mando christensen MA [facility] 9 11:30:29 626126 Cipro medicatio n Not available Not available Not available 10/16/2018 81669 3 RxNorm Mando christensen [facility] 9 11:30:33 Medications [...] Updated DateTime 10/16/2018 165.1 cm 30 kg/m2 52547.63 g 97.7 [degF] Benjy Tan [facility] 10/16/2018 11:24:30 Date Recorded Body height Body mass index (BMI) Body weight Body temperature Provider Name and Address Organization Details Last Updated DateTime 11/13/2018 165.1 cm 28.3 kg/m2 11159.7 g 96 [degF] Kerry Hartley [facility] 11/13/2018 11:41:46 Date Recorded Body height Body mass index (BMI) Body weight Provider Name and Address Organization Details Last Updated DateTime 12/11/2018 165.1 cm 28.3 kg/m2 53731.7 g Elvia Diana [facility] 12/11/2018 10:50:19 Social History Question Answer Notes LastModified by Organizat ion Details LastModified Time Tobacco Smoking Status Never Smoker Benjy christensen MA [facility] 10/16/2018 11:24:38 Which [...] SNOMED-CT Code Diagnosis ICD10 Code Diagnosis Note [id number] CHARLENE ADAMS JR, MD [address],[place] [address] [place] [phone] 10/16/2018 11:07:45 10/17/2018 13:38:48 Closed fracture of neck of femur 198843732 S72.002A [id number] CHARLENE ADAMS JR, MD [address],[place] [address] [place] [address] 11/13/2018 10:51:58 11/15/2018 08:48:44 Closed fracture of neck of femur 552184763 S72.002A [id number] CHARLENE ADAMS JR, MD [address] [place] [address] 12/11/2018 09:56:44 12/13/2018 11:44:16 Closed fracture of neck of femur 348021640 S72.002A Health Concerns Section Related Observation LastModified by Organization Detai ls LastModified Time None Recorded Concern Status LastModified by Organization Details LastModified Time None Recorded Advance Directives Directive None Recorded Payers Insurance Date Sequence Insurance Name Policy Number Policy Burgos Covered Member ID Burgos Member ID Guarantor Name 03/05/2019 1 [facility] (O) [id number] Miguelina Arrieta [id number] Miguelina Arrieta 03/02/2019 FUTURE COMP Miguelina Arrieta 03/02/2019 [place] - FUTURE COMP [facility] Miguelina Arrieta Notes Date Note Type [...] for staple removal. CHARLENE ADAMS JR, MD [address] [place] [address], [phone], [facility] 10/16/2018 11:39:38 11/13/2018 [...] and decreasing pain. CHARLENE ADAMS JR, MD [address] [place] [address], [phone], [facility] 11/13/2018 12:05:47 12/11/2018 [...] and decreasing pain. CHARLENE ADAMS JR, MD [address] [place] [address], [phone], [facility] 12/11/2018 11:50:12 OBGyn Episode No OBEpisode recorded.
--- NOTE | 2024-10-19 11:36 | MHC.OFFVIS ---
Vital Signs 10/19/24 11:56 Height 5 ft 5 in Weight 171 lb 15.369 oz BMI 28.6 BP 116/66 Blood Pressure Location Lt brachial Position Sitting Pulse 84 Pulse Source Pulse Oximeter Pulse Oximetry (%) 100 Oxygen Delivery Method Room Air Intake Visit Reasons: 2 mos FUV. Intake Note: ESTABLISHED PATIENT for mgmt of GERD, CIC, gastroparesis. 08/28 NM Study done. CC; C.O. GERD, nausea, abd pain, bloating, and CIC despite current tx. Pt feels that their current Rx is not helping to control their sx unfortunately and would like to discuss alternatives. Distribution Sales Representative Required: No Accompanied by: Self / Same As Patient Allergies ciprofloxacin [From Cipro] Adverse Reaction (Verified 10/19/24 11:50) Swelling prochlorperazine [From Compazine] Adverse Reaction (Verified 10/19/24 11:50) Muscle Pain HPI HPI 2 mos FUV.: Details: LAST VISIT Early satiety Constipation GERD (gastroesophageal reflux disease) Abdominal pain Nausea Plan Patient will start taking esomeprazole every morning half an hour before breakfast. Will check H pylori in the office and treat empirically if positive. Will check transglutaminase and lipase as well as liver panel. Will check vitamin B12, folate and vitamin-D levels. Will send patient for gastric emptying study. Patient reports that she is not moving her bowels well, will start her on Senokot 2 tablets every evening. Patient was also encouraged to increase fluid intake and activity to promote better bowel motility. Patient will follow-up in our office in 2 months, sooner on as needed basis. Patient is agreeable to this plan and verbalizes understanding of instructions. She was given the opportunity to ask questions and all questions answered. ? Thank you for allowing me to participate in her care Orders Orders Vitamin B12 and Folate 08/09/24 R19.7 Vitamin D 25-OH (D2 and D3) 08/09/24 E55.9 H Pylori Breath Test 08/10/24 K21.9 Transglutaminase IgA 08/09/24 R10.9 Lipase 08/09/24 R10.9 Liver Panel 08/09/24 R74.01 Lipid Panel 08/09/24 I25.10 NM gastric emptying study 08/07/24 R68.81 Medications New sennosides (Natural Senna Laxative) 8.6 mg PO BEDTIME 90 tabs 3RF constipation K59.00 esomeprazole magnesium (Nexium) 40 mg PO DAILY 30 caps 5RF K21.9 TODAY'S VISIT Patient is here today for follow-up and to discuss lab results and gastric emptying study results. Patient was found to have moderate gastroparesis. Continues to have epigastric pain and feeling full no matter what she eats. Patient is still having trouble moving her bowels. Her symptoms of acid reflux are suppressed for the most part, however feeling fullness and nauseous after eating has been getting worse. Patient reports occasional dyspepsia without dysphagia or odynophagia. Denies any melena, hematochezia. Epigastric pain postprandially otherwise no abdominal pain or discomfort occasional abdominal bloating depending on what she eats. 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,[employer], 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 Housing: Apartment Alcohol intake: current Alcohol intake frequency: holidays/special occasions only Patient Tobacco Use Status: Never used Tobacco e-Cigarette/Vaping Use: Never Used service: No Current occupational status: disabled Current occupation: right handed Cognitive needs: No Hearing needs: No Vision needs: No Review of Systems Const Denies weight gain and Denies weight loss ENT Reports no additional complaints, Denies dysphagia and Denies odynophagia Card Reports no additional complaints Resp Reports no additional complaints GI Reports abdominal pain (Epigastric), Denies belching, Denies melena, Denies bloating, Denies change in bowel habits, Reports constipation, Denies dysphagia, Denies excessive flatus, Reports early satiety, Denies dyspepsia, Reports heartburn, Denies diarrhea, Denies loose stools, Denies nausea, Denies odynophagia and Denies vomiting Reports no additional complaints Musc Reports no additional complaints Neuro Reports no additional complaints Psych Reports no additional complaints Endo Reports no additional complaints Physical Exam Vital Signs: Last Vital Signs Pulse 84 10/19/24 11:56 BP 116/66 10/19/24 11:56 Pulse Ox 100 10/19/24 11:56 Oxygen Delivery Method Room Air 10/19/24 11:56 BMI result Body Mass Index 28.6 Const General: healthy appearing and no acute distress Nutritional Appearance: obese Orientation/consciousness: patient oriented x3 Resp Effort & Inspection: normal respiratory effort, able to speak in complete sentences, no tracheal deviation and symmetric chest movement Auscultation: clear to auscultation bilaterally Cardio Rate: regular rate GI Inspection: Yes normal to inspection, No distended and Yes obesity Palpation (GI): Soft to palpation, not firm, nontender and No hepatosplenomegaly present Auscultation: normal bowel sounds General: Yes no CVA tenderness Back/Spine/Pelvis Back: no CVA tenderness Skin General skin exam: elasticity normal, turgor normal and dry skin Neuro General: patient oriented x3 Psych Appearance: grossly normal Mental Status: mental status grossly normal Results Reviewed Results Reviewed: GASTRIC EMPTYING STUDY FINDINGS: There is good visualization of activity in the stomach immediately post ingestion. As the study progresses, there is minimal clearance of activity from the stomach and only minimal visualization of small bowel activity. Retention in the stomach at each time interval was: 1 hour 99% (normal 37%-90%) 2 hours 87% (normal 30%-60%) 3 hours 92% 4 hours 84% (normal 0%-10%) Laboratory Tests 08/07/24 08/09/24 16:05 10:00 Lipase 17 Vitamin B12 634 25-OH Vitamin D Total 26 L Folate 10.1 Tiss Transglutamin IgA <1.0 H. pylori Breath Test Negative Assessment & Plan Assessment & Plan (1) Gastroparesis: Code(s): K31.84 - Gastroparesis Category: Medical (2) Early satiety: Code(s): R68.81 - Early satiety (3) Constipation: Code(s): K59.00 - Constipation, unspecified Qualifiers: Constipation type: chronic idiopathic constipation Qualified Code(s): K59.04 - Chronic idiopathic constipation (4) GERD (gastroesophageal reflux disease): Code(s): K21.9 - Gastro-esophageal reflux disease without esophagitis Qualifiers: Esophagitis presence: esophagitis presence not specified Qualified Code(s): K21.9 - Gastro-esophageal reflux disease without esophagitis (5) Abdominal pain: Code(s): R10.9 - Unspecified abdominal pain Qualifiers: Abdominal location: epigastric Qualified Code(s): R10.13 - Epigastric pain (6) Nausea: Code(s): R11.0 - Nausea Plan Significant gastroparesis. Patient will start taking Reglan with. Patient will eat smaller meals and more often. Avoid food high in fiber. Gastroparesis diet discussed and example of different food given to patient. Patient will continue taking her PPI. Stop taking senna and take Dulcolax 2 tablets daily. Reports abdominal bloating with different food. Avoid dietary triggers as much as possible. Patient will follow-up in the office in 3-4 months, sooner on as needed basis. She is agreeable to this plan and verbalizes understanding of instructions she was given the opportunity to ask questions and all questions answered. Thank you for allowing me to participate in her care Medications: New bisacodyl (Dulcolax (bisacodyl)) 10 mg (2 x 5 mg) PO BEDTIME 180 tabs 4RF metoclopramide HCl (Reglan) 5 mg PO QIDACHS 120 tabs 3RF K31.84 - Gastroparesis Discontinued sennosides (Natural Senna Laxative) Discontinued Reason: Doctor's Order 8.6 mg PO BEDTIME 90 tabs 3RF constipation K59.00 - Constipation, unspecified Coding Level of Care Code Est Pt Level 4 (33888) Complex EM visit Add On G2211 Diagnoses Gastroparesis K31.84 Early satiety R68.81 Chronic idiopathic constipation K59.04 Constipation type: chronic idiopathic constipation Gastroesophageal reflux disease, unspecified whether esophagitis present K21.9 Esophagitis presence: esophagitis presence not specified Epigastric pain R10.13 Abdominal location: epigastric Nausea R11.0 Time Spent (min) 40 Comment 25 minutes patient and additional 15 minutes spent reviewing her records
[2024-10-19 11:56] VITALS: BP 116/66; PULSE 84; O2SAT 100; BMI 28.6
== END 2024-10-19 12:24 | disposition home or self-care (01) ==
LOC: HO.HGI 11:27
PROVIDERS: PCP Internal Medicine; Visit Provider Nurse Practitioner Family
DX: K31.84 Gastroparesis (principal); R68.81 Early satiety; K59.04 Chronic idiopathic constipation; K21.9 Gastro-esophageal reflux disease without esophagitis; R10.13 Epigastric pain; R11.0 Nausea
CPT/HCPCS: 99214; G2211

== ENCOUNTER → 2024-10-19 11:26 | Outpatient (BNVA) | payer OTHER, SELFPAY | PROVIDERS: PCP Internal Medicine; Visit Provider Nurse Practitioner Family | DX: K21.9 Gastro-esophageal reflux disease without esophagitis (principal); K59.04 Chronic idiopathic constipation; E10.43 Type 1 diabetes mellitus with diabetic autonomic (poly)neuropathy; K31.84 Gastroparesis; R68.81 Early satiety; R10.13 Epigastric pain; R11.0 Nausea | CPT/HCPCS: 99212 ==

== ENCOUNTER 2024-11-01 12:22 | Outpatient (REF) | payer OTHER, SELFPAY ==
--- OUTSIDE RECORDS SUMMARY | 2024-11-01 14:27 | XMS_ITS | Data Portability ---
Author Organization [facility] [place] [facility] Address [address] [place] [address] Care Team Providers Care Stem Shaper Name Role Phone PRAVEEN SINGLETON Pediatrician Managing Partner Unavailable Assessment No assessment recorded. Plan of Treatment Reminders Order Date Submit Date Provider Last Modified By Organization Details Last Modified Time Details Appointments None recorded. Lab None recorded. Referral physical therapist referral 2018 019 [email or web address] Not available 9 11:44:16 Procedures None recorded. Surgeries None recorded. Imaging XR, hip, unilateral 2018 019 [email or web address] Not available 9 11:44:16 XR, hip, unilateral 2018 019 [email or web address] Not available 9 14:58:23 Medication Orders None recorded. Patient TargetsNo targets recorded. Patient Instructions Encounter Date Encounter Id Patient Instructions Last Modified By Organization Details Last Modified Time 10/16/2018 [id number] Discussed with t he patient the importance of partial weightbearing over the next 4 weeks. She'll return for reevaluation and re-x-ray at that time. Not available 10/16/2018 11:39:30 11/13/2018 [id number] Discussed with t jae patient progress to date. She will continue with partial weightbearing for another 6 weeks. She will follow up for repeat x-ray at that time. Not available 11/13/2018 12:05:36 12/11/2018 [id number] Discussed with t jae patient progression to [...] Dictat ed: 2018 11:57 AM Report ID: [id number] Report signed in gas analyst al system at 019 11:57 Report ed By: Rusty mendez M.D. ([facility] [id number]) Signed By: Rusty mendez M.D. ([facility] [id number]) [facility] Radiology (Imaging) [address] [place], [address], 11/13/2018 12:29:51 12/12/1912/11/2018 XR, hip, unila teral [...] Dictat ed: 2018 11:41 AM Report ID: [id number] Report signed in gas analyst al system at 019 11:41 Report ed By: Rusty mendez M.D. ([facility] [id number]) Signed By: Rusty mendez M.D. ([facility] [id number]) [facility] Radiology (Imaging) [address] [facility], [place], [address], 12/11/2018 12:07:06 Result Notes None recorded. Problems No Known Problems Procedures Surgical History Date Name Laterality Status Provider Name and Address Organization Details Recorded Time Other completed Benjy Tan [facility] 10/16/2018 11:25:01 Imaging Results None recorded. Procedure Notes None recorded. Medical Equipment None Reported. Allergies Allergen ID Allergen Name Allergen Category Reaction Reaction Severity Criticality Documentation Date Start Date Code Code System Note Provider Name and Address Organization Details Recorded Time 20750906 Compazine medicatio n Not available Not available Not available 10/16/2018 6 RxNorm Mando christensen [facility] 9 11:30:29 Cipro medicatio n Not available Not available Not available 10/16/201805880 3 RxNorm Mando christensen [facility] 9 11:30:33 Medications Name [...] Available Not Available Not Available Flucelvax Quad [id number] (PF) 60 mcg (15 mcg x 4)/0.5 mL IM syringe 11/13 completed Not Available Not Available Not Available Vitals Date Recorded Body height Body mass index (BMI) Body weight Body temperature Provider Name and Address Organization Details Last Updated DateTime 10/16/2018 165.1 cm 30 kg/m2 56065.63 g 97.7 [degF] Benjy Tan [facility] 10/16/2018 11:24:30 Date Recorded Body height Body mass index (BMI) Body weight Body temperature Provider Name and Address Organization Details Last Updated DateTime 11/13/2018 165.1 cm 28.3 kg/m2 24714.7 g 96 [degF] Kerry Hartley [facility] 11/13/2018 11:41:46 Date Recorded Body height Body mass index (BMI) Body weight Provider Name and Address Organization Details Last Updated DateTime 12/11/2018 165.1 cm 28.3 kg/m2 05303.7 g Elvia Diana [facility] 12/11/2018 10:50:19 Social History Question Answer Notes LastModified by Organizat ion Details LastModified Time Tobacco Smoking Status Never Smoker Benjy christensen [facility] 10/16/2018 11:24:38 Which Illicit [...] SNOMED-CT Code Diagnosis ICD10 Code Diagnosis Note [id number] CHARLENE ADAMS JR, MD [address] [place] [address] 10/16/2018 11:07:45 10/17/2018 13:38:48 Closed fracture of neck of femur 422158149 S72.002A [id number] CHARLENE ADAMS JR, MD [address] [place] [address] 11/13/2018 10:51:58 11/15/2018 08:48:44 Closed fracture of neck of femur 396060965 S72.002A [id number] CHARLENE ADAMS JR, MD [address] [place] [address] 12/11/2018 09:56:44 12/13/2018 11:44:16 Closed fracture of neck of femur 743070939 S72.002A Health Concerns Section Related Observation LastModified by Organization Detai ls LastModified Time None Recorded Concern Status LastModified by Organization Details LastModified Time None Recorded Advance Directives Directive None Recorded Payers Insurance Date Sequence Insurance Name Policy Number Policy Burgos Covered Member ID Burgos Member ID Guarantor Name 03/05/2019 1 [facility] [employer] [facility] (HMO) [id number] Miguelina Arrieta [id number] Miguelina Arrieta 03/02/2019 FUTURE COMP Miguelina Arrieta 03/02/2019 [place] FUTURE [facility] Miguelina Arrieta Notes Date Note Type Note [...] for staple removal. CHARLENE ADAMS JR, MD [address] [place] [address],[address], [phone], [facility] 10/16/2018 11:39:38 [...] and decreasing pain. CHARLENE ADAMS JR, MD [address] [place] [address], [phone], [facility] 11/13/2018 12:05:47 [...] and decreasing pain. CHARLENE ADAMS JR, MD [address] [place] [address],[address], [phone], [facility] 12/11/2018 11:50:12 OBGyn Episode No OBEpisode recorded.
[2024-11-01 14:48] LABS: Albumin Level 3.9 g/dL (3.5-5.0); Calcium 9.4 mg/dL (8.4-10.2)
[2024-11-01 15:13] LABS: Vitamin D 25-OH Total 36.5 ng/mL (>30)
[2024-11-01 16:08] LABS: Appearance Urine Clear; Color Urine Yellow; Glucose Urine UA Negative (Negative); Leukocyte Esterase Urine Negative (Negative); Nitrite Urine Negative (Negative); Urine Blood Negative (Negative); Urine Ketones Negative (Negative); Urine Protein Negative (Neg-Trace)
== END 2024-11-01 12:23 | disposition home or self-care (01) ==
LOC: HO.HMGCLDS 12:22
PROVIDERS: Internal Medicine Hypertension Specialist; PCP Internal Medicine; Visit Provider Internal Medicine Endocrinology, Diabetes & Metabolism
DX: M81.0 Age-related osteoporosis without current pathological fracture (principal); N18.9 Chronic kidney disease, unspecified
CPT/HCPCS: 36415; 81003; 82040; 82306; 82310

== ENCOUNTER 2024-11-03 09:00 | Outpatient (REF) | payer OTHER, SELFPAY ==
--- OUTSIDE RECORDS SUMMARY | 2024-11-03 11:52 | XMS_ITS | Data Portability ---
Author Organization [facility] [place] [facility] Address [address] [place] [address] Care Team Providers Care Pad Tufter Name Role Phone PRAVEEN SINGLETON Fence Making Machine Operator Unavailable Assessment No assessment recorded. Plan of Treatment Reminders Order Date Submit Date Provider Last Modified By Organization Details Last Modified Time Details Appointments None recorded. Lab None recorded. Referral physical therapist referral 2018 019 [email or web address] Not available 9 11:44:16 Procedures None recorded. Surgeries None recorded. Imaging XR, hip, unilateral 2018 019 [email or web address] Not available 9 11:44:16 XR, hip, unilateral 2018 019 [email or web address] Not available 9 14:58:23 Medication Orders None recorded. Patient TargetsNo targets recorded. Patient Instructions Encounter Date Encounter Id Patient Instructions Last Modified By Organization Details Last Modified Time 10/16/2018 [id number] Discussed with t he patient the importance of partial weightbearing over the next 4 weeks. She'll return for reevaluation and re-x-ray at that time. Not available 10/16/2018 11:39:30 11/13/2018 [id number] Discussed with t jae patient progress to date. She will continue with partial weightbearing for another 6 weeks. She will follow up for repeat x-ray at that time. Not available 11/13/2018 12:05:36 12/11/2018 [id number] Discussed with t jae patient progression to [...] Dictat ed: 2018 11:57 AM Report ID: [id number] Report signed in pt sitter al system at 019 11:57 Report ed By: Rusty mendez M.D. ([facility] [id number]) Signed By: Rusty mendez M.D. ([facility] [id number]) [facility] (Imaging) [address] [place], [address], 11/13/2018 12:29:51 12/12/1912/11/2018 XR, hip, unila teral [...] Dictat ed: 2018 11:41 AM Report ID: [id number] Report signed in pt sitter al system at 019 11:41 Report ed By: Rusty mendez M.D. ([facility] [id number]) Signed By: Rusty mendez M.D. ([facility] [id number]) [facility] (Imaging) [address] [facility], [place], [address], 12/11/2018 12:07:06 Result Notes None recorded. Problems No Known Problems Procedures Surgical History Date Name Laterality Status Provider Name and Address Organization Details Recorded Time Other completed Benjy Tan [facility] 10/16/2018 11:25:01 Imaging Results None recorded. Procedure Notes None recorded. Medical Equipment None Reported. Allergies Allergen ID Allergen Name Allergen Category Reaction Reaction Severity Criticality Documentation Date Start Date Code Code System Note Provider Name and Address Organization Details Recorded Time 20750906 Compazine medicatio n Not available Not available Not available 10/16/2018 6 RxNorm Mando christensen [facility] 9 11:30:29 Cipro medicatio n Not available Not available Not available 10/16/201889773 3 RxNorm Mando christensen [facility] 9 11:30:33 Medications [...] Available Not Available Not Available Flucelvax Quad [id number] (PF) 60 mcg (15 mcg x 4)/0.5 mL IM syringe 11/13 completed Not Available Not Available Not Available Vitals Date Recorded Body height Body mass index (BMI) Body weight Body temperature Provider Name and Address Organization Details Last Updated DateTime 10/16/2018 165.1 cm 30 kg/m2 89648.63 g 97.7 [degF] Benjy Tan [facility] 10/16/2018 11:24:30 Date Recorded Body height Body mass index (BMI) Body weight Body temperature Provider Name and Address Organization Details Last Updated DateTime 11/13/2018 165.1 cm 28.3 kg/m2 15345.7 g 96 [degF] Kerry Hartley [facility] 11/13/2018 11:41:46 Date Recorded Body height Body mass index (BMI) Body weight Provider Name and Address Organization Details Last Updated DateTime 12/11/2018 165.1 cm 28.3 kg/m2 96608.7 g Elvia Diana [facility] 12/11/2018 10:50:19 Social History Question Answer Notes LastModified by Organizat ion Details LastModified Time Tobacco Smoking Status Never Smoker Benjy christensen [facility] 10/16/2018 11:24:38 Which [...] SNOMED-CT Code Diagnosis ICD10 Code Diagnosis Note [id number] CHARLENE ADAMS JR, MD [address] [place] [address] 10/16/2018 11:07:45 10/17/2018 13:38:48 Closed fracture of neck of femur 794108631 S72.002A [id number] CHARLENE ADAMS JR, MD [address] [place] [address] 11/13/2018 10:51:58 11/15/2018 08:48:44 Closed fracture of neck of femur 152047409 S72.002A [id number] CHARLENE ADAMS JR, MD [address] [place] [address] 12/11/2018 09:56:44 12/13/2018 11:44:16 Closed fracture of neck of femur [id number] S72.002A Health Concerns Section Related Observation LastModified by Organization Detai ls LastModified Time None Recorded Concern Status LastModified by Organization Details LastModified Time None Recorded Advance Directives Directive None Recorded Payers Insurance Date Sequence Insurance Name Policy Number Policy Burgos Covered Member ID Burgos Member ID Guarantor Name 03/05/2019 1 [facility] [employer] [facility] (HMO) [id number] Miguelina Arrieta [id number] Miguelina Arrieta 03/02/2019 FUTURE COMP Miguelina Arrieta 03/02/2019 [place] FUTURE [facility] Miguelina Arrieta Notes Date Note Type Note [...] for staple removal. CHARLENE ADAMS JR, MD [address] [place] [address],[address], [address], [facility] 10/16/2018 11:39:38 11/13/2018 text/html [...] and decreasing pain. CHARLENE ADAMS JR, MD [address] [place] [address], [address], [facility] 11/13/2018 12:05:47 12/11/2018 text/html [...] and decreasing pain. CHARLENE ADAMS JR, MD [address] [place] [address],[address], [address], [facility] 12/11/2018 11:50:12 OBGyn Episode No OBEpisode recorded.
[2024-11-03 14:05] LABS: Creatinine, mg/dL 34.98
[2024-11-03 14:09] LABS: Creatinine, 24Hr Urine 0.8 G/Day (1.0-2.0); Total Volume 24 Hour Urine 2150 mL
[2024-11-05 16:43] LABS: Calcium, 24 Hr Urine 24 mg/24 h; Calcium/Creatinine Ratio 31 mg/g creat (30-275); Creatinine 24Hr Urine 0.77 g/24 h (0.50-2.15)
== END 2024-11-03 09:01 | disposition home or self-care (01) ==
LOC: HO.HMGCLNP 09:00
PROVIDERS: Visit Provider Internal Medicine Endocrinology, Diabetes & Metabolism
DX: M81.0 Age-related osteoporosis without current pathological fracture (principal)
CPT/HCPCS: 82340; 82570

== ENCOUNTER 2024-11-07 14:26 | Outpatient (AMB) | payer OTHER, SELFPAY ==
--- NOTE | 2024-11-07 14:37 | MHC.OFFVIS ---
Vital Signs 11/07/24 14:40 Height 5 ft 4 in Weight 174 lb 2.643 oz BMI 29.9 BP 138/68 Blood Pressure Location Lt brachial Position Sitting Pulse 70 Pulse Source Pulse Oximeter Intake Visit Reasons: 3 month follow up/post holter monitor Allergies ciprofloxacin [From Cipro] Adverse Reaction (Verified 10/19/24 11:50) Swelling prochlorperazine [From Compazine] Adverse Reaction (Verified 10/19/24 11:50) Muscle Pain Medication List - Last Reconciled 11/07/24 by Deniz Garg MD acetone (urine) test (Ketone Urine Test strips) As directed atorvastatin 80 mg PO DAILY bisacodyl (Dulcolax (bisacodyl)) 10 mg (2 x 5 mg) PO BEDTIME blood sugar diagnostic (Contour Next Test Strips) As directed-tests 4 X/day blood sugar diagnostic (FreeStyle Lite Strips) As directed qid prn sensor failure, or to confirm glucose blood-glucose meter (FreeStyle Lite Meter kit) As directed blood-glucose sensor ([employer] G7 Sensor device) As directed every 10 days blood-glucose,global sourcing manager,cont (Dexcom G7 Quality Assurance Qa Lab Technician) As directed cholecalciferol (vitamin D3) 100 mcg (2 x 50 mcg (2,000 unit)) PO DAILY esomeprazole magnesium (Nexium) 40 mg PO DAILY infusion set for insulin pump As directed: Humalog insulin glargine (Lantus Solostar U-100 Insulin) 13 units (0.13 mL) subcut DAILY PRN 30 days insulin lispro 50 units (0.5 mL) subcut DAILY insulin pump cart,auto,BT,G6/7 (Omnipod 5 G6-G7 Pods (Gen 5) subcutaneous cartridge) As directed insulin pump cart,auto,BT-cntr (Omnipod 5 G6 Intro Kit (Gen 5) subcutaneous cartridge with controller) As directed lancets (FreeStyle Lancets) 4 times a day prn sensor failure or to confirm glucose dispense as 31 gauge if available metoprolol succinate ER 25 mg PO DAILY pen needle, diabetic (Comfort EZ Pen [place]) As directed prucalopride (Motegrity) 2 mg PO DAILY teriparatide (Forteo) 20 mcg (0.08 mL) subcut DAILY HPI Comments Details: Miguelina returns for follow-up. Recently seen in consultation regarding overall cardiac assessment. She used to live in the [place] area but has moved here locally to be close to family. Records were reviewed. History of type 1 diabetes going back many decades. From prior cardiology notes, she has had palpitations and thought to have supraventricular/ventricular ectopy. She is maintained on a small dose of beta-blockers. She also has autonomic dysfunction which could be related to diabetes. Chronic shortness of breath thought to be from some combination of diastolic dysfunction/permanent hypertension, chronotropic incompetence. Previously, thought to have moderate diastolic dysfunction but in the most recent echocardiogram, diastolic function was rather thought to be normal. For diabetes, she is on insulin pump. Currently, she would like to establish care but does not have any acute complaints. She has had palpitations for several years and she still has the same. With regard to the question of orthostatic hypotension, it seems she has taken midodrine in the past but not anymore. Overall, just about the same as before. She has completed a Holter monitor. 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 Housing: Apartment Alcohol intake: current Alcohol intake frequency: holidays/special occasions only Patient Tobacco Use Status: Never used Tobacco e-Cigarette/Vaping Use: Never Used service: No Current occupational status: disabled Current occupation: right handed Cognitive needs: No Hearing needs: No Vision needs: No Review of Systems Const Denies weakness ENT Denies dizziness Card Denies chest pain, Denies chest pain with activity, Denies syncope, Denies rapid heart rate, Denies pedal edema, Denies edema, Denies leg edema, Denies lightheadedness, Denies palpitations, Denies dyspnea, Denies dyspnea on exertion and Denies orthopnea Resp Denies cough, Denies dyspnea and Denies dyspnea on exertion GI Denies hematochezia and Denies change in stool character Musc Denies abnormal gait, Denies muscle cramps, Denies muscle weakness, Denies numbness, Denies radiating pain into limb and Denies tingling Neuro Denies abnormal gait, Denies dizziness, Denies syncope, Denies numbness, Denies tingling and Denies weakness Endo Denies palpitations Physical Exam Vital Signs: Last Vital Signs Pulse 70 11/07/24 14:40 BP 138/68 11/07/24 14:40 BMI result Body Mass Index 29.9 Const General: comfortable and no acute distress Orientation/consciousness: patient oriented x3 HEENT Other: Unremarkable Head: Yes normal to inspection Neck Neck: Yes normal visual inspection Chest Chest palpation & inspection: normal inspection of the chest Resp Auscultation: clear to auscultation bilaterally Cardio Palpation: normal PMI Heart sounds: S1 normal heart sound present, S2 normal heart sound present, no gallops, no murmurs and no rubs GI Palpation (GI): Soft to palpation Back/Spine/Pelvis Other: unremarkable Skin General skin exam: no rashes or lesions noted Neuro General: patient oriented x3 Extrem General: Yes normal to inspection Psych Mental Status: mental status grossly normal Assessment & Plan Assessment & Plan (1) Diabetes type 1: Code(s): E10.9 - Type 1 diabetes mellitus without complications Category: Medical (2) Autonomic dysfunction: Code(s): G90.9 - Disorder of the autonomic nervous system, unspecified Category: Medical (3) CKD (chronic kidney disease): Comment: Stage III, Diabetic nephropathy, follows up with dental hygiene instructor, Code(s): N18.9 - Chronic kidney disease, unspecified Category: Medical (4) Atrial arrhythmia: Code(s): I49.8 - Other specified cardiac arrhythmias Category: Medical (5) Diastolic dysfunction: Code(s): I51.89 - Other ill-defined heart diseases Category: Medical Plan Cardiac studies reviewed. In the echocardiogram, LVEF is 60-65%. Mild aortic/mitral calcification but otherwise no significant valve findings. Mild pulmonary hypertension. Probable grade 2 diastolic dysfunction but not described in report-based on mild increase in left atrial size, mild pulmonary hypertension and decreased medial/lateral tissue Doppler. Per notes, previously thought to have had moderate diastolic dysfunction and moderate pulmonary hypertension. Myocardial perfusion imaging study with normal perfusion. In the previous perfusion imaging from 2019, no evidence of stress-induced ischemia and normal global LV systolic function. Previously, Holter had shown PACs/PVCs and short atrial runs. In the repeat Holter, underlying rhythm is sinus with an average rate of 74/Min. Occasional PACs, short atrial runs longest up to about 12 minutes. Fastest 155/Min. Overall, long history of type 1 diabetes, multiple risk factors, no acute issues but many chronic symptoms like palpitations, autonomic insufficiency among others. Chronic shortness of breath could be related to some combination of diastolic dysfunction, deconditioning. With regard to palpitations, probably related to supraventricular ectopy as above. She is already on a small dose of beta-blockers that that can be continued. We discussed about increasing the dose but she states that if she takes a higher dose, she feels extremely tired and cannot function at all. Hence no changes but okay to take an extra tablet as necessary for palpitations. With regard to blood pressure swings from diabetes/autonomic insufficiency, no specific care from cardiac. Mainly optimal diabetes management. Follow-up in one year. In the interim, she will call with concerns. Discussion Notes I discussed the management of palpitations with the patient, emphasizing the episodic improvement with metoprolol, while being mindful of potential blood pressure drops. Thorough understanding was established regarding taking additional medication during increased symptom episodes. Anticipatory guidance was provided for recognizing and responding to hypotensive episodes, particularly postprandial drops linked to gastroparesis. The nature of her neuropathy and its role in her systemic symptoms was addressed. The patient expressed understanding and agreement with the proposed management and intervention plans. Regular yearly evaluations with necessary increase in frequency if symptoms became more frequent or severe were planned. Patient was informed and verbally consented to the use of an ambient scribe for clinic note documentation during this visit. Patient Instructions: - Take an extra dose of metoprolol if heart rate increases or if palpitations occur more often. - Watch for dizzy spells after eating; they might mean your blood pressure is too low. - Adjust carbohydrate intake, especially if you have meals that make your symptoms worse. - Make sure to rest if feeling lightheaded until it passes. - Continue with planned surgery for the hand after discussing heart status with the surgeon. - Attend regular check-ups and call immediately if symptoms get worse or don't go away. Coding Level of Care Code Est Pt Level 4 (52898) Complex EM visit Add On G2211 Diagnoses Diabetes type 1 E10.9 Autonomic dysfunction G90.9 CKD (chronic kidney disease) N18.9 Atrial arrhythmia I49.8 Diastolic dysfunction I51.89
[2024-11-07 14:40] VITALS: BP 138/68; PULSE 70; BMI 29.9
--- OUTSIDE RECORDS SUMMARY | 2024-11-07 16:36 | XMS_ITS | Data Portability ---
Author Organization [facility] [place] [facility] Address [address] [place] [address] Care Team Providers Care System Support Specialist Name Role Phone PRAVEEN SINGLETON Insurance Business Analyst Unavailable Assessment No assessment recorded. Plan of [...] By Organization Details Last Modified Time 10/16/2018 [id number] Discussed with t he patient the importance of partial weightbearing over the next 4 weeks. She'll return for reevaluation and re-x-ray at that time. Not available 10/16/2018 11:39:30 11/13/2018 [id number] Discussed with t jae patient progress to date. She will continue with partial weightbearing for another 6 weeks. She will follow up for repeat x-ray at that time. Not available 11/13/2018 12:05:36 12/11/2018 [id number] Discussed with t jae patient progression to [...] Dictat ed: 2018 11:57 AM Report ID: [id number] Report signed in hub bander al system at 019 11:57 Report ed By: Rusty mendez M.D. ([facility] [id number]) Signed By: Rusty mendez M.D. ([facility] [id number]) [facility] (Imaging) [address] [place], [address], 11/13/2018 12:29:51 12/12/1912/11/2018 XR, hip, unila teral , 2 or 3 view RESPON SIBLE INTERP RETER: Rusty mendez M.D. EXAMIN ATION: XR HIP 2-3 VW LEFT (PELVI S OPTION AL) CLINIC AL INDICA TION: Status post ORIF of the left femur 2018, no re-inj ury TECHNI QUE: Two views of the left hip. COMPAR AKDEN: 2018 FINDIN GS: The patien t is [...] Dictat ed: 2018 11:41 AM Report ID: [id number] Report signed in hub bander al system at 019 11:41 Report ed By: Rusty mendez M.D. ([facility] [id number]) Signed By: Rusty mendez M.D. ([facility] [id number]) [facility] (Imaging) [address] [facility], [place], [address], 12/11/2018 12:07:06 Result Notes None recorded. Problems No Known Problems Procedures Surgical History Date Name Laterality Status Provider Name and Address Organization Details Recorded Time Other completed Benjy Tan [facility] 10/16/2018 11:25:01 Imaging Results None recorded. Procedure Notes None recorded. Medical Equipment None Reported. Allergies Allergen ID Allergen Name Allergen Category Reaction Reaction Severity Criticality Documentation Date Start Date Code Code System Note Provider Name and Address Organization Details Recorded Time 20750906 Compazine medicatio n Not available Not available Not available 10/16/2018 6 RxNorm Mando christensen [facility] 9 11:30:29 Cipro medicatio n Not available Not available Not available 10/16/201808668 3 RxNorm Mando christensen [facility] 9 11:30:33 Medications [...] Available Not Available Not Available Flucelvax Quad [id number] (PF) 60 mcg (15 mcg x 4)/0.5 mL IM syringe 11/13 completed Not Available Not Available Not Available Vitals Date Recorded Body height Body mass index (BMI) Body weight Body temperature Provider Name and Address Organization Details Last Updated DateTime 10/16/2018 165.1 cm 30 kg/m2 53381.63 g 97.7 [degF] Benjy Tan [facility] 10/16/2018 11:24:30 Date Recorded Body height Body mass index (BMI) Body weight Body temperature Provider Name and Address Organization Details Last Updated DateTime 11/13/2018 165.1 cm 28.3 kg/m2 47416.7 g 96 [degF] Kerry Hartley [facility] 11/13/2018 11:41:46 Date Recorded Body height Body mass index (BMI) Body weight Provider Name and Address Organization Details Last Updated DateTime 12/11/2018 165.1 cm 28.3 kg/m2 14416.7 g Elvia Diana [facility] 12/11/2018 10:50:19 Social History Question Answer Notes LastModified by Organizat ion Details LastModified Time Tobacco Smoking Status Never Smoker Benjy christensen [facility] 10/16/2018 11:24:38 Which [...] SNOMED-CT Code Diagnosis ICD10 Code Diagnosis Note [id number] CHARLENE ADAMS JR, MD [address] [place] [address] 10/16/2018 11:07:45 10/17/2018 13:38:48 Closed fracture of neck of femur 086002487 S72.002A [id number] CHARLENE ADAMS JR, MD [address] [place] [address] 11/13/2018 10:51:58 11/15/2018 08:48:44 Closed fracture of neck of femur 029682001 S72.002A [id number] CHARLENE ADAMS JR, MD [address] [place] [address] 12/11/2018 09:56:44 12/13/2018 11:44:16 Closed fracture of neck of femur 848619368 S72.002A Health Concerns Section Related Observation LastModified by Organization Detai ls LastModified Time None Recorded Concern Status LastModified by Organization Details LastModified Time None Recorded Advance Directives Directive None Recorded Payers Insurance Date Sequence Insurance Name Policy Number Policy Burgos Covered Member ID Burgos Member ID Guarantor Name 03/05/2019 1 [facility] (HMO) [id number] Miguelina Arrieta [id number] Miguelina Arrieta 03/02/2019 FUTURE COMP Miguelina Arrieta 03/02/2019 [place] FUTURE [facility] Miguelina Arrieta Notes Date Note Type [...] for staple removal. CHARLENE ADAMS JR, MD [address] [place] [address],[address], [address], [facility] 10/16/2018 11:39:38 11/13/2018 [...] and decreasing pain. CHARLENE ADAMS JR, MD [address] [place] [address], [address], [facility] 11/13/2018 12:05:47 12/11/2018 [...] and decreasing pain. CHARLENE ADAMS JR, MD [address] [place] [address],[address], [address], [facility] 12/11/2018 11:50:12 OBGyn Episode No OBEpisode recorded.
== END 2024-11-07 15:07 | disposition home or self-care (01) ==
LOC: HO.HCS 14:27
PROVIDERS: PCP Internal Medicine; Visit Provider Internal Medicine
DX: E10.9 Type 1 diabetes mellitus without complications (principal); G90.9 Disorder of the autonomic nervous system, unspecified; N18.9 Chronic kidney disease, unspecified; I49.8 Other specified cardiac arrhythmias; I51.89 Other ill-defined heart diseases
CPT/HCPCS: 99214; G2211

== ENCOUNTER → 2024-11-07 14:26 | Outpatient (BNVA) | payer OTHER, SELFPAY | PROVIDERS: PCP Internal Medicine; Visit Provider Internal Medicine | DX: E10.9 Type 1 diabetes mellitus without complications (principal); G90.9 Disorder of the autonomic nervous system, unspecified; N18.9 Chronic kidney disease, unspecified; I49.8 Other specified cardiac arrhythmias; I51.89 Other ill-defined heart diseases | CPT/HCPCS: 99212 ==

== ENCOUNTER 2024-11-08 09:52 | Outpatient (AMB) | payer OTHER, SELFPAY ==
[2024-11-08 09:57] VITALS: BP 141/76; PULSE 72; O2SAT 97
--- NOTE | 2024-11-08 09:57 | HO.NEPHOV_ITS ---
Vital Signs 11/08/24 09:57 11/08/24 10:07 11/08/24 10:07 Height 5 ft 4 in Weight 175 lb BMI 30.0 BP 141/76 H 130/70 120/60 Blood Pressure Location Lt brachial Lt brachial Lt brachial Position Sitting Sitting Standing Pulse 72 Pulse Source Pulse Oximeter Pulse Oximetry (%) 97 Oxygen Delivery Method Room Air Intake Visit Reasons: CKD/Conf Set Up / Operator Required: No Accompanied by: Self / Same As Patient Allergies ciprofloxacin [From Cipro] Adverse Reaction (Verified 11/08/24 09:59) Swelling prochlorperazine [From Compazine] Adverse Reaction (Verified 11/08/24 09:59) Muscle Pain Medication List - Last Reconciled 11/08/24 by Dameon Duenas MD acetone (urine) test (Ketone Urine Test strips) As directed atorvastatin 80 mg PO DAILY bisacodyl (Dulcolax (bisacodyl)) 10 mg (2 x 5 mg) PO BEDTIME blood sugar diagnostic (Contour Next Test Strips) As directed-tests 4 X/day blood sugar diagnostic (FreeStyle Lite Strips) As directed qid prn sensor failure, or to confirm glucose blood-glucose meter (FreeStyle Lite Meter kit) As directed blood-glucose sensor (Dexcom G7 Sensor device) As directed every 10 days blood-glucose,blocker metal base,cont (Dexcom G7 Tool Engineer) As directed cholecalciferol (vitamin D3) 100 mcg (2 x 50 mcg (2,000 unit)) PO DAILY esomeprazole magnesium (Nexium) 40 mg PO DAILY infusion set for insulin pump As directed: Humalog insulin glargine (Lantus Solostar U-100 Insulin) 13 units (0.13 mL) subcut DAILY PRN 30 days insulin lispro 50 units (0.5 mL) subcut DAILY insulin pump cart,auto,BT,G6/7 (Omnipod 5 G6-G7 Pods (Gen 5) subcutaneous cartridge) As directed insulin pump cart,auto,BT-cntr (Omnipod 5 G6 Intro Kit (Gen 5) subcutaneous cartridge with controller) As directed lancets (FreeStyle Lancets) 4 times a day prn sensor failure or to confirm glucose dispense as 31 gauge if available metoprolol succinate ER 25 mg PO DAILY pen needle, diabetic (Comfort EZ Pen [place]) As directed prucalopride (Motegrity) 2 mg PO DAILY teriparatide (Forteo) 20 mcg (0.08 mL) subcut DAILY HPI Comments Details: Miguelina is a pleasant 63-year-old woman with a history of type 1 diabetes mellitus for more than 30 years complicated by stage 3 chronic kidney disease. She was followed in [place] and she recently moved to the area. I saw her last year for CKD. She had minimal proteinuria. Serum creatinine was around 1.1 mg/dL. She has ophthalmic issues and waiting for which he was surgery. She also has charcots joint. She is planning to go on disability She has had significant orthostatic hypotensive episodes at home and postprandial hypotension. She was given midodrine in the past and she did not tolerate this therefore she does not take midodrine anymore. She is on Benicar 2.5 mg and metoprolol 25 mg which she takes in the evening. 06/22/2024 From renal standpoint Pamela is doing well. Benicar 2.5 mg has been discontinued. She continues have postprandial hypotension. She takes metoprolol at night. She has no specific complaints today. 11/08/24 64-year-old female presenting with the need for ongoing management of diabetes and chronic kidney disease. Her kidney function remains stable, with recent tests showing a creatinine level of 1.19, consistent with baseline values. Additional tests confirmed normal calcium and albumin levels and an improved vitamin D status. She is currently being managed for osteoporosis, with adjustments made to her calcium supplementation by Dr. Franz due to low urinary excretion. Her A1c levels have risen from 6.4% to 7.1%, which may be influenced by unstable blood glucose levels linked to her gastroparesis. She self-monitors her blood sugars post-meals closely. She experiences chronic orthostatic symptoms and manages this with suggested lifestyle adaptations but reports no further medication changes. 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 Lungs entry equal no rales. Heart S1-S2 heard no gallop or rub. Abdomen soft nontender. Neuro alert awake oriented. No asterixis. Extremities no edema. No orthostatic blood pressure changes Results Reviewed Nephrology Results: Calcium 9.4 mg/dL (8.4-10.2) 11/01/24 Urine Protein Negative mg/dL (Neg-Trace) 11/01/24 Assessment & Plan Assessment & Plan (1) CKD (chronic kidney disease): Comment: Stage III, Diabetic nephropathy, follows up with [facility], Code(s): N18.9 - Chronic kidney disease, unspecified Category: Medical Plan 63-year-old man with stage 3 chronic kidney disease in the setting of type 1 diabetes mellitus. Renal function has been reasonably stable for the last 1 year. Overall blood sugar seems well controlled with a hemoglobin A1c of 6.2%. She has a h/o orthostatic hypotension most likely due to autonomic neuropathy due to longstanding diabetes mellitus. We discussed all orthostatic precautions including had an elevation at 30 degrees and using tight stockings. She should also avoid consuming large large meal and rather try frequent small meals. If she has significant orthostatic blood pressure change I would reintroduce the midodrine. The recent serum creatinine was 1.19 and renal function is relatively stable with EGFR of about 45 mL/minute. Mild hypocalcemia most likely related to vitamin-D deficiency. She is on vitamin-D supplementation. We will check PTH prior to next visit Orders: Orders Basic Metabolic Panel 4 Months N18.9 - Chronic kidney disease, unspecified Complete Blood Count no Diff 4 Months N18.9 - Chronic kidney disease, unspecified Parathyroid Hormone Intact 4 Months N18.9 - Chronic kidney disease, unspecified Phosphorus 4 Months N18.9 - Chronic kidney disease, unspecified Coding Level of Care Code Est Pt Level 4 (63427) Diagnoses CKD (chronic kidney disease) N18.9
[2024-11-08 10:07] VITALS: BP 120/60; BP 130/70
== END 2024-11-08 10:10 | disposition home or self-care (01) ==
LOC: HO.HKA 09:53
PROVIDERS: PCP Internal Medicine; Visit Provider Internal Medicine Hypertension Specialist
DX: N18.9 Chronic kidney disease, unspecified (principal)
CPT/HCPCS: 99214

== ENCOUNTER → 2024-11-08 09:52 | Outpatient (BNVA) | payer OTHER, SELFPAY | PROVIDERS: PCP Internal Medicine; Visit Provider Internal Medicine Hypertension Specialist | DX: E10.22 Type 1 diabetes mellitus with diabetic chronic kidney disease (principal); N18.30 Chronic kidney disease, stage 3 unspecified | CPT/HCPCS: 99212 ==

== ENCOUNTER 2025-01-21 11:40 | Outpatient (AMB) | payer BC, SELFPAY ==
--- NOTE | 2025-01-21 11:42 | MHC.PC.OV ---
Vital Signs 01/21/25 11:43 Height 5 ft 4 in Weight 174 lb BMI 29.9 BP 112/68 Blood Pressure Location Lt brachial Position Sitting Pulse 73 Pulse Source Pulse Oximeter Pulse Oximetry (%) 100 Intake Visit Reasons: Annual PE PHQ-9 needed. 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,cont (Dexcom G7 Fabric Cutter) As directed cholecalciferol (vitamin D3) 100 mcg (2 x 50 mcg (2,000 unit)) PO DAILY esomeprazole magnesium (Nexium) 40 mg PO DAILY infusion set for insulin pump As directed: Humalog insulin glargine (Lantus Solostar U-100 Insulin) 13 units (0.13 mL) subcut DAILY PRN 30 days insulin lispro 50 units (0.5 mL) subcut DAILY insulin pump cart,auto,BT,G6/7 (Omnipod 5 G6-G7 Pods (Gen 5) subcutaneous cartridge) As directed insulin pump cart,auto,BT-cntr (Omnipod 5 G6 Intro Kit (Gen 5) subcutaneous cartridge with controller) As directed lancets (FreeStyle Lancets) 4 times a day prn sensor failure or to confirm glucose dispense as 31 gauge if available metoprolol succinate ER 25 mg PO DAILY pen needle, diabetic (Comfort EZ Pen [place]) As directed teriparatide (Forteo) 20 mcg (0.08 mL) subcut DAILY Tobacco use date assessed: 01/21/25 Fall risk assessment: No Falls in past year Last assessed Fall Risk: 01/21/25 Dental Screening Dental Screen Date: 01/21/25 Did you have a dental visit in the last 12 months?: Yes Did you have a dental problem in the last 6 months where you did not have access to dental care?: No Was dental information given to patient?: Patient has dentist HPI Annual PE PHQ-9 needed. HPI Details Pt presents for PE. She was accepted for disability starting in the fall. Patient has been helping up her daughter in-law who was diagnosed with stage IV colon cancer and her 7-year-old granddaughter. Patient reports persistent epigastric discomfort bloating pain after eating worse than before. She had gastric nuclear emptying starting consistent with severe gastroparesis but she has a diagnosis for many years before. Patient would like to have an EGD and will discuss it with her GI during her next visit. Insulin-dependent diabetes has been overly well-controlled. Patient having episodes of hyperglycemia most likely due to her gastroparesis. She is established with [facility] and is on Omnipod insulin pump. 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 1. Little interest or pleasure in doing things: not at all 2. Feeling down, depressed, or hopeless: not at all 3. Trouble falling or staying asleep, or sleeping too much: more than half the days 4. Feeling tired or having little energy: several days 5. Poor appetite or overeating: several days 6. Feeling bad about yourself - or that you are a failure or have let yourself or your family down: not at all 7. Trouble concentrating on things, such as reading the newspaper or watching television: not at all 8. Moving or speaking so slowly that other people could have noticed. Or the opposite - being so fidgety or restless that you have been moving around a lot more than usual: not at all 9. Thoughts that you would be better off or of hurting yourself in some way: not at all Total score: 4 Depression Screening Interpretation: Negative Depression Screening Done: Yes 47327 - PHQ-9 Billing: Yes Source: Developed by Drs. Shan Robertson, Kim Meléndez, Howard Garcia and colleagues, with an educational bhargav from [employer]. Thrive Questionnaire Date Thrive assessed: 01/21/25 I am a: Patient What is your living situation today?: I have a steady place to live Within the past 12 months, did the food you bought not last and you didn't have the money to get more?: Never true Within the past 12 months, did you worry whether your food would run out before you got money to buy more?: Never true Do you have trouble paying for medicines?: No Do you have trouble getting transportation to medical appointments?: No Do you have trouble paying your heating and electricity bill?: No Do you have trouble taking care of your child, family member or friend?: No Do you have trouble with day-to-day activities such as bathing, preparing meals, shopping, managing finances, etc.?: No Are you currently unemployed and looking for a job?: No Are you interested in more education?: No Please select the resources that you would like help with: None Currently or been in a relationship where the following occur: No concerns reported THRIVE Score: 0 AUDIT C Alcohol Use Questionnaire (AUDIT-C) 1. How often do you have a drink containing alcohol?: Monthly or less 2. How many drinks containing alcohol do you have on a typical day when you are drinking?: 1 or 2 3. How often do you have six or more drinks on one occasion?: Never Total Score: 1 Score Reviewed/Action Taken: Yes TARA-7 AMB Questionnaire TARA-7 Date TARA - 7 assessed: 01/21/25 Feeling nervous, anxious, or on edge: 0 = Not at all Not being able to stop or control worryin = Not at all Worrying too much about different things: 0 = Not at all Trouble relaxin = Not at all Being so restless that it is hard to sit still: 0 = Not at all Becoming easily annoyed or irritable: 0 = Not at all Feeling afraid as if something awful might happen: 0 = Not at all Total TARA-7 score (0-4 normal; 5-9 mild; 10-14 moderate; 15-21 severe): 0 Source: Developed by Drs. Shan Robertson, Kim Meléndez, Howard Garcia and colleagues, with an educational bhargav from [employer]. TARA-7 Assessment Billing TARA-7 Assessment Tool: TARA-7 Assessment 23041 Review of Systems Const All systems reviewed & are unremarkable except as noted in HPI and below Eyes Reports no additional complaints ENT Reports no additional complaints Card Reports no additional complaints Resp Reports no additional complaints GI Reports no additional complaints Reports no additional complaints Physical exam (Primary Care) Vital Signs: Last Vital Signs Pulse 73 01/21/25 11:43 BP 112/68 01/21/25 11:43 Pulse Ox 100 01/21/25 11:43 BMI result Body Mass Index 29.9 Tobacco/Smoking Status: Tobacco use Status Tobacco use date assessed 01/21/25 01/21/25 11:44 Patient Tobacco Use Status Never used Tobacco 01/21/25 11:42 e-Cigarette/Vaping Use Never Used 01/21/25 11:42 PHQ-9: PHQ-9 Score PHQ-9: Total score 4 01/21/25 11:44 Depression Screening Interpretation: Negative Thrive Assessment: Date of Thrive Assessment Date Thrive assessed 01/21/25 01/21/25 11:44 Currently or been in a relationship where the following occur: No concerns reported Const General: no acute distress HENMT Head: Yes normal to inspection Ears: hearing grossly normal bilaterally Face and sinus: Yes normal facial exam Mouth: Normal oral and palatal mucosa present Throat: Yes posterior oropharynx normal Eyes General: appearance normal, both eyes and all related structures Neck Neck: Yes no lymphadenopathy and Yes supple Resp Effort & Inspection: normal respiratory effort Auscultation: clear to auscultation bilaterally Cardio Rhythm: regular rhythm Heart sounds: S1 normal heart sound present and S2 normal heart sound present GI Inspection: Yes normal to inspection Palpation (GI): Soft to palpation Percussion: Yes normal to percussion Auscultation: normal bowel sounds Extrem General: Yes no clubbing, cyanosis or edema Coding Level of Care Code Est Pt Prev Care 40-64y(69899) Diagnoses CKD (chronic kidney disease) N18.9 Vitamin D deficiency E55.9 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 E10.319 Annual physical exam Z00.00 Osteoporosis M81.0 Anemia D64.9 Gastroparesis K31.84 Additional Codes TARA-7 Assessment Billing - TARA-7 Assessment Tool: TARA-7 Assessment 20169 ([id number]) PHQ-9 - 38941 - PHQ-9 Billing: Yes ([id number]) Assessment & Plan Assessment & Plan (1) CKD (chronic kidney disease): Comment: Stage III, Diabetic nephropathy, follows up with [facility], Code(s): N18.9 - Chronic kidney disease, unspecified Category: Medical Plan: Avoid nephrotoxins follow-up with nephrology (2) Vitamin D deficiency: Code(s): E55.9 - Vitamin D deficiency, unspecified Category: Medical Plan: Continue vitamin-D supplement check the level (3) 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 She declined having A1c checked today (4) Annual physical exam: Code(s): Z00.00 - Encounter for general adult medical examination without abnormal findings Category: Medical Plan: Well-balanced diet regular physical activity discussed with the patient. She is up-to-date with a colonoscopy mammogram will be scheduled. Patient had negative Pap smear 2 years ago (5) Osteoporosis: Comment: Reclast infusion 2015? in the past, DEXA 11/2021 T score -3.3 femur, endocrinology recommended clearance from nephrology to treat osteoporosis started Forteo 08/2024 f/u with Endo Code(s): M81.0 - Age-related osteoporosis without current pathological fracture Category: Medical Plan: Started on Forteo by endocrinology. Continue vitamin-D and weight-bearing exercises (6) Anemia: Code(s): D64.9 - Anemia, unspecified Category: Medical Plan: Monitor CBC check iron studies (7) Gastroparesis: Comment: severe gastroparesis on gastric nuclear emptying study 08/2024, established with [facility] GI Code(s): K31.84 - Gastroparesis Category: Medical Plan: Patient will discuss EGD with GI. She has been eating small frequent meals and taking Dulcolax for constipation as recommended by GI Orders: Orders Comprehensive Rankin. Panel Fast Today E10.319 - Type 1 diabetes mellitus with unspecified diabetic retinopathy without macular edema, E55.9 - Vitamin D deficiency, unspecified, N18.9 - Chronic kidney disease, unspecified, Z00.00 - Encounter for general adult medical examination without abnormal findings Lipid Panel Today E10.319 - Type 1 diabetes mellitus with unspecified diabetic retinopathy without macular edema, E55.9 - Vitamin D deficiency, unspecified, N18.9 - Chronic kidney disease, unspecified, Z00.00 - Encounter for general adult medical examination without abnormal findings Vitamin D 25-OH Total Today E10.319 - Type 1 diabetes mellitus with unspecified diabetic retinopathy without macular edema, E55.9 - Vitamin D deficiency, unspecified, N18.9 - Chronic kidney disease, unspecified, Z00.00 - Encounter for general adult medical examination without abnormal findings MM screening mammo BI Today E10.319 - Type 1 diabetes mellitus with unspecified diabetic retinopathy without macular edema, E55.9 - Vitamin D deficiency, unspecified, N18.9 - Chronic kidney disease, unspecified, Z00.00 - Encounter for general adult medical examination without abnormal findings, Z12.31 - Encounter for screening mammogram for malignant neoplasm of breast Comprehensive Rankin. Panel Fast 6 Months E10.9 - Type 1 diabetes mellitus without complications, E55.9 - Vitamin D deficiency, unspecified, M81.0 - Age-related osteoporosis without current pathological fracture, N18.9 - Chronic kidney disease, unspecified Lipid Panel 6 Months E10.9 - Type 1 diabetes mellitus without complications, E55.9 - Vitamin D deficiency, unspecified, M81.0 - Age-related osteoporosis without current pathological fracture, N18.9 - Chronic kidney disease, unspecified Complete Blood Count Auto Diff 6 Months E10.9 - Type 1 diabetes mellitus without complications, E55.9 - Vitamin D deficiency, unspecified, M81.0 - Age-related osteoporosis without current pathological fracture, N18.9 - Chronic kidney disease, unspecified Microalbumin, Random (w Creat) 6 Months E10.9 - Type 1 diabetes mellitus without complications, E55.9 - Vitamin D deficiency, unspecified, M81.0 - Age-related osteoporosis without current pathological fracture, N18.9 - Chronic kidney disease, unspecified Vitamin B12 and Folate Today D64.9 - Anemia, unspecified TSH reflex Free T4 Today D64.9 - Anemia, unspecified Complete Blood Count Auto Diff Today E10.319 - Type 1 diabetes mellitus with unspecified diabetic retinopathy without macular edema, E55.9 - Vitamin D deficiency, unspecified, N18.9 - Chronic kidney disease, unspecified, Z00.00 - Encounter for general adult medical examination without abnormal findings Microalbumin, Random (w Creat) Today E10.319 - Type 1 diabetes mellitus with unspecified diabetic retinopathy without macular edema, E55.9 - Vitamin D deficiency, unspecified, N18.9 - Chronic kidney disease, unspecified, Z00.00 - Encounter for general adult medical examination without abnormal findings Vitamin D 25-OH Total 6 Months E10.9 - Type 1 diabetes mellitus without complications, E55.9 - Vitamin D deficiency, unspecified, M81.0 - Age-related osteoporosis without current pathological fracture, N18.9 - Chronic kidney disease, unspecified IRON PROFILE Today D64.9 - Anemia, unspecified Referrals Dermatology Referral L29.9 - Pruritus, unspecified Podiatry Referral E11.40 - Type 2 diabetes mellitus with diabetic neuropathy, unspecified
[2025-01-21 11:43] VITALS: BP 112/68; PULSE 73; O2SAT 100; BMI 29.9
--- OUTSIDE RECORDS SUMMARY | 2025-01-21 13:12 | XMS_ITS | Clinical Summary ---
Author Organization [facility] Facility Address [address] [place] [id number] Care Team Providers Care Pack Operator Name Role Phone Miriam Glass MD Primary Care Provider [phone] Allergies Active Allergy Reactions Criticality Noted Date Comments Chromium 12/07/2010 spasms spasms Ciprofloxacin Other (see comments) 09/30/2013 swelling Other reaction(s): Other (See Comments) swelling Other reaction(s): Other (See Comments) swelling [place]-Containing Products 12/07/2010 swelling Levofloxacin Other (see comments) [...] Visual Foot Exam 05/20/2022 Influenza Vaccine (#1) 2025 , 01/18/2020, 03/31/2019, Additional history exists Pneumococcal Vaccine: Peds (0 to 5 Years) and At-Risk Patients (6 to 49 Years) Discontinued 02/09/2017 Hepatitis B Vaccine Aged Out 08/15/2017, 03/14/2017, 02/09/2017 No longer eligible based on patient's age to complete this topic [place] [address] Care Teams Pack Operator Relationship Specialty Start Date End Date Miriam Glass MD [address] [place] [address] PCP - General Internal Medicine 02/17/22
--- OUTSIDE RECORDS SUMMARY | 2025-01-21 13:12 | XMS_ITS ---
Author Name [facility] Organization Unknown Care Team Organization Name Specialty Phone Email Start Date End Da te [facility] 04/06/202201/15
--- OUTSIDE RECORDS SUMMARY | 2025-01-21 13:12 | XMS_ITS | Clinical Summary ---
Author Organization [facility] Address [address] [facility] [address] [place] [address] Phone Care Team Providers Care Director Furniture Name Role Phone Jayce Krishnan MD Primary Care Provider + Allergies Active Allergy Reactions Criticality Noted Date Comments Ciprofloxacin Other (See Comments) 09/30/2013 swelling Other reaction(s): Other (See Comments) swelling Prochlorperazine Other (See Comments) 4 facial spasm Other reaction(s): Other (See Comments) facial spasm Medications atorvastatin (LIPITOR) 80 MG tablet Take 80 mg by mouth. 01/04/2017 Active midodrine (PROAMATINE) 5 MG tablet Take 5 mg by mouth. 01/07/2016 Active multivitamin with iron-mineral Tab Take by mouth. 12/07/2010 Active lancets Misc Use to test blood sugar up to 6 times per day 04/14/2016 Active insulin lispro (ADMELOG, HUMALOG) 100 unit/mL injection vial As directed with insulin pump 12/01/2013 Active fluticasone propionate (FLONASE) 50 mcg/actuation nasal spray 2 sprays. 05/03/2014 Active ferrous sulfate 325 mg (65 mg [place] iron) tablet Take 65 mg by mouth. 01/28/2011 Active Active Problems Problem Noted Date Diagnosed Date Diabetes mellitus 09/30/2013 Overview (07/19/2014): Diabetes mellitus Hypertensive disorder 09/30/2013 Overview (07/19/2014): Hypertensive disorder Gastroparesis 09/30/2013 Overview (07/19/2014): Gastroparesis syndrome Social History Tobacco Use Types Packs/Day Years Used Date Smoking Tobacco: Never Smokeless Tobacco: Never Alcohol Use Standard Drinks/Week Comments Not Currently 0 (1 standard drink = 0.6 oz pur e alcohol) Education Answer Date Recorded Are you interested in more education? Not on mark e 09/24/2022 Are you concerned about learning? Not on file 09/24/2022 No 09/24/2022 No 09/24/2022 Digital Access Answer Date Recorded No 10/25/2022 No 10/25/2022 No 10/25/2022 Reliable internet access at home? Not on file 10/25/2022 Device with a working camera? Not on file Comments Unknown Sex and Gender Information Value Date Recorded Sex Assigned at Not on file Legal Sex Female 2:54 PM EDT Gender Identity Not on file Sexual Orientation Not on file Last Filed Vital Signs Vital Sign Reading Time Taken Comments Blood Pressure 134/78 09/30/2013 3:10 PM EDT Pulse 78 11/03/2019 4:10 PM EDT Temperature 36.4 C (97.5 F) 11/03/2019 4:10 PM EDT Respiratory Rate 18 11/03/2019 4:10 PM EDT Oxygen Saturation 99% 11/03/2019 4:10 PM EDT Inhaled Oxygen Concentration - - Weight 79.4 kg (175 lb) 11/03/2019 4:10 PM EDT Height 165.1 cm (5' 5 ) 11/03/2019 4:10 PM EDT Body Mass Index 29.12 11/03/2019 4:10 PM EDT Plan of Treatment Not on file Medical Devices Not on file [facility] Care Teams Director Furniture Relationship Specialty Start Date End Date Jayce Krishnan MD [address] [place] [id number] PCP - General 07/30/15 Additional Source Comments The information contained in this document represents components of the legal health record. It is not the complete legal health record.[facility]
--- OUTSIDE RECORDS SUMMARY | 2025-01-21 13:12 | XMS_ITS | Encounter Summary ---
Author Organization [facility] Address [address] [address] Phone Care Team Providers Care Hot Strip Mill Supervisor Name Role Phone Unavailable Primary Care Provider Unavailabl e Encounter Details Date Type Department Care Team (Late st Contact Info) Description 09/26/2006 Legacy Encounter - [place] [address] Provider, MD Ricky [address] [place], [place] [phone] Social History Tobacco Use Types Packs/Day Years [...]
== END 2025-01-21 12:49 | disposition home or self-care (01) ==
LOC: HO.HMCC 11:41
PROVIDERS: PCP Internal Medicine; Visit Provider Internal Medicine
DX: N18.9 Chronic kidney disease, unspecified (principal); E55.9 Vitamin D deficiency, unspecified; E10.319 Type 1 diabetes mellitus with unspecified diabetic retinopathy without macular edema; Z00.00 Encounter for general adult medical examination without abnormal findings; M81.0 Age-related osteoporosis without current pathological fracture; D64.9 Anemia, unspecified; K31.84 Gastroparesis

== ENCOUNTER → 2025-01-21 11:40 | Outpatient (BNVA) | payer OTHER, SELFPAY | PROVIDERS: PCP Internal Medicine; Visit Provider Internal Medicine | DX: Z00.00 Encounter for general adult medical examination without abnormal findings (principal); E10.22 Type 1 diabetes mellitus with diabetic chronic kidney disease; E10.319 Type 1 diabetes mellitus with unspecified diabetic retinopathy without macular edema; E10.40 Type 1 diabetes mellitus with diabetic neuropathy, unspecified; N18.9 Chronic kidney disease, unspecified; E55.9 Vitamin D deficiency, unspecified; M81.0 Age-related osteoporosis without current pathological fracture; D64.9 Anemia, unspecified; K31.84 Gastroparesis; L29.9 Pruritus, unspecified | CPT/HCPCS: 96127 ==

== ENCOUNTER 2025-01-22 09:45 | Outpatient (AMB) | payer OTHER, SELFPAY ==
--- NOTE | 2025-01-22 09:51 | A.OFFVIS_ITS ---
Vital Signs 01/22/25 09:53 Height 5 ft 4 in Weight 174 lb BMI 29.9 BP 110/56 L Blood Pressure Location Rt brachial Position Sitting Pulse 78 Pulse Source Pulse Oximeter Pulse Oximetry (%) 99 Oxygen Delivery Method Room Air Intake Visit Reasons: 3 mo f/u Intake Note: ESTABLISHED PATIENT for mgmt of gastroparesis. Chief Complaint; C.O. generalized abd cramping intermittently over the last couple weeks. Pt also would like to discuss motility concerns and longwall headgate operator plans. Medical Nurse Required: No Accompanied by: Self / Same As Patient Allergies ciprofloxacin (From Cipro) Adverse Reaction (Verified 01/22/25 09:52) Swelling prochlorperazine (From Compazine) Adverse Reaction (Verified 01/22/25 09:52) Muscle Pain HPI HPI 3 mo f/u: Details: LAST VISIT Gastroparesis Early satiety Constipation GERD (gastroesophageal reflux disease) Abdominal pain Nausea Plan Significant gastroparesis. Patient will start taking Reglan with. Patient will eat smaller meals and more often. Avoid food high in fiber. Gastroparesis diet discussed and example of different food given to patient. Patient will continue taking her PPI. Stop taking senna and take Dulcolax 2 tablets daily. Reports abdominal bloating with different food. Avoid dietary triggers as much as possible. Patient will follow-up in the office in 3-4 months, sooner on as needed basis. She is agreeable to this plan and verbalizes understanding of instructions she was given the opportunity to ask questions and all questions answered. ? Thank you for allowing me to participate in her care New bisacodyl (Dulcolax (bisacodyl)) 10 mg (2 x 5 mg) PO BEDTIME 180 tabs 4RF metoclopramide HCl (Reglan) 5 mg PO QIDACHS 120 tabs 3RF K31.84 Discontinued sennosides (Natural Senna Laxative) Discontinued Reason: Doctor's Order 8.6 mg PO BEDTIME 90 tabs 3RF constipation K59.00 IS PATIENT TODAY'S VISIT: Patient is here today for follow-up. Patient was started on Reglan last visit for gastroparesis. Patient is following gastroparesis diet. Unable to stay on Reglan as it was making her very tired. Patient continues to have abdominal bloating. Unable to move her bowels completely. She is taking Dulcolax in the evening. Unable to fill script for Motegrity. We have tried filling of paperwork with insurance company as well as patient did that as well and still has not received medications. Patient denies dyspepsia, dysphagia or odynophagia. Denies melena, hematochezia, unintentional weight loss or ribbon like stools. Continues to have epigastric pain despite taking Nexium. Occasional acid reflux depending on what she eats. Patient reports that she is trying to be careful on what she is eating. Staying away from high-fiber food. Following gastroparesis diet. 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,[employer], 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 Housing: Apartment Alcohol intake: current Alcohol intake frequency: holidays/special occasions only Patient Tobacco Use Status: Never used Tobacco e-Cigarette/Vaping Use: Never Used service: No Current occupational status: disabled Current occupation: right handed Cognitive needs: No Hearing needs: No Vision needs: No Review of Systems Const Denies weight gain and Denies weight loss ENT Reports no additional complaints, Denies dysphagia and Denies odynophagia Card Reports no additional complaints Resp Reports no additional complaints GI Reports abdominal pain (Epigastric), Denies belching, Denies melena, Denies bloating, Denies change in bowel habits, Reports constipation, Denies dysphagia, Denies excessive flatus, Reports early satiety, Denies dyspepsia, Reports heartburn, Denies diarrhea, Denies loose stools, Denies nausea, Denies odynophagia and Denies vomiting Reports no additional complaints Musc Reports no additional complaints Neuro Reports no additional complaints Psych Reports no additional complaints Endo Reports no additional complaints Physical Exam Vital Signs: Last Vital Signs Pulse 78 01/22/25 09:53 BP 110/56 L 01/22/25 09:53 Pulse Ox 99 01/22/25 09:53 Oxygen Delivery Method Room Air 01/22/25 09:53 BMI result Body Mass Index 29.9 Const Other: Patient is ambulating with wheeled walker General: healthy appearing and no acute distress Nutritional Appearance: obese Orientation/consciousness: patient oriented x3 Resp Effort & Inspection: normal respiratory effort, able to speak in complete sentences, no tracheal deviation and symmetric chest movement Auscultation: clear to auscultation bilaterally Cardio Rate: regular rate GI Inspection: Yes normal to inspection, No distended and Yes obesity Palpation (GI): Soft to palpation, not firm, nontender and No hepatosplenomegaly present Auscultation: normal bowel sounds General: Yes no CVA tenderness Back/Spine/Pelvis Back: no CVA tenderness Skin General skin exam: elasticity normal, turgor normal and dry skin Neuro General: patient oriented x3 Psych Appearance: grossly normal Mental Status: mental status grossly normal Assessment & Plan Assessment & Plan (1) Gastroparesis: Code(s): K31.84 - Gastroparesis Category: Medical (2) Early satiety: Code(s): R68.81 - Early satiety (3) Constipation: Code(s): K59.00 - Constipation, unspecified Qualifiers: Constipation type: slow transit constipation Qualified Code(s): K59.01 - Slow transit constipation (4) Gastroesophageal reflux disease: Code(s): K21.9 - Gastro-esophageal reflux disease without esophagitis Qualifiers: Esophagitis presence: esophagitis presence not specified Qualified Code(s): K21.9 - Gastro-esophageal reflux disease without esophagitis (5) Abdominal pain: Code(s): R10.9 - Unspecified abdominal pain Qualifiers: Abdominal location: epigastric Qualified Code(s): R10.13 - Epigastric pain (6) Nausea: Code(s): R11.0 - Nausea (7) Chronic idiopathic constipation: Code(s): K59.04 - Chronic idiopathic constipation Category: Medical Plan Patient will stop Nexium and start lansoprazole. Patient will continue avoid dietary triggers and continue gastroparesis diet low fiber, low residue diet. RN will call insurance company to try to investigate reason for Motegrity not approved. Patient has a history of chronic idiopathic constipation and medication should be approved according to FDA guidelines. Gastroparesis could be related to patient's being very constipated. Patient will increase fluid i ntake and activity to promote better bowel motility. She will follow-up in our office in 2-3 months. Patient will call us in couple weeks if Motegrity will not be dispensed by her pharmacy. Patient reports bloating she can start taking enzymes to help 8 digestion. She is agreeable to current plan of care and verbalizes understanding of instructions. She was given the opportunity to ask questions and all questions answered. Thank you for allowing me to participate in her care Medications: New [id number] 12,000-38,000 -60,000 unit (Creon) administer with meals and/or snacks 1 cap PO QID 120 caps 3RF R10.9 - Unspecified abdominal pain lansoprazole 30 mg PO DAILY 30 caps 3RF K21.9 - Gastro-esophageal reflux disease without esophagitis Discontinued esomeprazole magnesium (Nexium) Discontinued Reason: Doctor's Order 40 mg PO DAILY 30 caps 5RF K21.9 - Gastro-esophageal reflux disease without esophagitis Coding Level of Care Code Est Pt Level 4 (42428) Complex EM visit Add On G2211 Diagnoses Gastroparesis K31.84 Early satiety R68.81 Slow transit constipation K59.01 Constipation type: slow transit constipation Gastroesophageal reflux disease, unspecified whether esophagitis present K21.9 Esophagitis presence: esophagitis presence not specified Epigastric pain R10.13 Abdominal location: epigastric Nausea R11.0 Chronic idiopathic constipation K59.04 Time Spent (min) 40 Comment 25 minutes spent with patient and additional 15 minutes spent reviewing her records
[2025-01-22 09:53] VITALS: BP 110/56; PULSE 78; O2SAT 99; BMI 29.9
--- OUTSIDE RECORDS SUMMARY | 2025-01-22 10:28 | XMS_ITS | Encounter Summary ---
Author Organization [facility] Address [address] [address] Phone Care Team Providers Care Compound Worker Name Role Phone Unavailable Primary Care Provider Unavailabl e Encounter Details Date Type Department Care Team (Late st Contact Info) Description 08/15/2006 Legacy Encounter - Labs [place] [address] Provider, MD Ricky [address] [place], [place] [phone] Social History Tobacco Use Types Packs/Day Years [...]
--- OUTSIDE RECORDS SUMMARY | 2025-01-22 10:28 | XMS_ITS | Encounter Summary ---
Author Organization [facility] Address [address], [place] [address] Phone Care Team Providers Care Furnace Clerk Name Role Phone Unavailable Primary Care Provider Unavailabl e Encounter Details Date Type Department Care Team (Late st Contact Info) Description 04/30/2009 Legacy Encounter - [place] [address] Provider, MD Ricky [address] [place], [place] [phone] Social History Tobacco Use Types Packs/Day Years [...]
--- OUTSIDE RECORDS SUMMARY | 2025-01-22 10:28 | XMS_ITS | Encounter Summary ---
Author Organization [facility] Address [address] [address] Phone Care Team Providers Care Customer Support Analyst Name Role Phone Unavailable Primary Care Provider Unavailabl e Encounter Details Date Type Department Care Team (Late st Contact Info) Description 09/04/2007 Legacy Encounter - Labs [place] [address] Provider, MD Ricky [address] [place], [place] [phone] Social History Tobacco Use Types Packs/Day Years [...]
--- OUTSIDE RECORDS SUMMARY | 2025-01-22 10:28 | XMS_ITS | Encounter Summary ---
Author Organization [facility] Address [address] [address] Phone Care Team Providers Care Crew Caller Name Role Phone Unavailable Primary Care Provider Unavailabl e Encounter Details Date Type Department Care Team (Late st Contact Info) Description 02/17/2007 Legacy Encounter - Labs [place] [address] Provider, MD Ricky [address] [place], [place] [phone] Social History Tobacco Use Types Packs/Day Years [...]
--- OUTSIDE RECORDS SUMMARY | 2025-01-22 10:28 | XMS_ITS | Encounter Summary ---
Author Organization [facility] Address [address] [address] Phone Care Team Providers Care Estate Attorney Name Role Phone Unavailable Primary Care Provider Unavailabl e Encounter Details Date Type Department Care Team (Late st Contact Info) Description 04/13/2009 Legacy Encounter - [place] [address] Provider, MD Ricky [address] [place], [place] [phone] Social History Tobacco Use Types Packs/Day Years [...]
--- OUTSIDE RECORDS SUMMARY | 2025-01-22 10:28 | XMS_ITS | Encounter Summary ---
Author Organization [facility] Address [address] [facility] [address] [place] [address] Phone Care Team Providers Care Resource Management Planner Name Role Phone Jayce Krishnan MD Primary Care Provider + Encounter Details Date Type Department Care Team (Late st Contact Info) Description 11/03/2019 Ophth Exam [facility] [address] [place] [address] Cecelia Franco MD [address] [place] [address] [email or web address] Social History Tobacco Use Types Packs/Day Years [...] Diagnoses Not on filedocumented in this encounter Care Teams Resource Management Planner Relationship Specialty Start Date End Date Jayce Krishnan MD [address] [place] [address] PCP - General 07/30/15 documented as of this encounter Additional Source Comments The information contained in this document represents components of the legal health record. It is not the complete legal health record.[facility]
--- OUTSIDE RECORDS SUMMARY | 2025-01-22 10:28 | XMS_ITS | Encounter Summary ---
Author Organization [facility] Address [address] [address] Phone Care Team Providers Care Drain Cleaner Name Role Phone Unavailable Primary Care Provider Unavailabl e Encounter Details Date Type Department Care Team (Late st Contact Info) Description 02/20/2007 Legacy Encounter - [place] [address] Provider, MD Ricky [address] [place], [place] [phone] Social History Tobacco Use Types Packs/Day Years [...]
--- OUTSIDE RECORDS SUMMARY | 2025-01-22 10:28 | XMS_ITS | Encounter Summary ---
Author Organization [facility] Address [address] [address] Phone Care Team Providers Care Plant Control Operator Name Role Phone Unavailable Primary Care Provider Unavailabl e Encounter Details Date Type Department Care Team (Late st Contact Info) Description 08/05/2007 Abstract [place] [address] ProviderRicky MD [address] [place] [address] Social History Tobacco Use Types Packs/Day Years [...]
--- OUTSIDE RECORDS SUMMARY | 2025-01-22 10:28 | XMS_ITS | Encounter Summary ---
Author Organization [facility] Address [address] [address] Phone Care Team Providers Care Bicycle Ii Assembler Name Role Phone Unavailable Primary Care Provider Unavailabl e Encounter Details Date Type Department Care Team (Late st Contact Info) Description 11/04/2006 Legacy Encounter - [place] [address] Provider, MD Ricky [address] [place], [place] [phone] Social History Tobacco Use Types Packs/Day Years [...]
--- OUTSIDE RECORDS SUMMARY | 2025-01-22 10:28 | XMS_ITS | Encounter Summary ---
Author Organization [facility] Address [address] [address] Phone Care Team Providers Care Textile Colorist Dyer Name Role Phone Unavailable Primary Care Provider Unavailabl e Encounter Details Date Type Department Care Team (Late st Contact Info) Description 11/16/2006 Legacy Encounter - [place] [address] Provider, MD Ricky [address] [place], [place] [phone] Social History Tobacco Use Types Packs/Day Years [...]
--- OUTSIDE RECORDS SUMMARY | 2025-01-22 10:28 | XMS_ITS | Encounter Summary ---
Author Organization [facility] Address [address] [address] Phone Care Team Providers Care Character Actor Name Role Phone Unavailable Primary Care Provider Unavailabl e Encounter Details Date Type Department Care Team (Late st Contact Info) Description 11/28/2006 Legacy Encounter - Labs [place] [address] Provider, MD Ricky [address] [place], [place] [phone] Social History Tobacco Use Types Packs/Day Years [...]
--- OUTSIDE RECORDS SUMMARY | 2025-01-22 10:28 | XMS_ITS | Clinical Summary ---
Author Organization [facility] Address [address] [facility] [address] [place] [address] Phone Care Team Providers Care Liner Inserter Name Role Phone Jayce Krishnan MD Primary [...] Active ferrous sulfate 325 mg (65 mg te-mo[place] iron) tablet Take 65 mg by mouth. [...] file Medical Devices Not on file Insurance [facility] Care Teams Liner Inserter Relationship Specialty Start Date End Date Jayce Krishnan MD [address] [place] [address] PCP - General 07/30/15 Additional Source Comments The information contained in this document represents components of the legal health record. It is not the complete legal health record.[facility]
--- OUTSIDE RECORDS SUMMARY | 2025-01-22 10:28 | XMS_ITS | Clinical Summary ---
Author Organization [facility] Address [address] [address] Phone Care Team Providers Care Cardiac Exercise Physiologist Name Role Phone Unavailable Primary Care Provider Unavailabl e Medications ergocalciferol (Drisdol) 1.25 MG (67663 UT) capsule Drisdol( 24041DSWV Oral once a week ) Active -Hx [...] Not on file Insurance [place] [address] [employer]
--- OUTSIDE RECORDS SUMMARY | 2025-01-22 10:28 | XMS_ITS | Encounter Summary ---
Author Organization [facility] Address [address] [address] Phone Care Team Providers Care Travel Sales Consultant Name Role Phone Unavailable Primary Care Provider Unavailabl e Encounter Details Date Type Department Care Team (Late st Contact Info) Description 07/26/2007 Legacy Encounter - [place] [address] Provider, MD Ricky [address] [place], [place] [phone] Social History Tobacco Use Types Packs/Day Years [...]
--- OUTSIDE RECORDS SUMMARY | 2025-01-22 10:28 | XMS_ITS | Encounter Summary ---
Author Organization [facility] Address [address], [place] [address] Phone Care Team Providers Care Inspector Filter Tip Name Role Phone Unavailable Primary Care Provider Unavailabl e Encounter Details Date Type Department Care Team (Late st Contact Info) Description 09/10/2006 Legacy Encounter - [place] [address] Provider, MD Ricky [address] [place], [place] [phone] Social History Tobacco Use Types Packs/Day Years [...]
--- OUTSIDE RECORDS SUMMARY | 2025-01-22 10:28 | XMS_ITS | Encounter Summary ---
Author Organization [facility] Address [address], [place] [address] Phone Care Team Providers Care Conventions Assistant Name Role Phone Unavailable Primary Care Provider Unavailabl e Encounter Details Date Type Department Care Team (Late st Contact Info) Description 01/26/2008 Legacy Encounter - [place] [address] Provider, MD Ricky [address] [place], [place] [phone] Social History Tobacco Use Types Packs/Day Years [...]
--- OUTSIDE RECORDS SUMMARY | 2025-01-22 10:28 | XMS_ITS | Encounter Summary ---
Author Organization [facility] Address [address], [place] [address] Phone Care Team Providers Care Abstract Writer Name Role Phone Unavailable Primary Care Provider Unavailabl e Encounter Details Date Type Department Care Team (Late st Contact Info) Description 09/26/2006 Legacy Encounter - [place] [address] Provider, MD Ricky [address] [place], [place] [phone] Social History Tobacco Use Types Packs/Day Years [...]
--- OUTSIDE RECORDS SUMMARY | 2025-01-22 10:28 | XMS_ITS | Encounter Summary ---
Author Organization [facility] Address [address] [address] Phone Care Team Providers Care Professor Of Family Medicine Name Role Phone Unavailable Primary Care Provider Unavailabl e Encounter Details Date Type Department Care Team (Late st Contact Info) Description 11/19/2008 Legacy Encounter - Labs HISTORICAL CONVERSION [place] [address] [place] [address] Provider, MD Ricky [address] [place] [address] [place], [place] [phone] Social History Tobacco Use Types Packs/Day Years [...]
--- OUTSIDE RECORDS SUMMARY | 2025-01-22 10:28 | XMS_ITS | Clinical Summary ---
Author Organization [facility] Address [address] [place] [address] Care Team Providers Care Bumper Machine Operator Name Role Phone Miriam Glass MD Primary Care Provider [phone] Allergies Active Allergy Reactions Criticality Noted Date Comments Chromium 12/07/2010 spasms spasms Ciprofloxacin Other (see comments) 09/30/2013 swelling Other reaction(s): Other (See Comments) swelling Other reaction(s): Other (See Comments) swelling Beatty-Containing Products 12/07/2010 swelling Levofloxacin Other (see comments) [...] patient's age to complete this topic [place] [address] [place] [address] Care Teams Bumper Machine Operator Relationship Specialty Start Date End Date Miriam Glass MD [address] [place] [address] PCP - General Internal Medicine 02/17/22
--- OUTSIDE RECORDS SUMMARY | 2025-01-22 10:28 | XMS_ITS | Encounter Summary ---
Author Organization [facility] Address [address], [place] [address] Phone Care Team Providers Care Narcotics Agent Name Role Phone Unavailable Primary Care Provider Unavailabl e Encounter Details Date Type Department Care Team (Late st Contact Info) Description 12/21/2006 Legacy Encounter - Labs [place] [address] Provider, MD Ricky [address] [place], [place] [phone] Social History Tobacco Use Types Packs/Day Years [...]
--- OUTSIDE RECORDS SUMMARY | 2025-01-22 10:28 | XMS_ITS | Encounter Summary ---
Author Organization [facility] Address [address] [address] Phone Care Team Providers Care General Counselor Name Role Phone Unavailable Primary Care Provider Unavailabl e Encounter Details Date Type Department Care Team (Late st Contact Info) Description 08/19/2006 Legacy Encounter - Labs HISTORICAL CONVERSION EASTERN [address] [place] [address] Provider, MD Ricky [address] [place], [place] [phone] Social History Tobacco Use Types Packs/Day Years [...]
--- OUTSIDE RECORDS SUMMARY | 2025-01-22 10:28 | XMS_ITS | Encounter Summary ---
Author Organization [facility] Address [address] [address] Phone Care Team Providers Care Line Assembler Aircraft Name Role Phone Unavailable Primary Care Provider Unavailabl e Encounter Details Date Type Department Care Team (Late st Contact Info) Description 03/06/2007 Legacy Encounter - [place] [address] Provider, MD Ricky [address] [place], [place] [phone] Social History Tobacco Use Types Packs/Day Years [...]
--- OUTSIDE RECORDS SUMMARY | 2025-01-22 10:29 | XMS_ITS | Encounter Summary ---
Author Organization [facility] Address [address] [address] Phone Care Team Providers Care Rejector Name Role Phone Unavailable Primary Care Provider Unavailabl e Encounter Details Date Type Department Care Team (Late st Contact Info) Description 01/16/2009 Legacy Encounter - [place] [address] Provider, MD Ricky [address] [place], [place] [phone] Social History Tobacco Use Types Packs/Day Years [...]
--- OUTSIDE RECORDS SUMMARY | 2025-01-22 10:29 | XMS_ITS | Encounter Summary ---
Author Organization [facility] Address [address], [place] [address] Phone Care Team Providers Care Money Manager Name Role Phone Unavailable Primary Care Provider Unavailabl e Encounter Details Date Type Department Care Team (Late st Contact Info) Description 01/22/2009 Clinical Support [place] [address] ProviderRicky MD [address] [place] [address] Social History Tobacco Use Types Packs/Day Years [...]
== END 2025-01-22 10:54 | disposition home or self-care (01) ==
LOC: HO.HGI 09:46
PROVIDERS: PCP Internal Medicine; Visit Provider Nurse Practitioner Family
DX: K31.84 Gastroparesis (principal); R68.81 Early satiety; K59.01 Slow transit constipation; K21.9 Gastro-esophageal reflux disease without esophagitis; R10.13 Epigastric pain; R11.0 Nausea; K59.04 Chronic idiopathic constipation
CPT/HCPCS: 99214

== ENCOUNTER → 2025-01-22 09:45 | Outpatient (BNVA) | payer OTHER, SELFPAY | PROVIDERS: PCP Internal Medicine; Visit Provider Nurse Practitioner Family | DX: K31.84 Gastroparesis (principal); R68.81 Early satiety; K59.01 Slow transit constipation; K21.9 Gastro-esophageal reflux disease without esophagitis; R10.13 Epigastric pain; R11.0 Nausea; K59.04 Chronic idiopathic constipation | CPT/HCPCS: 99212 ==

== ENCOUNTER 2025-01-23 11:04 | Outpatient (REF) | payer OTHER, SELFPAY ==
--- OUTSIDE RECORDS SUMMARY | 2025-01-23 12:00 | XMS_ITS | Encounter Summary ---
Author Organization [facility] Address [address] [address] Phone Care Team Providers Care Upper Lining Cementer Name Role Phone Unavailable Primary Care Provider Unavailabl e Encounter Details Date Type Department Care Team (Late st Contact Info) Description 03/06/2007 Legacy Encounter - [place] [address] Provider, MD Ricky [address] [place], [place] [phone] Social History Tobacco Use Types Packs/Day Years [...]
--- OUTSIDE RECORDS SUMMARY | 2025-01-23 12:00 | XMS_ITS | Encounter Summary ---
Author Organization [facility] Address [address] [address] Phone Care Team Providers Care Hydroelectric Plant Electrical Engineer Name Role Phone Unavailable Primary Care Provider Unavailabl e Encounter Details Date Type Department Care Team (Late st Contact Info) Description 12/21/2006 Legacy Encounter - Labs [place] [address] Provider, MD Ricky [address] [place], [place] [phone] Social History Tobacco Use Types Packs/Day Years [...]
--- OUTSIDE RECORDS SUMMARY | 2025-01-23 12:00 | XMS_ITS | Encounter Summary ---
Author Organization [facility] Address [address] [facility] [address] [place] [address] Phone Care Team Providers Care Yardage Estimator Name Role Phone Jayce Krishnan MD Primary Care Provider + Encounter Details Date Type Department Care Team (Late st Contact Info) Description 11/03/2019 Ophth Exam [facility] Emergency [facility] [address] [place] [address] Cecelia Franco MD [address] [place] [address] [email or web address] Social History Tobacco Use Types Packs/Day Years [...] on filedocumented in this encounter Care Teams Yardage Estimator Relationship Specialty Start Date End Date Jayce Krishnan MD [address] [place] [address] PCP - General 07/30/15 documented as of this encounter Additional Source Comments The information contained in this document represents components of the legal health record. It is not the complete legal health record.[facility]
--- OUTSIDE RECORDS SUMMARY | 2025-01-23 12:00 | XMS_ITS | Clinical Summary ---
Author Organization [facility] Address [address] [address] Phone Care Team Providers Care Sales Teacher Name Role Phone Unavailable Primary Care Provider Unavailabl e Medications ergocalciferol (Drisdol) 1.25 MG (40535 UT) capsule Drisdol( [id number] Oral once a week ) Active -Hx [...]
--- OUTSIDE RECORDS SUMMARY | 2025-01-23 12:00 | XMS_ITS | Encounter Summary ---
Author Organization [facility] Address [address] [address] Phone Care Team Providers Care Water Pump Assembler Name Role Phone Unavailable Primary Care Provider Unavailabl e Encounter Details Date Type Department Care Team (Late st Contact Info) Description 11/28/2006 Legacy Encounter - Labs [place] [address] Provider, MD Ricky [address] [place], [place] [phone] Social History Tobacco Use Types Packs/Day Years [...]
--- OUTSIDE RECORDS SUMMARY | 2025-01-23 12:00 | XMS_ITS | Encounter Summary ---
Author Organization [facility] Address [address] [address] Phone Care Team Providers Care Senior Game Advisor Name Role Phone Unavailable Primary Care Provider Unavailabl e Encounter Details Date Type Department Care Team (Late st Contact Info) Description 02/20/2007 Legacy Encounter - [place] [address] Provider, MD Ricky [address] [place], [place] [phone] Social History Tobacco Use Types Packs/Day Years [...]
--- OUTSIDE RECORDS SUMMARY | 2025-01-23 12:00 | XMS_ITS | Encounter Summary ---
Author Organization [facility] Address [address] [address] Phone Care Team Providers Care Cpr Ambulance Driver Name Role Phone Unavailable Primary Care Provider Unavailabl e Encounter Details Date Type Department Care Team (Late st Contact Info) Description 08/05/2007 Abstract [place] [address] ProviderRicky MD [address] [place] [address] Social History Tobacco Use Types Packs/Day Years [...]
--- OUTSIDE RECORDS SUMMARY | 2025-01-23 12:00 | XMS_ITS | Encounter Summary ---
Author Organization [facility] Address [address] [address] Phone Care Team Providers Care Food Service Counter Clerk Name Role Phone Unavailable Primary Care Provider Unavailabl e Encounter Details Date Type Department Care Team (Late st Contact Info) Description 09/26/2006 Legacy Encounter - [place] [address] Provider, MD Ricky [address] [place], [place] [phone] Social History Tobacco Use Types Packs/Day Years [...]
--- OUTSIDE RECORDS SUMMARY | 2025-01-23 12:00 | XMS_ITS | Encounter Summary ---
Author Organization [facility] Address [address] [address] Phone Care Team Providers Care Game Protector Name Role Phone Unavailable Primary Care Provider Unavailabl e Encounter Details Date Type Department Care Team (Late st Contact Info) Description 07/26/2007 Legacy Encounter - [place] [address] Provider, MD Ricky [address] [place], [place] [phone] Social History Tobacco Use Types Packs/Day Years [...]
--- OUTSIDE RECORDS SUMMARY | 2025-01-23 12:00 | XMS_ITS | Encounter Summary ---
Author Organization [facility] Address [address] [address] Phone Care Team Providers Care Operational Communication Chief Name Role Phone Unavailable Primary Care Provider Unavailabl e Encounter Details Date Type Department Care Team (Late st Contact Info) Description 01/26/2008 Legacy Encounter - Labs [place] [address] Provider, MD Ricky [address] [place], [place] [phone] Social History Tobacco Use Types Packs/Day Years [...]
--- OUTSIDE RECORDS SUMMARY | 2025-01-23 12:00 | XMS_ITS | Clinical Summary ---
Author Organization [facility] Address [address] [place] [address] Care Team Providers Care Mixologist Name Role Phone Miriam Glass MD Primary Care Provider [phone] Allergies Active Allergy Reactions Criticality Noted Date Comments Chromium 12/07/2010 spasms spasms Ciprofloxacin Other (see comments) 09/30/2013 swelling Other reaction(s): Other (See Comments) swelling Other reaction(s): Other (See Comments) swelling [place]-Containing Products 12/07/2010 swelling Levofloxacin Other (see comments) [...] patient's age to complete this topic [place] [place] [address] Care Teams Mixologist Relationship Specialty Start Date End Date Miriam Glass MD [address] [place] [address] PCP - General Internal Medicine 02/17/22
--- OUTSIDE RECORDS SUMMARY | 2025-01-23 12:00 | XMS_ITS | Encounter Summary ---
Author Organization [facility] Address [address], [place] [address] Phone Care Team Providers Care Web Pressman Name Role Phone Unavailable Primary Care Provider Unavailabl e Encounter Details Date Type Department Care Team (Late st Contact Info) Description 02/17/2007 Legacy Encounter - [place] [address] Provider, MD Ricky [address] [place], [place] [phone] Social History Tobacco Use Types Packs/Day Years [...]
--- OUTSIDE RECORDS SUMMARY | 2025-01-23 12:00 | XMS_ITS | Encounter Summary ---
Author Organization [facility] Address [address] [address] Phone Care Team Providers Care Caramel Maker Name Role Phone Unavailable Primary Care Provider Unavailabl e Encounter Details Date Type Department Care Team (Late st Contact Info) Description 01/22/2009 Clinical Support [place] [address] ProviderRicky MD [address] [place] [address] Social History Tobacco Use Types Packs/Day Years [...]
--- OUTSIDE RECORDS SUMMARY | 2025-01-23 12:00 | XMS_ITS | Encounter Summary ---
Author Organization [facility] Address [address], [place] [address] Phone Care Team Providers Care Librarian Specialist Name Role Phone Unavailable Primary Care Provider Unavailabl e Encounter Details Date Type Department Care Team (Late st Contact Info) Description 04/13/2009 Legacy Encounter - Labs [place] [address] Provider, MD Ricky [address] [place], [place] [phone] Social History Tobacco Use Types Packs/Day Years [...]
--- OUTSIDE RECORDS SUMMARY | 2025-01-23 12:00 | XMS_ITS | Encounter Summary ---
Author Organization [facility] Address [address], [place] [address] Phone Care Team Providers Care Counselor Marriage And Family Name Role Phone Unavailable Primary Care Provider Unavailabl e Encounter Details Date Type Department Care Team (Late st Contact Info) Description 09/04/2007 Legacy Encounter - [place] [address] Provider, MD Ricky [address] [place], [place] [phone] Social History Tobacco Use Types Packs/Day Years [...]
--- OUTSIDE RECORDS SUMMARY | 2025-01-23 12:00 | XMS_ITS | Patient Health Record ---
Author Organization [facility] Address [address] [facility] [place] [address] Care Team Providers Care Insolvency Consultant Name Role Phone Miriam Glass MD Primary Care Provider Unavaila ble Black, Rosalba Unavailable [phone] Allergies Allergen (clinical drug ingredient) Drug/Non Drug [...] MG 1 tablet Oral ly Once a day; Duration: 30 day(s) Active Metoprolol Succinate ER 25 MG 1 tablet Orally Once a day; Duration: 30 day(s) Active Social History Tobacco Use: [...] Problem Status W/U Status Risk Notes Problem Non-pressure chronic ulcer of other part of left foot limited to breakdown of skin (L97.521) Active confirmed Problem Polyneuropathy due to diabetes mellitus type I (782108001) Type 1 diabetes mellitus with diabetic polyneuropathy (E10.42) Active confirmed Problem Acquired hammer toe of right foot (9422385778000976 ) Hammer toe of right foot (M20.41) Active confirmed Problem Acquired hammer toe of left foot (2072367436475028 ) Hammer toe of left foot (M20.42) Active confirmed Problem Charcot's joint of foot in type 1 diabetes mellitus (E10.610) Active confirmed Problem Charcot's arthropathy (519073832) Charcot's arthropathy (M14.60) Active confirmed Plan Of Treatment Pending Test Test Name Order Date X ray : Foot, right 3V 02/08/2022 [id number] SKIN LESIONS, 2 TO 4 07/22/19 [id number] SKIN LESIONS, 2 TO 4 12/15/19 [id number] SKIN LESIONS, 2 TO 4 02/09/20 [id number] NAIL(S) 02/08/2022 [id number] NAIL(S) 12/14/2021 [id number] NAIL(S) 07/22/2022 Insurance Providers Payer Name Payer Address Payer Phone Subscriber Number Group Number Insured Name Patient Relationship to Insured Coverage Start Date Coverage End Date [facility] [address] [place] [address] [phone] [id number] Miguelina Arrieta Self - patient is the insured Medical (General) History Medical History History ICD Code Charcot Chronic Kidney Disease Retinopathy Osteoporosis Anemia Arthritis Back,Hip,and Knee pain Broken bones Cataracts type I diabetes Gall bladder problems Heart disease High blood pressure Kidney disease Neuropathy Poor circulation raynauds disease chronic sinusitis Mumps Chicken pox Bone implants/screws Transfusions Surgical History Surgery Date(Month/Year) gall bladder 1997 heel reconstruction 2004 cataract removal surgery 1996 hip surgery 2019
--- OUTSIDE RECORDS SUMMARY | 2025-01-23 12:00 | XMS_ITS | Encounter Summary ---
Author Organization [facility] Address [address], [place] [address] Phone Care Team Providers Care Dairy Helper Name Role Phone Unavailable Primary Care Provider Unavailabl e Encounter Details Date Type Department Care Team (Late st Contact Info) Description 11/16/2006 Legacy Encounter - Labs [place] [address] Provider, MD Ricky [address] [place], [place] [phone] Social History Tobacco Use Types Packs/Day Years [...]
--- OUTSIDE RECORDS SUMMARY | 2025-01-23 12:00 | XMS_ITS | Encounter Summary ---
Author Organization [facility] Address [address] [address] Phone Care Team Providers Care Concrete Engineering Technician Name Role Phone Unavailable Primary Care Provider Unavailabl e Encounter Details Date Type Department Care Team (Late st Contact Info) Description 04/30/2009 Legacy Encounter - Labs [place] [address] Provider, MD Ricky [address] [place], [place] [phone] Social History Tobacco Use Types Packs/Day Years [...]
--- OUTSIDE RECORDS SUMMARY | 2025-01-23 12:00 | XMS_ITS | Encounter Summary ---
Author Organization [facility] Address [address] [address] Phone Care Team Providers Care Manager Social Responsibility Name Role Phone Unavailable Primary Care Provider Unavailabl e Encounter Details Date Type Department Care Team (Late st Contact Info) Description 11/04/2006 Legacy Encounter - Labs [place] [address] Provider, MD Ricky [address] [place], [place] [phone] Social History Tobacco Use Types Packs/Day Years [...]
--- OUTSIDE RECORDS SUMMARY | 2025-01-23 12:00 | XMS_ITS | Encounter Summary ---
Author Organization [facility] Address [address] [address] Phone Care Team Providers Care Applied Psychology Chair Name Role Phone Unavailable Primary Care Provider Unavailabl e Encounter Details Date Type Department Care Team (Late st Contact Info) Description 08/15/2006 Legacy Encounter - Labs [place] [address] Provider, MD Ricky [address] [place], [place] [phone] Social History Tobacco Use Types Packs/Day Years [...] unspecified provider. Historical Provider LAB BLOOD ORDERABLES Kyalee l Result documented in this encounter Visit Diagnoses Not on filedocumented in this encounter
--- OUTSIDE RECORDS SUMMARY | 2025-01-23 12:00 | XMS_ITS | Encounter Summary ---
Author Organization [facility] Address [address] [address] Phone Care Team Providers Care It Sales Executive Name Role Phone Unavailable Primary Care Provider Unavailabl e Encounter Details Date Type Department Care Team (Late st Contact Info) Description 01/16/2009 Legacy Encounter - [place] [address] Provider, MD Ricky [address] [place], [place] [phone] Social History Tobacco Use Types Packs/Day Years [...]
--- OUTSIDE RECORDS SUMMARY | 2025-01-23 12:00 | XMS_ITS | Clinical Summary ---
Author Organization [facility] Address [address] [facility] [address] [place] [address] Phone Care Team Providers Care Rod Cup Filler Name Role Phone Jayce rKishnan MD Primary Care Provider + Allergies Active [...] Active ferrous sulfate 325 mg (65 mg [place] iron) tablet Take 65 mg by mouth. [...] file Medical Devices Not on file Insurance [facility] Care Teams Rod Cup Filler Relationship Specialty Start Date End Date Jayce Krishnan MD [address] [place] [address] PCP - General 07/30/15 Additional Source Comments The information contained in this document represents components of the legal health record. It is not the complete legal health record.[facility]
--- OUTSIDE RECORDS SUMMARY | 2025-01-23 12:00 | XMS_ITS | Encounter Summary ---
Author Organization [facility] Address [address] [address] Phone Care Team Providers Care Concrete Pavement Installer Name Role Phone Unavailable Primary Care Provider Unavailabl e Encounter Details Date Type Department Care Team (Late st Contact Info) Description 08/19/2006 Legacy Encounter - Labs HISTORICAL CONVERSION EASTERN [address] [place] [address] Provider, MD Ricky [address] [place], [place] [phone] Social History Tobacco Use Types Packs/Day Years [...]
--- OUTSIDE RECORDS SUMMARY | 2025-01-23 12:00 | XMS_ITS | Encounter Summary ---
Author Organization [facility] Address [address] [address] Phone Care Team Providers Care Hat And Cap Sewer Name Role Phone Unavailable Primary Care Provider Unavailabl e Encounter Details Date Type Department Care Team (Late st Contact Info) Description 09/10/2006 Legacy Encounter - Labs [place] [address] Provider, MD Ricky [address] [place], [place] [phone] Social History Tobacco Use Types Packs/Day Years [...]
--- OUTSIDE RECORDS SUMMARY | 2025-01-23 12:00 | XMS_ITS | Encounter Summary ---
Author Organization [facility] Address [address] [address] Phone Care Team Providers Care Newspaper Publisher Name Role Phone Unavailable Primary Care Provider Unavailabl e Encounter Details Date Type Department Care Team (Late st Contact Info) Description 11/19/2008 Legacy Encounter - Labs HISTORICAL CONVERSION EASTERN [address] [place] [address] Provider, MD Ricky [address] [place], [place] [phone] Social History Tobacco Use Types Packs/Day Years [...]
[2025-01-23 13:20] LABS: MANUAL DIFF FLAG NO
[2025-01-23 14:02] LABS: Hematocrit 35.7 % (37.0-47.0); Hemoglobin 11.5 g/dl (12.0-16.0); Imm Gran Abs Auto 0.00 X10*3/uL (0.00-0.03); Imm Gran Pct Auto 0.0 % (0.0-0.4); Lymphocytes Absolute Auto 2.5 X10*3/uL (1.2-4.9); Mean Corpuscular HGB Conc 32.2 g/dl (31.0-35.0); Mean Corpuscular Hemoglobin 30.0 pg (27.0-33.0); Mean Corpuscular Volume 93.2 fL (80.0-98.0); NRBC Abs Auto 0.020 X10*3/uL (0.0-0.012); NRBC Pct Auto 0.3 /100WBC (0.0-0.2); Platelet Count 216 X10*3/uL (160-400); Red Blood Count 3.83 X10*6/uL (4.20-5.50); White Blood Count 6.1 X10*3/uL (4.8-10.8)
[2025-01-23 14:19] LABS: Alanine Aminotransferase 24 U/L (0-31); Albumin Level 4.2 g/dL (3.5-5.0); Alkaline Phosphatase 62 U/L (39-117); Anion Gap 10 (12-20); Aspartate Amino Transferase 30 U/L (5-31); Blood Urea Nitrogen 27 mg/dL (9-16); Calcium 9.7 mg/dL (8.4-10.2); Carbon Dioxide 31 mmol/L (22-29); Chloride 99 mmol/L (96-108); Cholesterol 115 mg/dL (<200); Estimated Glomerular Filt Rate 36; HDL Cholesterol 56 mg/dL (>40); Iron 84 mcg/dL (30-160); Percent Iron Saturation 45 % (15-50); Potassium 4.9 mmol/L (3.3-5.1); Sodium 135 mmol/L (135-145); Total Iron Binding Capacity 188 mcg/dL (228-428); Total Protein 7.1 g/dL (6.5-8.0); Triglycerides 50 mg/dL (<150); Unsaturated Iron Binding 104 ug/dL
[2025-01-23 15:10] LABS: Folate 8.1 ng/mL (> or = 4.0); Vitamin B12 658 pg/mL (200-900)
== END 2025-01-23 11:05 | disposition home or self-care (01) ==
LOC: HO.HMGCLDS 11:04
PROVIDERS: PCP Internal Medicine; Visit Provider Internal Medicine
DX: Z00.00 Encounter for general adult medical examination without abnormal findings (principal); E10.319 Type 1 diabetes mellitus with unspecified diabetic retinopathy without macular edema; E10.22 Type 1 diabetes mellitus with diabetic chronic kidney disease; N18.9 Chronic kidney disease, unspecified; E55.9 Vitamin D deficiency, unspecified; D64.9 Anemia, unspecified
CPT/HCPCS: 36415; 80053; 80061; 82043; 82306; 82570; 82607; 82746; 83540; 84443; 85025

== ENCOUNTER 2025-02-08 08:15 | Outpatient (REF) | payer SELFPAY ==
--- OUTSIDE RECORDS SUMMARY | 2025-02-08 16:24 | XMS_ITS | Clinical Summary ---
Author Organization [facility] Address [address] [facility] [address] [place] [address] Phone Care Team Providers Care Coding Team Lead Name Role Phone Jayce Krishnan MD Primary [...] Active ferrous sulfate 325 mg (65 mg [place] iron) tablet Take 65 mg by mouth. [...] file Medical Devices Not on file Insurance [employer] Care Teams Coding Team Lead Relationship Specialty Start Date End Date Jayce Krishnan MD [address] [place] [address] PCP - General 07/30/15 Additional Source Comments The information contained in this document represents components of the legal health record. It is not the complete legal health record.[facility]
--- OUTSIDE RECORDS SUMMARY | 2025-02-08 16:24 | XMS_ITS | Patient Health Record ---
Author Organization [facility] Address [address] [facility] [place] [address] Care Team Providers Care Detail Drafter Name Role Phone Miriam Glass MD Primary Care Provider Unavaila ble Black, Rosalba Unavailable [phone] Allergies Allergen (clinical drug ingredient) Drug/Non Drug [...] Polyneuropathy due to diabetes mellitus type I (304954514) Type 1 diabetes mellitus with diabetic polyneuropathy (E10.42) Active confirmed Problem Acquired hammer toe of right foot (5180631211354875 ) Hammer toe of right foot (M20.41) Active confirmed Problem Acquired hammer toe of left foot (1649331217037935 ) Hammer toe of left foot (M20.42) Active confirmed Problem Charcot's joint of foot in type 1 diabetes mellitus (E10.610) Active confirmed Problem Charcot's arthropathy (378966860) Charcot's arthropathy (M14.60) Active confirmed Plan Of Treatment Pending Test Test Name Order Date X ray : Foot, right 3V 02/08/2022 [id number] SKIN LESIONS, 2 TO 4 07/22/19 [id number] SKIN LESIONS, 2 TO 4 12/15/19 [id number] SKIN LESIONS, 2 TO 4 02/09/20 [id number] NAIL(S) 02/08/2022 [id number] NAIL(S) 12/14/2021 [id number] NAIL(S) 07/22/2022 Insurance Providers Payer Name Payer Address Payer Phone Subscriber Number Group Number Insured Name Patient Relationship to Insured Coverage Start Date Coverage End Date [facility] [address] [place] [address] [phone] [id number] Miguelina Arrieta Self - patient is [...]
--- OUTSIDE RECORDS SUMMARY | 2025-02-08 16:24 | XMS_ITS | Encounter Summary ---
Author Organization [facility] Address [address] [address] Phone Care Team Providers Care Blast Hole Driller Name Role Phone Unavailable Primary Care Provider Unavailabl e Encounter Details Date Type Department Care Team (Late st Contact Info) Description 09/26/2006 Legacy Encounter - Labs [place] [address] Provider, MD Ricky [address] [place], [place] [phone] Social History Tobacco Use Types Packs/Day Years [...]
--- OUTSIDE RECORDS SUMMARY | 2025-02-08 16:24 | XMS_ITS | Encounter Summary ---
Author Organization [facility] Address [address] [address] Phone Care Team Providers Care Negative Developer Name Role Phone Unavailable Primary Care Provider Unavailabl e Encounter Details Date Type Department Care Team (Late st Contact Info) Description 09/10/2006 Legacy Encounter - Labs [place] [address] Provider, MD Ricky [address] [place], [place] [phone] Social History Tobacco Use Types Packs/Day Years [...]
--- OUTSIDE RECORDS SUMMARY | 2025-02-08 16:24 | XMS_ITS | Encounter Summary ---
Author Organization [facility] Address [address] [address] Phone Care Team Providers Care Yacht Rigger Name Role Phone Unavailable Primary Care Provider Unavailabl e Encounter Details Date Type Department Care Team (Late st Contact Info) Description 08/15/2006 Legacy Encounter - Labs [place] [address] Provider, MD Ricky [address] [place], [place] [phone] Social History Tobacco Use Types Packs/Day Years [...]
--- OUTSIDE RECORDS SUMMARY | 2025-02-08 16:24 | XMS_ITS | Clinical Summary ---
Author Organization Formerly [facility] Address [address] [place] [address] Care Team Providers Care Tobacco Cloth Reclaimer Name Role Phone Miriam Glass MD Primary Care Provider [phone] Allergies Active Allergy Reactions Criticality Noted Date Comments Chromium 12/07/2010 spasms spasms Ciprofloxacin Other (see comments) 09/30/2013 swelling Other reaction(s): Other (See Comments) swelling Other reaction(s): Other (See Comments) swelling [place]-Containing Products 12/07/2010 swelling Levofloxacin Other (see comments) [...] patient's age to complete this topic [place] [address] [place] [address] Care Teams Tobacco Cloth Reclaimer Relationship Specialty Start Date End Date Miriam Glass MD [address] [place] [address] PCP - General Internal Medicine 02/17/22
--- OUTSIDE RECORDS SUMMARY | 2025-02-08 16:24 | XMS_ITS | Encounter Summary ---
Author Organization [facility] Address [address] [address] Phone Care Team Providers Care Manager Financial Systems Name Role Phone Unavailable Primary Care Provider Unavailabl e Encounter Details Date Type Department Care Team (Late st Contact Info) Description 11/04/2006 Legacy Encounter - [place] [address] Provider, MD Ricky [address] [place], [place] [phone] Social History Tobacco Use Types Packs/Day Years [...]
--- OUTSIDE RECORDS SUMMARY | 2025-02-08 16:24 | XMS_ITS | Encounter Summary ---
Author Organization [facility] Address [address] [address] Phone Care Team Providers Care Hot Box Spotter Name Role Phone Unavailable Primary Care Provider Unavailabl e Encounter Details Date Type Department Care Team (Late st Contact Info) Description 11/16/2006 Legacy Encounter - [place] [address] Provider, MD Ricky [address] [place], [place] [phone] Social History Tobacco Use Types Packs/Day Years [...]
--- OUTSIDE RECORDS SUMMARY | 2025-02-08 16:24 | XMS_ITS | Encounter Summary ---
Author Organization [facility] Address [address] [address] Phone Care Team Providers Care Drophammer Operator Name Role Phone Unavailable Primary Care Provider Unavailabl e Encounter Details Date Type Department Care Team (Late st Contact Info) Description 08/19/2006 Legacy Encounter - Labs HISTORICAL CONVERSION EASTERN [address] [place] [address] Provider, MD Ricky [address] [place], [place] [phone] Social History Tobacco Use Types Packs/Day Years [...]
--- OUTSIDE RECORDS SUMMARY | 2025-02-08 16:24 | XMS_ITS | Encounter Summary ---
Author Organization [facility] Address [address] [facility] [address] [place] [address] Phone Care Team Providers Care Prototype Machine Operator Name Role Phone Jayce Krishnan MD Primary Care Provider + Encounter Details Date Type Department Care Team (Late st Contact Info) Description 11/03/2019 Ophth Exam RICK Emergency Department [address] [place] [address] Cecelia Franco MD [address] [place] [address] [email or web address] Social History Tobacco Use Types Packs/Day [...] on filedocumented in this encounter Care Teams Prototype Machine Operator Relationship Specialty Start Date End Date Jayce Krishnan MD [address] [place] [address] PCP - General 07/30/15 documented as of this encounter Additional Source Comments The information contained in this document represents components of the legal health record. It is not the complete legal health record.[facility]
--- OUTSIDE RECORDS SUMMARY | 2025-02-08 16:25 | XMS_ITS | Encounter Summary ---
Author Organization [facility] Address [address] [address] Phone Care Team Providers Care Supervisor [place] Name Role Phone Unavailable Primary Care Provider Unavailabl e Encounter Details Date Type Department Care Team (Late st Contact Info) Description 01/22/2009 Clinical Support [place] [address] ProviderRicky MD [address] [place] [address] Social History Tobacco Use Types Packs/Day Years [...]
--- OUTSIDE RECORDS SUMMARY | 2025-02-08 16:25 | XMS_ITS | Encounter Summary ---
Author Organization [facility] Address [address] [address] Phone Care Team Providers Care Career Resource Specialist Name Role Phone Unavailable Primary Care Provider Unavailabl e Encounter Details Date Type Department Care Team (Late st Contact Info) Description 11/19/2008 Legacy Encounter - Labs HISTORICAL CONVERSION EASTERN [address] [place] [address] Provider, MD Ricky [address] [place], [place] [phone] Social History Tobacco Use Types Packs/Day Years [...]
--- OUTSIDE RECORDS SUMMARY | 2025-02-08 16:25 | XMS_ITS | Encounter Summary ---
Author Organization [facility] Address [address], [place] [address] Phone Care Team Providers Care Well Logging Captain Mud Analysis Name Role Phone Unavailable Primary Care Provider Unavailabl e Encounter Details Date Type Department Care Team (Late st Contact Info) Description 03/06/2007 Legacy Encounter - [place] [address] Provider, MD Ricky [address] [place], [place] [phone] Social History Tobacco Use Types Packs/Day Years [...]
--- OUTSIDE RECORDS SUMMARY | 2025-02-08 16:25 | XMS_ITS | Encounter Summary ---
Author Organization [facility] Address [address] [address] Phone Care Team Providers Care Operator And Truck Driver Name Role Phone Unavailable Primary Care Provider Unavailabl e Encounter Details Date Type Department Care Team (Late st Contact Info) Description 01/16/2009 Legacy Encounter - [place] [address] Provider, MD Ricky [address] [place], [place] [phone] Social History Tobacco Use Types Packs/Day Years [...]
--- OUTSIDE RECORDS SUMMARY | 2025-02-08 16:25 | XMS_ITS | Encounter Summary ---
Author Organization [facility] Address [address] [address] Phone Care Team Providers Care Health Care Administrator Name Role Phone Unavailable Primary Care Provider Unavailabl e Encounter Details Date Type Department Care Team (Late st Contact Info) Description 12/21/2006 Legacy Encounter - Labs [place] [address] Provider, MD Ricky [address] [place], [place] [phone] Social History Tobacco Use Types Packs/Day Years [...]
--- OUTSIDE RECORDS SUMMARY | 2025-02-08 16:25 | XMS_ITS | Encounter Summary ---
Author Organization [facility] Address [address], [place] [address] Phone Care Team Providers Care Doughnut Maker Name Role Phone Unavailable Primary Care Provider Unavailabl e Encounter Details Date Type Department Care Team (Late st Contact Info) Description 04/13/2009 Legacy Encounter - [place] [address] Provider, MD Ricky [address] [place], [place] [phone] Social History Tobacco Use Types Packs/Day Years [...]
--- OUTSIDE RECORDS SUMMARY | 2025-02-08 16:25 | XMS_ITS | Encounter Summary ---
Author Organization [facility] Address [address] [address] Phone Care Team Providers Care Boilermaker Ship Name Role Phone Unavailable Primary Care Provider Unavailabl e Encounter Details Date Type Department Care Team (Late st Contact Info) Description 02/17/2007 Legacy Encounter - [place] [address] Provider, MD Ricky [address] [place], [place] [phone] Social History Tobacco Use Types Packs/Day Years [...]
--- OUTSIDE RECORDS SUMMARY | 2025-02-08 16:25 | XMS_ITS | Encounter Summary ---
Author Organization [facility] Address [address] [address] Phone Care Team Providers Care System Specialist Name Role Phone Unavailable Primary Care Provider Unavailabl e Encounter Details Date Type Department Care Team (Late st Contact Info) Description 04/30/2009 Legacy Encounter - Labs [place] [address] Provider, MD Ricky [address] [place], [place] [phone] Social History Tobacco Use Types Packs/Day Years [...]
--- OUTSIDE RECORDS SUMMARY | 2025-02-08 16:25 | XMS_ITS | Encounter Summary ---
Author Organization [facility] Address [address] [address] Phone Care Team Providers Care Liquefaction Supervisor Name Role Phone Unavailable Primary Care Provider Unavailabl e Encounter Details Date Type Department Care Team (Late st Contact Info) Description 01/26/2008 Legacy Encounter - Labs [place] [address] Provider, MD Ricky [address] [place], [place] [phone] Social History Tobacco Use Types Packs/Day Years [...]
--- OUTSIDE RECORDS SUMMARY | 2025-02-08 16:25 | XMS_ITS | Encounter Summary ---
Author Organization [facility] Address [address] [address] Phone Care Team Providers Care Hospital Supervisor Name Role Phone Unavailable Primary Care Provider Unavailabl e Encounter Details Date Type Department Care Team (Late st Contact Info) Description 02/20/2007 Legacy Encounter - Labs [place] [address] Provider, MD Ricky [address] [place], [place] [phone] Social History Tobacco Use Types Packs/Day Years [...]
--- OUTSIDE RECORDS SUMMARY | 2025-02-08 16:25 | XMS_ITS | Encounter Summary ---
Author Organization [facility] Address [address] [address] Phone Care Team Providers Care Online Marketing Analyst Name Role Phone Unavailable Primary Care Provider Unavailabl e Encounter Details Date Type Department Care Team (Late st Contact Info) Description 11/28/2006 Legacy Encounter - Labs [place] [address] Provider, MD Ricky [address] [place], [place] [phone] Social History Tobacco Use Types Packs/Day Years [...]
--- OUTSIDE RECORDS SUMMARY | 2025-02-08 16:25 | XMS_ITS | Encounter Summary ---
Author Organization [facility] Address [address] [address] Phone Care Team Providers Care Registered Client Associate Name Role Phone Unavailable Primary Care Provider Unavailabl e Encounter Details Date Type Department Care Team (Late st Contact Info) Description 09/04/2007 Legacy Encounter - Labs [place] [address] Provider, MD Ricky [address] [place], [place] [phone] Social History Tobacco Use Types Packs/Day Years [...]
--- OUTSIDE RECORDS SUMMARY | 2025-02-08 16:25 | XMS_ITS | Encounter Summary ---
Author Organization [facility] Address [address], [place] [address] Phone Care Team Providers Care Distribution Operation Supervisor Name Role Phone Unavailable Primary Care Provider Unavailabl e Encounter Details Date Type Department Care Team (Late st Contact Info) Description 07/26/2007 Legacy Encounter - [place] [address] Provider, MD Ricky [address] [place], [place] [phone] Social History Tobacco Use Types Packs/Day Years [...]
--- OUTSIDE RECORDS SUMMARY | 2025-02-08 16:25 | XMS_ITS | Encounter Summary ---
Author Organization [facility] Address [address], [place] [address] Phone Care Team Providers Care Cuffer Name Role Phone Unavailable Primary Care Provider Unavailabl e Encounter Details Date Type Department Care Team (Late st Contact Info) Description 08/05/2007 Abstract [place] [address] ProviderRicky MD [address] [place] [address] Social History Tobacco Use Types Packs/Day Years [...]
--- OUTSIDE RECORDS SUMMARY | 2025-02-08 16:25 | XMS_ITS | Clinical Summary ---
Author Organization [facility] Address [address] [address] Phone Care Team Providers Care Welder/Fitter Name Role Phone Unavailable Primary Care Provider Unavailabl e Medications ergocalciferol (Drisdol) 1.25 MG (37734 UT) capsule Drisdol( [id number] Oral once a week ) Active -Hx [...]
[2025-02-08 17:25] LABS: Creatinine, mg/dL 23.72
[2025-02-08 19:04] LABS: Total Volume 24 Hour Urine 2725 mL
[2025-02-10 19:18] LABS: Calcium/Creatinine Ratio 107 mg/g creat (30-275); Creatinine 24Hr Urine 0.74 g/24 h (0.50-2.15)
== END 2025-02-08 08:16 | disposition home or self-care (01) ==
LOC: HO.HMGCLNP 08:15
PROVIDERS: PCP Internal Medicine; Visit Provider Internal Medicine Endocrinology, Diabetes & Metabolism
DX: M81.0 Age-related osteoporosis without current pathological fracture (principal)
CPT/HCPCS: 82340; 82570

== ENCOUNTER 2025-03-05 08:39 | Outpatient (REF) | payer MEDICARE, SELFPAY ==
--- OUTSIDE RECORDS SUMMARY | 2025-03-05 09:17 | XMS_ITS | Clinical Summary ---
Author Organization [facility] Address [address] [facility] [address] [place] [address] Phone Care Team Providers Care Solder Deposit Operator Name Role Phone Jayce Krishnan MD [...] Active ferrous sulfate 325 mg (65 mg pechanga iron) tablet Take 65 mg by mouth. [...] file Medical Devices Not on file Insurance [facility] Care Teams Solder Deposit Operator Relationship Specialty Start Date End Date Jayce Krishnan MD [address] [place] [address] PCP - General 07/30/15 Additional Source Comments The information contained in this document represents components of the legal health record. It is not the complete legal health record.[facility]
--- OUTSIDE RECORDS SUMMARY | 2025-03-05 09:17 | XMS_ITS | Clinical Summary ---
Author Organization [facility] Address [address] [place] [address] Care Team Providers Care Animal Nutrition Consultant Name Role Phone Miriam Glass MD Primary Care Provider [phone] Allergies Active Allergy Reactions Criticality Noted Date Comments Chromium 12/07/2010 spasms spasms Ciprofloxacin Other (see comments) 09/30/2013 swelling Other reaction(s): Other (See Comments) swelling Other reaction(s): Other (See Comments) swelling [place]-Containing Products 12/07/2010 swelling Levofloxacin Other (see comments) [...] patient's age to complete this topic [place] [address] [place] [address] Care Teams Animal Nutrition Consultant Relationship Specialty Start Date End Date Miriam Glass MD [address] [place] [address] PCP - General Internal Medicine 02/17/22
--- OUTSIDE RECORDS SUMMARY | 2025-03-05 09:17 | XMS_ITS | Encounter Summary ---
Author Organization [facility] Address [address] [address] Phone Care Team Providers Care Ice Plant Operator Name Role Phone Unavailable Primary Care Provider Unavailabl e Encounter Details Date Type Department Care Team (Late st Contact Info) Description 09/10/2006 Legacy Encounter - [place] [address] Provider, MD Ricky [address] [place], [place] [phone] Social History Tobacco Use Types Packs/Day Years [...]
--- OUTSIDE RECORDS SUMMARY | 2025-03-05 09:17 | XMS_ITS | Encounter Summary ---
Author Organization [facility] Address [address], [place] [address] Phone Care Team Providers Care Butcher Helper Name Role Phone Unavailable Primary Care Provider Unavailabl e Encounter Details Date Type Department Care Team (Late st Contact Info) Description 11/04/2006 Legacy Encounter - [place] [address] Provider, MD Ricky [address] [place], [place] [phone] Social History Tobacco Use Types Packs/Day Years [...]
--- OUTSIDE RECORDS SUMMARY | 2025-03-05 09:17 | XMS_ITS | Encounter Summary ---
Author Organization [facility] Address [address] [address] Phone Care Team Providers Care Guitar Maker Name Role Phone Unavailable Primary Care Provider Unavailabl e Encounter Details Date Type Department Care Team (Late st Contact Info) Description 08/19/2006 Legacy Encounter - Labs HISTORICAL CONVERSION EASTERN [address] [place] [address] Provider, MD Ricky [address] [place], [place] [phone] Social History Tobacco Use Types Packs/Day Years [...]
--- OUTSIDE RECORDS SUMMARY | 2025-03-05 09:17 | XMS_ITS | Patient Health Record ---
Author Organization [facility] Address [address] [facility] [place] [address] Care Team Providers Care Spool Winder Name Role Phone Miriam Glass MD Primary Care Provider Unavaila ble Black, Rosalba Unavailable [phone] Allergies Allergen (clinical drug ingredient) Drug/Non Drug [...] Polyneuropathy due to diabetes mellitus type I (497751259) Type 1 diabetes mellitus with diabetic polyneuropathy (E10.42) Active confirmed Problem Acquired hammer toe of right foot (8858553675126351 ) Hammer toe of right foot (M20.41) Active confirmed Problem Acquired hammer toe of left foot (5825226064085429 ) Hammer toe of left foot (M20.42) Active confirmed Problem Charcot's joint of foot in type 1 diabetes mellitus (E10.610) Active confirmed Problem Charcot's arthropathy (856323230) Charcot's arthropathy (M14.60) Active confirmed Plan Of Treatment Pending Test Test Name Order Date X ray : Foot, right 3V 02/08/2022 [id number] SKIN LESIONS, 2 TO 4 07/22/19 [id number] SKIN LESIONS, 2 TO 4 12/15/19 [id number] SKIN LESIONS, 2 TO 4 02/09/20 [id number] NAIL(S) 02/08/2022 [id number] NAIL(S) 12/14/2021 [id number] NAIL(S) 07/22/2022 Insurance Providers Payer Name Payer Address Payer Phone Subscriber Number Group Number Insured Name Patient Relationship to Insured Coverage Start Date Coverage End Date [facility] [address] [place] [address] [phone] [id number] Miguelina Arrieta Self - patient is [...]
--- OUTSIDE RECORDS SUMMARY | 2025-03-05 09:17 | XMS_ITS | Encounter Summary ---
Author Organization [facility] Address [address] [address] Phone Care Team Providers Care Carbon Furnace Operator Name Role Phone Unavailable Primary Care Provider Unavailabl e Encounter Details Date Type Department Care Team (Late st Contact Info) Description 09/26/2006 Legacy Encounter - [place] [address] Provider, MD Ricky [address] [place], [place] [phone] Social History Tobacco Use Types Packs/Day Years [...]
--- OUTSIDE RECORDS SUMMARY | 2025-03-05 09:18 | XMS_ITS | Encounter Summary ---
Author Organization [facility] Address [address] [address] Phone Care Team Providers Care Byproduct Engineer Name Role Phone Unavailable Primary Care Provider Unavailabl e Encounter Details Date Type Department Care Team (Late st Contact Info) Description 09/04/2007 Legacy Encounter - Labs [place] [address] Provider, MD Ricky [address] [place], [place] [phone] Social History Tobacco Use Types Packs/Day Years [...]
--- OUTSIDE RECORDS SUMMARY | 2025-03-05 09:18 | XMS_ITS | Encounter Summary ---
Author Organization [facility] Address [address], [place] [address] Phone Care Team Providers Care Event Planner Name Role Phone Unavailable Primary Care Provider Unavailabl e Encounter Details Date Type Department Care Team (Late st Contact Info) Description 03/06/2007 Legacy Encounter - Labs [place] [address] Provider, MD Ricky [address] [place], [place] [phone] Social History Tobacco Use Types Packs/Day Years [...]
--- OUTSIDE RECORDS SUMMARY | 2025-03-05 09:18 | XMS_ITS | Encounter Summary ---
Author Organization [facility] Address [address] [address] Phone Care Team Providers Care Surveyor Mine Name Role Phone Unavailable Primary Care Provider Unavailabl e Encounter Details Date Type Department Care Team (Late st Contact Info) Description 02/20/2007 Legacy Encounter - [place] [address] Provider, MD Ricky [address] [place], [place] [phone] Social History Tobacco Use Types Packs/Day Years [...]
--- OUTSIDE RECORDS SUMMARY | 2025-03-05 09:18 | XMS_ITS | Encounter Summary ---
Author Organization [facility] Address [address], [place] [address] Phone Care Team Providers Care Lead Coater Name Role Phone Unavailable Primary Care Provider Unavailabl e Encounter Details Date Type Department Care Team (Late st Contact Info) Description 11/28/2006 Legacy Encounter - Labs [place] [address] Provider, MD Ricky [address] [place], [place] [phone] Social History Tobacco Use Types Packs/Day Years [...]
--- OUTSIDE RECORDS SUMMARY | 2025-03-05 09:18 | XMS_ITS | Encounter Summary ---
Author Organization [facility] Address [address] [address] Phone Care Team Providers Care Roof Promenade Tile Setter Name Role Phone Unavailable Primary Care Provider Unavailabl e Encounter Details Date Type Department Care Team (Late st Contact Info) Description 07/26/2007 Legacy Encounter - [place] [address] Provider, MD Ricky [address] [place], [place] [phone] Social History Tobacco Use Types Packs/Day Years [...]
--- OUTSIDE RECORDS SUMMARY | 2025-03-05 09:18 | XMS_ITS | Encounter Summary ---
Author Organization [facility] Address [address], [place] [address] Phone Care Team Providers Care Outreach Counselor Name Role Phone Unavailable Primary Care Provider Unavailabl e Encounter Details Date Type Department Care Team (Late st Contact Info) Description 02/17/2007 Legacy Encounter - [place] [address] Provider, MD Ricky [address] [place], [place] [phone] Social History Tobacco Use Types Packs/Day Years [...]
--- OUTSIDE RECORDS SUMMARY | 2025-03-05 09:18 | XMS_ITS | Encounter Summary ---
Author Organization [facility] Address [address] [address] Phone Care Team Providers Care Lacing Operator Name Role Phone Unavailable Primary Care Provider Unavailabl e Encounter Details Date Type Department Care Team (Late st Contact Info) Description 08/05/2007 Abstract [place] [address] ProviderRicky MD [address] [place] [address] Social History Tobacco Use Types Packs/Day Years [...]
--- OUTSIDE RECORDS SUMMARY | 2025-03-05 09:18 | XMS_ITS | Encounter Summary ---
Author Organization [facility] Address [address] [address] Phone Care Team Providers Care Autos Disassembler Name Role Phone Unavailable Primary Care Provider Unavailabl e Encounter Details Date Type Department Care Team (Late st Contact Info) Description 11/16/2006 Legacy Encounter - [place] [address] Provider, MD Ricky [address] [place], [place] [phone] Social History Tobacco Use Types Packs/Day Years [...]
--- OUTSIDE RECORDS SUMMARY | 2025-03-05 09:18 | XMS_ITS | Encounter Summary ---
Author Organization [facility] Address [address] [address] Phone Care Team Providers Care Software Development Advisor Name Role Phone Unavailable Primary Care Provider Unavailabl e Encounter Details Date Type Department Care Team (Late st Contact Info) Description 01/26/2008 Legacy Encounter - Labs [place] [address] Provider, MD Ricky [address] [place], [place] [phone] Social History Tobacco Use Types Packs/Day Years [...]
--- OUTSIDE RECORDS SUMMARY | 2025-03-05 09:18 | XMS_ITS | Encounter Summary ---
Author Organization [facility] Address [address] [facility] [address] [place] [address] Phone Care Team Providers Care Cotton Picker Name Role Phone Jayce Krishnan MD Primary Care Provider + Encounter Details Date Type Department Care Team (Late st Contact Info) Description 11/03/2019 Ophth Exam RICK Emergency Department [address] [place] [address] Cecelia Franco MD [address] [place] [address] [email or web address] Social History Tobacco Use Types Packs/Day [...] on filedocumented in this encounter Care Teams Cotton Picker Relationship Specialty Start Date End Date Jayce Krishnan MD [address] [place] [address] PCP - General 07/30/15 documented as of this encounter Additional Source Comments The information contained in this document represents components of the legal health record. It is not the complete legal health record.[facility]
--- OUTSIDE RECORDS SUMMARY | 2025-03-05 09:18 | XMS_ITS | Encounter Summary ---
Author Organization [facility] Address [address], [place] [address] Phone Care Team Providers Care Dietary Supervisor Name Role Phone Unavailable Primary Care Provider Unavailabl e Encounter Details Date Type Department Care Team (Late st Contact Info) Description 12/21/2006 Legacy Encounter - Labs [place] [address] Provider, MD Ricky [address] [place], [place] [id number] Social History Tobacco Use Types Packs/Day Years [...]
--- OUTSIDE RECORDS SUMMARY | 2025-03-05 09:18 | XMS_ITS | Encounter Summary ---
Author Organization [facility] Address [address], [place] [address] Phone Care Team Providers Care Dispatcher Ship Pilot Name Role Phone Unavailable Primary Care Provider Unavailabl e Encounter Details Date Type Department Care Team (Late st Contact Info) Description 08/15/2006 Legacy Encounter - Labs [place] [address] Provider, MD Ricky [address] [place], [place] [phone] Social History Tobacco Use Types Packs/Day Years [...]
--- OUTSIDE RECORDS SUMMARY | 2025-03-05 09:19 | XMS_ITS | Encounter Summary ---
Author Organization [facility] Address [address] [address] Phone Care Team Providers Care Study Director Name Role Phone Unavailable Primary Care Provider Unavailabl e Encounter Details Date Type Department Care Team (Late st Contact Info) Description 11/19/2008 Legacy Encounter - Labs HISTORICAL CONVERSION [place] [address] [place] [address] Provider, MD Ricky [address] [place], [place] [phone] Social History Tobacco Use Types Packs/Day Years [...]
--- OUTSIDE RECORDS SUMMARY | 2025-03-05 09:19 | XMS_ITS | Encounter Summary ---
Author Organization [facility] Address [address], [place] [address] Phone Care Team Providers Care Railroad Car Painter Name Role Phone Unavailable Primary Care Provider Unavailabl e Encounter Details Date Type Department Care Team (Late st Contact Info) Description 04/13/2009 Legacy Encounter - [place] [address] Provider, MD Ricky [address] [place], [place] [phone] Social History Tobacco Use Types Packs/Day Years [...]
--- OUTSIDE RECORDS SUMMARY | 2025-03-05 09:19 | XMS_ITS | Encounter Summary ---
Author Organization [facility] Address [address], [place] [address] Phone Care Team Providers Care Wheat Inspector Name Role Phone Unavailable Primary Care Provider Unavailabl e Encounter Details Date Type Department Care Team (Late st Contact Info) Description 04/30/2009 Legacy Encounter - Labs [place] [address] Provider, MD Ricky [address] [place], [place] [phone] Social History Tobacco Use Types Packs/Day Years [...]
--- OUTSIDE RECORDS SUMMARY | 2025-03-05 09:19 | XMS_ITS | Encounter Summary ---
Author Organization [facility] Address [address] [address] Phone Care Team Providers Care Senior Staff Psychologist Name Role Phone Unavailable Primary Care Provider Unavailabl e Encounter Details Date Type Department Care Team (Late st Contact Info) Description 01/22/2009 Clinical Support [place] [address] ProviderRicky MD [address] [place] [address] Social History Tobacco Use Types Packs/Day Years [...]
--- OUTSIDE RECORDS SUMMARY | 2025-03-05 09:19 | XMS_ITS | Encounter Summary ---
Author Organization [facility] Address [address], [place] [address] Phone Care Team Providers Care Silver Service Waiter Name Role Phone Unavailable Primary Care Provider Unavailabl e Encounter Details Date Type Department Care Team (Late st Contact Info) Description 01/16/2009 Legacy Encounter - [place] [address] Provider, MD Ricky [address] [place], [place] [phone] Social History Tobacco Use Types Packs/Day Years [...]
--- OUTSIDE RECORDS SUMMARY | 2025-03-05 09:19 | XMS_ITS | Clinical Summary ---
Author Organization [facility] Address [address] [address] Phone Care Team Providers Care Preschool Teacher Name Role Phone Unavailable Primary Care Provider Unavailabl e Medications ergocalciferol (Drisdol) 1.25 MG (01000 UT) capsule Drisdol( [id number] Oral once a week ) Active -Hx [...]
[2025-03-05 10:31] LABS: Hematocrit 34.1 % (37.0-47.0); Hemoglobin 10.9 g/dl (12.0-16.0); Mean Corpuscular HGB Conc 32.0 g/dl (31.0-35.0); Mean Corpuscular Hemoglobin 29.8 pg (27.0-33.0); Mean Corpuscular Volume 93.2 fL (80.0-98.0); NRBC Abs Auto 0.000 X10*3/uL (0.0-0.012); NRBC Pct Auto 0.0 /100WBC (0.0-0.2); Platelet Count 256 X10*3/uL (160-400); Red Blood Count 3.66 X10*6/uL (4.20-5.50); White Blood Count 5.7 X10*3/uL (4.8-10.8)
[2025-03-05 10:40] LABS: Anion Gap 10 (12-20); Blood Urea Nitrogen 26 mg/dL (9-16); Calcium 9.0 mg/dL (8.4-10.2); Carbon Dioxide 28 mmol/L (22-29); Chloride 108 mmol/L (96-108); Estimated Glomerular Filt Rate 35; Potassium 4.3 mmol/L (3.3-5.1); Sodium 142 mmol/L (135-145)
[2025-03-05 11:22] LABS: Parathyroid Hormone Intact 102.4 pg/mL (8.7-77.1)
== END 2025-03-05 08:40 | disposition home or self-care (01) ==
LOC: HO.HMGCLDS 08:39
PROVIDERS: PCP Internal Medicine; Visit Provider Internal Medicine Hypertension Specialist
DX: N18.9 Chronic kidney disease, unspecified (principal)
CPT/HCPCS: 36415; 80048; 83970; 84100; 85027

== ENCOUNTER 2025-03-07 11:29 | Outpatient (AMB) | payer OTHER, SELFPAY ==
--- NOTE | 2025-03-07 11:32 | HO.NEPHOV_ITS ---
Vital Signs 03/07/25 11:33 03/07/25 11:45 03/07/25 11:45 Height 5 ft 4 in Weight 179 lb BMI 30.7 BP 154/90 H 134/74 110/68 Blood Pressure Location Lt brachial Lt brachial Lt brachial Position Sitting Sitting Standing Pulse 73 Pulse Source Pulse Oximeter Pulse Oximetry (%) 97 Oxygen Delivery Method Room Air Intake Visit Reasons: 4 month F/U confirmed Satin Finisher Required: No Accompanied by: Self / Same As Patient Allergies ciprofloxacin (From Cipro) Adverse Reaction (Verified 03/07/25 11:34) Swelling prochlorperazine (From Compazine) Adverse Reaction (Verified 03/07/25 11:34) Muscle Pain Medication List - Last Reconciled 03/07/25 by Dameon Duenas MD acetone (urine) test (Ketone Urine Test strips) As directed atorvastatin 80 mg PO DAILY bisacodyl (Dulcolax (bisacodyl)) 10 mg (2 x 5 mg) PO BEDTIME blood-glucose sensor (D[employer] G7 Sensor device) As directed every 10 days blood-glucose,general accounting clerk,cont (Dexcom G7 Natural Resource Economist) As directed cholecalciferol (vitamin D3) 100 mcg (2 x 50 mcg (2,000 unit)) PO DAILY infusion set for insulin pump As directed: Humalog insulin glargine (Lantus Solostar U-100 Insulin) 13 units (0.13 mL) subcut DAILY PRN 30 days insulin lispro 50 units (0.5 mL) subcut DAILY insulin pump cart,auto,BT,G6/7 (Omnipod 5 G6-G7 Pods (Gen 5) subcutaneous cartridge) Change every 72 hours lancets (FreeStyle Lancets) 4 times a day prn sensor failure or to confirm glucose dispense as 31 gauge if available lansoprazole 30 mg PO DAILY irsmmt-fylnlxpp-iflnies 12,000-38,000 -60,000 unit (Creon) 1 cap PO QID metoprolol succinate ER 25 mg PO DAILY Motegrity (prucalopride) 2 mg PO DAILY NS pen needle, diabetic (Comfort EZ Pen [place]) As directed teriparatide (Forteo) 20 mcg (0.08 mL) subcut DAILY HPI Comments Details: Miguelina is a pleasant 65-year-old woman with a history of type 1 diabetes mellitus for more than 30 years complicated by stage 3 chronic kidney disease. She had minimal proteinuria. Serum creatinine was around 1.1 mg/dL. She has ophthalmic issues and waiting for which he was surgery. She also has charcots joint. She is planning to go on disability She has had significant orthostatic hypotensive episodes at home and postprandial hypotension. She was given midodrine in the past and she did not tolerate this therefore she does not take midodrine anymore. She is on Benicar 2.5 mg and metoprolol 25 mg which she takes in the evening. 06/22/2024 From renal standpoint Pamela is doing well. Benicar 2.5 mg has been discontinued. She continues have postprandial hypotension. She takes metoprolol at night. She has no specific complaints today. 11/08/24 64-year-old female presenting with the need for ongoing management of diabetes and chronic kidney disease. Her kidney function remains stable, with recent tests showing a creatinine level of 1.19, consistent with baseline values. Additional tests confirmed normal calcium and albumin levels and an improved vitamin D status. She is currently being managed for osteoporosis, with adjustments made to her calcium supplementation by Dr. Franz due to low urinary excretion. Her A1c levels have risen from 6.4% to 7.1%, which may be influenced by unstable blood glucose levels linked to her gastroparesis. She self-monitors her blood sugars post-meals closely. She experiences chronic orthostatic symptoms and manages this with suggested lifestyle adaptations but reports no further medication changes. 03/07/25 The patient is a 64-year-old female presenting with the need for ongoing management of diabetes and chronic kidney disease. Her kidney function remains stable, with recent tests showing a creatinine level of 1.19, consistent with baseline values. Additional tests confirmed normal calcium and albumin levels and an improved vitamin D status. She is currently being managed for osteoporosis, with adjustments made to her calcium supplementation by Dr. Franz due to low urinary excretion. Her A1c levels have risen from 6.4% to 7.1%, which may be influenced by unstable blood glucose levels linked to her gastroparesis. She self-monitors her blood sugars post-meals closely. She experiences chronic orthostatic symptoms and manages this with suggested lifestyle adaptations but reports no further medication changes. 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 Lungs entry equal no rales. Heart S1-S2 heard no gallop or rub. Abdomen soft nontender. Neuro alert awake oriented. No asterixis. Extremities no edema. No orthostatic blood pressure changes Results Reviewed Nephrology Results: Hgb, (12.0-16.0) 10.9 g/dl L 03/05/25 WBC, (4.8-10.8) 5.7 X10*3/uL 03/05/25 Plt Count, (160-400) 256 X10*3/uL 03/05/25 Sodium, (135-145) 142 mmol/L 03/05/25 Potassium, (3.3-5.1) 4.3 mmol/L 03/05/25 Chloride, (96-108) 108 mmol/L 03/05/25 Carbon Dioxide, (22-29) 28 mmol/L 03/05/25 BUN, (9-16) 26 mg/dL H 03/05/25 Creatinine, (0.5-1.4) 1.51 mg/dL H 03/05/25 Calcium, (8.4-10.2) 9.0 mg/dL Δ 03/05/25 Phosphorus, (2.7-4.5) 3.7 mg/dL 03/05/25 PTH Intact, (8.7-77.1) 102.4 pg/mL H 03/05/25 Urine Creatinine 39.38 mg/dL 01/23/25 Renal US 11/05/22 Assessment & Plan Assessment & Plan (1) CKD (chronic kidney disease): Comment: Stage III, Diabetic nephropathy, follows up with health science instructor, Code(s): N18.9 - Chronic kidney disease, unspecified Category: Medical Plan 65-year-old woman with stage 3 chronic kidney disease in the setting of type 1 diabetes mellitus. Renal function has been reasonably stable for the last 1 year. Overall blood sugar seems well controlled with a hemoglobin A1c of 6.2%. She has a h/o orthostatic hypotension most likely due to autonomic neuropathy due to longstanding diabetes mellitus. We discussed all orthostatic precautions including had an elevation at 30 degrees and using tight stockings. She should also avoid consuming large large meal and rather try frequent small meals. If she has significant orthostatic blood pressure change I would reintroduce the midodrine. The recent serum creatinine was 1.19 and renal function is relatively stable with EGFR of about 45 mL/minute. Mild hypocalcemia most likely related to vitamin-D deficiency. She is on vitamin-D supplementation. We will check PTH prior to next visit 03/07/25 Recent bump in creatinine DDX includes hypoperfusion vs natrual progression Will r/o obstruction Ordered USG No change in meds Avoid hypotension Follow renal function Orders: Orders Basic Metabolic Panel 1 Month N18.9 - Chronic kidney disease, unspecified US renal BI Today N18.9 - Chronic kidney disease, unspecified Coding Level of Care Code Est Pt Level 4 (91120) Diagnoses CKD (chronic kidney disease) N18.9
[2025-03-07 11:33] VITALS: BP 154/90; PULSE 73; O2SAT 97; BMI 30.7
[2025-03-07 11:45] VITALS: BP 110/68; BP 134/74
== END 2025-03-07 11:49 | disposition home or self-care (01) ==
LOC: HO.HKA 11:30
PROVIDERS: PCP Internal Medicine; Visit Provider Internal Medicine Hypertension Specialist
DX: N18.9 Chronic kidney disease, unspecified (principal)
CPT/HCPCS: 99214

== ENCOUNTER → 2025-03-07 11:29 | Outpatient (BNVA) | payer MEDICARE, SELFPAY | PROVIDERS: PCP Internal Medicine; Visit Provider Internal Medicine Hypertension Specialist | DX: E10.22 Type 1 diabetes mellitus with diabetic chronic kidney disease (principal); N18.30 Chronic kidney disease, stage 3 unspecified; Z96.41 Presence of insulin pump (external) (internal); I95.9 Hypotension, unspecified; E10.8 Type 1 diabetes mellitus with unspecified complications | CPT/HCPCS: 99212 ==

== ENCOUNTER 2025-03-13 15:19 | Outpatient (REF) | payer MEDICARE, SELFPAY ==
--- NOTE | ~2025-03-13 | US_ITS ---
EXAMINATION: US RETROPERITONEAL LIMITED (RENAL ONLY) CLINICAL INFORMATION: Chronic kidney disease.. COMPARISON: 02/10/2023. TECHNIQUE: Real-time imaging of the kidneys. FINDINGS: RIGHT KIDNEY: 8.0 x 4.7 x 3.9 cm (SAG x AP x TRV). The kidney is normal in size, contour, and echogenicity. Renal cortical thickness is normal. No calculi or focal parenchymal lesions. No hydronephrosis. LEFT KIDNEY: 10.8 x 5.5 x 4.8 cm (SAG x AP x TRV). The kidney is normal in size, contour, and echogenicity. Renal cortical thickness is normal. No calculi or focal parenchymal lesions. No hydronephrosis. US/US renal BI IMPRESSION: Normal ultrasound of the kidneys. Electronically signed by: Deejay Miranda MD 03/13/2025 03:53 PM EDT
--- OUTSIDE RECORDS SUMMARY | 2025-03-13 18:54 | XMS_ITS | Patient Health Record ---
Author Organization [facility] Address [address] [facility] [place] [address] Care Team Providers Care Third Mate Name Role Phone Miriam Glass MD Primary Care Provider Unavaila ble Black, Rosalba Unavailable [phone] Allergies Allergen (clinical drug ingredient) Drug/Non Drug [...] Polyneuropathy due to diabetes mellitus type I (869934201) Type 1 diabetes mellitus with diabetic polyneuropathy (E10.42) Active confirmed Problem Acquired hammer toe of right foot (8937870426308267 ) Hammer toe of right foot (M20.41) Active confirmed Problem Acquired hammer toe of left foot (9899389245460230 ) Hammer toe of left foot (M20.42) Active confirmed Problem Charcot's joint of foot in type 1 diabetes mellitus (E10.610) Active confirmed Problem Charcot's arthropathy (621229685) Charcot's arthropathy (M14.60) Active confirmed Plan Of Treatment Pending Test Test Name Order Date X ray : Foot, right 3V 02/08/2022 [id number] SKIN LESIONS, 2 TO 4 07/22/19 [id number] SKIN LESIONS, 2 TO 4 12/15/19 [id number] SKIN LESIONS, 2 TO 4 02/09/20 [id number] NAIL(S) 02/08/2022 [id number] NAIL(S) 12/14/2021 [id number] NAIL(S) 07/22/2022 Insurance Providers Payer Name Payer Address Payer Phone Subscriber Number Group Number Insured Name Patient Relationship to Insured Coverage Start Date Coverage End Date [facility] [address] [place] [address] [phone] [id number] Miguelina Arrieta Self - patient is [...]
--- OUTSIDE RECORDS SUMMARY | 2025-03-13 18:54 | XMS_ITS | Clinical Summary ---
Author Organization [facility] Address [address] [facility] [address] [place] [address] Phone Care Team Providers Care Chief Engineer'S Helper Name Role Phone Jayce Krishnan MD Primary [...] Active ferrous sulfate 325 mg (65 mg [place] iron) tablet Take 65 mg by mouth. [...] file Medical Devices Not on file Insurance [employer] [facility] [employer] Care Teams Chief Engineer'S Helper Relationship Specialty Start Date End Date Jayce Krishnan MD [address] [place] [address] PCP - General 07/30/15 Additional Source Comments The information contained in this document represents components of the legal health record. It is not the complete legal health record.[facility]
--- OUTSIDE RECORDS SUMMARY | 2025-03-13 18:54 | XMS_ITS | Encounter Summary ---
Author Organization [facility] Address [address] [place] [address] Phone Care Team Providers Care Network Operations Specialist Name Role Phone Jayce Krishnan MD Primary Care Provider + Encounter Details Date Type Department Care Team (Late st Contact Info) Description 11/03/2019 Ophth Exam [facility] [address] [place] [address] Cecelia Franco MD [address] [place] [address] [email or web address] Social History Tobacco Use Types Packs/Day [...] on filedocumented in this encounter Care Teams Network Operations Specialist Relationship Specialty Start Date End Date Jayce Krishnan MD [address] [place] [address] PCP - General 07/30/15 documented as of this encounter Additional Source Comments The information contained in this document represents components of the legal health record. It is not the complete legal health record.[facility]
== END 2025-03-13 15:20 | disposition home or self-care (01) ==
LOC: HO.US 15:19
PROVIDERS: PCP Internal Medicine; Visit Provider Internal Medicine Hypertension Specialist
DX: N18.9 Chronic kidney disease, unspecified (principal)
CPT/HCPCS: 76775

== ENCOUNTER → 2025-03-13 15:20 | Outpatient (BNV) | payer MEDICARE, SELFPAY | PROVIDERS: PCP Internal Medicine; Visit Provider Radiology Diagnostic Radiology | DX: N18.30 Chronic kidney disease, stage 3 unspecified (principal) | CPT/HCPCS: 76775 ==

== ENCOUNTER 2025-04-17 10:35 | Outpatient (REF) | payer MEDICARE, SELFPAY ==
[2025-04-17 15:45] LABS: Anion Gap 14 (12-20); Blood Urea Nitrogen 27 mg/dL (9-16); Calcium 9.2 mg/dL (8.4-10.2); Carbon Dioxide 25 mmol/L (22-29); Chloride 102 mmol/L (96-108); Estimated Glomerular Filt Rate 34; Potassium 4.2 mmol/L (3.3-5.1); Sodium 137 mmol/L (135-145)
--- OUTSIDE RECORDS SUMMARY | 2025-04-17 20:42 | XMS_ITS | Patient Health Record ---
Author Organization [facility] Address [address] [place] [address] Care Team Providers Care Domestic Helper Name Role Phone Miriam Glass MD Primary Care Provider Unavaila ble Black, Rosalba Unavailable [phone] Allergies Allergen (clinical drug ingredient) Drug/Non Drug [...] Polyneuropathy due to diabetes mellitus type I (354929742) Type 1 diabetes mellitus with diabetic polyneuropathy (E10.42) Active confirmed Problem Acquired hammer toe of right foot (7639432829294678 ) Hammer toe of right foot (M20.41) Active confirmed Problem Acquired hammer toe of left foot (0479456171080953 ) Hammer toe of left foot (M20.42) Active confirmed Problem Charcot's joint of foot in type 1 diabetes mellitus (E10.610) Active confirmed Problem Charcot's arthropathy (886628885) Charcot's arthropathy (M14.60) Active confirmed Plan Of Treatment Pending Test Test Name Order Date X ray : Foot, right 3V 02/08/2022 [id number] SKIN LESIONS, 2 TO 4 07/22/19 [id number] SKIN LESIONS, 2 TO 4 12/15/19 [id number] SKIN LESIONS, 2 TO 4 02/09/20 [id number] NAIL(S) 02/08/2022 [id number] NAIL(S) 12/14/2021 [id number] NAIL(S) 07/22/2022 Insurance Providers Payer Name Payer Address Payer Phone Subscriber Number Group Number Insured Name Patient Relationship to Insured Coverage Start Date Coverage End Date [facility] [address] [place] [address] [phone] [id number] Miguelina Arrieta Self - patient is [...]
--- OUTSIDE RECORDS SUMMARY | 2025-04-17 20:43 | XMS_ITS | Encounter Summary ---
Author Organization [facility] Address [address], [place] [address] Phone Care Team Providers Care Shellfish Processing Laborer Name Role Phone Unavailable Primary Care Provider Unavailabl e Encounter Details Date Type Department Care Team (Late st Contact Info) Description 03/06/2007 Legacy Encounter - [place] [address] Provider, MD Ricky [address] [place], [place] [phone] Social History Tobacco Use Types Packs/Day Years [...]
--- OUTSIDE RECORDS SUMMARY | 2025-04-17 20:43 | XMS_ITS | Clinical Summary ---
Author Organization [facility] Address [address] [place] [address] Care Team Providers Care Fish Receiver Name Role Phone Miriam Glass MD Primary Care Provider Allergies Active Allergy Reactions Criticality Noted Date Comments Chromium 12/07/2010 spasms spasms Ciprofloxacin Other (see comments) 09/30/2013 swelling Other reaction(s): Other (See Comments) swelling Other reaction(s): Other (See Comments) swelling Normangee-Containing Products 12/07/2010 swelling Levofloxacin Other (see comments) [...] patient's age to complete this topic [place] [address] [place] [address] Care Teams Fish Receiver Relationship Specialty Start Date End Date Miriam Glass MD [address] [place] [address] PCP - General Internal Medicine 02/17/22
--- OUTSIDE RECORDS SUMMARY | 2025-04-17 20:43 | XMS_ITS | Clinical Summary ---
Author Organization [facility] Address [address] [place] [address] Phone Care Team Providers Care Digital Account Coordinator Name Role Phone Unavailable Primary Care Provider Unavailabl e Medications ergocalciferol (Drisdol) 1.25 MG (68033 UT) capsule Drisdol( 26444IILX Oral once a week ) Active -Hx [...]
--- OUTSIDE RECORDS SUMMARY | 2025-04-17 20:43 | XMS_ITS | Encounter Summary ---
Author Organization [facility] Address [address] [address] Phone Care Team Providers Care Home Hospice Aide Name Role Phone Unavailable Primary Care Provider Unavailabl e Encounter Details Date Type Department Care Team (Late st Contact Info) Description 11/28/2006 Legacy Encounter - [place] [address] Provider, MD Ricky [address] [place], [place] [phone] Social History Tobacco Use Types Packs/Day Years [...]
--- OUTSIDE RECORDS SUMMARY | 2025-04-17 20:43 | XMS_ITS | Encounter Summary ---
Author Organization [facility] Address [address] [address] Phone Care Team Providers Care Olive Grader Name Role Phone Unavailable Primary Care Provider Unavailabl e Encounter Details Date Type Department Care Team (Late st Contact Info) Description 01/26/2008 Legacy Encounter - [place] [address] Provider, MD Ricky [address] [place], [place] [phone] Social History Tobacco Use Types Packs/Day Years [...]
--- OUTSIDE RECORDS SUMMARY | 2025-04-17 20:43 | XMS_ITS | Clinical Summary ---
Author Organization [facility] Address [address] [facility] [address] [place] [address] Phone Care Team Providers Care Plastic Frame Inserter Name Role Phone Jayce Krishnan MD [...] Active ferrous sulfate 325 mg (65 mg [place] iron) tablet Take 65 mg by mouth. [...] on file Medical Devices Not on file Care Teams Plastic Frame Inserter Relationship Specialty Start Date End Date Jayce Krishnan MD [address] [place] [address] PCP - General 07/30/15 Additional Source Comments The information contained in this document represents components of the legal health record. It is not the complete legal health record.[facility]
--- OUTSIDE RECORDS SUMMARY | 2025-04-17 20:43 | XMS_ITS | Encounter Summary ---
Author Organization [facility] Address [address] [address] Phone Care Team Providers Care Dry Drug Worker Name Role Phone Unavailable Primary Care Provider Unavailabl e Encounter Details Date Type Department Care Team (Late st Contact Info) Description 11/16/2006 Legacy Encounter - Labs [place] [address] Provider, MD Ricky [address] [place], [place] [phone] Social History Tobacco Use Types Packs/Day Years [...]
--- OUTSIDE RECORDS SUMMARY | 2025-04-17 20:43 | XMS_ITS | Encounter Summary ---
[facility] Address [address] [address] Phone Care Team Providers Care Rn Clinical Name Role Phone Unavailable Primary Care Provider Unavailabl e Encounter Details Date Type Department Care Team (Late st Contact Info) Description 08/05/2007 Abstract [place] [address] ProviderRicky MD [address] [place] [address] Social History Tobacco Use Types Packs/Day [...]
--- OUTSIDE RECORDS SUMMARY | 2025-04-17 20:43 | XMS_ITS | Encounter Summary ---
Author Organization [facility] Address [address] [address] Phone Care Team Providers Care Promotions Executive Producer Name Role Phone Unavailable Primary Care Provider Unavailabl e Encounter Details Date Type Department Care Team (Late st Contact Info) Description 11/19/2008 Legacy Encounter - Labs HISTORICAL CONVERSION [place] [address] [place] [address] Provider, MD Ricky [address] [place], [place] [phone] Social History Tobacco Use Types Packs/Day Years [...]
--- OUTSIDE RECORDS SUMMARY | 2025-04-17 20:43 | XMS_ITS | Encounter Summary ---
Author Organization [facility] Address [address] [facility] [address] [place] [address] Phone Care Team Providers Care Hr Coordinator Name Role Phone Jayce Krishnan MD Primary Care Provider + Encounter Details Date Type Department Care Team (Late st Contact Info) Description 11/03/2019 Ophth Exam [facility] Emergency [facility] [address] [place] [address] Cecelia Franco MD [address] [place] [address] [email or web address] Social History Tobacco Use Types Packs/Day [...] on filedocumented in this encounter Care Teams Hr Coordinator Relationship Specialty Start Date End Date Jayce Krishnan MD [address] [place] [address] PCP - General 07/30/15 documented as of this encounter Additional Source Comments The information contained in this document represents components of the legal health record. It is not the complete legal health record.[facility]
--- OUTSIDE RECORDS SUMMARY | 2025-04-17 20:43 | XMS_ITS | Encounter Summary ---
Author Organization [facility] Address [address] [address] Phone Care Team Providers Care Facility Manager Histology Name Role Phone Unavailable Primary Care Provider Unavailabl e Encounter Details Date Type Department Care Team (Late st Contact Info) Description 01/16/2009 Legacy Encounter - [place] [address] Provider, MD Ricky [address] [place], [place] [phone] Social History Tobacco Use Types Packs/Day Years [...]
--- OUTSIDE RECORDS SUMMARY | 2025-04-17 20:43 | XMS_ITS | Encounter Summary ---
Author Organization [facility] Address [address] [address] Phone Care Team Providers Care Satellite Tv Technician Name Role Phone Unavailable Primary Care Provider Unavailabl e Encounter Details Date Type Department Care Team (Late st Contact Info) Description 02/20/2007 Legacy Encounter - Labs [place] [address] Provider, MD Ricky [address] [place], [place] [phone] Social History Tobacco Use Types Packs/Day Years [...]
--- OUTSIDE RECORDS SUMMARY | 2025-04-17 20:43 | XMS_ITS | Encounter Summary ---
Author Organization [facility] Address [address], [place] [address] Phone Care Team Providers Care Bridge Carpenter Name Role Phone Unavailable Primary Care Provider Unavailabl e Encounter Details Date Type Department Care Team (Late st Contact Info) Description 11/04/2006 Legacy Encounter - Labs [place] [address] Provider, MD Ricky [address] [place], [place] [phone] Social History Tobacco Use Types Packs/Day Years [...]
--- OUTSIDE RECORDS SUMMARY | 2025-04-17 20:43 | XMS_ITS | Encounter Summary ---
Author Organization [facility] Address [address], [place] [address] Phone Care Team Providers Care Ski Top Trimmer Name Role Phone Unavailable Primary Care Provider Unavailabl e Encounter Details Date Type Department Care Team (Late st Contact Info) Description 04/30/2009 Legacy Encounter - Labs [place] [address] Provider, MD Ricky [address] [place], [place] [phone] Social History Tobacco Use Types Packs/Day Years [...]
--- OUTSIDE RECORDS SUMMARY | 2025-04-17 20:43 | XMS_ITS | Encounter Summary ---
Author Organization [facility] Address [address] [address] Phone Care Team Providers Care Longwall Machine Operator Helper Name Role Phone Unavailable Primary Care Provider Unavailabl e Encounter Details Date Type Department Care Team (Late st Contact Info) Description 09/04/2007 Legacy Encounter - [place] [address] Provider, MD Ricky [address] [place], [place] [phone] Social History Tobacco Use Types Packs/Day Years [...]
--- OUTSIDE RECORDS SUMMARY | 2025-04-17 20:43 | XMS_ITS | Encounter Summary ---
Author Organization [facility] Address [address] [address] Phone Care Team Providers Care Metal Furniture Assembler Name Role Phone Unavailable Primary Care Provider Unavailabl e Encounter Details Date Type Department Care Team (Late st Contact Info) Description 12/21/2006 Legacy Encounter - Labs H[place] [address] Provider, MD Ricky [address] [place], [place] [phone] Social History Tobacco Use Types Packs/Day Years [...]
--- OUTSIDE RECORDS SUMMARY | 2025-04-17 20:43 | XMS_ITS | Encounter Summary ---
Author Organization [facility] Address [address] [address] Phone Care Team Providers Care Intervention Teacher Name Role Phone Unavailable Primary Care Provider Unavailabl e Encounter Details Date Type Department Care Team (Late st Contact Info) Description 09/10/2006 Legacy Encounter - Labs [place] [address] Provider, MD Ricky [address] [place], [place] [phone] Social History Tobacco Use Types Packs/Day Years [...]
--- OUTSIDE RECORDS SUMMARY | 2025-04-17 20:43 | XMS_ITS | Encounter Summary ---
Author Organization [facility] Address [address] [address] Phone Care Team Providers Care Instrumentation Instructor Name Role Phone Unavailable Primary Care Provider Unavailabl e Encounter Details Date Type Department Care Team (Late st Contact Info) Description 07/26/2007 Legacy Encounter - Labs [place] [address] Provider, MD Ricky [address] [place], [place] [phone] Social History Tobacco Use Types Packs/Day Years [...]
--- OUTSIDE RECORDS SUMMARY | 2025-04-17 20:43 | XMS_ITS | Encounter Summary ---
Author Organization [facility] Address [address] [address] Phone Care Team Providers Care Petroleum Transport Driver Name Role Phone Unavailable Primary Care Provider Unavailabl e Encounter Details Date Type Department Care Team (Late st Contact Info) Description 04/13/2009 Legacy Encounter - Labs [place] [address] Provider, MD Ricky [address] [place], [place] [phone] Social History Tobacco Use Types Packs/Day Years [...]
--- OUTSIDE RECORDS SUMMARY | 2025-04-17 20:43 | XMS_ITS | Encounter Summary ---
Author Organization [facility] Address [address], [place] [address] Phone Care Team Providers Care Graduate Teaching Associate Name Role Phone Unavailable Primary Care Provider Unavailabl e Encounter Details Date Type Department Care Team (Late st Contact Info) Description 08/19/2006 Legacy Encounter - Labs HISTORICAL CONVERSION [place] [address] [place] [address] Provider, MD Ricky [address] [place], [place] [phone] Social History Tobacco Use Types Packs/Day Years [...]
--- OUTSIDE RECORDS SUMMARY | 2025-04-17 20:43 | XMS_ITS | Encounter Summary ---
Author Organization [facility] Address [address], [place] [address] Phone Care Team Providers Care Handle Assembler Name Role Phone Unavailable Primary Care Provider Unavailabl e Encounter Details Date Type Department Care Team (Late st Contact Info) Description 08/15/2006 Legacy Encounter - Labs [place] [address] Provider, MD Ricky [address] [place], [place] [phone] Social History Tobacco Use Types Packs/Day Years [...]
--- OUTSIDE RECORDS SUMMARY | 2025-04-17 20:43 | XMS_ITS | Encounter Summary ---
Author Organization [facility] Address [address], [place] [address] Phone Care Team Providers Care Kennel Keeper Name Role Phone Unavailable Primary Care Provider Unavailabl e Encounter Details Date Type Department Care Team (Late st Contact Info) Description 01/22/2009 Clinical Support [place] [address] ProviderRicky MD [address] [place] [address] Social History Tobacco Use Types Packs/Day Years [...]
--- OUTSIDE RECORDS SUMMARY | 2025-04-17 20:43 | XMS_ITS | Encounter Summary ---
Author Organization [facility] Address [address] [address] Phone Care Team Providers Care Floral Merchandiser Name Role Phone Unavailable Primary Care Provider Unavailabl e Encounter Details Date Type Department Care Team (Late st Contact Info) Description 02/17/2007 Legacy Encounter - [place] [address] Provider, MD Ricky [address] [place], [place] [phone] Social History Tobacco Use Types Packs/Day Years [...]
--- OUTSIDE RECORDS SUMMARY | 2025-04-17 20:43 | XMS_ITS | Encounter Summary ---
Author Organization [facility] Address [address] [address] Phone Care Team Providers Care Carnallite Plant Operator Name Role Phone Unavailable Primary Care Provider Unavailabl e Encounter Details Date Type Department Care Team (Late st Contact Info) Description 09/26/2006 Legacy Encounter - Labs [place] [address] Provider, MD Ricky [address] [place], [place] [phone] Social History Tobacco Use Types Packs/Day Years [...]
== END 2025-04-17 10:36 | disposition home or self-care (01) ==
LOC: HO.HMGCLDS 10:35
PROVIDERS: PCP Internal Medicine; Visit Provider Internal Medicine Hypertension Specialist
DX: E10.319 Type 1 diabetes mellitus with unspecified diabetic retinopathy without macular edema (principal); E10.22 Type 1 diabetes mellitus with diabetic chronic kidney disease; N18.9 Chronic kidney disease, unspecified; M81.0 Age-related osteoporosis without current pathological fracture; Z79.4 Long term (current) use of insulin
CPT/HCPCS: 36415; 80048; 82947; 83036; 99212

== ENCOUNTER 2025-04-17 12:40 | Outpatient (AMB) | payer MEDICARE, SELFPAY ==
--- NOTE | 2025-04-17 12:59 | A.OFFVIS_ITS ---
Vital Signs 04/17/25 13:03 Height 5 ft 4 in Weight 183 lb 3.266 oz BMI 31.4 BP 128/76 Blood Pressure Location Lt brachial Position Sitting Pulse 73 Pulse Source Pulse Oximeter Pulse Oximetry (%) 97 Oxygen Delivery Method Room Air Intake Visit Reasons: T1DM/ Osteoporosis Intake Note: Patient present today to follow up on Type 1 Diabetes Mellitus and Osteoporosis. Last Diabetic Eye exam: approx 6 months ago Retina Specialist Last Podiatry Visit: Patient was being seen by Dr. Rosalba Espinosa, due to insurance patient needs to be seen somewhere else. [facility] PCP placed referral. Random Glucose: 188 mg/dl Hgb A1C: 6.8% 04/17/2025 Cargo Mate Required: No Accompanied by: Self / Same As Patient Allergies ciprofloxacin (From Cipro) Adverse Reaction (Verified 04/17/25 13:04) Swelling prochlorperazine (From Compazine) Adverse Reaction (Verified 04/17/25 13:04) Muscle Pain Medication List - Last Reconciled 04/17/25 by Shan Farnz MD acetone (urine) test (Ketone Urine Test strips) As directed atorvastatin 80 mg PO DAILY bisacodyl (Dulcolax (bisacodyl)) 10 mg (2 x 5 mg) PO BEDTIME blood-glucose sensor (Dexcom G7 Sensor device) As directed every 10 days blood-glucose,video and sound recorder,cont (Dexcom G7 Metal Weather Stripper) As directed cholecalciferol (vitamin D3) 100 mcg (2 x 50 mcg (2,000 unit)) PO DAILY infusion set for insulin pump As directed: Humalog insulin glargine (Lantus Solostar U-100 Insulin) 13 units (0.13 mL) subcut DAILY PRN 30 days insulin lispro 50 units (0.5 mL) subcut DAILY insulin pump cart,auto,BT,G6/7 (Omnipod 5 G6-G7 Pods (Gen 5) subcutaneous cartridge) Change every 72 hours lancets (FreeStyle Lancets) 4 times a day prn sensor failure or to confirm glucose dispense as 31 gauge if available lansoprazole 30 mg PO DAILY vlfwar-cbrqynrl-ofwngbm (pork) 12,000-38,000 -60,000 unit (Creon) 1 cap PO QID metoprolol succinate ER 25 mg PO DAILY Motegrity (prucalopride) 2 mg PO DAILY NS pen needle, diabetic (Comfort EZ Pen [place]) As directed teriparatide (Forteo) 20 mcg (0.08 mL) subcut DAILY HPI Comments Details: 64 YO F with with type 1 diabetes seen today in follow-up. She was last seen by Mary Anne Menchaca NP on 10/05/24 Initially diagnosed with T1DM in age 28 when she presented with DKA. Was initially started on treatment with insulin. She is using Omnipod 5 sensor with Dexcom sensor. 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 Basal rate(s) (units/hour) : 12 A =0.6 units/hr 8A= 0.9 Bolus setting Insulin Carbohydrate Ratio (s) 1:14 Correction Factor / Sensitivity Factor 48 Active Insulin Time:? 4 hours Target(s): 12-8am 130 8 am 110 Dexcom average glucose: 167 14 day continuous glucose monitor report reviewed Days with CGM data 89 % TIme in ranges: 3 % very high (above 250) 28 % high ?(181-250) 69 % in range ?(70-180] 0 % low (69-55) 0 % ?very low (below 54) Interpretation some increases in sugar after the meal which dropped down to normal Total daily dose of insulin 24.3 63% basal 15.4 37% bolus 8.9 Backup insulin plan 11-12 units of Lantus plus usual doses of short-acting Reports low sugars rare none recent. Treats lows with gluose tabs Checks sugar after to ensure it is rising. Follows the rule of 15's. Has emergency nasal spray No Family history of autoimmunity Has eyes checked yearly, last eye exam 6 mos ago has retinopathy had laser. To schedule optho surgery next yr Has neuropathy sees podiatry regularly. She got a 2nd opinion. First podiatr ist recommended amputation 2nd bicycle i assembler recommended to surgery starting with an internal fixation. She has Charcot feet and is followed closely by podiatry she is holding off on surgery for now due to her clwuyvst-as-jgf is a diagnosis of cancer has bilateral foot pain Has CKD nephropathy, on ARB 01/03/24 microalbumin 8.0 eGFR46 Has HLD, on statin. Last LDL 58 01/03/24 Denies history of CAD.Has CHF Had diabetes education. Diet/Carb counting: carb counts folllows balanced diet Denies recent prior episodes of DKA with exception of the time of diagnosis Has prior severe episodes of hypoglycemia requiring help or hospitalization. Last episode last yr Under increase stress Her daughter was recently diagosed with stage 4 colon cancer This is a 64-year-old white female with a history of severe osteoporosis with fracture. Secondary workup is negative except for slightly low 24 hour urine for calcium. 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 Vitamin D deficiency Osteoporosis Abnormal colonoscopy CKD (chronic kidney disease) Surgical History History of cholecystectomy History of hip surgery Hx of cataract surgery Family History Daughter Mental health disorder Mother HTN (hypertension) Lupus (systemic lupus erythematosus) Social History 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,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 Absence of blue sclera. Absence of kyphosis. Thyroid gland is of nl size and weighs 15 gms. There are no thyroid nodules palpated. Lungs CTA. Heart S1 S2 Reg R/R Abdominal exam benign. Muscle strength 5/5 . 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 Plan is to continue the current treatment (2) Osteoporosis: Comment: Reclast infusion 2015? in the past, DEXA 11/2021 T score -3.3 femur, endocrinology recommended clearance from nephrology to treat osteoporosis started Forteo 08/2024 f/u with Endo Code(s): M81.0 - Age-related osteoporosis without current pathological fracture Category: Medical Plan: This is a 64-year-old white female with a history of severe osteoporosis with fracture. Secondary workup is negative except for slightly low 24 hour urine for calcium. Currently on Forteo since 08/2024. 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
[2025-04-17 13:03] VITALS: BP 128/76; PULSE 73; O2SAT 97; BMI 31.4
[2025-04-17 13:18] LABS: Glucose, Whole Blood 188 mg/dL (60-115)
== END 2025-04-17 13:33 | disposition home or self-care (01) ==
PROVIDERS: PCP Internal Medicine; Visit Provider Internal Medicine Endocrinology, Diabetes & Metabolism
DX: E10.319 Type 1 diabetes mellitus with unspecified diabetic retinopathy without macular edema (principal); M81.0 Age-related osteoporosis without current pathological fracture
CPT/HCPCS: 99214; G2211

== ENCOUNTER 2025-05-15 12:39 | Outpatient (AMB) | payer MEDICARE, SELFPAY ==
--- NOTE | 2025-05-15 13:30 | MHC.AMDMED ---
Intake Intake Visit Reasons: T1DM Tipping Machine Operator Required: No Accompanied by: Self / Same As Patient Allergies ciprofloxacin (From Cipro) Adverse Reaction (Verified 04/17/25 13:04) Swelling prochlorperazine (From Compazine) Adverse Reaction (Verified 04/17/25 13:04) Muscle Pain HPI Comprehensive Diabetes Asmnt Most Recent Diabetes Results: Microalb/Creat Ratio TNP 01/23/25 Cholesterol, (<200) 115 mg/dL 01/23/25 HDL Cholesterol, (>40) 56 mg/dL 01/23/25 Triglycerides, (<150) 50 mg/dL 01/23/25 Creatinine, (0.5-1.4) 1.54 mg/dL H 04/17/25 BUN, (9-16) 27 mg/dL H 04/17/25 Sodium, (135-145) 137 mmol/L 04/17/25 Potassium, (3.3-5.1) 4.2 mmol/L 04/17/25 Chloride, (96-108) 102 mmol/L 04/17/25 Carbon Dioxide, (22-29) 25 mmol/L 04/17/25 Calcium, (8.4-10.2) 9.2 mg/dL 04/17/25 AST, (5-31) 30 U/L 01/23/25 ALT, (0-31) 24 U/L 01/23/25 Total Protein, (6.5-8.0) 7.1 g/dL 01/23/25 Albumin, (3.5-5.0) 4.2 g/dL 01/23/25 [facility] Medical History (Updated 01/22/25 @ 19:41 by Keerthi Oneil [facility]) Chronic idiopathic constipation Anemia Gastroparesis 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 Vitamin D deficiency Osteoporosis Abnormal colonoscopy CKD (chronic kidney disease) Surgical History History of cholecystectomy History of hip surgery Hx of cataract surgery Family History Daughter Mental health disorder Mother HTN (hypertension) Lupus (systemic lupus erythematosus) Social History 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,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, 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 Housing: Apartment Alcohol intake: current Alcohol intake frequency: holidays/special occasions only Patient Tobacco Use Status: Never used Tobacco e-Cigarette/Vaping Use: Never Used service: No Current occupational status: disabled Current occupation: right handed Cognitive needs: No Hearing needs: No Vision needs: No Assessment & Plan Assessment & Plan (1) 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 Reviewed the differences between ilet in Omnipod. Patient also reports due to gastroparesis she sometimes postprandial hyperglycemia Reviewed with patient how to use extended bolus, start with 40% to 50% up front deliver the rest over the next 60 minutes Insulin delivery settings Inserting infusion set or starting pod Troubleshooting after starting new pod or inserting new insulin set: Occlusion, adhesive tape sensitivity, redness Check BG 2 hours after site change Safety information: Patient understands the basic concepts of pump therapy, how to give insulin for meals and snacks, how to troubleshoot for hyper and hypoglycemia. Setting verified by [facility], no changes made to pump settings at todays visit Basal rate(s) (units/hour) : 12 AM ? to 8 AM? 0.6 units / hr 8 AM to 12 AM 0.8 units / hr Bolus setting Insulin Carbohydrate Ratio (s) 12 AM?to 12 AM? 1:14 Correction Factor / Sensitivity Factor 12 AM?to 12 AM? 1:48 Active Insulin Time:? 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
--- OUTSIDE RECORDS SUMMARY | 2025-05-15 16:51 | XMS_ITS | Clinical Summary ---
Author Organization [facility] Address [address] [place] [id number] Phone Care Team Providers Care Traveling Phlebotomist Name Role Phone Jayce Krishnan MD Primary [...] Active ferrous sulfate 325 mg (65 mg alatna iron) tablet Take 65 mg by mouth. [...] Medical Devices Not on file Care Teams Traveling Phlebotomist Relationship Specialty Start Date End Date Jayce Krishnan MD [address] [place] [address] PCP - General 07/30/15 Additional Source Comments The information contained in this document represents components of the legal health record. It is not the complete legal health record.[facility]
--- OUTSIDE RECORDS SUMMARY | 2025-05-15 16:51 | XMS_ITS | Encounter Summary ---
Author Organization [facility] Address [address] [place] [phone] Phone Care Team Providers Care Perennial House Manager Name Role Phone Jayce Krishnan MD Primary Care Provider + Encounter Details Date Type Department Care Team (Late st Contact Info) Description 11/03/2019 Ophth Exam [facility] [address] [place] [address] Cecelia Franco MD [address] [place] [address] [email or web address] Social History Tobacco Use Types Packs/Day [...] on filedocumented in this encounter Care Teams Perennial House Manager Relationship Specialty Start Date End Date Jayce Krishnan MD [address] [place] [address] PCP - General 07/30/15 documented as of this encounter Additional Source Comments The information contained in this document represents components of the legal health record. It is not the complete legal health record.[facility]
== END 2025-05-15 13:51 | disposition home or self-care (01) ==
LOC: HO.ENCR 12:40
PROVIDERS: PCP Internal Medicine; Visit Provider Registered Nurse Diabetes Educator
DX: E10.319 Type 1 diabetes mellitus with unspecified diabetic retinopathy without macular edema (principal)

== ENCOUNTER → 2025-05-15 12:39 | Outpatient (BNVA) | payer MEDICARE, SELFPAY | PROVIDERS: PCP Internal Medicine; Visit Provider Registered Nurse Diabetes Educator | DX: E10.319 Type 1 diabetes mellitus with unspecified diabetic retinopathy without macular edema (principal) | CPT/HCPCS: 99211 ==